=== PATIENT | female | born 1965 | race Caucasian/White ===

== ENCOUNTER 2017-04-28 17:22 | Emergency (ER) | payer BC, OTHER ==
[~2017-04-28] VITALS: Ht 157.5 cm; Wt 108.0 kg
--- OUTSIDE RECORDS SUMMARY | ~2017-04-28 | XMS | Clinical Summary ---
Demographics + + + | Address | [address] | | | [place] [address] | + + + | Home Phone | | + + + | Preferred Language | Unknown | + + + | Marital Status | Single | + + + | Uatsdin Affiliation | Unknown | + + + | Race | or | + + + | Ethnic Group | Not or | + + + Author + + + | Author | [facility] | + + + | Organization | [facility] | + + + | Address | Unknown | + + + | Phone | Unavailable | + + + Support + + +---------+ + | Name | Relationship | Address | Phone | + + +---------+ + | HARVEY DODSON | SHE | Unknown | | + + +---------+ + Care Team Providers + +------+ + | Care Shipping And Receiving Clerk Name | Role | Phone | + +------+ + | Carolina LeyvaP | PP | Unavailable | + +------+ + Source Comments MANISHA is fully live on both EpicCare Ambulatory and EpicCare InPatient.[facility] Allergies + + + + + + | Active Allergy | Reactions | Severity | Noted | Comments | | | | | Date | | + + + + + + | Penicillins | | | 10/31/19 | Can't remember | | | | | 10 | reaction | + + + + + + Current Medications + + +-------+---------+------+------+-------+ | Prescription | Sig. | Disp. | Refills | Star | End | Statu | | | | | | t | Date | s | | | | | | Date | | | + + +-------+---------+------+------+-------+ | ibuprofen (MOTRIN) | Take 800 mg by mouth | | | 09/0 | | Activ | | 800 mg Oral Tablet | as needed. | | | 2/20 | | e | | | | | | 10 | | | + + +-------+---------+------+------+-------+ Active Problems + + + | Problem | Noted Date | + + + | Hepatitis C | 10/30/2009 | + + + | Diabetes mellitus (HCC) | 10/30/2009 | + + + Family History + + +------+ + | Medical History | Relation | Name | Comments | + + +------+ + | Additional Family | Father | | Parkinsons | | History | | | | + + +------+ + | Diabetes | Mother | | | + + +------+ + | Hypertension | Mother | | | + + +------+ + + +------+--------+ + | Relation | Name | Status | Comments | + +------+--------+ + | Father | | | | + +------+--------+ + | Mother | | | | + +------+--------+ + Social History + +-------+ +--------+ + [...] Pressure | 132/84 | 10/30/2009 8:40 AM PDT | + + + + | Pulse | 76 | 10/30/2009 8:40 AM PDT | + + + + | Temperature | 36.8 C (98.3 F) | 10/30/2009 8:40 AM PDT | + + + + | Respiratory Rate | 16 | 10/30/2009 8:40 AM PDT | + + + + | Oxygen Saturation | - | - | + + + + | Inhaled Oxygen | - | - | | Concentration | | | + + + + | Weight | 102.9 kg (226 lb | 10/30/2009 8:40 AM PDT | | | 12.8 oz) | | + + + + | Height | 157.5 cm (5' 2") | 10/30/2009 8:40 AM PDT | + + + + | Body Mass Index | 41.48 | 10/30/2009 8:40 AM PDT | + + + + Plan of Treatment + + + + + | Health Maintenance | Due Date | Last Done | Comments | + + + + + | INFLUENZA VACCINE | | | | | (FLU SHOT) | 7 | | | + + + + + Results Not on filefrom Last 3 Months
--- OUTSIDE RECORDS SUMMARY | ~2017-04-28 | XMS | Clinical Summary ---
Demographics + + + | Address | [address] | | | [place] [address] | + + + | Home Phone | | + + + | Preferred Language | Unknown | + + + | Marital Status | Single | + + + | Lutheran Affiliation | Unknown | + + + | Race | or | + + + | Ethnic Group | Not or | + + + Author + + + | Author | [facility] | + + + | Organization | [facility] | + + + | Address | Unknown | + + + | Phone | Unavailable | + + + Support + + +---------+ + | Name | Relationship | Address | Phone | + + +---------+ + | HARVEY DODSON | SHE | Unknown | | + + +---------+ + Care Team Providers + +------+ + | Care Product Manager Name | Role | Phone | + +------+ + | Carolina LeyvaP | PP | Unavailable | + +------+ + Source Comments MANISHA is fully live on both EpicCare Ambulatory and EpicCare InPatient.[facility] Allergies + + + + + + [...]
[~2017-04-28 17:22] MED LIST: BACTRIM DS TAB1 EACH PO; CLINDAMYCIN HC150 MG PO; FERROUS SULFAT325 MG PO; LASIX40 MG PO; NORCO 5-325 TA1 EACH PO; OMEPRAZOLE20 MG PO; POTASSIUM CHLO20 ME1 PO; SPIRONOLACTONE50 MG PO; VITAMIN C500 M1 PO
[2017-04-28] MEDS ORDERED: LASIX40 MG PO (17:52)
[2017-04-28] MEDS ORDERED: K-TAB ER20 MEQ PO (17:52)
== END 2017-04-28 18:02 | disposition home or self-care (01) ==
LOC: ED 17:22
DX: D64.9 Anemia, unspecified (principal); R60.0 Localized edema; E11.9 Type 2 diabetes mellitus without complications; F17.200 Nicotine dependence, unspecified, uncomplicated; Z88.0 Allergy status to penicillin
CPT/HCPCS: 99283

== ENCOUNTER 2019-03-04 22:28 | Emergency (ER) | payer BC, OTHER ==
[~2019-03-04] VITALS: Ht 157.5 cm; Wt 108.0 kg
--- OUTSIDE RECORDS SUMMARY | ~2019-03-04 | XMS | Encounter Summary ---
Demographics + + + | Address | [address] | | | [place] [address] | + + + | Home Phone | | + + + | Preferred Language | Unknown | + + + | Marital Status | Single | + + + | Baptism Affiliation | Unknown | + + + | Race | or | + + + | Ethnic Group | Not or | + + + Author + + + | Author | [facility] | + + + | Organization | [facility] | + + + | Address | Unknown | + + + | Phone | Unavailable | + + + Support + + +---------+ + | Name | Relationship | Address | Phone | + + +---------+ + | Berny Breaux | ECON | Unknown | | + + +---------+ + Care Team Providers + +------+ + | Care Business Reporter Name | Role | Phone | + +------+ + | Carolina Leyva | PCP | | + +------+ + Reason for Visit +--------+ + | Reason | Comments | +--------+ + | Anemia | | +--------+ + Encounter Details +--------+ + + + + | Date | Type | Department | Care Team | Description | +--------+ + + + + | 04/04/ | Emergency | [facility] | | | | 2013 | | Department [address] | | | [address] | | | | | | [facility] | | | | | | [place], [place] | | | | | | [address] | | | | | | [phone] | | | +--------+ + + + + Social History + +-------+ +--------+ + | Tobacco Use | Types | Packs/Day | Years | Date | | | | | Used | | + +-------+ +--------+ + | Former Smoker | | | 5 | Quit: 07/30/1999 | + +-------+ +--------+ + + + | Comments: only socially | + + + + +---------+ + | Alcohol Use | Drinks/Week | oz/Week | Comments | + + +---------+ + | No | | | | + + +---------+ + + + + | Sex Assigned at | Date Recorded | | | | + + + | Not on file | | + + + + + + + | Job Start Date | Occupation | Industry | + + + + | Not on file | Not on file | Not on file | + + + + + + + + | Travel History | Travel Start | Travel End | + + + + + + | No recent travel history available. | + + documented as of this encounter Medications at Time of Discharge + + + +---------+ + + | Medication | Sig | Dispensed | Refills | Start | End Date | | | | | | Date | | + + + +---------+ + + | ibuprofen (MOTRIN) | Take 800 mg by mouth | | 0 | 10/31/19 | | | 800 mg Oral Tablet | as needed. | | | 10 | | + + + +---------+ + + documented as of this encounter Plan of Treatment Not on filedocumented as of this encounter Visit Diagnoses Not on filedocumented in this encounter"
--- OUTSIDE RECORDS SUMMARY | ~2019-03-04 | XMS | Encounter Summary ---
Demographics + + + | Address | [address] | | | [place] [address] | + + + | Home Phone | | + + + | Preferred Language | Unknown | + + + | Marital Status | Single | + + + | Roman Catholic Affiliation | Unknown | + + + | Race | or | + + + | Ethnic Group | Not or | + + + Author + + + | Author | [facility] | + + + | Organization | [facility] | + + + | Address | Unknown | + + + | Phone | Unavailable | + + + Support + + +---------+ + | Name | Relationship | Address | Phone | + + +---------+ + | Berny Breaux | ECON | Unknown | | + + +---------+ + Care Team Providers + +------+ + | Care Outreach Counselor Name | Role | Phone | + +------+ + | Carolina Leyva | PCP | | + +------+ + Reason for Visit + + + | Reason | Comments | + + + | Appointment | | + + + Encounter Details +--------+ + + + + | Date | Type | Department | Care Team | Description | +--------+ + + + + | 03/08/ | Telephone | Digestive Health | Geovani Kapoor | Appointment | | 2014 | | Center at [facility] [address] | | | | | [address] | [place], [place] | | | | | Mailcode: OC8D | [address] | | | | | [facility] | [phone] | | | | | and Healing, | | | | | | [address] | | | | | | [place], [place] | | | | | | [address] | | | | | | [phone] | | | +--------+ + + + [...]
--- OUTSIDE RECORDS SUMMARY | ~2019-03-04 | XMS | Clinical Summary ---
Demographics + + + | Address | [address] | | | [place] [address] | + + + | Home Phone | | + + + | Preferred Language | Unknown | + + + | Marital Status | Single | + + + | Congregation Affiliation | Unknown | + + + | Race | Unknown | + + + | Ethnic Group | Unknown | + + + Author + + + | Author | [facility] (Historical as of | | | 10-14-18) | + + + | Organization | [facility] (Historical as of | | | 10-14-18) | + + + | Address | Unknown | + + + | Phone | Unavailable | + + + Support + + +---------+ + | Name | Relationship | Address | Phone | + + +---------+ + | Sadaf Arnold | SHE | Unknown | | + + +---------+ + Care Team Providers + +------+ + | Care Cabinet And Trim Installer Name | Role | Phone | + +------+ + | Sahil Luis Angel Griggs | PP | | + +------+ + Allergies + + + + + + | Active Allergy | Reactions | Severity | Noted | Comments | | | | | Date | | + + + + + + | Penicillins | Rash | Medium | 01/25/20 | | | | | | 14 | | + + + + + + Current Medications No known medications Active Problems No known active problems Social History + +-------+ +--------+------+ | Tobacco Use | Types | Packs/Day | Years | Date | | | | | Used | | + +-------+ +--------+------+ | Never Smoker | | | | | + +-------+ +--------+------+ + + +---------+ + | Alcohol Use | Drinks/We | oz/Week | Comments | | | ek | | | + + +---------+ + | No | | | | + + +---------+ + + + + | Sex Assigned at | Date Recorded | | | | + + + | Not on file | | + + + Last Filed Vital Signs + + + + | Vital Sign | Reading | Time Taken | + + + + | Blood Pressure | 135/67 | 01/24/2014 10:33 PM PST | + + + + | Pulse | 82 | 01/24/2014 10:33 PM PST | + + + + | Temperature | 37.2 C (99 F) | 01/24/2014 9:48 PM PST | + + + + | Respiratory Rate | 16 | 01/24/2014 10:33 PM PST | + + + + | Oxygen Saturation | 99% | 01/24/2014 10:33 PM PST | + + + + | Inhaled Oxygen | - | - | | Concentration | | | + + + + | Weight | 102 kg (224 lb 13.9 | 01/24/2014 9:48 PM PST | | | oz) | | + + + + | Height | - | - | + + + + | Body Mass Index | - | - | + + + + Plan of Treatment + + + + + | Health Maintenance | Due Date | Last Done | Comments | + + + + + | Vaccine: | 10/02/198 | | | | Dtap/Tdap/Td (1 - | 7 | | | | Tdap) | | | | + + + + + | Cervical Cancer | | | | | Screening (Pap) | 8 | | | + + + + + | Vaccine: Zoster (1 | | | | | of 2) | 8 | | | + + + + + | Vaccine: Influenza | | | | | (#1) | 9 | | | + + + + + Results Not on filefrom Last 3 Months Insurance + +--------+ +------+-------+ + | Payer | Benefi | Subscriber | Type | Phone | Address | | | t Plan | ID | | | | | | / | | | | | | | Group | | | | | + +--------+ +------+-------+ + | PREMERA | PREMER | [id number] | | | [address] [address] | | | A BLUE | | | | [place], [place] | | | CROSS | | | | [address] | | | FED | | | | | | | PPO | | | | | + +--------+ +------+-------+ + | [employer] | YELLOW | [id number] | | | | | PLANS | [place] | | | | | + +--------+ +------+-------+ + + +--------+ +--------+ + + | Guarantor Name | Accoun | Relation to | Date | Phone | Billing Address | | | t Type | Patient | of | | | | | | | | | | + +--------+ +--------+ + + | KAREN PATEL | Person | Self [birth year] | Work: | [address] | | | [place] | | 1966 | [phone] | [place] [address] | | | [address] | | | [phone]: | | | | | | | | | | | | | | [phone] | | | | | | | [phone] | | + +--------+ +--------+ + +"
--- OUTSIDE RECORDS SUMMARY | ~2019-03-04 | XMS | Encounter Summary ---
Demographics + + + | Address | [address] | | | [place] [address] | + + + | Home Phone | | + + + | Preferred Language | Unknown | + + + | Marital Status | Single | + + + | Druze Affiliation | Unknown | + + + | Race | or | + + + | Ethnic Group | Not or | + + + Author + + + | Author | [facility] | + + + | Organization | [facility] | + + + | Address | Unknown | + + + | Phone | Unavailable | + + + Support + + +---------+ + | Name | Relationship | Address | Phone | + + +---------+ + | Berny Breaux | ECON | Unknown | | + + +---------+ + Care Team Providers + +------+ + | Care Plant Quality Manager Name | Role | Phone | + [...] | | 2014 | | Center at [facility] [address] | | | | | [address] | [place], [place] | | | | | Mailcode: OC8D | [address] | | | | | [facility] | [phone] | | | | | and Healing, | | | | | | [address] | | | | | | [place], [place] | | | | | | [address] | | | | | | [phone] | | | +--------+ + + + [...]
--- OUTSIDE RECORDS SUMMARY | ~2019-03-04 | XMS | Clinical Summary ---
Demographics + + + | Address | [address] | | | [place] [address] | + + + | Home Phone | | + + + | Preferred Language | Unknown | + + + | Marital Status | | + + + | Mandaeism Affiliation | Unknown | + + + | Race | Unknown | + + + | Ethnic Group | Unknown | + + + Author + + + | Author | [facility] | | | and [place] | + + + | Organization | [facility] | | | and [place] | + + + | Address | Unknown | + + + | Phone | Unavailable | + + + Support + + +---------+ + | Name | Relationship | Address | Phone | + + +---------+ + | Sadaf Arnold | SHE | Unknown | | + + +---------+ + Care Team Providers + +------+ + | Care Separations Scientist Name | Role | Phone | + +------+ + | Amy Vizcarra PA-C | PCP | | + +------+ + Allergies + + + +--------+ + | Active Allergy | Reactions | Severity | Noted | Comments | | | | | Date | | + + + +--------+ + | Penicillins | | | | | + + + +--------+ + Medications + + + +---------+------+------+-------+ | Medication | Sig | Dispensed | Refills | Star | End | Statu | | | | | | t | Date | s | | | | | | Date | | | + + + +---------+------+------+-------+ | albuterol (PROAIR | Inhale 1 or 2 puffs | | 0 | 10/29 | | Activ | | HFA) 90 mcg/puff | 4 times a day as | | | 06/17 | | e | | inhaler | needed for shortness | | | 12 | | | | | of breath | | | | | | + + + +---------+------+------+-------+ | aspirin 81 mg EC | Take 81 mg by mouth | | 0 | 10/29 | | Activ | | tablet | Daily. | | | 06/17 | | e | | | | | | 12 | | | + + + +---------+------+------+-------+ | ferrous sulfate | Take 1 tablet by | | 0 | 10/29 | | Activ | | 325 mg tablet | mouth twice daily | | | 06/17 | | e | | | with meals for iron | | | 12 | | | + + + +---------+------+------+-------+ | TechLite Lancets | Use as directed for | | 0 | 09/1 | | Activ | | MISC | blood testing | | | 4/20 | | e | | | | | | 12 | | | + + + +---------+------+------+-------+ | lisinopril | Take 2.5 mg by mouth | | 0 | 09/1 | | Activ | | (PRINIVIL,ZESTRIL) | Daily. | | | 4/20 | | e | | 2.5 MG tablet | | | | 12 | | | + + + +---------+------+------+-------+ | Blood Glucose | Use as directed | | 0 | 09/1 | | Activ | | Monitoring Suppl | | | | 4/20 | | e | | (KEENA CONTOUR | | | | 12 | | | | MONITOR) W/DEVICE | | | | | | | | KIT | | | | | | | + + + +---------+------+------+-------+ | glucose blood | Use as directed | | 0 | 09/1 | | Activ | | test strips (KEENA | | | | 06/17 | | e | | CONTOUR TEST) strip | | | | 12 | | | + + + +---------+------+------+-------+ | | to be used as needed | | 0 | 07/ | | Activ | | tobramycin-dexametha | | | | 11/17 | | e | | sone (TOBRADEX) | | | | 11 | | | | ophthalmic solution | | | | | | | + + + +---------+------+------+-------+ Active Problems + + + | Problem | Noted Date | + + + | THROMBOCYTOPENIA | 09/15/2010 | + + + | ABN LIVER FUNCTION | 09/15/2010 | + + + | DEFICIENCY OF OTHER VITAMINS | | + + + | DIABETES MELLITUS, TYPE II | | + + + | UNSPECIFIED VIRAL HEPATITIS C W/O HEPATIC COMA | | + + + + + | Overview: ICD-10 Record update | + + + +---+ | CONJUNCTIVITIS | | + +---+ | ANEMIA | | + +---+ Social History + +-------+ +--------+------+ | Tobacco Use | Types | Packs/Day | Years | Date | | | | | Used | | + +-------+ +--------+------+ | Never Smoker | | | | | + +-------+ +--------+------+ + + + | Sex Assigned at [...] recent travel history available. | + + Last Filed Vital Signs + + + + + | Vital Sign | Reading | Time Taken | Comments | + + + + + | Blood Pressure | 136/90 | 09/15/2010 12:00 AM | | | | | PDT | | + + + + + | Pulse | - | - | | + + + + + | Temperature | - | - | | + + + + + | Respiratory Rate | - | - | | + + + + + | Oxygen Saturation | - | - | | + + + + + | Inhaled Oxygen | - | - | | | Concentration | | | | + + + + + | Weight | 103.9 kg (229 lb) | 09/15/2010 12:00 AM | | | | | PDT | | + + + + + | Height | 160 cm (5' 3") | 08/03/2010 12:00 AM | | | | | PDT | | + + + + + | Body Mass Index | 40.57 | 08/03/2010 12:00 AM | | | | | PDT | | + + + + + Plan of Treatment + + + + + | Health Maintenance | Due Date | Last Done | Comments | + + + + + | Vaccine: | | | | | Dtap/Tdap/Td (1 - | 9 | | | | Tdap) | | | | + + + + + | Cervical Cancer | | | | | Screening (Pap) | 8 | | | + + + + + | Breast Cancer | | | | | Screening | 3 | | | + + + + + | Vaccine: Zoster (1 | | | | | of 2) | 8 | | | + + + + + | Vaccine: Influenza | | | | | (#1) | 9 | | | + + + + + Results Not on filefrom Last 3 Months Insurance +-------+--------+ +--------+ + +------+ | Payer | Benefi | Subscriber | Effect | Phone | Address | Type | | | t Plan | ID | tyrese | | | | | | / | | Dates | | | | | | Group | | | | | | +-------+--------+ +--------+ + +------+ | BCBS | BCBS | [id number] | 02/28/19 | | | PPO | | | FEDERA | | 16-Pre | | | | | | L FEP | | sent | | | | +-------+--------+ +--------+ + +------+ | MODA | MODA | [id number] | | [phone] | [address] | PPO | | | OE[employer] | | [phone]-[id number] | [phone] | | | | [place] | | esent | | [place], | | | | [place] | | | | [place] [address] | | +-------+--------+ +--------+ + +------+ + +--------+ +--------+ + + | Guarantor Name | Accoun | Relation to | Date | Phone | Billing Address | | | t Type | Patient | of | | | | | | | | | | + +--------+ +--------+ + + | Karen Whitmore | Person | Self | [birth year] | | [address] | | | [place] | | 1966 | [phone] | [place] [address] | | | [place] | | | 4 (Home) | | | | | | | [phone] | | | | | | | 2 (Work) | | + +--------+ +--------+ + +
--- OUTSIDE RECORDS SUMMARY | ~2019-03-04 | XMS | Encounter Summary ---
Demographics + + + | Address | [address] | | | [place] [address] | + + + | Home Phone | | + + + | Preferred Language | Unknown | + + + | Marital Status | Single | + + + | Judaism Affiliation | Unknown | + + + | Race | or | + + + | Ethnic Group | Not or | + + + Author + + + | Author | [facility] | + + + | Organization | [facility] | + + + | Address | Unknown | + + + | Phone | Unavailable | + + + Support + + +---------+ + | Name | Relationship | Address | Phone | + + +---------+ + | Berny Breaux | ECON | Unknown | | + + +---------+ + Care Team Providers + +------+ + | Care Gis Scientist Name | Role | Phone | + +------+ + | Carolina Leyva | PCP | | + +------+ + Encounter Details +--------+ + + + + | Date | Type | Department | Care Team | Description | +--------+ + + + + | 05/10/ | Document-Sc | UNKNOWN DEPARTMENT | Unknown . | | | 2013 | anned | [address] | | | | | [address] | | | | | | [place], [place] | | | | | | [address] | | | +--------+ + + + [...]
--- OUTSIDE RECORDS SUMMARY | ~2019-03-04 | XMS | Encounter Summary ---
Demographics + + + | Address | [address] | | | [place] [address] | + + + | Home Phone | | + + + | Preferred Language | Unknown | + + + | Marital Status | | + + + | Hoahaoism Affiliation | Unknown | + + + | Race | Unknown | + + + | Ethnic Group | Unknown | + + + Author + + + | Author | [facility] | | | and [place] | + + + | Organization | [facility] | | | and [...] Team Providers + +------+ + | Care Loom Cleaner Name | Role | Phone | + +------+ + | Juanita Elias MD | PCP | | + +------+ + Encounter Details +--------+ + + + + | Date | Type | Department | Care Team | Description | +--------+ + + + + | 05/04/ | Documentati | [facility] | [facility], | | | 2013 | on | GASTROENTEROLOGY | DIONE Castillo [address] | | | | | [address] [place] | [place] [address] | | | | | [address] | [place] | | | | | [address] | [id number] | | | | | [phone] | | | +--------+ + + + + Social History + +-------+ +--------+------+ | Tobacco Use | Types | Packs/Day | Years | Date | | | | | Used | | + +-------+ +--------+------+ | Never Assessed | | | | | + +-------+ [...]
--- OUTSIDE RECORDS SUMMARY | ~2019-03-04 | XMS | Encounter Summary ---
Demographics + + + | Address | [address] | | | [place] [address] | + + + | Home Phone | | + + + | Preferred Language | Unknown | + + + | Marital Status | Single | + + + | Confucianist Affiliation | Unknown | + + + | Race | or | + + + | Ethnic Group | Not or | + + + Author + + + | Author | [facility] | + + + | Organization | [facility] | + + + | Address | Unknown | + + + | Phone | Unavailable | + + + Support + + +---------+ + | Name | Relationship | Address | Phone | + + +---------+ + | Berny Breaux | ECON | Unknown | | + + +---------+ + Care Team Providers + +------+ + | Care Chemical Equipment Controller Name | Role | Phone | + +------+ + | Carolina Leyva | PCP | | + +------+ + Encounter Details +--------+ + + + + | Date | Type | Department | Care Team | Description | +--------+ + + + + | 04/28/ | Telephone | Digestive Health | Geovani Kapoor | | | 2010 | | [place] [address] | MD Clemencia [address] | | | | | [address] | [place], [place] | | | | | Mailcode: OC8D | [address] | | | | | [facility] | [phone] | | | | | and Healing, | | | | | | [address] | | | | | | [place], [place] | | | | | | [address] | | | | | | [phone] | | | +--------+ + + + [...]
--- OUTSIDE RECORDS SUMMARY | ~2019-03-04 | XMS | Encounter Summary ---
Demographics + + + | Address | [address] | | | [place] [address] | + + + | Home Phone | | + + + | Preferred Language | Unknown | + + + | Marital Status | Single | + + + | Buddhism Affiliation | Unknown | + + + [...] Team Providers + +------+ + | Care Vulcanizer Rubber Plate Name | Role | Phone | + +------+ + | Carolina Leyva | PCP | | + +------+ + Reason for Visit + + + | Reason | Comments | + + + | New patient | Hepatitis C | | consultation | | + + + Consultation (Routine) +--------+ + + + + + | Status | Reason | Specialty | Diagnoses / | Referred By | Referred To | | | | | Procedures | Contact | Contact | +--------+ + + + + + | Closed | Specialty | Hepatology | Diagnoses | [facility]ine[facility], | Gas | | | Services | | Hepatitis C | NEETA Peters | Hepatology | | | Required | | Procedures | [address] | [address] | | | | | CONSULT TO | MANUELITO KILLIAN | Sujit Gabriel | | | | | HEPATOLOGY | [place], [place] | Mailcode: | | | | | | [address] | [facility] | | | | | | Phone: | [employer] | | | | | | [phone] | and [facility], | | | | | | Fax: | [facility] [address] | | | | | | [phone] | [place], [place] | | | | | | | [address] | | | | | | | Phone: | | | | | | | [phone] | | | | | | | Fax: | | | | | | | [phone] | +--------+ + + + + + Encounter Details +--------+---------+ + + + | Date | Type | Department | Care Team | Description | +--------+---------+ + + + | 10/30/ | Office | Digestive Health | Geovani Kapoor | Hepatitis C; | | 2009 | Visit | Center at [facility] [address] | MD Clemencia [address] | Diabetes mellitus | | | | [address] | Ave [place], [place] | ([facility]) | | | | Mailcode: [facility] | [address] | | | | | [facility] | [phone] | | | | | and Healing, | | | | | | Building [address] | | | | | | [place], [place] | | | | | | [address] | | | | | | [phone] | | | +--------+---------+ + + + Social History + +-------+ [...] + + documented as of this encounter Last Filed Vital Signs + + + + + | Vital Sign | Reading | Time Taken | Comments | + + + + + | Blood Pressure | 132/84 | 10/30/2009 8:40 AM | | | | | PDT | | + + + + + | Pulse | 76 | 10/30/2009 8:40 AM | | | | | PDT | | + + + + + | Temperature | 36.8 C (98.3 F) | 10/30/2009 8:40 AM | | | | | PDT | | + + + + + | Respiratory Rate | 16 | 10/30/2009 8:40 AM | | | | | PDT | | + + + + + | Oxygen Saturation | - | - | | + + + + + | Inhaled Oxygen | - | - | | | Concentration | | | | + + + + + | Weight | 102.9 kg (226 lb | 10/30/2009 8:40 AM | | | | 12.8 oz) | PDT | | + + + + + | Height | 157.5 cm (5' 2") | 10/30/2009 8:40 AM | | | | | PDT | | + + + + + | Body Mass Index | 41.48 | 10/30/2009 8:40 AM | | | | | PDT | | + + + + + documented in this encounter Progress Notes Geovani Kapoor MD - 10/30/2009 9:12 AM PDTFormatting of this note might be differen t from the original. Reason for referral: Evaluation and management of Hepatitis C (HCV) infection Referring provider: Carolina Leyva Ms. Karen Whitmore, a 43 y.o. female first learned she had HCV in June of 2009. She has nev er had confusion suggestive of hepatic encephalopathy, abdominal swelling suggestive of asci deloris, yellowness of the eyes suggestive of jaundice, or vomiting of blood. 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; has daughter, 14 (healthy) and boyfrien d [place] Gen: Mild fatigue, malaise Eyes: No yellowness, no visual abnormalities Mouth: No dysphagia or odynophagia Resp: No shortness of breath, no cough CV: No palpitations, no chest pain Abd: No abdominal pain, no recent change in bowel habits, no black tarry stools, no BRBPR Skin: No rash Neuro: No tremor Psych: No depression, no anxiety All other systems otherwise negative PE Filed Vitals: 10/30/2009 8:40 AM Height: 1.575 m (5' 2") Weight: 102.876 kg (226 lb 12.8 oz) BP: 132/84 Pulse: 76 Temp: 36.8 C (98.3 F) TempSrc: Oral Resp: 16 PainSc: 0 - Zero BMI: 41.48 kg/(m^2) Gen: Well developed female in no acute distress HEENT: NC/AT, no scleral icterus, no lesions OP/OC Neck: Supple, no JULIAN CV: Reg S1S2, no m/r/g Pulm: Clear B Abd: Soft, NT, obese, +BS all quads, no masses Ext: No edema Neuro: No asterixis Skin: No spider angiomata Lab Date: 06/05/09 HAV IgM Neg HBsAg Neg HBV sAb Neg HCV Ab Pos Date: 06/04/09 Creat 0.57 Ast 125 Alt 113 ALP 117 Tbili 0.8 Summary Diagnoses 1. HCV infection, GT unknown 1.1 No evidence of cirrhosis 1.2 HCV Treatment Hx: None 2. Diabetes mellitus 3. Overweight Impression Ms. Karen Whitmore is a 43 y.o. female who presents for evaluation and management of HCV in [facility]. She has no clinical or laboratory evidence that suggest cirrhosis. I discussed at length the natural history of HCV infection, specifically that it is thought to cause cirrh osis in approximately 20% of people infected, and that it takes 2 to 5 decades of infection for cirrhosis to appear. The risk of developing cirrhosis can be increased by drinking alco hol heavily. We talked about the standard of care treatment of HCV infection, which includes treatment w ith interferon and ribavirin. The main side effects of treatment, including abnormalities i n blood counts, onset or worsening of psychiatric problems like depression and anxiety, flu- like symptoms, thyroid abnormalities, and treatment failure were discussed. I think that the first thing we need to do is get the genotype of her HCV and confirm that she actually has HCV (with a viral load). She likely has HCV given the positive antibody te st and elevated liver enzymes, but given that she is overweight and has DM, she is also at [facility] for fatty liver (NAFLD). A liver biopsy will help us sort out if she needs to be treate d for HCV (it will tell us if she has significant fibrosis, in which case I would recommend HCV treatment; if little or no fibrosis, would not treat). Recommendations 1. Blood work to confirm HCV (RNA viral load) and get genotype today 2. Get liver biopsy locally, have results sent to me 3. I will call the patient ([phone]) when I get the results, we will make a plan from there documented in th is encounter Plan of Treatment Not on filedocumented as of this encounter Results HEPATITIS C QUANTITATIVE, SERUM (10/30/2009 9:23 AM PDT) + + + + + + | Component | Value | Ref Range | Performed | Pathologist | | | | | At | Signature | + + + + + + | HEP C PCR, | [id number] | IU/mL | [facility] | | | QUANT | | | [facility] | | | | | | LABS | | + + + + + + | SPECIMEN | Serum | | [facility] | | | TYPE | | | [facility] | | | | | | LABS | | + + + + + + | INTERPRETAT | Reportable Range: | | [facility] | | | ION | 43-69,000,000 IU/mL HCV | | [facility] | | | | viral loads above | | LABS | | | | approximately 800,000 | | | | | | HCV IU/mL predict a | | | | | | poorerresponse to | | | | | | antiviral therapy and | | | | | | may indicate the need | | | | | | for a longercourse of | | | | | | antiviral therapy. HCV | | | | | | viral loads below | | | | | | approximately 800,000HCV | | | | | | IU/mL are a good | | | | | | prognostic indicator for | | | | | | antiviral therapy | | | | | | efficacy. Serial | | | | | | declines in the HCV | | | | | | viral load may indicate | | | | | | the relative efficacyof | | | | | | anti-viral therapy. | | | | | | Viral load changes of | | | | | | less than 3 fold may not | | | | | | bebiologically | | | | | | significant and should | | | | | | be interpreted | | | | | | cautiously. Undetected | | | | | | results are suggestive | | | | | | of either the absence of | | | | | | HCV viremia orthe | | | | | | presence of low-level | | | | | | HCV viremia below the | | | | | | assay's detection limit. | | | | | | | | | | + + + + + + + + | Specimen | + + | Blood - Blood | + + + + + + + | Performing | Address | City/State/Zipcode | Phone Number | | Organization | | | | + + + + + | [facility] | [facility] | [place] [address] | | | GENETICS LABS | [address] | | | | | [address]VE. | | | + + + + + HEPATITIS C GENOTYPING, SERUM (10/30/2009 9:23 AM PDT) + + + + + + | Component | Value | Ref Range | Performed | Pathologist | | | | | At | Signature | + + + + + + | HEP C | TYPE 1A | | [facility] | | | GENOTYPE | | | [facility] | | | | | | LABS | | + + + + + + | SPECIMEN | Serum | | [facility] | | | TYPE | | | [facility] | | | | | | LABS | | + + + + + + | INTERPRETAT | As per your request, we | | [facility] | | | ION | have completed a | | [facility] | | | | polymerase chain | | LABS | | | | reaction (PCR)based | | | | | | assay to determine the | | | | | | genotype of the | | | | | | hepatitis C virus | | | | | | speciespresent in the | | | | | | patient. For this assay, | | | | | | serum derived RNA is | | | | | | reversetranscribed with | | | | | | an HCV specific primer | | | | | | followed by multiplex | | | | | | PCRamplification (3 | | | | | | different reactions) | | | | | | with genotype-specific | | | | | | probes andfluorescent | | | | | | detection on an MICHELLE | | | | | | [id number] instrument. The | | | | | | real time | | | | | | PCRamplification plots | | | | | | of the patient sample | | | | | | and controls has been | | | | | | examinedand the clinical | | | | | | interpretation is | | | | | | detailed below. | | | | | | Infection with HCV | | | | | | genotype 1,4,5, or 6 | | | | | | isolates has been shown | | | | | | to be oneof several | | | | | | factors associated with | | | | | | a poorer virological | | | | | | response topharmacologic | | | | | | antiviral therapy. | | | | | | Patients with HCV | | | | | | genotype 1,4,5,or | | | | | | 6isolates may require | | | | | | lengthier durations of | | | | | | antiviral therapy to | | | | | | achievea sustained | | | | | | virological response. | | | | | | In addition to the | | | | | | presence of HCVgenotype | | | | | | 1,4,5,or 6 isolates, | | | | | | other poor prognostic | | | | | | indicators for | | | | | | asustained response to | | | | | | antiviral therapy | | | | | | include a high baseline | | | | | | viralload, the presence | | | | | | of hepatic fibrosis, and | | | | | | older age. A | | | | | | quantitativeHCV RNA-PCR | | | | | | viral load assay | | | | | | (test#8804) may | | | | | | therefore be | | | | | | clinicallyindicated. | | | | | | References: 1.) | | | | | | Rajni Mccann, | | | | | | Best Natarajan, | | | | | | Lauren David, Jasmin, | | | | | | Lay Dong J. | | | | | | (1999): Is am "A la | | | | | | Carte" combination of | | | | | | interferon edilberto-2b | | | | | | plusribavirin regimen | | | | | | possible for the first | | | | | | line treatment of | | | | | | patients withhepatitis | | | | | | C? Hepatology 31, | | | | | | 211-218. This test was | | | | | | developed and its | | | | | | performance | | | | | | characteristics | | | | | | determined bythe [facility] | | | | | | [facility] | | | | | | Laboratory. It has not | | | | | | been cleared or | | | | | | approvedby the Food and | | | | | | Drug Administration. FDA | | | | | | approval is not | | | | | | required forclinical use | | | | | | of the test, and | | | | | | therefore validation was | | | | | | done as requiredunder | | | | | | the requirements of the | | | | | | Clinical Laboratory | | | | | | Improvement Act . | | | | | | The [facility] | | | | | | Laboratory is a fully | | | | | | licensed and/ | | | | | | oraccredited clinical | | | | | | laboratory under CLIA, | | | | | | [place], and the State of | | | | | | [place]. | | | | + + + + + + + + | Specimen | + + | Blood - Blood | + + + + + + + | Performing | Address | City/State/Zipcode | Phone Number | | Organization | | | | + + + + + | [facility] | [facility] | [place] [address] | | | GENETICS LABS | [address] | | | | | [address]VE[address] | | | + + + + + BILE ACIDS, TOTAL (10/30/2009 9:23 AM PDT) + + + + + + | Component | Value | Ref Range | Performed | Pathologist | | | | | At | Signature | + + + + + + | BILE ACIDS, | 35.0 (H)Comment: TEST | <10.1 umol/L | | | | TOTAL | INFORMATION: Bile Acids, | | | | | | TotalReference Interval | | | | | | applies to fasting | | | | | | specimens.Performed by | | | | | | [facility], | | | | | | | | | | | | [address] [facility] | | | | | | [place] [facility] [place] [address] | | | | | | [phone] | | | | | | | | | | | | www.[employer], | | | | | | Muna Nichols MD - | | | | | | Lab. Director | | | | + + + + + + + + | Specimen | + + | Blood - Blood | + + + + + + + | Performing | Address | City/State/Zipcode | Phone Number | | Organization | | | | + + + + + | [facility] | [address] | [place], [place] | | | [facility] | | [address] | | + + + + + CBC ONLY (10/30/2009 9:23 AM PDT) + + + + + + | Component | Value | Ref Range | Performed | Pathologist | | | | | At | Signature | + + + + + + | WHITE CELL | 4.8 | 4.4 - 11.0 K/cu | [facility] | | | COUNT | | mm | DEPARTMENT | | | | | | OF | | | | | | PATHOLOGY | | + + + + + + | RED CELL | 3.86 (L) | 4.00 - 5.20 | [facility] | | | COUNT | | M/cu mm | DEPARTMENT | | | | | | OF | | | | | | PATHOLOGY | | + + + + + + | HEMOGLOBIN | 10.3 (L) | 12.0 - 16.0 | [facility] | | | | | g/dL | DEPARTMENT | | | | | | OF | | | | | | PATHOLOGY | | + + + + + + | HEMATOCRIT | 31.7 (L) | 36.0 - 46.0 % | [facility] | | | | | | DEPARTMENT | | | | | | OF | | | | | | PATHOLOGY | | + + + + + + | MCV | 82.0 | 80.0 - 96.0 fL | [facility] | | | | | | DEPARTMENT | | | | | | OF | | | | | | PATHOLOGY | | + + + + + + | MCHC | 32.6 (L) | 33.4 - 35.5 | [facility] | | | | | g/dL | DEPARTMENT | | | | | | OF | | | | | | PATHOLOGY | | + + + + + + | RDW | 16.8 (H) | 11.5 - 15.0 % | [facility] | | | | | | DEPARTMENT | | | | | | OF | | | | | | PATHOLOGY | | + + + + + + | PLATELET | 114 (L) | 150 - 400 K/cu | [facility] | | | COUNT | | mm | DEPARTMENT | | | | | | OF | | | | | | PATHOLOGY | | + + + + + + + + | Specimen | + + | Blood - Blood | + + + + + + + | Performing | Address | City/State/Zipcode | Phone Number | | Organization | | | | + + + + + | [facility] | [address] | [place] [address] | | | PATHOLOGY | [address] | | | + + + + + INR (10/30/2009 9:23 AM PDT) + + + + + + | Component | Value | Ref Range | Performed | Pathologist | | | | | At | Signature | + + + + + + | INR | 1.13Comment: | 0.90 - 1.20 INR | [facility] | | | | INR Therapeutic ranges | | DEPARTMENT | | | | for full | | OF | | | | anticoagulation: | | PATHOLOGY | | | | INR for Venous | | | | | | Thromboembolism | | | | | | (2.0-3.0) | | | | | | INR INR for most | | | | | | patients with mech. | | | | | | valves (2.5-3.5) | | | | | | INR | | | | + + + + + + + + | Specimen | + + | Blood - Blood | + + + + + + + | Performing | Address | City/State/Zipcode | Phone Number | | Organization | | | | + + + + + | [facility] | [address] | [place] [address] | | | PATHOLOGY | [address] | | | + + + + + COMPLETE METABOLIC SET (NA,K,CL,CO2,BUN,CREAT,GLUC,CA,AST,ALT,BILI TOTAL,ALK PHOS,ALB,PROT TOTAL) (10/30/2009 9:23 AM PDT) + + + + + + | Component | Value | Ref Range | Performed | Pathologist | | | | | At | Signature | + + + + + + | GLUCOSE, | 137 (H) | 60 - 99 mg/dL | [facility] | | | PLASMA | | | DEPARTMENT | | | (LAB) | | | OF | | | | | | PATHOLOGY | | + + + + + + | BUN, PLASMA | 12 | 6 - 20 mg/dL | [facility] | | | (LAB) | | | DEPARTMENT | | | | | | OF | | | | | | PATHOLOGY | | + + + + + + | CREATININE | 0.56 (L) | 0.60 - 1.10 | [facility] | | | PLASMA | | mg/dL | DEPARTMENT | | | (LAB) | | | OF | | | | | | PATHOLOGY | | + + + + + + | TOTAL | 7.6 | 6.1 - 7.9 g/dL | [facility] | | | PROTEIN, | | | DEPARTMENT | | | PLASMA | | | OF | | | (LAB) | | | PATHOLOGY | | + + + + + + | ALBUMIN, | 3.1 (L) | 3.5 - 4.7 g/dL | [facility] | | | PLASMA | | | DEPARTMENT | | | (LAB) | | | OF | | | | | | PATHOLOGY | | + + + + + + | CALCIUM, | 9.0 | 8.6 - 10.2 | [facility] | | | PLASMA | | mg/dL | DEPARTMENT | | | (LAB) | | | OF | | | | | | PATHOLOGY | | + + + + + + | BILIRUBIN | 0.5 | 0.3 - 1.2 mg/dL | [facility] | | | TOTAL | | | DEPARTMENT | | | | | | OF | | | | | | PATHOLOGY | | + + + + + + | ALK PHOS | 123 (H) | 42 - 98 U/L | [facility] | | | | | | DEPARTMENT | | | | | | OF | | | | | | PATHOLOGY | | + + + + + + | AST(SGOT) | 118 (H) | 15 - 41 U/L | [facility] | | | | | | DEPARTMENT | | | | | | OF | | | | | | PATHOLOGY | | + + + + + + | SODIUM, | 136 | 134 - 143 | [facility] | | | PLASMA | | mmol/L | DEPARTMENT | | | (LAB) | | | OF | | | | | | PATHOLOGY | | + + + + + + | POTASSIUM, | 4.2 | 3.4 - 5.0 | [facility] | | | PLASMA | | mmol/L | DEPARTMENT | | | (LAB) | | | OF | | | | | | PATHOLOGY | | + + + + + + | CHLORIDE, | 107 | 97 - 108 mmol/L | [facility] | | | PLASMA | | | DEPARTMENT | | | (LAB) | | | OF | | | | | | PATHOLOGY | | + + + + + + | TOTAL CO2, | 25 | 23 - 31 mmol/L | [facility] | | | PLASMA | | | DEPARTMENT | | | (LAB) | | | OF | | | | | | PATHOLOGY | | + + + + + + | ALT (SGPT) | 91 (H) | 13 - 48 U/L | [facility] | | | | | | DEPARTMENT | | | | | | OF | | | | | | PATHOLOGY | | + + + + + + | EGFR | > 60 | >60 mL/min | [facility] | | | - | | | DEPARTMENT | | | [place] | | | OF | | | | | | PATHOLOGY | | + + + + + + | EGFR NON | > 60Comment: GFR is | >60 mL/min | [facility] | | | -ABENA | estimated using the MDRD | | DEPARTMENT | | | RICAN | equation recommended by | | OF | | | | theNational Kidney | | PATHOLOGY | | | | Disease Education | | | | | | Program. Estimated GFR | | | | | | Interpretive | | | | | | Information: <60 | | | | | | mL/min/1.73 sq m | | | | | | Chronic Kidney Disease | | | | | | <15 mL/min/1.73 sq m | | | | | | Kidney Failure | | | | | | Estimated GFR greater | | | | | | than 60mL/min/1.73 is of | | | | | | limited clinical Value. | | | | | | The MDRD equation is | | | | | | not valid in the | | | | | | following situations: - | | | | | | Patients under 18 years | | | | | | of age - Severe | | | | | | malnutrition or obesity | | | | | | - Vegetarian diet - | | | | | | Rapidly changing kidney | | | | | | function | | | | + + + + + + | ANION GAP | 4 | 4 - 11 mmol/L | [facility] | | | | | | DEPARTMENT | | | | | | OF | | | | | | PATHOLOGY | | + + + + + + | ANION | 6 | 4 - 11 mmol/L | [facility] | | | GAP(ALB | | | DEPARTMENT | | | CORRECTED) | | | OF | | | | | | PATHOLOGY | | + + + + + + + + | Specimen | + + | Blood - Blood | + + + + + + + | Performing | Address | City/State/Zipcode | Phone Number | | Organization | | | | + + + + + | [facility] | [address] | [place] [address] | | | PATHOLOGY | [address] | | | + + + + + documented in this encounter Visit Diagnoses + + | Diagnosis | + + | Hepatitis C Unspecified viral hepatitis C without hepatic coma | + + | Diabetes mellitus (HCC) Type II or unspecified type diabetes mellitus without mention | | of complication, not stated as uncontrolled | + + documented in this encounter
--- OUTSIDE RECORDS SUMMARY | ~2019-03-04 | XMS | Encounter Summary ---
Demographics + + + | Address | [address] | | | [place] [address] | + + + | Home Phone | | + + + | Preferred Language | Unknown | + + + | Marital Status | | + + + | Latter-Day Affiliation | Unknown | + + + [...] Team Providers + +------+ + | Care Efficiency Miner Blasting Name | Role | Phone | + +------+ + PCP | Unavailable | + +------+ + Encounter Details +--------+ + + + + | Date | Type | Department | Care Team | Description | +--------+ + + + + | 11/10/ | Abstract | [facility] | [facility] | | | 2011 | | Conversion Location | [facility] | | | | | [phone] | | | +--------+ + + + [...] + + + documented in this encounter Plan of Treatment Not on filedocumented as of this encounter Visit Diagnoses Not on filedocumented in this encounter
--- OUTSIDE RECORDS SUMMARY | ~2019-03-04 | XMS | Encounter Summary ---
Demographics + + + | Address | [address] | | | [place] [address] | + + + | Home Phone | | + + + | Preferred Language | Unknown | + + + | Marital Status | Single | + + + | Protestant Affiliation | Unknown | + + + [...] Team Providers + +------+ + | Care Bank Accountant Name | Role | Phone | + [...] [address] | | | | | | [facility] | | | | | | [place], [place] | | | | | | [address] | | | | | | [phone] | | | +--------+ + + + [...]
--- OUTSIDE RECORDS SUMMARY | ~2019-03-04 | XMS | Encounter Summary ---
Demographics + + + | Address | [address] | | | [place] [address] | + + + | Home Phone | | + + + | Preferred Language | Unknown | + + + | Marital Status | Single | + + + | Adventism Affiliation | Unknown | + + + | Race | or | + + + | Ethnic Group | Not or | + + + Author + + + | Author | [facility] | + + + | Organization | [facility] | + + + | Address | Unknown | + + + | Phone | Unavailable | + + + Support + + +---------+ + | Name | Relationship | Address | Phone | + + +---------+ + | Berny Breaux | ECON | Unknown | | + + +---------+ + Care Team Providers + +------+ + | Care Bale Sewer Name | Role | Phone | + +------+ + | Carolina Leyva | PCP | | + +------+ + Encounter Details +--------+------+ + + + | Date | Type | Department | Care Team | Description | +--------+------+ + + + | 10/30/ | Lab | Laboratory at [facility] | | Hepatitis C | | 2009 | | [address] | | | | | | [place], [place] | | | | | | [address] | | | | | | [phone] | | | +--------+------+ + + + Social History + +-------+ [...] Not on filedocumented as of this encounter Procedures + +--------+ + + + | Procedure Name | Priori | Date/Time | Associated Diagnosis | Comments | | | ty | | | | + +--------+ + + + | HEPATITIS C | Routin | 10/30/2009 | Hepatitis C | Results for this | | GENOTYPING, PLASMA | e | 9:23 AM | | procedure are in the | | | | PDT | | results section. | + +--------+ + + + | HEPATITIS C | Routin | 10/30/2009 | Hepatitis C | Results for this | | QUANTITATIVE, PLASMA | e | 9:23 AM | | procedure are in the | | | | PDT | | results section. | + +--------+ + + + | INR | Routin | 10/30/2009 | Hepatitis C | Results for this | | | e | 9:23 AM | | procedure are in the | | | | PDT | | results section. | + +--------+ + + + | COMPLETE METABOLIC | Routin | 10/30/2009 | Hepatitis C | Results for this | | SET | e | 9:23 AM | | procedure are in the | | (NA,K,CL,CO2,BUN,CRE | | PDT | | results section. | | AT,GLUC,CA,AST,ALT,B | | | | | | HEATHER TOTAL,ALK | | | | | | PHOS,ALB,PROT TOTAL) | | | | | + +--------+ + + + | CBC ONLY | Routin | 10/30/2009 | Hepatitis C | Results for this | | | e | 9:23 AM | | procedure are in the | | | | PDT | | results section. | + +--------+ + + + | BILE ACIDS, TOTAL | Routin | 10/30/2009 | Hepatitis C | Results for this | | | e | 9:23 AM | | procedure are in the | | | | PDT | | results section. | + +--------+ + + + documented in this encounter Results HEPATITIS C QUANTITATIVE, SERUM (10/30/2009 9:23 AM PDT) + + + + + + | Component | Value | Ref Range | Performed | Pathologist | | | | | At | Signature | + + + + + + | HEP C PCR, | [id number] | IU/mL | [facility] | | | QUANT | | | [facility] | | | | | | LABS | | + + + + + + | SPECIMEN | Serum | | [facility] | | | TYPE | | | [facility] | | | | | | LABS | | + + + + + + | INTERPRETAT | Reportable Range: | | [facility] | | | ION | 43-69,000,000 IU/mL [...] + + + + | [facility] | [facility] | [place] [address] | | | GENETICS LABS | [address] | | | | | AVE. | | | + + + + + HEPATITIS C GENOTYPING, SERUM (10/30/2009 9:23 AM PDT) + + + + + + | Component | Value | Ref Range | Performed | Pathologist | | | | | At | Signature | + + + + + + | HEP C | TYPE 1A | | [facility] | | | GENOTYPE | | | AL [facility]ETICS | | | | | | LABS | | + + + + + + | SPECIMEN | Serum | | [facility] | | | TYPE | | | AL GENETICS | | | | | | LABS | | + + + + + + | INTERPRETAT | As per your request, we | | [facility] | | | ION | have completed [...] | | | | | determined bythe [facility] | | | | | | DNA [...] | | | | | Improvement Act [id number]. | | | | | | The [facility] | | | | | | Laboratory is a fully | | | | | | licensed and/ | | | | | | oraccredited clinical | | | | | | laboratory under CLIA, | | | | | | [place], and the State of | | | | | | [place]. | | | | + + + + + + + + | Specimen | + + | Blood - Blood | + + + + + + + | Performing | Address | City/State/[facility] | Phone Number | | Organization | | | | + + + + + | [facility] | [facility] | [place] [address] | | | GENETICS LABS | [address] | | | | | AVE. [...] by | | | | | | [employer], | | | | | | | | | | | | [address] [facility] | | | | | | Reinier [facility] [address] | | | | | | [phone] | | | | | | | | | | | | www.[employer], | | | | | | Muna [...] [facility] | [address] | [place], [place] | | | UNIV PTH - INTFC | | [address] | | + + + + + [...] (L) | 150 - 400 K/cu | [facility] | | | COUNT | | mm [...] | + + + + + | [facility] DEPARTMENT OF | [address] | [place] [address] | | | PATHOLOGY | [address] [...] [facility] | [address] | [place] [address] | | | PATHOLOGY | [address] [...] | | | DEPARTMENT | | | MALDIVIAN | | | OF | | | [...] | + + + + + | [facility] DEPART[facility] | [address] | [place] [address] | | | PATHOLOGY | [address] | | | + + + + + documented in this encounter Visit Diagnoses + + | Diagnosis | + + | Hepatitis C Unspecified viral hepatitis C without hepatic coma | + + documented in this encounter
--- OUTSIDE RECORDS SUMMARY | ~2019-03-04 | XMS | Encounter Summary ---
Demographics + + + | Address | [address] | | | [place] [address] | + + + | Home Phone | | + + + | Preferred Language | Unknown | + + + | Marital Status | Single | + + + | Hindu Affiliation | Unknown | + + + | Race | or | + + + | Ethnic Group | Not or | + + + Author + + + | Author | [facility] | + + + | Organization | [facility] | + + + | Address | Unknown | + + + | Phone | Unavailable | + + + Support + + +---------+ + | Name | Relationship | Address | Phone | + + +---------+ + | Berny Breaux | ECON | Unknown | | + + +---------+ + Care Team Providers + +------+ + | Care Human Resource Advisor Name | Role | Phone | + +------+ + | Carolina Leyva | PCP | | + +------+ + Encounter Details +--------+ + + + + | Date | Type | Department | Care Team | Description | +--------+ + + + + | 12/07/ | Abstract | Digestive Health | Clinic, | | | 2013 | | Center at [facility] [address] | Gastroenterology | | | | | [address] | | | | | | Mailcode: OC8D | | | | | | [facility] | | | | | | and Healing, | | | | | | [address] | | | | | | [place], [place] | | | | | | [address] | | | | | | [phone] | | | +--------+ + + + [...]
--- OUTSIDE RECORDS SUMMARY | ~2019-03-04 | XMS | Clinical Summary ---
Demographics + + + | Address | [address] | | | [place] [address] | + + + | Home Phone | | + + + | Preferred Language | Unknown | + + + | Marital Status | Single | + + + | Synagogue Affiliation | Unknown | + + + | Race | or | + + + | Ethnic Group | Not or | + + + Author + + + | Author | [facility] | + + + | Organization | [facility] | + + + | Address | Unknown | + + + | Phone | Unavailable | + + + Support + + +---------+ + | Name | Relationship | Address | Phone | + + +---------+ + | Berny Breaux | ECON | Unknown | | + + +---------+ + Care Team Providers + +------+ + | Care Wind Farm Electrical Systems Designer Name | Role | Phone | + +------+ + | Carolina LeyvaP | PCP | | + +------+ + Source Comments MANISHA is fully live on both EpicCare Ambulatory and EpicCare InPatient.[facility] Allergies + + + + + + | Active Allergy | Reactions | Severity | Noted | Comments | | | | | Date | | + + + + + + | Penicillins | | | 10/31/19 | Can't remember | | | | | 10 | reaction | + + + + + + Medications + + + +---------+------+------+-------+ | Medication | Sig | Dispensed | Refills | Star | End | Statu | | | | | | t | Date | s | | | | | | Date | | | + + + +---------+------+------+-------+ | ibuprofen (MOTRIN) | Take 800 mg by mouth | | 0 | 090 | | Activ | | 800 mg Oral Tablet | as needed. | | | 2/20 | | e | | | | | | 10 | | | + + + +---------+------+------+-------+ Active Problems + + + | Problem | Noted Date | + + + | Hepatitis C | 10/30/2009 | + + + | Diabetes mellitus | 10/30/2009 | + + + Family [...] | + + + + + | Pneumococcal | | | | | vaccination (1 of 1 | 4 | | | | - PPSV23) | | | | + + + + + | Influenza (Flu) | | | | | vaccination (#1) | 9 | | | + + + + + Results Not on filefrom Last 3 Months Insurance + +--------+ +--------+-------+---------+--------+ | Payer | Benefi | Subscriber | Effect | Phone | Address | Type | | | t Plan | ID | tyrese | | | | | | / | | Dates | | | | | | Group | | | | | | + +--------+ +--------+-------+---------+--------+ | [employer] [facility] | FIRST | xxxxxxxxx | Effect | | | PPO | | | CHOICE | | tyrese | | | | | | | | for | | | | | | HEALTH | | all | | | | | | | | dates | | | | + +--------+ +--------+-------+---------+--------+ | [facility] | FINNISH | xxxxxxxxx | Effect | | | Agency | | SERVICE | | | tyrese | | | | | | HEALTH | | for | | | | | | | | all | | | | | | SERVIC | | dates | | | | | | E | | | | | | + +--------+ +--------+-------+---------+--------+ + +--------+ +--------+ + + | Guarantor Name | Accoun | Relation to | Date | Phone | Billing Address | | | t Type | Patient | of | | | | | | | | | | + +--------+ +--------+ + + | Karen Whitmore | Person | Self | [birth year] | [address] | | | al/Fam | | 1966 | [phone] | [place] [address] | | | virgen | | | 4 (Home) | | | | | | | [phone] | | | | | | | 2 (Work) | | + +--------+ +--------+ + + | Karen Whitmore | Agency | Self | [birth year] | [address] | | | | | 1966 | [phone] | [place] [address] | | | | | | 4 (Home) | | | | | | | [phone] | | | | | | | 2 (Work) | | + +--------+ +--------+ + +
--- OUTSIDE RECORDS SUMMARY | ~2019-03-04 | XMS | Encounter Summary ---
Demographics + + + | Address | [address] | | | [place] [address] | + + + | Home Phone | | + + + | Preferred Language | Unknown | + + + | Marital Status | | + + + | Sabianism Affiliation | Unknown | + + + | Race | Unknown | + + + | Ethnic Group | Unknown | + + + Author + + + | Author | [facility] | | | and [place] | + + + | Organization | [facility] | | | [...] Team Providers + +------+ + | Care Rail Transportation Tabeler Name | Role | Phone | + +------+ + | Juanita Elias MD | PCP | | + +------+ + Encounter Details +--------+ + + + + | Date | Type | Department | Care Team | Description | +--------+ + + + + | 01/24/ | Emergency | [facility] | Bay De La Torre DO | Epistaxis | | 2013 | | MEDICAL CENTER | [address] | | | | | EMERGENCY CENTER | [place], [place] | | | | | [address] | [address] | | | | | [place] | [phone] | | | | | [address] | | | | | | [phone] | | | +--------+ + + + [...] + + + +---------+ + + | albuterol (PROAIR | Inhale 1 or 2 puffs | | 0 | 11/12/19 | | | HFA) 90 mcg/puff | 4 times a day as | | | 12 | | | inhaler | needed for shortness | | | | | | | of breath | | | | | + + + +---------+ + + | aspirin 81 mg EC | Take 81 mg by mouth | | 0 | 11/12/19 | | | tablet | Daily. | | | 12 | | + + + +---------+ + + | Blood Glucose | Use as directed | | 0 | 11/12/19 | | | Monitoring Suppl | | | | 12 | | | ([employer] CONTOUR | | | | | | | MONITOR) W/DEVICE | | | | | | | KIT | | | | | | + + + +---------+ + + | ferrous sulfate | Take 1 tablet by | | 0 | 11/12/19 | | | 325 mg tablet | mouth twice daily | | | 12 | | | | with meals for iron | | | | | + + + +---------+ + + | glucose blood | Use as directed | | 0 | 11/12/19 | | | test strips (KEENA | | | | 12 | | | CONTOUR TEST) strip | | | | | | + + + +---------+ + + | lisinopril | Take 2.5 mg by mouth | | 0 | 11/12/19 | | | (PRINIVIL,ZESTRIL) | Daily. | | | 12 | | | 2.5 MG tablet | | | | | | + + + +---------+ + + | TechLite Lancets | Use as directed for | | 0 | 11/12/19 | | | MISC | blood testing | | | 12 | | + + + +---------+ + + | | to be used as needed | | 0 | 09/16/19 | | | tobramycin-dexametha | | | | 11 | | | sone (TOBRADEX) | | | | | | | ophthalmic solution | | | | | | + + + +---------+ + + documented as of this encounter Plan of Treatment Not on filedocumented as of this encounter Visit Diagnoses + + | Diagnosis | + + | Epistaxis | + + documented in this encounter"
--- OUTSIDE RECORDS SUMMARY | ~2019-03-04 | XMS | Encounter Summary ---
Demographics + + + | Address | [address] | | | [place] [address] | + + + | Home Phone | | + + + | Preferred Language | Unknown | + + + | Marital Status | Single | + + + | Evangelical Affiliation | Unknown | + + + | Race | or | + + + | Ethnic Group | Not or | + + + Author + + + | Author | [facility] | + + + | Organization | [facility] | + + + | Address | Unknown | + + + | Phone | Unavailable | + + + Support + + +---------+ + | Name | Relationship | Address | Phone | + + +---------+ + | Berny Breaux | ECON | Unknown | | + + +---------+ + Care Team Providers + +------+ + | Care Furrier Designer Name | Role | Phone | + +------+ + | Carolina Leyva | PCP | | + +------+ + Reason for Visit + + + | Reason | Comments | + + + | Blood Test Results | [facility] RESULTS 12/04/2013 | + + + | Medical Records | [facility]: Referral Order & Progress Note 12/04/2013 | | Review | | + + + Encounter Details +--------+ + + + + | Date | Type | Department | Care Team | Description | +--------+ + + + + | 02/26/ | Abstract | Digestive Health | Geovani Kapoor | Blood Test Results | | 2013 | | [place] [address] | MD Clemencia [address] | ([facility] | | | | [address] | [place], [place] | RESULTS 12/04/2013); | | | | Mailcode: OC8D | [id number] | Medical Records | | | | [facility] | [phone] | Review ([facility] - | | | | and Healing, | | OUTSIDE RECORDS: | | | | [address] | | Referral Order & | | | | [place], [place] | | Progress Note | | | | [address] | | 12/04/2013) | | | | [phone] | | | +--------+ + + + [...]
--- OUTSIDE RECORDS SUMMARY | ~2019-03-04 | XMS | Encounter Summary ---
Demographics + + + | Address | [address] | | | [place] [address] | + + + | Home Phone | | + + + | Preferred Language | Unknown | + + + | Marital Status | Single | + + + | Latter Day Affiliation | Unknown | + + + | Race | or | + + + | Ethnic Group | Not or | + + + Author + + + | Author | [facility] | + + + | Organization | [facility] | + + + | Address | Unknown | + + + | Phone | Unavailable | + + + Support + + +---------+ + | Name | Relationship | Address | Phone | + + +---------+ + | Berny Breaux | ECON | Unknown | | + + +---------+ + Care Team Providers + +------+ + | Care Addiction Counselor Name | Role | Phone | [...] | | | | | HEPATOLOGY | [place], [place] | Mailcode: | | | | | | [address] | [facility] Center | | | | | | Phone: | [facility] | | | | | | [phone] | and [facility], | | | | | | Fax: | [facility] [address] | | | | | | [phone] | [place], [place] | | | | | | | [address] | | | | | | | Phone: | | | | | | | [phone] | | | | | | | Fax: | | | | | | | [phone] | +--------+ + + + + + Encounter Details +--------+---------+ + + + | Date | Type | Department | Care Team | Description | +--------+---------+ + + + | 10/30/ | Office | Digestive Health | Geovani Kapoor | Hepatitis C; | | 2009 | Visit | Center at [facility] [address] | MD Clemencia [address] | Diabetes mellitus | | | | [address] | [place], [place] | ([facility]) | | | | Mailcode: OC8D | [address] | | | | | [facility] | [phone] | | | | | and Healing, | | | | | | [address] | | | | | | [place], [place] | | | | | | [address] | | | | | | [phone] | | | +--------+---------+ + + + [...] Shx: In clinic alone; 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 Diabetes mellitus 3. Overweight Impression Ms. Karne Whitmore is a 43 y.o. female who presents for evaluation and management of HCV in [facility]. She has no clinical or laboratory evidence [...] and has DM, she is also [facility] for fatty liver (NAFLD). A liver biopsy [...] me 3. I will call the patient ([phone]) when I get the results, we will [...] + + | HEP C PCR, | [id number] | IU/mL | [facility] | | | QUANT | | | [facility] GENETICS | | | | | | LABS | | + + + + + + | SPECIMEN | Serum | | [facility] | | | TYPE | | | AL GENETICS | | | | | | LABS | | + + + + + + | INTERPRETAT | Reportable Range: | | [facility] | | | ION | 43-69,000,000 IU/mL [...] + + + + | [facility] | [facility] | [place] [address] | | | GENETICS LABS | [address] | | | | | AVE. [...] | | | | | determined bythe [facility] | | | | | | [...] of | | | | | | [place]. | | | | + + + + + + + + | Specimen | + + | Blood - Blood | + + + + + + + | Performing | Address | City/State/Zipcode | Phone Number | | Organization | | | | + + + + + | [facility] | [place] [employer] | [place] [address] | | | GENETICS LABS | [address] | | | | | AVE. [...] by | | | | | | [employer], | | | | | | | | | | | | [address] [facility] | | | | | | Reinier [facility] [address] | | | | | | [phone] | | | | | | | | | | | | www.[employer], | | | | | | Muna [...] [facility] | [address] | [place], [place] | | | UNIV PTH - INTFC | | [address] | | + + + + + [...] [facility] DEPARTMENT | [address] | [place] [address] | | | PATHOLOGY | [address] [...] | + + + + + | [facility] | [address] | [place] [address] | | | PATHOLOGY | [address] [...] | | | DEPARTMENT | | | [place] | | | OF | | | [...] | + + + + + | [facility] | [address] | [place] [address] | | | PATHOLOGY | [address] [...]
--- OUTSIDE RECORDS SUMMARY | ~2019-03-04 | XMS | Encounter Summary ---
Demographics + + + | Address | [address] | | | [place] [address] | + + + | Home Phone | | + + + | Preferred Language | Unknown | + + + | Marital Status | | + + + | Congregational Affiliation | Unknown | + + + | Race | Unknown | + + + | Ethnic Group | Unknown | + + + Author + + + | Author | [facility] | | | and [place] | + + + | Organization | [facility] | | | and [...] Team Providers + +------+ + | Care Delivery Clerk Name | Role | Phone | + +------+ + | Juanita Elias MD | PCP | | + +------+ + Encounter Details +--------+ + + + + | Date | Type | Department | Care Team | Description | +--------+ + + + + | 01/24/ | Emergency | [facility] | Bay De La Torre DO | Epistaxis | | 2013 | | MEDICAL CENTER | [address] | | | | | EMERGENCY CENTER | [place], [place] | | | | | [address] | [address] | | | | | [place] | [phone] | | | | | [address] | | | | | | [phone] | | | +--------+ + + + [...] | | | 12 | | | ([employer] CONTOUR | | | | | | [...] | 11/12/19 | | | test strips (EKENA | | | | 12 | | [...]
--- OUTSIDE RECORDS SUMMARY | ~2019-03-04 | XMS | Encounter Summary ---
Demographics + + + | Address | [address] | | | [place] [address] | + + + | Home Phone | | + + + | Preferred Language | Unknown | + + + | Marital Status | | + + + | Christian Affiliation | Unknown | + + + | Race | Unknown | + + + | Ethnic Group | Unknown | + + + Author + + + | Author | [facility] | | | and [place] | + + + | Organization | [facility] | | | and [...] Team Providers + +------+ + | Care Well Flow Operator Name | Role | Phone | + +------+ + | Juanita Elias MD | PCP | | + +------+ + Encounter Details +--------+ + + + + | Date | Type | Department | Care Team | Description | +--------+ + + + + | 05/14/ | Documentati | [facility] [place] | [facility], | | | 2013 | on | GASTROENTEROLOGY | [address] | | | | | [address] [place] | [place], [place] [address] | | | | | [address] | [place] | | | | | [address] | [id number] | | | | | [phone] | | | +--------+ + + + [...]
--- OUTSIDE RECORDS SUMMARY | ~2019-03-04 | XMS | Encounter Summary ---
Demographics + + + | Address | [address] | | | [place] [address] | + + + | Home Phone | | + + + | Preferred Language | Unknown | + + + | Marital Status | Single | + + + | Adventist Affiliation | Unknown | + + + | Race | or | + + + | Ethnic Group | Not or | + + + Author + + + | Author | [facility] | + + + | Organization | [facility] | + + + | Address | Unknown | + + + | Phone | Unavailable | + + + Support + + +---------+ + | Name | Relationship | Address | Phone | + + +---------+ + | Berny Breaux | ECON | Unknown | | + + +---------+ + Care Team Providers + +------+ + | Care Filling Mixer Name | Role | Phone | + [...] [address] | | | | | | [place], [place] | | | | | | [address] | | | +--------+ + + + [...]
--- OUTSIDE RECORDS SUMMARY | ~2019-03-04 | XMS | Encounter Summary ---
Demographics + + + | Address | [address] | | | [place] [address] | + + + | Home Phone | | + + + | Preferred Language | Unknown | + + + | Marital Status | Single | + + + | Taoism Affiliation | Unknown | + + + | Race | or | + + + | Ethnic Group | Not or | + + + Author + + + | Author | [facility] | + + + | Organization | [facility] | + + + | Address | Unknown | + + + | Phone | Unavailable | + + + Support + + +---------+ + | Name | Relationship | Address | Phone | + + +---------+ + | Berny Breaux | ECON | Unknown | | + + +---------+ + Care Team Providers + +------+ + | Care Umbrella Cutter Name | Role | Phone | + +------+ + | Carolina Leyva | PCP | | + +------+ + Encounter Details +--------+ + + + + | Date | Type | Department | Care Team | Description | +--------+ + + + + | 04/28/ | Telephone | Digestive Health | Geovani Kapoor | | | 2010 | | [place] [address] | MD Clemencia [address] | | | | [address] | [place], [place] | | | | | Mailcode: OC8D | [address] | | | | | [facility] | [phone] | | | | | and Healing, | | | | | | [address] | | | | | | [place], [place] | | | | | | [address] | | | | | | [phone] | | | +--------+ + + + [...]
--- OUTSIDE RECORDS SUMMARY | ~2019-03-04 | XMS | Encounter Summary ---
Demographics + + + | Address | [address] | | | [place] [address] | + + + | Home Phone | | + + + | Preferred Language | Unknown | + + + | Marital Status | | + + + | Yazidi Affiliation | Unknown | + + + | Race | Unknown | + + + | Ethnic Group | Unknown | + + + Author + + + | Author | [facility] | | | and [place] | + + + | Organization | [facility] | | | and [...] Team Providers + +------+ + | Care Engineering Secretary Name | Role | Phone | + +------+ + | Juanita Elias MD | PCP | | + +------+ + Encounter Details +--------+ + + + + | Date | Type | Department | Care Team | Description | +--------+ + + + + | 05/04/ | Documentati | [facility] [place] | [facility], | | | 2013 | on | GASTROENTEROLOGY | [address] | | | | | [address] | [place], [place] [address] | | | | | [address] | [place] | | | | | [address] | [id number] | | | | | [phone] | | | +--------+ + + + [...]
--- OUTSIDE RECORDS SUMMARY | ~2019-03-04 | XMS | Encounter Summary ---
Demographics + + + | Address | [address] | | | [place] [address] | + + + | Home Phone | | + + + | Preferred Language | Unknown | + + + | Marital Status | Single | + + + | Jew Affiliation | Unknown | + + + | Race | or | + + + | Ethnic Group | Not or | + + + Author + + + | Author | [facility] | + + + | Organization | [facility] | + + + | Address | Unknown | + + + | Phone | Unavailable | + + + Support + + +---------+ + | Name | Relationship | Address | Phone | + + +---------+ + | Berny Breaux | ECON | Unknown | | + + +---------+ + Care Team Providers + +------+ + | Care Back Up Machine Operator Name | Role | Phone | [...] Gabriel | | | | | | [place], [place] | | | | | | [address] | | | | | | [phone] | | | +--------+------+ + + + [...] + + | HEP C PCR, | [id number] | IU/mL | [facility] | | | [...] | INTERPRETAT | Reportable Range: | | [facility] | | | ION | 43-69,000,000 IU/mL [...] + + + | [facility] | [address] [facility] | [place] [address] | | | GENETICS LABS | [address] | | | | | [address]VE. | | | + + + + + HEPATITIS C GENOTYPING, SERUM (10/30/2009 9:23 AM PDT) + + + + + + | Component | Value | Ref Range | Performed | Pathologist | | | | | At | Signature | + + + + + + | HEP C | TYPE 1A | | [facility] | | | GENOTYPE | | | AL GENETICS | | | | | | LABS | | + + + + + + | SPECIMEN | Serum | | [facility] | | | TYPE | | | AL GENETICS | | | | | | LABS | | + + + + + + | INTERPRETAT | As per your request, we | | [facility] | | | ION | have [...] | | | | | determined bythe [facility] | | | | | | DNA [...] | | | | | Improvement Act [id number]. | | | | | | The [...] + + | Performing | Address | City/State[facility] | Phone Number | | Organization | | | | + + + + + | [facility] | [facility] | [place] [address] | | | GENETICS LABS | [address] | | | | | [address]VE. [...] by | | | | | | [employer], | | | | | | | | | | | | [address] [facility] | | | | | | Reinier [facility] [place] [address] | | | | | | [phone] | | | | | | | | | | | | [email or web address], | | | | | | Muna [...] [facility] | [address] | [place], [place] | | | UNIV PTH - INTFC | | [address] | | + + + + + [...] (L) | 150 - 400 K/cu | [facility] | | | COUNT | | mm [...] | + + + + + | [facility] DEPARTMENT OF | [address] | [place] [address] | | | PATHOLOGY | [address] [...] | + + + + + | [facility] | [address] | [place] [address] | | | PATHOLOGY | [address] [...] | | | DEPARTMENT | | | LITHUANIAN | | | OF | | | [...] | + + + + + | [facility] DEPARTMENT | [address] | [place] [address] | | | PATHOLOGY | [address] | | | + + + + + documented in this encounter Visit Diagnoses + + | Diagnosis | + + | Hepatitis C Unspecified viral hepatitis C without hepatic coma | + + documented in this encounter
--- OUTSIDE RECORDS SUMMARY | ~2019-03-04 | XMS | Encounter Summary ---
Demographics + + + | Address | [address] | | | [place] [address] | + + + | Home Phone | | + + + | Preferred Language | Unknown | + + + | Marital Status | | + + + | Jehovah'S Witness Affiliation | Unknown | + + + | Race | Unknown | + + + | Ethnic Group | Unknown | + + + Author + + + | Author | [facility] | | | and [place] | + + + | Organization | [facility] | | | [...] Team Providers + +------+ + | Care Broadcasting Equipment Mechanic Name | Role | Phone | + [...] | SR | | | | | [phone] | | | +--------+ + + + [...]
--- OUTSIDE RECORDS SUMMARY | ~2019-03-04 | XMS | Clinical Summary ---
Demographics + + + | Address | [address] | | | [place] [address] | + + + | Home Phone | | + + + | Preferred Language | Unknown | + + + | Marital Status | Single | + + + | Anglican Affiliation | Unknown | + + + | Race | Unknown | + + + | Ethnic Group | Unknown | + + + Author + + + | Author | [facility] [employer] (Historical as of | | | 10-14-18) | + + + | Organization | [facility] [employer] (Historical as of | | | 10-14-18) [...] Team Providers + +------+ + | Care Foxing Cutting Machine Operator Name | Role | Phone [...] +------+-------+ + | PREMERA | PREMER | [id number] | | | [address] [address] | | | A BLUE | | | | [place], [place] | | | CROSS | | | | [address] | | | FED | | | | | | | PPO | | | | | + +--------+ +------+-------+ + | [facility] | YELLOW | [id number] | | | | | PLANS | [...] | Self | [birth year] | Work: | [address] | | | fox/Cesar | | 1966 | [phone] | [place] [address] | | | virgen | | | [phone] Home: | | | | | | | | | | | | | | [phone] | | | | | | [phone] | | + +--------+ +--------+ + +"
--- OUTSIDE RECORDS SUMMARY | ~2019-03-04 | XMS | Encounter Summary ---
Demographics + + + | Address | [address] | | | [place] [address] | + + + | Home Phone | | + + + | Preferred Language | Unknown | + + + | Marital Status | | + + + | Buddhist Affiliation | Unknown | + + + | Race | Unknown | + + + | Ethnic Group | Unknown | + + + Author + + + | Author | [facility] | | | and [place] | + + + | Organization | [facility] | | | [...] Team Providers + +------+ + | Care Treatment Plant Mechanic Name | Role | Phone | + +------+ + | Juanita Elias MD | PCP | | + +------+ + Encounter Details +--------+ + + + + | Date | Type | Department | Care Team | Description | +--------+ + + + + | 05/14/ | Documentati | [facility] [place] | [facility], | | | 2013 | on | GASTROENTEROLOGY | DIONE Castillo [address] | | | | | [address] [place] | [place], [place] [address] | | | | | [address] | [place] | | | | | [address] | [id number] | | | | | [phone] | | | +--------+ + + + [...]
--- OUTSIDE RECORDS SUMMARY | ~2019-03-04 | XMS | Clinical Summary ---
Demographics + + + | Address | [address] | | | [place] [address] | + + + | Home Phone | | + + + | Preferred Language | Unknown | + + + | Marital Status | | + + + | Sikhism Affiliation | Unknown | + + + | Race | Unknown | + + + | Ethnic Group | Unknown | + + + Author + + + | Author | [facility] | | | and [place] | + + + | Organization | [facility] | | | and [...] Team Providers + +------+ + | Care Trust Advisor Name | Role | Phone | [...] + +------+ | BCBS | BCBS | [id number] | 02/28/19 | | | PPO | | | FEDERA | | 16-Pre | | | | | | L FEP | | sent | | | | +-------+--------+ +--------+ + +------+ | MODA | MODA | [id number] | | [id number] | [address] | PPO | | | [employer] | | [address] | [phone] [phone] | | | | [place] | | esent | | [place], | | | | [place] | | | | [place] [address] | | +-------+--------+ +--------+ + +------+ + +--------+ +--------+ + + | Guarantor Name | Accoun | Relation to | Date | Phone | Billing Address | | | t Type | Patient | of | | | | | | | | | | + +--------+ +--------+ + + | Karen Whitmore | Person | Self | [birth year] | [address] | | | al/Cesar | | 1966 | [phone] | [place] [address] | | | virgen | | | 4 (Home) | | | | | | | [phone] | | | | | | | 2 (Work) | | + +--------+ +--------+ + +
--- OUTSIDE RECORDS SUMMARY | ~2019-03-04 | XMS | Encounter Summary ---
Demographics + + + | Address | [address] | | | [place] [address] | + + + | Home Phone | | + + + | Preferred Language | Unknown | + + + | Marital Status | Single | + + + | Buddhist Affiliation | Unknown | + + + | Race | or | + + + | Ethnic Group | Not or | + + + Author + + + | Author | [facility] | + + + | Organization | [facility] | + + + | Address | Unknown | + + + | Phone | Unavailable | + + + Support + + +---------+ + | Name | Relationship | Address | Phone | + + +---------+ + | Berny Breaux | ECON | Unknown | | + + +---------+ + Care Team Providers + +------+ + | Care Mining Analyst Name | Role | Phone | + +------+ + | Carolina Leyva | PCP | | + +------+ + Encounter Details +--------+ + + + + | Date | Type | Department | Care Team | Description | +--------+ + + + + | 12/07/ | Abstract | [facility] | Clinic, | | | 2013 | | Center at [facility] [address] | Gastroenterology | | | | | [address] | | | | | | Mailcode: OC8D | | | | | | [facility] | | | | | | and Healing, | | | | | | Building [address] | | | | | | [place], [place] | | | | | | [address] | | | | | | [phone] | | | +--------+ + + + [...]
--- OUTSIDE RECORDS SUMMARY | ~2019-03-04 | XMS | Encounter Summary ---
Demographics + + + | Address | [address] | | | [place] [address] | + + + | Home Phone [...] Author | [facility] | + + + | Organization | [facility] | + + + | Address | Unknown | + + + | Phone | Unavailable | + + + Support + + +---------+ + | Name | Relationship | Address | Phone | + + +---------+ + | Berny Breaux | ECON | Unknown | | + + +---------+ + Care Team Providers + +------+ + | Care Traveling Inventory Associate Name | Role | Phone | + +------+ + | Carolina Leyva | PCP | | + +------+ + Reason for Visit + + + | Reason | Comments | + + + | Blood Test Results | [facility] RESULTS 12/04/2013 | + + + | Medical Records | [facility]: Referral Order & Progress Note 12/04/2013 | | Review | | + + + Encounter Details +--------+ + + + + | Date | Type | Department | Care Team | Description | +--------+ + + + + | 02/26/ | Abstract | Digestive Health | Geovani Kapoor | Blood Test Results | | 2013 | | [place] [address] [address] | MD Clemencia [address] | ([facility] | | | | [address] | [place], [place] | RESULTS 12/04/2013); | | | | Mailcode: OC8D | [id number] | Medical Records | | | | [facility] | [phone] | Review ([facility] | | | | and Healing, | | OUTSIDE RECORDS: | | | | [address] | | Referral Order & | | | | [place], [place] | | Progress Note | | | | [phone] | | 12/04/2013) | | | | [phone] | | | +--------+ + + + [...]
--- OUTSIDE RECORDS SUMMARY | ~2019-03-04 | XMS | Clinical Summary ---
Demographics + + + | Address | [address] | | | [place] [address] | + + + | Home Phone | | + + + | Preferred Language | Unknown | + + + | Marital Status | Single | + + + | Yazdanism Affiliation | Unknown | + + + | Race | or | + + + | Ethnic Group | Not or | + + + Author + + + | Author | [facility] | + + + | Organization | [facility] | + + + | Address | Unknown | + + + | Phone | Unavailable | + + + Support + + +---------+ + | Name | Relationship | Address | Phone | + + +---------+ + | Berny Breaux | ECON | Unknown | | + + +---------+ + Care Team Providers + +------+ + | Care Lan Engineer Name | Role | Phone | + +------+ + | Carolina LeyvaP | PCP | | + +------+ + Source Comments MANISHA is fully live on both EpicCare Ambulatory and EpicCare InPatient.[facility] Allergies + + + + [...] | | | + +--------+ +--------+-------+---------+--------+ | [facility] | [facility] | [phone] | Effect | | | [...] Person | Self | [birth year] | | [address] | | | al/Fam | | 1966 | [phone] | [place] [address] | | | virgen | | | 4 (Home) | | | | | | | [phone] | | | | | | | 2 (Work) | | + +--------+ +--------+ + + | Karen Whitmore | Agency | Self | [birth year] | | [address] | | | | | 1966 | [phone] | [place] [address] | | | | | | 4 (Home) | | | | | | | [phone] | | | | | | | 2 (Work) | | + +--------+ +--------+ + +
[~2019-03-04 22:28] MED LIST changes: +K-TAB ER20 MEQ PO
[2019-03-04] MEDS ORDERED: MUPIROCIN22 GM TOP (22:43)
[2019-03-04] MEDS ORDERED: HYDROCHLOROTHIA25 MG PO (22:43)
[2019-03-04] MEDS ORDERED: KEFLEX500 MG PO (22:44)
[2019-03-04] MEDS ORDERED: IBUPROFEN400 MG PO (22:44)
== END 2019-03-05 01:08 | disposition home or self-care (01) ==
LOC: ED 22:28
DX: L03.116 Cellulitis of left lower limb (principal); D61.818 Other pancytopenia; E11.9 Type 2 diabetes mellitus without complications; D64.9 Anemia, unspecified; E66.9 Obesity, unspecified; Z88.0 Allergy status to penicillin; Z79.899 Other long term (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 therapy
CPT/HCPCS: 80053; 85025; 93971; 99284-25

== ENCOUNTER 2021-07-30 11:58 | Emergency (ER) | payer BC, OTHER ==
[~2021-07-30] VITALS: Ht 157.5 cm; Wt 108.7 kg
--- NOTE | ~2021-07-30 | EKG ---
[facility] [address] [facility] [place], [place] [address] Draft EK completed, results pending confirmation PATIENT NAME: BENTLEY PATEL YOVANY Electrocardiogram DATE OF : 69 PHYSICIAN: PRELIMINARY REPORT #: [id number] REPORT IS CONFIDENTIAL AND NOT TO BE RELEASED WITHOUT AUTHORIZATION
[~2021-07-30 11:58] MED LIST changes: +HYDROCHLOROTHIA25 MG PO; +IBUPROFEN400 MG PO; +KEFLEX500 MG PO; +MUPIROCIN22 GM TOP
[2021-07-30] MEDS ORDERED: POTASSIUM CHLO10 ME1 PO (12:30)
[2021-07-30] MEDS ORDERED: FUROSEMIDE40 MG PO (12:30)
[2021-07-30] MEDS ORDERED: METFORMIN HCL500 M1 PO (12:31)
[2021-07-30] MEDS ORDERED: CARVEDILOL3.125 MG PO (12:31)
[2021-07-30] MEDS ORDERED: SPIRONOLACTONE25 MG PO (12:32)
== END 2021-07-30 15:46 | disposition home or self-care (01) ==
LOC: ED 11:58
DX: R06.00 Dyspnea, unspecified (principal); R60.1 Generalized edema; K76.9 Liver disease, unspecified; E11.9 Type 2 diabetes mellitus without complications; D64.9 Anemia, unspecified; E66.9 Obesity, unspecified; Z88.0 Allergy status to penicillin; Z79.899 Other long term (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 therapy; Z79.84 Long term (current) use of 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; Z20.822 Contact with and (suspected) exposure to COVID-19
CPT/HCPCS: 36415; 71045; 71260; 80053; 83880; 85025; 85060; 85379; 87502; 93005; 93010; 96374; 99285-25; C9803; J1940; J7040; Q9967; U0003

== ENCOUNTER 2021-10-09 22:34 | Emergency (ER) | payer BC, OTHER ==
[~2021-10-09] VITALS: Ht 157.5 cm; Wt 108.7 kg
[~2021-10-09 22:34] MED LIST changes: +CARVEDILOL3.125 MG PO; +FUROSEMIDE40 MG PO; +METFORMIN HCL500 M1 PO; +POTASSIUM CHLO10 ME1 PO; +SPIRONOLACTONE25 MG PO
--- NOTE | 2021-10-11 07:12 | EKG ---
[facility] [address] [facility] [place], [place] [address] Signed Sinus tachycardia Otherwise normal ECG When compared with ECG of 30-JUL-2021 12:19, No significant change was found Confirmed by REEMA POWELL MD ([id number]) on 10/11/2021 7:11:46 AM Electronically Signed By: REEMA POWELL MD 10/11/21711 PATIENT NAME: BENTLEY PATELCE Electrocardiogram DATE OF : 69 PHYSICIAN: REEMA POWELL MD REPORT #: [id number] REPORT IS CONFIDENTIAL AND NOT TO BE RELEASED WITHOUT AUTHORIZATION
== END 2021-10-10 00:08 | disposition home or self-care (01) ==
LOC: ED 22:34
DX: R06.02 Shortness of breath (principal); R60.1 Generalized edema; K76.9 Liver disease, unspecified; E11.9 Type 2 diabetes mellitus without complications; D64.9 Anemia, unspecified; E55.9 Vitamin D deficiency, unspecified; Z88.0 Allergy status to penicillin; Z79.899 Other long term (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 therapy; Z79.84 Long term (current) use of 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
CPT/HCPCS: 36415; 71045; 80053; 83880; 84484; 85025; 85060; 93005; 93010; 99285-25

== ENCOUNTER 2022-01-04 16:51 | Emergency (ER) | payer BC, OTHER ==
[~2022-01-04] VITALS: Ht 157.5 cm; Wt 108.7 kg
[2022-01-04] MEDS ORDERED: TORSEMIDE20 MG PO (18:12)
[2022-01-04] MEDS ORDERED: PANTOPRAZOLE SO40 MG PO (18:13)
[2022-01-04] MEDS ORDERED: LACTULOSE10 GM/151 PO (18:14)
[2022-01-04] MEDS ORDERED: VENTOLIN HFA18 GM INH (18:14)
[2022-01-04] MEDS ORDERED: DOXYCYCLINE HY100 MG PO (19:11)
== END 2022-01-04 19:39 | disposition home or self-care (01) ==
LOC: ED 16:51
DX: L97.929 Non-pressure chronic ulcer of unspecified part of left lower leg with unspecified severity (principal); E11.9 Type 2 diabetes mellitus without complications; D64.9 Anemia, unspecified; E66.9 Obesity, unspecified; I50.9 Heart failure, unspecified; Z88.0 Allergy status to penicillin; Z79.899 Other long term (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 therapy
CPT/HCPCS: 99283; A9270

== ENCOUNTER 2022-05-14 07:33 | Observation (INO) | payer OTHER ==
[~2022-05-14] VITALS: Ht 157.5 cm; Wt 70.0 kg
[~2022-05-14 07:33] MED LIST changes: +DOXYCYCLINE HY100 MG PO; +LACTULOSE10 GM/151 PO; +TORSEMIDE20 MG PO; +VENTOLIN HFA18 GM INH
--- OUTSIDE RECORDS SUMMARY | 2022-05-14 07:41 | XMS ---
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 Mile VISIT COUNT (12 MO.) Baldo Winston TOTAL 9 NOTE: Visits indicate total known visits. ED/UCC VISIT TRACKING (12 MO.) 05/14/2022 07[facility]: Emergency COMPLAINT: - AMS [facility]22 [facility] DIAGNOSES: - Heart failure, unspecified - Encephalopathy, unspecified - Chronic viral hepatitis C - Altered Mental Status - Metabolic encephalopathy 03/23/2022 13:51 [facility] Danna RACHEL TYPE: Emergency DIAGNOSES: - Hypokalemia - Adverse effect of unspecified drugs, medicaments and biological substances, initial encounter - Acute on chronic right heart failure - Altered Mental Status 02/11/2022 13:40 [facility] Baldwin [place] TYPE: Emergency DIAGNOSES: - Essential (primary) hypertension - Other specified health status - Fever, unspecified - Non-pressure chronic ulcer of skin of other sites limited to breakdown of skin - Panniculitis, unspecified - Lymphedema, not elsewhere classified - Leg Swelling - edema - Cellulitis of left lower limb - Other sites of candidiasis 01/10/2022 13:30 [facility] Baldwin [place] TYPE: Emergency DIAGNOSES: - Left leg having issues - Wound - Venous insufficiency (chronic) (peripheral) - Other skin changes 01/04/2022 16:53 [facility] Randall TYPE: Emergency COMPLAINT: - L LEG WOUND DIAGNOSES: - Obesity, unspecified - Allergy status to penicillin - Heart failure, unspecified - Anemia, unspecified - Non-pressure chronic ulcer of unspecified part of left lower leg with unspecified severity - 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 - Type 2 diabetes mellitus without complications 10/25/2021 12[facility]13 [facility] [place] [facility] DIAGNOSES: - sob, back pain - Acute respiratory failure with hypoxia - Other pancytopenia - Generalized edema - Acute kidney failure, unspecified - Edema, unspecified - Acute respiratory failure with hypercapnia - Hyperkalemia - Shortness of Breath - Fluid overload, unspecified 10/09/2021 22:34 [facility] Randall TYPE: Emergency COMPLAINT: - SHORTNESS OF BREATH DIAGNOSES: - Shortness of breath - Type 2 diabetes mellitus without complications - Liver disease, unspecified - Generalized edema - Allergy status to penicillin - Vitamin D deficiency, unspecified - jail (current) use of 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 - [facility] [place] [facility] 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 therapy - Anemia, unspecified - Dyspnea, unspecified 07/30/2021 12:00 [facility] [place]mod[place] TYPE: Emergency COMPLAINT: - LOW O2 SATS, SOB, BLOATING, COUGH DIAGNOSES: - Obesity, unspecified - Type 2 diabetes mellitus without complications - Liver disease, unspecified - Dyspnea, unspecified - Anemia, unspecified - jail (current) use of 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 - Generalized edema - Shortness of breath - Contact with and (suspected) exposure to COVID-19 - Allergy status to penicillin - Other [place] [facility] (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 therapy INPATIENT VISIT TRACKING (12 MO.) 04/02/2022 12:21 [facility] TYPE: Inpatient COMPLAINT: - SWING:HEART FAILURE; HEPC W LIVER CIRRHOSIS +DECON DIAGNOSES: 0. Weakness 1. Hepatic encephalopathy 1. Hepatic encephalopathy 2. Acute and subacute hepatic failure without coma 2. Acute and subacute hepatic failure without coma 3. Other pancytopenia 3. Other pancytopenia 4. Hypertensive heart and chronic kidney disease with heart failure and stage 1 through stage 4 chronic kidney disease, or unspecified chronic kidney disease 4. Hypertensive heart and chronic kidney disease with heart failure and stage 1 through stage 4 chronic kidney disease, or unspecified chronic kidney disease 5. Unspecified diastolic (congestive) heart failure 5. Unspecified diastolic (congestive) heart failure 6. Body mass index [BMI] 50.0-59.9, adult 6. Body mass index [BMI] 50.0-59.9, adult 7. Unspecified cirrhosis of liver 7. Unspecified cirrhosis of liver 8. Unspecified viral hepatitis C without hepatic coma 8. Unspecified viral hepatitis C without hepatic coma 9. Venous insufficiency (chronic) (peripheral) 9. Venous insufficiency (chronic) (peripheral) 10. Varicose veins of unspecified lower extremity with ulcer of unspecified site 10. Varicose veins of unspecified lower extremity with ulcer of unspecified site 11. Chronic kidney disease, stage 3 unspecified 11. Chronic kidney disease, stage 3 unspecified - Hypothyroidism, unspecified - jail (current) use of 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 - 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 school teacher (current) use of insulin - Type 2 diabetes mellitus with diabetic chronic kidney disease - Other [place] [facility] 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 therapy - Obesity, unspecified - Hypothyroidism, unspecified - Obstructive sleep apnea (adult) (pediatric) - Allergy status to penicillin - Obesity, unspecified - Type 2 diabetes mellitus with diabetic chronic kidney disease - jail (current) use of insulin - Personal history of nicotine dependence - Allergy status to penicillin - Obstructive sleep apnea (adult) (pediatric) - Personal history of nicotine dependence - jail (current) use of 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 - 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 03/27/2022 15:47 [facility] Danna RACHEL TYPE: Medical Surgical DIAGNOSES: - Cellulitis of left lower limb - Pulmonary hypertension, unspecified - Hepatic encephalopathy - Essential (primary) hypertension - Encephalopathy, unspecified - Metabolic encephalopathy - Type 2 diabetes mellitus without complications - Unspecified cirrhosis of liver - Heart failure, unspecified - Chronic viral hepatitis C 02/11/2022 13:40 [facility] Danna RACHEL TYPE: Medical Surgical DIAGNOSES: - Pulmonary hypertension, unspecified - Panniculitis, unspecified - Acute on chronic right heart failure - Disorder of urea cycle metabolism, unspecified - Metabolic encephalopathy - Hypercalcemia - Unspecified cirrhosis of liver - Other specified health status - Cellulitis of left lower limb - Anemia in chronic kidney disease - Lymphedema, not elsewhere classified - Acute kidney failure, unspecified - Chronic kidney disease, stage 4 (severe) - Fever, unspecified - Generalized edema - Hyperosmolality and hypernatremia - Acute on chronic diastolic (congestive) heart failure - Cellulitis of unspecified part of limb - Essential (primary) hypertension - Type 2 diabetes mellitus without complications - Anemia, unspecified 11/17/2021 09:05 [facility] TYPE: Inpatient COMPLAINT: - SWING:ACUTE RESPIRATORY FAILURE + DEBILITY DIAGNOSES: 0. Shortness of breath 1. Acute and chronic respiratory failure with hypercapnia 1. Acute and chronic respiratory failure with hypercapnia 2. Acute and chronic respiratory failure with hypoxia 2. Acute and chronic respiratory failure with hypoxia 3. Morbid (severe) obesity with alveolar hypoventilation 3. Morbid (severe) obesity with alveolar hypoventilation 4. Chronic obstructive pulmonary disease, unspecified 4. Chronic obstructive pulmonary disease, unspecified 5. Acute on chronic diastolic (congestive) heart failure 5. Unspecified diastolic (congestive) heart failure 6. Type 2 diabetes mellitus without complications 6. Type 2 diabetes mellitus without complications 7. Personal history of other infectious and parasitic diseases 7. Personal history of other infectious and parasitic diseases 8. Acquired absence of other specified parts of digestive tract 8. Acquired absence of other specified parts of digestive tract 9. Presence of other vascular implants and grafts 9. Presence of other vascular implants and grafts 10. Allergy status to penicillin 10. Allergy status to penicillin 11. Nonrheumatic tricuspid (valve) insufficiency 11. Generalized enlarged lymph nodes 11. 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 - Diarrhea, unspecified - Generalized enlarged lymph nodes - Adverse effect of loop [high-ceiling] diuretics, initial encounter - 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 school teacher (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) 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 of 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 - Other specified disorders of veins - Weakness - Bacteremia - Unspecified severe protein-calorie malnutrition - Personal history of nicotine dependence - Hepatic failure, unspecified without coma - Venous insufficiency (chronic) (peripheral) - Candidiasis of skin and nail - Other pancytopenia - Personal history of nicotine dependence - Other specified bacterial agents as the cause of diseases classified elsewhere - Acute kidney failure, unspecified - Cellulitis of abdominal wall - Patient room in hospital as the place of occurrence of the external cause - Acute kidney failure, unspecified - Tubulo-interstitial nephritis, not specified as acute or chronic - Methicillin susceptible Staphylococcus aureus infection as the cause of diseases classified elsewhere - Unspecified kidney failure - Diarrhea, unspecified - Weakness - Venous insufficiency (chronic) (peripheral) - Obstructive sleep apnea (adult) (pediatric) - Other cirrhosis of liver - Patient room in hospital as the place of occurrence of the external cause - Hepatic failure, unspecified without coma - Cellulitis of abdominal wall - Adverse effect of loop [high-ceiling] diuretics, initial encounter - Bacteremia - Dehydration 10/25/2021 12:13 [facility] Danna RACHEL TYPE: Medical Surgical DIAGNOSES: - Edema, unspecified - Taeniasis, unspecified - Hyperkalemia - Chronic kidney disease, stage 3b - Fluid overload, unspecified - Acute respiratory failure with hypercapnia - Acute right heart failure - jail (current) use of insulin - Tinea corporis - Other pancytopenia - Type 2 diabetes mellitus with diabetic chronic kidney disease - Unspecified cirrhosis of liver - Acute respiratory failure with hypoxia - Acute kidney failure, unspecified - Acidosis - Generalized edema - Morbid (severe) obesity with alveolar hypoventilation - Anemia, unspecified - Pulmonary hypertension, unspecified [email or web address]
[2022-05-14] MEDS ORDERED: MEDIHONEY15 ML TOP (12:12)
[2022-05-14] MEDS ORDERED: ALDACTONE25 MG PO (12:13)
[2022-05-14] MEDS ORDERED: XIFAXAN550 MG PO (13:18)
[2022-05-14] MEDS ORDERED: RENVELA800 MG PO (13:18)
[2022-05-14] MEDS ORDERED: SEMGLEE (Y100 UNIT/2 SUB-Q (13:20)
[2022-05-14] MEDS ORDERED: BUMETANIDE2 MG PO (13:21)
[2022-05-14] MEDS ORDERED: METFORMIN HCL500 MG PO (13:26)
[2022-05-14] MEDS ORDERED: MAGOX 400400 MG PO (13:27)
[2022-05-14] MEDS ORDERED: FEOSOL325 MG PO (13:27)
[2022-05-14] MEDS ORDERED: VITAMIN D3125 MC1 PO (15:27)
[2022-05-14] MEDS ORDERED: VITAMIN C500 M1 PO (15:29)
--- NOTE | 2022-05-14 16:17 | EKG ---
[facility] [address] [facility] [place] [address] Signed Sinus tachycardia Otherwise normal ECG When compared with ECG of 09-OCT-2021 22:40, T wave amplitude has increased in Anterior leads Confirmed by ALEN REED MD ([id number]) on 05/14/2022 4:16:47 PM Electronically Signed By: ALEN REED MD 05/14/22 1617 PATIENT NAME: BENTLEY PATEL Electrocardiogram DATE OF : 69 PHYSICIAN: ALEN REED MD REPORT #: [id number] REPORT IS CONFIDENTIAL AND NOT TO BE RELEASED WITHOUT AUTHORIZATION
== END 2022-05-15 12:00 | disposition home or self-care (01) ==
LOC: ED 07:33 → CCU 07:35
PROVIDERS: ADMIT Internal Medicine; ATTEND Internal Medicine
DX: E86.0 Dehydration (principal); G93.41 Metabolic encephalopathy; E72.20 Disorder of urea cycle metabolism, unspecified; K76.82 Hepatic encephalopathy; E83.52 Hypercalcemia; E11.9 Type 2 diabetes mellitus without complications; B37.2 Candidiasis of skin and nail; K70.30 Alcoholic cirrhosis of liver without ascites; Z20.822 Contact with and (suspected) exposure to COVID-19
CPT/HCPCS: 36415; 51701; 71045; 80048; 80053; 81001; 82140; 82306; 83036; 83970; 84484; 85025; 85060; 93005; 93010; 94760; 96360; 96361; 99285-25; C9803; G0378; G0480; J1450; J1815; J7121; U0003

== ENCOUNTER 2022-07-04 22:49 | Observation (INO) | payer OTHER ==
[~2022-07-04] VITALS: Ht 157.5 cm; Wt 60.4 kg
[~2022-07-04 22:49] MED LIST changes: +ALDACTONE25 MG PO; +BUMETANIDE2 MG PO; +FEOSOL325 MG PO; +JANUVIA25 MG PO; +MAGOX 400400 MG PO; +MEDIHONEY15 ML TOP; +METFORMIN HCL500 MG PO; +NYSTOP60 GM TOP; +RENVELA800 MG PO; +SEMGLEE (Y100 UNIT/2 SUB-Q; +VITAMIN D3125 MC1 PO; +XIFAXAN550 MG PO
--- OUTSIDE RECORDS SUMMARY | 2022-07-04 22:56 | XMS ---
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 EOliver VISIT COUNT (12 MO.) 1 [facility] (ID) 5 [facility] 6 [facility] TOTAL 12 NOTE: Visits indicate total known visits. ED/UCC VISIT TRACKING (12 MO.) 07/04/2022 22:[address] [facility] [place] TYPE: Emergency COMPLAINT: - ALOC 06/20/2022 19:[address] [facility] [place] TYPE: Emergency COMPLAINT: - ALTERED STATUS 06/05/2022 19:48 [facility] Nicole Almonte [place] (ID) TYPE: Emergency COMPLAINT: - HEPATIC ENCEPHALOPATHY 05/14/2022 07:34 DEIDRE Randall TYPE: Emergency COMPLAINT: - AMS [facility] DIAGNOSES: - Chronic viral hepatitis C - Encephalopathy, unspecified - Heart failure, unspecified - Metabolic encephalopathy - Altered Mental Status 03/23/2022 13:[facility] DIAGNOSES: - Acute on chronic right heart failure - Adverse effect of unspecified drugs, medicaments and biological substances, initial encounter - Hypokalemia - Altered Mental Status 02/11/2022 13:40 [facility] [place] TYPE: Emergency DIAGNOSES: - Cellulitis of left lower limb - Essential (primary) hypertension - Fever, unspecified - Lymphedema, not elsewhere classified - Non-pressure chronic ulcer of skin of other sites limited to breakdown of skin - Other sites of candidiasis - Other specified health status - Panniculitis, unspecified - edema - Leg Swelling 01/10/2022 13:30 [facility] [place] TYPE: Emergency DIAGNOSES: - Other skin changes - Venous insufficiency (chronic) (peripheral) - Left leg having issues - Wound 01/04/2022 16:53 [facility] [place] TYPE: Emergency COMPLAINT: - L LEG WOUND DIAGNOSES: - Allergy status to penicillin - Anemia, unspecified - Heart failure, unspecified - Non-pressure chronic ulcer of unspecified part of left lower leg with unspecified severity - Obesity, unspecified - Other jail (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 therapy - Type 2 diabetes mellitus without complications 10/25/2021 12:13 [facility] [place] TYPE: Emergency DIAGNOSES: - Acute kidney failure, unspecified - Acute respiratory failure with hypercapnia - Acute respiratory failure with hypoxia - Edema, unspecified - Fluid overload, unspecified - Generalized edema - Hyperkalemia - Other pancytopenia - Shortness of Breath - sob, back pain 10/09/2021 22:34 DEID[facility] Randall TYPE: Emergency COMPLAINT: - SHORTNESS OF BREATH DIAGNOSES: - Allergy status to penicillin - Anemia, unspecified - Dyspnea, unspecified - Generalized edema - Liver disease, unspecified - terminal carman (current) use of 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 - Other continuous churn buttermaker (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 therapy - Shortness of breath - Type 2 diabetes mellitus without complications - Vitamin D deficiency, unspecified 07/30/2021 12:00 DEIDRE Randall TYPE: Emergency COMPLAINT: - LOW O2 SATS, SOB, BLOATING, COUGH DIAGNOSES: - Allergy status to penicillin - Anemia, unspecified - Contact with and (suspected) exposure to COVID-19 - Dyspnea, unspecified - Generalized edema - Liver disease, unspecified - snf (current) use of 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 - Obesity, unspecified - Other continuous churn buttermaker (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 therapy - Shortness of breath - Type 2 diabetes mellitus without complications INPATIENT VISIT TRACKING (12 MO.) 06/20/2022 19:35 [facility] [place] TYPE: Observation COMPLAINT: - HEPATIC ENCEPHALOPATHY DIAGNOSES: - Allergy status to penicillin - Chronic diastolic (congestive) heart failure - Contact with and (suspected) exposure to COVID-19 - Hepatic encephalopathy - Metabolic encephalopathy - Other pancytopenia - Type 2 diabetes mellitus without complications - Unspecified cirrhosis of liver [facility] COMPLAINT: - HEPATIC ENCEPHALOPATHY DIAGNOSES: 1. Hepatic encephalopathy 2. Acute kidney failure, unspecified 2. Acute kidney failure, unspecified 3. Type 2 diabetes mellitus with hyperglycemia 3. Type 2 diabetes mellitus with hyperglycemia 4. Unvaccinated for COVID-19 4. Unvaccinated for COVID-19 5. Personal history of other infectious and parasitic diseases 5. Personal history of other infectious and parasitic diseases 6. Personal history of nicotine dependence 6. Personal history of nicotine dependence 7. Acquired absence of other specified parts of digestive tract 7. Acquired absence of other specified parts of digestive tract 8. Family history of epilepsy and other diseases of the nervous system 8. Family history of epilepsy and other diseases of the nervous system 9. Family history of ischemic heart disease and other diseases of the circulatory system 9. Family history of ischemic heart disease and other diseases of the circulatory system 10. Candidiasis of skin and nail 10. Candidiasis of skin and nail 11. Alcoholic cirrhosis of liver without ascites 11. Alcoholic cirrhosis of liver without ascites 12. snf (current) use of 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 12. snf (current) use of 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 13. Underdosing of saline and osmotic laxatives, initial encounter 13. Underdosing of saline and osmotic laxatives, initial encounter 14. Patient's unintentional underdosing of medication regimen for other reason 14. Patient's unintentional underdosing of medication regimen for other reason 05/14/2022 07:35 DEIDRE Randall TYPE: Observation COMPLAINT: - HEPATIC ENCEPHALOPATHY DIAGNOSES: - Alcoholic cirrhosis of liver without ascites - Candidiasis of skin and nail - Contact with and (suspected) exposure to COVID-19 - Dehydration - Disorder of urea cycle metabolism, unspecified - Hepatic encephalopathy - Hypercalcemia - Metabolic encephalopathy - Type 2 diabetes mellitus without complications 04/02/2022 12:21 [facility] TYPE: Inpatient COMPLAINT: - SWING:HEART FAILURE; HEPC [...] Chronic kidney disease, stage 3 unspecified - Allergy status to penicillin - Allergy status to penicillin - Hypothyroidism, unspecified - Hypothyroidism, unspecified - snf (current) use of insulin - snf (current) use of insulin - terminal carman (current) use of 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 - terminal carman (current) use of 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 - Obesity, unspecified - Obesity, unspecified - Obstructive sleep apnea (adult) (pediatric) - Obstructive sleep apnea (adult) (pediatric) - Other continuous churn buttermaker (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 therapy - Other continuous churn buttermaker (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 therapy - Personal history of nicotine dependence - Personal history of nicotine dependence - Type 2 diabetes mellitus with diabetic chronic kidney disease - Type 2 diabetes mellitus with diabetic chronic kidney disease 03/27/2022 15:47 [facility] Danna RACHEL TYPE: Medical Surgical DIAGNOSES: - Cellulitis of left lower limb - Chronic viral hepatitis C - Encephalopathy, unspecified - Essential (primary) hypertension - Heart failure, unspecified - Hepatic encephalopathy - Hepatic encephalopathy - Metabolic encephalopathy - Pulmonary hypertension, unspecified - Type 2 diabetes mellitus without complications - Unspecified cirrhosis of liver 02[facility]11[facility]2022 [facility] DIAGNOSES: - Acute kidney failure, unspecified - Acute on chronic diastolic (congestive) heart failure - Acute on chronic right heart failure - Anemia in chronic kidney disease - Anemia, unspecified - Cellulitis of left lower limb - Cellulitis of unspecified part of limb - Chronic kidney disease, stage 4 (severe) - Disorder of urea cycle metabolism, unspecified - Essential (primary) hypertension - Fever, unspecified - Generalized edema - Hypercalcemia - Hyperosmolality and hypernatremia - Lymphedema, not elsewhere classified - Metabolic encephalopathy - Other specified health status - Panniculitis, unspecified - Pulmonary hypertension, unspecified - Type 2 diabetes mellitus without complications - Unspecified cirrhosis of liver 11/17/2021 09:05 [facility] [place] TYPE: Inpatient COMPLAINT: - SWING:ACUTE RESPIRATORY FAILURE [...] penicillin 10. Allergy status to penicillin 11. Generalized enlarged lymph nodes 11. Nonrheumatic tricuspid (valve) insufficiency 11. Nonrheumatic tricuspid (valve) insufficiency - Acute kidney failure, unspecified - Acute kidney failure, unspecified - Adverse effect of loop [high-ceiling] diuretics, initial encounter - Adverse effect of loop [high-ceiling] diuretics, initial encounter - Bacteremia - Bacteremia - Candidiasis of skin and nail - Candidiasis of skin and nail - Cellulitis of abdominal wall - Cellulitis of abdominal wall - Dehydration - Dehydration - Diarrhea, unspecified - Diarrhea, unspecified - Fever, unspecified - Fever, unspecified - Generalized enlarged lymph nodes - Generalized enlarged lymph nodes - Hepatic failure, unspecified without coma - Hepatic failure, unspecified without coma - terminal carman (current) use of 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 - snf (current) use of 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 - Methicillin susceptible Staphylococcus aureus infection as the cause of diseases classified elsewhere - Methicillin susceptible Staphylococcus aureus infection as the cause of diseases classified elsewhere - Obstructive sleep apnea (adult) (pediatric) - Obstructive sleep apnea (adult) (pediatric) - Other cirrhosis of liver - Other cirrhosis of liver - Other pancytopenia - Other pancytopenia - Other specified bacterial agents as the cause of diseases classified elsewhere - Other specified disorders of veins - Other specified disorders of veins - Patient room in hospital as the place of occurrence of the external cause - Patient room in hospital as the place of occurrence of the external cause - Personal history of nicotine dependence - Personal history of nicotine dependence - Tubulo-interstitial nephritis, not specified as acute or chronic - Unspecified kidney failure - Unspecified kidney failure - Unspecified severe protein-calorie malnutrition - Unspecified severe protein-calorie malnutrition - Venous insufficiency (chronic) (peripheral) - Venous insufficiency (chronic) (peripheral) - Weakness - Weakness 10/25/2021 12:13 [facility] DIAGNOSES: - Acidosis - Acute kidney failure, unspecified - Acute respiratory failure with hypercapnia - Acute respiratory failure with hypoxia - Acute right heart failure - Anemia, unspecified - Chronic kidney disease, stage 3b - Edema, unspecified - Fluid overload, unspecified - Generalized edema - Hyperkalemia - terminal carman (current) use of insulin - Morbid (severe) obesity with alveolar hypoventilation - Other pancytopenia - Pulmonary hypertension, unspecified - Taeniasis, unspecified - Tinea corporis - Type 2 diabetes mellitus with diabetic chronic kidney disease - Unspecified cirrhosis of liver [email or web address]
[2022-07-05 01:15] VITALS: BP 99/40
[2022-07-05 05:34] VITALS: BP 154/53
[2022-07-05 10:11] VITALS: BP 114/61
[2022-07-05 13:18] VITALS: BP 96/40
[2022-07-05 20:46] VITALS: BP 100/47
[2022-07-06 05:17] VITALS: BP 98/53
[2022-07-06 09:14] VITALS: BP 90/46
[2022-07-06 13:09] VITALS: BP 103/58
[2022-07-06 16:19] VITALS: BP 104/50
[2022-07-06 21:58] VITALS: BP 94/49
[2022-07-07 03:00] VITALS: BP 110/52
[2022-07-07 08:14] VITALS: BP 128/60
[2022-07-07 08:17] VITALS: BP 128/60
[2022-07-07] MEDS ORDERED: LACTULOSE20 GM/30 M PO (10:16)
== END 2022-07-07 10:50 | disposition home or self-care (01) ==
LOC: ED 22:49 → MS 22:51
PROVIDERS: ADMIT Family Medicine; ATTEND Family Medicine
DX: K76.82 Hepatic encephalopathy (principal); E72.20 Disorder of urea cycle metabolism, unspecified; D75.839 Thrombocytosis, unspecified; D61.818 Other pancytopenia; N17.9 Acute kidney failure, unspecified; R74.8 Abnormal levels of other serum enzymes; E11.9 Type 2 diabetes mellitus without complications; K76.9 Liver disease, unspecified; E66.9 Obesity, unspecified; I50.9 Heart failure, unspecified
CPT/HCPCS: 36415; 80053; 81001; 82140; 82803; 85025; 85060; 85610; 86850; 86900; 86901; 86922; 96360; 96361; 96374; 99285-25; A9270; G0378; G0480; J1815; J1940; J7030; J7121; P9035; U0003

== ENCOUNTER 2022-08-13 08:40 | Inpatient (IN) | payer OTHER ==
[2022-08-13] VITALS (9 sets, daily range): BP systolic 89–136; BP diastolic 47–101
[~2022-08-13] VITALS: Ht 157.5 cm; Wt 61.8 kg
[~2022-08-13 08:40] MED LIST changes: +LACTULOSE20 GM/30 M PO
--- OUTSIDE RECORDS SUMMARY | 2022-08-13 08:48 | XMS ---
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 [place] VISIT COUNT (12 MO.) 1 [facility] (ID) [address] TOTAL 13 NOTE: Visits indicate total known visits. ED/UCC VISIT TRACKING (12 MO.) 08/13/2022 08:[address] [facility] [place] TYPE: Emergency COMPLAINT: - ALTERED MENTAL STATUS 07/18/2022 13:33 [facility]RE [facility]Amodov[facility] [place] TYPE: Emergency COMPLAINT: - ALTERED LOC 07/04/2022 22:[address] [facility] [place] TYPE: Emergency COMPLAINT: - ALOC 06/20/2022 19:34 [facility] [place] TYPE: Emergency COMPLAINT: - ALTERED STATUS 06/05/2022 19:48 [facility] Nicole GARCIA ([place]) TYPE: Emergency COMPLAINT: - HEPATIC ENCEPHALOPATHY 05/14/2022 07:34 [facility] [place] TYPE: Emergency COMPLAINT: - AMS 03/27[facility]22 [facility] DIAGNOSES: - Chronic viral hepatitis C - Encephalopathy, unspecified - Heart failure, unspecified - Metabolic encephalopathy - Altered Mental Status 03/23/2022 13:51 [facility] DIAGNOSES: - Acute on chronic right heart failure - Adverse effect of unspecified drugs, medicaments and biological substances, initial encounter - Hypokalemia - Altered Mental Status 02/11/2022 13[facility] DIAGNOSES: - Cellulitis of left lower limb - Essential (primary) hypertension - Fever, unspecified - Lymphedema, not elsewhere classified - Non-pressure chronic ulcer of skin of other sites limited to breakdown of skin - Other sites of candidiasis - Other specified health status - Panniculitis, unspecified - edema - Leg Swelling 01/10/2022 13:30 [facility] DIAGNOSES: - Other skin changes - Venous insufficiency (chronic) (peripheral) - Left leg having issues - Wound 01/04/2022 16:53 [facility] [place] TYPE: Emergency COMPLAINT: - L LEG WOUND DIAGNOSES: - Allergy status to penicillin - Anemia, unspecified - Heart failure, unspecified - Non-pressure chronic ulcer of unspecified part of left lower leg with unspecified severity - Obesity, unspecified - Other chcf (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 therapy - Type 2 diabetes mellitus without complications 10/25/2021 [facility] DIAGNOSES: - Acute kidney failure, [...] Generalized edema - Liver disease, unspecified - 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 school teacher (current) use of 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 - Other chcf (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 therapy - Shortness of breath - Type 2 diabetes mellitus without complications - Vitamin D deficiency, unspecified INPATIENT VISIT TRACKING (12 MO.) 07/18/2022 13:34 [facility] [place] TYPE: Observation COMPLAINT: - HEPATIC ENCEPHALOPATHY DIAGNOSES: - Acute kidney failure, unspecified - Allergy status to penicillin - Hepatic encephalopathy - Hypokalemia - Thrombocytopenia, unspecified - Type 2 diabetes mellitus without complications 07/04/2022 22:51 [facility] [place] TYPE: Observation COMPLAINT: - HEPATIC ENECEPHALOPATHY,ACUTE RENAL FAILURE,LIVER DIAGNOSES: - Abnormal levels of other serum enzymes - Acute kidney failure, unspecified - Contact with and (suspected) exposure to COVID-19 - Disorder of urea cycle metabolism, unspecified - Heart failure, unspecified - Hepatic encephalopathy - Liver disease, unspecified - Obesity, unspecified - Other pancytopenia - Thrombocytosis, unspecified - Type 2 diabetes mellitus without complications 06/20/2022 19:[address] [facility] [place] TYPE: Observation COMPLAINT: - HEPATIC ENCEPHALOPATHY DIAGNOSES: - Allergy status to penicillin - Chronic diastolic (congestive) heart failure - Contact with and (suspected) exposure to COVID-19 - Hepatic encephalopathy - Metabolic encephalopathy - Other pancytopenia - Type 2 diabetes mellitus without complications - Unspecified cirrhosis of liver 06/05/2022 19:48 [facility] Nicole Alamoton ID (ID) TYPE: Inpatient COMPLAINT: - HEPATIC [...] Alcoholic cirrhosis of liver without ascites 12. residential (current) use of 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 12. residential (current) use of 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 13. 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 of insulin - 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 school teacher (current) use of insulin - residential (current) use of 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 - residential (current) use of 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 - Obesity, unspecified - Obesity, unspecified - Obstructive sleep apnea (adult) (pediatric) - Obstructive sleep apnea (adult) (pediatric) - Other chcf (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 therapy - Other chcf (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 therapy - Personal history of nicotine dependence - Personal history of nicotine dependence - Type 2 diabetes mellitus with diabetic chronic kidney disease - Type 2 diabetes mellitus with diabetic chronic kidney disease 03/27/2022 15:47 [facility] [place] TYPE: Medical Surgical DIAGNOSES: - Cellulitis of left lower limb - Chronic viral hepatitis C - Encephalopathy, unspecified - Essential (primary) hypertension - Heart failure, unspecified - Hepatic encephalopathy - Hepatic encephalopathy - Metabolic encephalopathy - Pulmonary hypertension, unspecified - Type 2 diabetes mellitus without complications - Unspecified cirrhosis of liver 02/11/2022 13:40 [facility] [place] TYPE: Medical Surgical DIAGNOSES: - Acute kidney [...] cirrhosis of liver 11/17/2021 09:05 [facility] TYPE: Inpatient COMPLAINT: - SWING:ACUTE RESPIRATORY FAILURE [...] - Hepatic failure, unspecified without coma - 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 school teacher (current) use of 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 - residential (current) use of 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 - [...] (peripheral) - Weakness - Weakness 10/25/2021 12:13 [facility] Danna RACHEL TYPE: Medical Surgical DIAGNOSES: - Acidosis - Acute kidney failure, unspecified - Acute respiratory failure with hypercapnia - Acute respiratory failure with hypoxia - Acute right heart failure - Anemia, unspecified - Chronic kidney disease, stage 3b - Edema, unspecified - Fluid overload, unspecified - Generalized edema - Hyperkalemia - residential (current) use of insulin - Morbid (severe) obesity with alveolar hypoventilation - Other pancytopenia - Pulmonary hypertension, unspecified - Taeniasis, unspecified - Tinea corporis - Type 2 diabetes mellitus with diabetic chronic kidney disease - Unspecified cirrhosis of liver [email or web address]
--- NOTE | 2022-08-13 12:00 | NUR ---
PT ADMITTED TO CCU ROOM 128 FOR HEPATIC ENCHEPHALOPATHY, WAS FOUND THIS MORNING BY SISTER AND BROTHER OBTUNDED. ARRIVES TO CCU SLEEPING, RESPONSIVE TO PAIN, DOES MAKE PURPOSEFUL MOVEMENTS. VSS, PT ON ROOM AIR, HR 90'S. PLAN TO GIVE LACTULOSE ENEMAS AND START IVF AND IV ABX.
[2022-08-13] MEDS ORDERED: JARDIANCE10 MG PO (12:27)
[2022-08-13] MEDS ORDERED: ALOGLIPTIN12.5 MG PO (12:32)
--- NOTE | 2022-08-13 12:40 | NUR ---
MED REC COMPLETE
--- NOTE | 2022-08-13 16:59 | NUR ---
PT INC STOOL, ALICIA CARE DONE WITH DESITIN APPLIED, LINEN CHANGE DONE. PT TEARFUL WHEN AWAKE, SOBBING AT TIMES, "I'M SORRY", PT REASSURED AND COMFORTED AND THEN BACK TO SLEEP.
--- NOTE | 2022-08-13 19:00 | NUR ---
ON THE UNIT; PROVIDES VERBAL ORDERS TO TRANSITION PATIENT TO PO LACTULOSE AND CLEAR LIQUIDS.
--- NOTE | 2022-08-13 19:17 | NUR ---
PT WAS INC STOOL AND LARGE AMOUNT OF URINE. PT MORE AWAKE, TEARFUL BUT CALMS. PERICARE DONE, LINEN CHANGE DONE. PT GIVEN SIPS OF WATER, NO TROUBLES WITH SWALLOWING, NO COUGHING NOTED. MD AWARE, STATES OKAY TO GIVE PT CLEAR LIQUIDS TONIGHT.
--- NOTE | 2022-08-13 20:00 | NUR ---
PATIENT UP TO THE BSC TO VOID; 800 MLS URINE MIXED WITH A SMALL AMOUNT OF BM. PATIENT PROVIDED WITH WATER AND A CLEAR LIQUID SNACK. PATIENT IS AAOX4. FORGETFUL OF EVENTS FROM TODAY BUT REMEMBERS HER ACTIONS YESTERDAY AND DENIES MISSING ANY MEDICATION DOSES. PATIENT VS STABLE. IV FLUIDS PER ORDER, SITE WNL.
--- NOTE | 2022-08-13 21:45 | NUR ---
PATIENT UP TO THE BSC. TOLERATED WELL. VOIDED WITH SMALL AMOUNT OF LIQUID BM. PATIENT RETURNED TO BED AND WARM BLANKETS PROVIDED.
[2022-08-14] VITALS (10 sets, daily range): BP systolic 90–115; BP diastolic 50–60
--- NOTE | 2022-08-14 00:35 | NUR ---
PATIENT CONTINUES TO CALL APPROPRIATELY. SHE IS AAOX4. VS STABLE. GOOD URINE OUTPUT AND SMALL BM WITH EACH VOID. TOLERATING CLEAR LIQUIDS.
--- NOTE | 2022-08-14 02:00 | NUR ---
PATIENT UP TO THE BATHROOM WITH ASSIST FROM MARIXA WEBER
--- NOTE | 2022-08-14 03:30 | NUR ---
PATIENT UP TO THE BATHROOM TO VOID. PATIENT TOLERATED WELL. PATIENT IS HUNGRY AND EATING JELLO AND HAVING BROTH. VS STABLE.
--- NOTE | 2022-08-14 06:18 | NUR ---
REPORTED PATIENT'S LAB RESULTS TO MD. RECOMMENDED REPEAT LABS. WILL REVIEW.
--- NOTE | 2022-08-14 06:47 | EKG ---
[facility] [address] [facility] [place], [place] [address] Signed Normal sinus rhythm normal ekg similar to previous jul 18 2022 Confirmed by ZIA HUGHES MD ([id number]) on 08/14/2022 6:46:54 AM Electronically Signed By: ZIA HUGHES 08/14/22 0646 PATIENT NAME: BENTLEY PATEL Electrocardiogram DATE OF : 69 PHYSICIAN: ZIA HUGHES REPORT #: [id number] REPORT IS CONFIDENTIAL AND NOT TO BE RELEASED WITHOUT AUTHORIZATION
--- NOTE | 2022-08-14 10:20 | NUR ---
PHYSICAL THERAPY IN TO WORK WITH PT, PT WENT OUT OF UNIT WITH PT, WAS ABLE TO WALK TO THE END OF THE HOSPITAL AND BACK WITHOUT DIFFICULTY.
--- NOTE | 2022-08-14 11:15 | NUR ---
PT BACK FROM WORKING WITH PT, DENIES NEEDS, WILL GIVE AM MEDS.
--- NOTE | 2022-08-14 15:31 | NUR ---
PT UP TO BATHROOM THEN BACK TO BED, NO C/O AT THIS TIME, STEADY ON FEET, ASSESSMENT UNCHANGED FROM PREVIOUS.
--- NOTE | 2022-08-14 19:45 | NUR ---
SHIFT REPORT RECEIVED. PATIENT RESTING IN BED. WARM BLANKET PROVIDED. PATIENT'S DAUGHTER AT BEDSIDE. NO OTHER NEEDS AT THIS TIME.
--- NOTE | 2022-08-14 19:50 | NUR ---
SHIFT REPORT RECEIVED. PATIENT RESTING IN BED. WARM BLANKET PROVIDED. PATIENT'S DAUGHTER AT BEDSIDE. NO OTHER NEEDS AT THIS TIME.
--- NOTE | 2022-08-14 20:19 | NUR ---
clarified with patient does not need to be on caridac monitoring.
--- NOTE | 2022-08-14 20:45 | NUR ---
PATIENT PROVIDED WITH EVENING MEDS. PATIENT HAS FAMILY VISITING AND IS EATING FOOD WITH THEM; WILL WAIT ON HS ACCU CHECK. PATIENT IS AAOX4. NO OTHER NEEDS. VS STABLE.
[2022-08-15] VITALS (7 sets, daily range): BP systolic 98–110; BP diastolic 48–70
--- NOTE | 2022-08-15 00:38 | NUR ---
PATIENT UP TO THE [facility]. PROVIDED WITH NEW SET OF BREIFS. PATIENT IS STEADY ON HER FEET. AAOX4. DENIES ANY NEEDS.
--- NOTE | 2022-08-15 04:00 | NUR ---
PATIENT REQUESTED WARM BLANKET WHICH WAS PROVIDED. NO OTHER NEEDS.
--- NOTE | 2022-08-15 05:00 | NUR ---
PATIENT PROVIDED WITH FRESH ICE WATER. VS STABLE. PATIENT IS AAOX4.
--- NOTE | 2022-08-15 11:06 | NUR ---
DR. HAMILTON IN TO SEE PATIENT AND PLAN OF CARE BEING DISCUSSED. PT EAGER TO D/C HOME, HOWEVER HER PLATELETS ARE CRITICALLY LOW AT 12. PLATELETS TRANSFUSION TO BE DONE. PT WILL BE TRANSFERRED OVER TO MED/SURG SINCE SHE IS ALREADY A MED/SURG STATUS PATIENT. PT AGREEABLE TO PLAN. POTENTIAL OF D/C HOME STILL LATER TODAY IF PLATELETS ARE TRANFUSED AND REPEAT LEVEL IS ACCEPTABLE TO D/C HOME.
--- NOTE | 2022-08-15 11:27 | NUR ---
LAB IN ROOM TO DRAW TYPE AND SCREEN. PT ABLE TO SIGN CONSENT FORM FOR BLOOD PRODUCTS.
--- NOTE | 2022-08-15 11:48 | NUR ---
REPORT GIVEN TO TIA PACHECO WHO WILL BE TAKING OVER CARE FOR PATIENT. ALL PERSONAL BELONGINGS TO BE TAKEN WITH PATIENT TO HER NEW ROOM.
--- NOTE | 2022-08-15 12:02 | NUR ---
Patient to the medical floor from CCU. Patient is alert and oriented x4, no distress. Vital signs are stable at this time. Patient oriented to room and call light. No current needs, personal supplies and call light within reach of pt.
--- NOTE | 2022-08-15 13:15 | NUR ---
REPORT RECEIVED FROM TARA WEBER, ALL QUESTIONS ANSWERED. ASSUMED CARE OF PT AT THIS TIME.
--- NOTE | 2022-08-15 14:15 | NUR ---
PT SITTING ON IN CHAIR, DENIES NEEDS AT THIS TIME. CALL LIGHT IN REACH.
--- NOTE | 2022-08-15 17:42 | NUR ---
SECOND UNIT OF PLATLETS ARE INFUSING. NO REACTION NOTED. INFUSING RATE INCREASED.
[2022-08-15] MEDS ORDERED: CEFPODOXIME PR200 MG PO (19:32)
--- NOTE | 2022-08-15 19:56 | NUR ---
Dr. Caputo in room. Assnaseemd, vitals done. Critical lab recieved elliot Steven MD aware. Will be discharing today.
--- NOTE | 2022-08-15 20:10 | NUR ---
Pt was offered to get night meds in the hospital, pt wants to go home and take her meds. Pt calling her sister to pick her up.
--- NOTE | 2022-08-15 20:33 | NUR ---
Pt IV removed. Belonings given back. Discharge paper work completed and education done.
== END 2022-08-15 20:18 | disposition home or self-care (01) | DRG 442 ==
LOC: ED 08:40 → CCU 11:12 → MS 08-15 11:50
PROVIDERS: ADMIT Family Medicine; ATTEND Family Medicine
PROC: 30233R1 Transfusion of Nonautologous Platelets into Peripheral Vein, Percutaneous Approach (ICD-10-PCS; principal; 2022-08-15)
DX: K76.82 Hepatic encephalopathy (principal); N17.9 Acute kidney failure, unspecified; N39.0 Urinary tract infection, site not specified; N18.9 Chronic kidney disease, unspecified; K74.60 Unspecified cirrhosis of liver; D63.1 Anemia in chronic kidney disease; D69.59 Other secondary thrombocytopenia; E11.22 Type 2 diabetes mellitus with diabetic chronic kidney disease; I50.9 Heart failure, unspecified; E87.6 Hypokalemia; E55.9 Vitamin D deficiency, unspecified; F41.9 Anxiety disorder, unspecified; B95.1 Streptococcus, group B, as the cause of diseases classified elsewhere; E66.9 Obesity, unspecified; Z68.24 Body mass index [BMI] 24.0-24.9, adult; Z90.49 Acquired absence of other specified parts of digestive tract; Z98.890 Other specified postprocedural states; Z98.891 History of uterine scar from previous surgery; Z88.0 Allergy status to penicillin; Z79.4 Long term (current) use of insulin; Z79.899 Other long term (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 therapy
CPT/HCPCS: 36415; 71045; 80053; 81001; 82140; 85025; 85060; 85610; 86850; 86900; 86901; 87088; 93005; 93010; A9270; J0696; J1815; J7030; P9035

== ENCOUNTER 2023-02-14 15:44 | Emergency (ER) | payer OTHER ==
[~2023-02-14] VITALS: Ht 157.5 cm; Wt 73.2 kg
[~2023-02-14 15:44] MED LIST changes: +ALOGLIPTIN12.5 MG PO; +CEFPODOXIME PR200 MG PO; +JARDIANCE10 MG PO
[2023-02-14 16:32] LABS: NEUTROPHILS 54.1 % (39-80); RBC 3.93 M/ul (4.3-5.7)
[2023-02-14 16:34] LABS: BASOPHILS 0.7 % (0-2); EOSINOPHILS 3.8 % (0-6); HEMATOCRIT 35.7 % (35.0-50.0); HEMOGLOBIN 12.1 g/dL (12.0-18.0); LYMPHOCYTES 33.2 % (24-44); MCH 30.7 (27-36); MCHC 33.8 g/dl (30-36); MCV 90.8 fl (81-99); MONOCYTES 8.2 % (0-12); RDW 15.3 (10.5-15.0)
[2023-02-14 16:41] LABS: BILIRUBIN, URINE NEGATIVE (negative); BLOOD/HGB, URINE NEGATIVE (Negative); KETONE, URINE NEGATIVE (Negative); LEUK ESTERASE, URINE NEGATIVE (negative); NITRITE, URINE NEGATIVE (negative)
[2023-02-14 16:57] LABS: ALBUMIN 3.6 g/dL (3.4-5.0); ALCOHOL, MEDICAL <3 ng/dL (<3); ALKALINE PHOSPHATASE 202 U/L (46-116); ALT (SGPT) 28 U/L (14-59); AMPHETAMINES, URINE NEGATIVE (NEGATIVE); ANION GAP 11.7 (7-21); AST (SGOT) 35 U/L (15-37); BARBITURATES, URINE NEGATIVE (NEGATIVE); BENZODIAZEPINE, URINE NEGATIVE (NEGATIVE); BILIRUBIN, TOTAL 3.2 ng/dL (0.2-1.0); BUN/CREATININE RATIO 31.73 (6.0-28.6); BUPRENORPHINE, URINE NEGATIVE (NEGATIVE); CALCIUM 10.6 mg/dL (8.5-10.1); CANNABINOID, URINE NEGATIVE (NEGATIVE); CARBON DIOXIDE 30 mmol/L (21-32); CHLORIDE 108 mmol/L (98-107); COCAINE, URINE NEGATIVE (NEGATIVE); CREATININE, SERUM 2.08 mg/dL (0.55-1.02); ECSTASY, URINE NEGATIVE (NEGATIVE); FENTANYL, URINE NEGATIVE (NEGATIVE); GLOMERULAR FILTRATION RATE,EST 28 mL/min (>60); METHADONE, URINE NEGATIVE (NEGATIVE); OPIATES, URINE NEGATIVE (NEGATIVE); OXYCODONE, URINE NEGATIVE (NEGATIVE); PHENCYCLIDINE, URINE NEGATIVE (NEGATIVE); POTASSIUM 3.7 mmol/L (3.5-5.1); PROTEIN, TOTAL 8.1 g/dL (6.4-8.2); UREA NITROGEN 66 mg/dL (7-18)
[2023-02-14 19:20] VITALS: BP 117/58
--- NOTE | 2023-02-14 22:12 | EKG ---
[facility] [address] [place] [address] Signed Normal sinus rhythm Normal ECG When compared with ECG of 13-AUG-2022 08:46, No significant change was found Confirmed by Wolf Hamilton MD () on 02/14/2023 10:12:01 PM Electronically Signed By: WOLF HAMILTON MD 02/14/232211 PATIENT NAME: BENTLEY PATEL Electrocardiogram DATE OF : 69 PHYSICIAN: WOLF HAMILTON MD REPORT #: [id number] REPORT IS CONFIDENTIAL AND NOT TO BE RELEASED WITHOUT AUTHORIZATION
== END 2023-02-14 19:20 | disposition home or self-care (01) ==
LOC: ED 15:44
PROVIDERS: Emergency Medicine
DX: K76.82 Hepatic encephalopathy (principal); E11.9 Type 2 diabetes mellitus without complications; E66.9 Obesity, unspecified; I50.9 Heart failure, unspecified; Z88.0 Allergy status to penicillin; Z79.899 Other long term (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 therapy; Z79.4 Long term (current) use of insulin
CPT/HCPCS: 36415; 71045; 80053; 80307; 81003; 82140; 84484; 85025; 85060; 93005; 93010; 99285-25; G0480; J7121

== ENCOUNTER 2023-07-23 14:32 | Emergency (ER) | payer OTHER ==
[~2023-07-23] VITALS: Ht 157.5 cm; Wt 79.0 kg
[2023-07-23] MEDS ORDERED: SODIUM CHLORIDE 0.9% 1,000 ML IV ONE (14:45)
[2023-07-23 14:51] LABS: BASOPHILS 0.9 % (0-2); EOSINOPHILS 2.4 % (0-6); HEMATOCRIT 38.9 % (35.0-50.0); HEMOGLOBIN 13.3 g/dL (12.0-18.0); LYMPHOCYTES 33.7 % (24-44); MCH 30.8 (27-36); MCHC 34.3 g/dl (30-36); MONOCYTES 7.2 % (0-12); NEUTROPHILS 55.8 % (39-80); PLATELET COUNT 58 K/uL (140-440); RBC 4.32 M/ul (4.3-5.7); RDW 15.2 (10.5-15.0)
[2023-07-23] MEDS ORDERED: LACTULOSE 20 GM/30 ML CUP PO ONE ×3 (15:00→17:00)
[2023-07-23] MEDS ORDERED: Rifaximin 200 MG TAB PO ONE ×2 (15:00)
[2023-07-23 15:41] LABS: ALBUMIN 2.9 g/dL (3.4-5.0); ALBUMIN/GLOBULIN RATIO 0.76 (1.1-2.4); ALCOHOL, MEDICAL <3 ng/dL (<3); ALKALINE PHOSPHATASE 214 U/L (46-116); ALT (SGPT) 17 U/L (14-59); ANION GAP 14.4 (7-21); AST (SGOT) 20 U/L (15-37); BILIRUBIN, TOTAL 2.7 ng/dL (0.2-1.0); BUN/CREATININE RATIO 25.35 (6.0-28.6); CALCIUM 10.1 mg/dL (8.5-10.1); CARBON DIOXIDE 24 mmol/L (21-32); CHLORIDE 107 mmol/L (98-107); CREATININE, SERUM 2.13 mg/dL (0.55-1.02); GLOMERULAR FILTRATION RATE,EST 27 mL/min (>60); POTASSIUM 3.4 mmol/L (3.5-5.1); PROTEIN, TOTAL 6.7 g/dL (6.4-8.2); UREA NITROGEN 54 mg/dL (7-18)
[2023-07-23 18:30] VITALS: BP 130/62
[2023-07-23 18:37] LABS: BILIRUBIN, URINE NEGATIVE (negative); BLOOD/HGB, URINE NEGATIVE (Negative); KETONE, URINE NEGATIVE (Negative); LEUK ESTERASE, URINE NEGATIVE (negative); NITRITE, URINE NEGATIVE (negative)
[2023-07-23 18:52] LABS: AMPHETAMINES, URINE NEGATIVE (NEGATIVE); BARBITURATES, URINE NEGATIVE (NEGATIVE); BENZODIAZEPINE, URINE NEGATIVE (NEGATIVE); BUPRENORPHINE, URINE NEGATIVE (NEGATIVE); CANNABINOID, URINE NEGATIVE (NEGATIVE); COCAINE, URINE NEGATIVE (NEGATIVE); ECSTASY, URINE NEGATIVE (NEGATIVE); FENTANYL, URINE NEGATIVE (NEGATIVE); METHADONE, URINE NEGATIVE (NEGATIVE); OPIATES, URINE NEGATIVE (NEGATIVE); OXYCODONE, URINE NEGATIVE (NEGATIVE); PHENCYCLIDINE, URINE NEGATIVE (NEGATIVE)
== END 2023-07-23 18:30 | disposition home or self-care (01) ==
LOC: ED 14:32
PROVIDERS: Emergency Medicine
DX: K76.82 Hepatic encephalopathy (principal); E11.9 Type 2 diabetes mellitus without complications; I50.9 Heart failure, unspecified; E66.9 Obesity, unspecified; Z88.0 Allergy status to penicillin; Z79.4 Long term (current) use of insulin; Z79.899 Other long term (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 therapy
CPT/HCPCS: 36415; 80053; 80307; 81003; 82140; 85025; 96360; 96361; 99285-25; G0480; J7030

== ENCOUNTER 2023-08-09 20:57 | Inpatient (IN) | payer OTHER ==
[~2023-08-09] VITALS: Ht 157.5 cm; Wt 73.9 kg
[~2023-08-09 20:57] MED LIST changes: -VITAMIN D3125 MC1 PO; +VITAMIN D325 MCG PO
--- OUTSIDE RECORDS SUMMARY | 2023-08-09 21:04 | XMS ---
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 - 2 Visits in 30 Days CARE PROVIDERS YULIA PITTMAN Emergency Medicine Current PHONE: [phone] JOSE ONTIVEROS Nurse Practitioner: Family Current PHONE: Unknown Miguel has no Care Guidelines for this patient. Mile VISIT COUNT (12 MO.) [address] [place] [address] TOTAL 6 NOTE: Visits indicate total known visits. 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 - Obesity, unspecified - Other director radio news (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 therapy - Transient alteration of awareness - Type 2 diabetes mellitus without complications 06/18/2023 20:22 [facility] OR TYPE: Emergency COMPLAINT: - DIFFICULT BREATHING/COUGH DIAGNOSES: - Acute bronchitis due to other specified organisms - Allergy status to penicillin - Anxiety disorder, unspecified - Body mass index [BMI] 30.0-30.9, adult - Cough, unspecified - Heart failure, unspecified - long-term (current) use of insulin - long-term (current) use of 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 - Obesity, unspecified - Other director radio news (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 therapy - Type 2 diabetes mellitus without complications 02/14/2023 15:46 [facility] OR TYPE: Emergency COMPLAINT: - DON'T FEEL GOOD, CONFUSED DIAGNOSES: - Allergy status to penicillin - Altered mental status, unspecified - Heart failure, unspecified - Hepatic encephalopathy - long-term (current) use of insulin - Obesity, unspecified - Other director radio news (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 therapy - Type 2 diabetes mellitus without complications 09/18/2022 19:32 [facility] OR TYPE: Emergency COMPLAINT: - ALTERED LOC DIAGNOSES: - Allergy status to penicillin - Altered mental status, unspecified - Body mass index [BMI] 25.0-25.9, adult - Chronic hepatic failure without coma - Heart failure, unspecified - 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 - Obesity, unspecified - Other senior living (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 therapy - Type 2 diabetes mellitus without complications 08/13/2022 08:41 [facility] OR TYPE: Emergency COMPLAINT: - ALTERED MENTAL STATUS INPATIENT VISIT TRACKING (12 MO.) 08/13/2022 11:12 [facility] OR TYPE: Medical Surgical COMPLAINT: - HEPATIC ENCEPHALOPATHY DIAGNOSES: - Acquired absence of other specified parts of digestive tract - Acquired absence of other specified parts of digestive tract - Acute kidney failure, unspecified - Acute kidney failure, unspecified - Allergy status to penicillin - Allergy status to penicillin - Anemia in chronic kidney disease - Anemia in chronic kidney disease - Anxiety disorder, unspecified - Anxiety disorder, unspecified - Body mass index [BMI] 24.0-24.9, adult - Chronic kidney disease, unspecified - Chronic kidney disease, unspecified - Heart failure, unspecified - Heart failure, unspecified - Hepatic encephalopathy - History of uterine scar from previous surgery - History of uterine scar from previous surgery - Hypokalemia - Hypokalemia - 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 - long-term (current) use of insulin - Obesity, unspecified - Obesity, unspecified - Other senior living (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 therapy - Other director radio news (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 therapy - Other secondary thrombocytopenia - Other specified postprocedural states - Other specified postprocedural states - Streptococcus, group B, as the cause of diseases classified elsewhere - Thrombocytopenia, unspecified - Type 2 diabetes mellitus with diabetic chronic kidney disease - Type 2 diabetes mellitus with diabetic chronic kidney disease - Unspecified cirrhosis of liver - Unspecified cirrhosis of liver - Urinary tract infection, site not specified - Urinary tract infection, site not specified - Vitamin D deficiency, unspecified - Vitamin D deficiency, unspecified [email or web address]
[2023-08-09 21:35] LABS: BASOPHILS 0.5 % (0-2); EOSINOPHILS 2.1 % (0-6); HEMATOCRIT 41.8 % (35.0-50.0); HEMOGLOBIN 14.5 g/dL (12.0-18.0); LYMPHOCYTES 24.1 % (24-44); MCH 31.3 (27-36); MCHC 34.6 g/dl (30-36); MCV 90.6 fl (81-99); MONOCYTES 9.8 % (0-12); NEUTROPHILS 63.5 % (39-80); RBC 4.62 M/ul (4.3-5.7); RDW 15.3 (10.5-15.0)
[2023-08-09 21:50] LABS: ALBUMIN 3.5 g/dL (3.4-5.0); ALBUMIN/GLOBULIN RATIO 0.76 (1.1-2.4); ANION GAP 18.7 (7-21); BILIRUBIN, TOTAL 4.6 ng/dL (0.2-1.0); BUN/CREATININE RATIO 28.86 (6.0-28.6); CALCIUM 11.3 mg/dL (8.5-10.1); CREATININE, SERUM 2.91 mg/dL (0.55-1.02); POTASSIUM 4.7 mmol/L (3.5-5.1); PROTEIN, TOTAL 8.1 g/dL (6.4-8.2)
[2023-08-09] MEDS ORDERED: LACTATED RINGER'S 1,000 ML IV ONE (22:15)
[2023-08-09] MEDS ORDERED: Rifaximin 200 MG TAB PO SCH (22:40)
[2023-08-09] MEDS ORDERED: LACTULOSE 20 GM/30 ML CUP PO ONE (22:45)
[2023-08-09] MEDS ORDERED: ondansetron HCL 4 MG/2 ML VIAL IV PRN (22:45)
[2023-08-09] MEDS ORDERED: LACTATED RINGER'S 1,000 ML IV SCH (22:45)
[2023-08-09 23:16] VITALS: BP 150/66
[2023-08-09] MEDS ORDERED: MICONAZOLE NITRATE 1 EA BTL TOP SCH (23:21)
--- NOTE | 2023-08-09 23:34 | NUR ---
PATIENT TO THE FLOOR VIA STRETCHER BY THIS RN. PATIENT TRANSFERRED FROM STRETCHER TO BED USING SLIDE SHEET. VS OBTAINED AND RECORDED. IV FLUSHES WNL. CPOX IN PLACE. PATIENT ABLE TO SWALLOW SCHEDULED MEDICATION. PATIENT ORIENTED TO NAME, BUT NOT , YEAR, OR LOCATION. ASSESSMENT COMPLETE. REDNESS NOTED UNDER BILAT BREAST AND PANNUS. LLE RHONDA. CALL LIGHT IN REACH.
[2023-08-09 23:40] LABS: INR 1.21 (0.80-1.30); PROTIME 14.9 Sec (11.2-14.2)
--- NOTE | 2023-08-09 23:51 | NUR ---
DESENEX POWDER PLACED UNDER BILAT BREASTS AND PANNUS.
[2023-08-10] VITALS (8 sets, daily range): BP systolic 113–135; BP diastolic 50–70
--- NOTE | 2023-08-10 01:43 | NUR ---
PATIENT RESTING IN BED ON BACK WITH EYES CLOSED. RESPIRATIONS EVEN AND UNLABORED. O2 SAT 96%. CALL LIGHT IN REACH.
--- NOTE | 2023-08-10 02:26 | NUR ---
BED ALARM ALERTED STAFF. PATIENT ASSISTED TO THE BSC A 2PA. PATIENT NOT ABLE TO FOLLOW DIRECTIONS. PATIENT ABLE TO VOID. PATIENT IS BACK IN BED RESTING. PATIENT PROVIDED SIPS OF WATER. PATIENTS IV INFUSING PER ORDER. NO FURTHER NEEDS NOTED. CALL LIGHT IN REACH. BED ALARM ON FOR SAFETY.
[2023-08-10 02:31] LABS: BILIRUBIN, URINE NEGATIVE (negative); BLOOD/HGB, URINE NEGATIVE (Negative); KETONE, URINE NEGATIVE (Negative); LEUK ESTERASE, URINE NEGATIVE (negative); NITRITE, URINE NEGATIVE (negative); PH, URINE 5.5 (5-7)
[2023-08-10 02:45] LABS: AMPHETAMINES, URINE NEGATIVE (NEGATIVE); BARBITURATES, URINE NEGATIVE (NEGATIVE); BENZODIAZEPINE, URINE NEGATIVE (NEGATIVE); BUPRENORPHINE, URINE NEGATIVE (NEGATIVE); CANNABINOID, URINE NEGATIVE (NEGATIVE); COCAINE, URINE NEGATIVE (NEGATIVE); ECSTASY, URINE NEGATIVE (NEGATIVE); FENTANYL, URINE NEGATIVE (NEGATIVE); METHADONE, URINE NEGATIVE (NEGATIVE); OPIATES, URINE NEGATIVE (NEGATIVE); OXYCODONE, URINE NEGATIVE (NEGATIVE); PHENCYCLIDINE, URINE NEGATIVE (NEGATIVE)
[2023-08-10] MEDS ORDERED: LACTULOSE 20 GM/30 ML CUP PO SCH (03:00)
--- NOTE | 2023-08-10 03:03 | NUR ---
PATIENT RESTING IN BED ON CAR WITH EYES CLOSED. SCHEDULED MEDICATION ADMINSITERED VIA ORAL SYRINGE. NO FURTHER NEEDS. CALL LIGHT IN REACH. O2 SAT 96% ON RA.
--- NOTE | 2023-08-10 04:59 | NUR ---
PATIENT RESTING IN BED ON BACK WITH EYES CLOSED. O2 SAT 94%. RESPIRATIONS EVEN AND UNLABORED. CALL LIGHT IN REACH.
--- NOTE | 2023-08-10 05:25 | NUR ---
PATIENT RESTING IN BED WITH EYES CLOSED. RESPIRATIONS EVEN AND UNLABORED. VS AND I&Os OBTAINED AND RECORDED. PATIENT RESPONDS TO VERBAL STIMULI, BUT DOES NOT RESPOND OR ANSWER QUESTIONS. LAB REMAINS IN ROOM. CALL LIGHT IN REACH.
[2023-08-10 05:37] LABS: BASOPHILS 0.6 % (0-2); EOSINOPHILS 1.8 % (0-6); HEMATOCRIT 36.8 % (35.0-50.0); HEMOGLOBIN 12.8 g/dL (12.0-18.0); LYMPHOCYTES 25.6 % (24-44); MCH 31.3 (27-36); MCHC 34.9 g/dl (30-36); MCV 89.7 fl (81-99); MONOCYTES 8.6 % (0-12); NEUTROPHILS 63.4 % (39-80); RDW 15.6 (10.5-15.0)
[2023-08-10 05:53] LABS: ALBUMIN 2.9 g/dL (3.4-5.0); ALBUMIN/GLOBULIN RATIO 0.73 (1.1-2.4); ANION GAP 21.4 (7-21); BILIRUBIN, TOTAL 4.5 ng/dL (0.2-1.0); BUN/CREATININE RATIO 30.68 (6.0-28.6); CALCIUM 10.5 mg/dL (8.5-10.1); CREATININE, SERUM 2.64 mg/dL (0.55-1.02); MAGNESIUM 2.2 mg/dL (1.8-2.4); POTASSIUM 4.4 mmol/L (3.5-5.1); PROTEIN, TOTAL 6.9 g/dL (6.4-8.2)
[2023-08-10 06:23] LABS: PLATELET COUNT 100 K/uL (140-440)
--- NOTE | 2023-08-10 06:30 | NUR ---
PATIENT APPEARS RESTLESS IN BED. PATIENT UP WITH 2PA TO BSC. NEW GOWN AND LINENS PROVIDED. PATIENT UNABLE TO VOID. PATIENT BACK TO BED WITH NEW BREIF IN PLACE AFTER ALICIA CARE PROVIDED. NO FURTHER NEEDS. CALL LIGHT IN REACH. BED ALARM ON FOR SAFETY.
--- NOTE | 2023-08-10 06:35 | NUR ---
PATIENT HEARD RETCHING FROM NURSES STATION. PRN NAUSEA MEDICATION ADMINISTERED. HOB ELEVATED AND EMESIS BAG ON CHEST. NO FURTHER NEEDS. CALL LIGHT IN REACH.
--- NOTE | 2023-08-10 07:25 | NUR ---
REPORT RECEIVED FROM ASSEMBLY LINE MACHINE OPERATOR RN AUGUSTO. PATIENT IS LYING ON THEIR LEFT SIDE AND RESPIRATIONS ARE EVEN AND UNLABORED. CALL LIGHT AND PERSONAL BELONGINGS ARE WITHIN REACH.
[2023-08-10] MEDS ORDERED: LACTULOSE 20 GM/30 ML CUP PO PRN ×2 (07:45→13:00)
[2023-08-10] MEDS ORDERED: DEXTROSE 50% 50 ML SYR IV PRN ×2 (07:45)
[2023-08-10] MEDS ORDERED: LACTATED RINGER'S 1,000 ML IV SCH (07:45)
[2023-08-10] MEDS ORDERED: IBLOOD GLUCOSE TEST STRIP 1 EA TEST XX PRN (07:45)
[2023-08-10] MEDS ORDERED: ondansetron HCL 4 MG/2 ML VIAL IV PRN (07:45)
[2023-08-10] MEDS ORDERED: DEXTROSE 5% 1,000 ML IV PRN (07:45)
[2023-08-10] MEDS ORDERED: GLUCAGON,HUMAN RECOMBINANT 1 MG/ML VIAL SUB-Q PRN (07:45)
[2023-08-10] MEDS ORDERED: IBLOOD GLUCOSE TEST STRIP 1 EA TEST VI SCH (08:00)
[2023-08-10] MEDS ORDERED: INSULIN LISPRO 100 UNIT/ML ML SUB-Q SCH (08:00)
--- NOTE | 2023-08-10 08:05 | NUR ---
AMBULANCE OFFICER CHECKED PT BLOOD SUGAR LEVEL. PT WAS LAYING DOWN IN BED WITH OTHER AMBULANCE OFFICER ACTING A 1:1. BG WAS [phone] RN NOTIFIED
[2023-08-10] MEDS ORDERED: INSULIN GLARGINE-YFGN 100 UNIT/ML ML SUB-Q SCH (09:00)
[2023-08-10] MEDS ORDERED: ENOXAPARIN SODIUM 40 MG/0.4 ML SYR SUB-Q SCH (09:00)
[2023-08-10] MEDS ORDERED: JARDIANCE10 MG PO (09:18)
[2023-08-10] MEDS ORDERED: ZYRTEC10 MG PO (09:20)
--- NOTE | 2023-08-10 09:45 | NUR ---
PATIENT REFUSING ALL MEDICATIONS AT THIS TIME. PATIENT EDUCATED ON THE MEDICATIONS SCHEDULED AND THE IMPORTANCE OF TAKING THEM. PATIENT UNABLE TO EXPLAIN WHY THEY DO NOT WANT TO TAKE THE MEDICATIONS. MD NOTIFIED AT THIS TIME. MD SAID TO WAIT AND TRY AGAIN IN AN HOUR. FULL ASSESSMENT COMPLETE AND DOCUMENTED IN THE CHART. PATIENT ORIENTED TO SELF AT THIS TIME. IV SITE FLUSHED WITH 10 ML NORMAL SALINE. IV DRESSING IS CLEAN, DRY, AND INTACT. LR IS INFUSING AT 100 ML/HR. LUNG SOUNDS ARE CLEAR IN ALL LUNG BENITES BILATERALLY. PATIENT IS ON ROOM AIR WITH A CPOX AT THE BEDSIDE. PATIENT WITH GENERALIZED WEAKNESS. CARDIAC WITH NORMAL S1 AND S2 ON AUSCULTATION. PATIENT IS NOT ON TELEMETRY. BOWEL TONES ARE ACTIVE IN ALL FOUR QUADRANTS. PATIENT WITH REDNESS NOTED UNDER THE BREASTS AND PANNUS. PURPLE/REDNESS NOTED ON THE LOWER LEFT LEG. PATIENT IS SITTING ON THE COMMODE AT THIS TIME WITH TWO ALCOHOL RUBBER AT THE BEDSIDE. PATIENT STATED NO NEEDS AT THIS TIME. CALL LIGHT AND PERSONAL BELONGINGS ARE WITHIN REACH.
--- NOTE | 2023-08-10 09:58 | NUR ---
CALL PLACED TO MELISSA AT [facility], PATIENT DOES NOT HAVE A STATE PAID CAREGIVER AT THIS TIME. CALL PLACED TO [facility]. SPOKE WITH CRISS, PATIENT IS ACTIVELY BEING SEEN AT [facility], BUT DOES NOT RECV CAREGIVING SERVICES OF HOME VISITS.
--- NOTE | 2023-08-10 10:00 | NUR ---
Attempted to speak with pt. She opens her eyes and states, "HI". She does not answer any questions and has a sitter in the room. Her brother is listed as her emergency contact and I will call him for info.
--- NOTE | 2023-08-10 10:02 | NUR ---
VISITED DURING SPIRITUAL CARE ROUNDS. PT EATING BREAKFAST. DID NOT INTERRUPT. PROVIDED PRAYER.
--- NOTE | 2023-08-10 10:18 | NUR ---
RALEIGH AND I GOT PATIENT OUT OF BED TO SIT ON THE BEDSIDE COMMODE. THAN WE TRANSFERED PATIENT TO HER CHAIR. PATIENT DIDN'T WANT TO EAT ANY OF HER BREAKFAST.
[2023-08-10] MEDS ORDERED: LACTULOSE 20 GM/30 ML CUP ONE (10:27)
--- NOTE | 2023-08-10 10:43 | NUR ---
PT REQUESTING NOW HER LACTULOSE, SITTING UP IN CHAIR AT THIS TIME WITH CAREGIVER 1:1 FOR SAFETY. UPON ENTERING THE ROOM, ATTEMPTING TO GIVE PT LACTULOSE BUT THEN REFUSING AGAIN, SHE DID EVENTUALLY TAKE 30ML OF THE 45ML DOSE, WHICH WAS DOCUMENTED IN APR. PT SITTING IN CHAIR WITH IV FLUIDS INFUSING, CAREGIVER WITHIN REACH FOR PT SAFETY.
--- NOTE | 2023-08-10 11:18 | NUR ---
[place] CLINICAL [place] [facility] [place] BASIC DMAP INPT 08/10/23 @ 0743 REG UPDATED WILL SEND CLINICALS FOR REVIEW DISCHARGE PENDING FURTHER CASE MANAGEMENT EVALUATION 08/13/23
[2023-08-10] MEDS ORDERED: bisacodyL 10 MG SUPP PR PRN (11:45)
--- NOTE | 2023-08-10 11:58 | NUR ---
Called and spoke with pts brother Joe. He states pt stops taking her lactulose about every 2 months as its hard to functions. Per brother pt's daughter is currently living with her. This is causing the pt stress and she is not eating or sleeping. When pts amonia is not elevated, she drives and functions without problem. Pt was planning on returning to work. Per brother,in the past when pt would not take her meds, they placed in it a syringe and gave it to her. I let him know we are not allowed to do this. He suggested placing it in a fruity drink as pt takes it this way at home. I discussed process for a cg in the home and brother states pt will never agree to this. He states pt does not like them checking up on her. He states he will attempt to visit tonight and to call him for any needs.
[2023-08-10] MEDS ORDERED: PHARMACY RENAL DOSE ADJUSTMENT 1 DOSE MISC PO SCH (12:00)
--- NOTE | 2023-08-10 12:04 | NUR ---
PATIENT IS LYING IN THE CHAIR WITH EYES CLOSED AND RESPIRATIONS ARE EVEN AND UNLABORED. BILATERAL LOWER EXTREMITIES ARE ELEVATED AND THE CPOX IS AT THE BEDSIDE. CALL LIGHT AND PERSONAL BELONGINGS ARE WITHIN REACH.
--- NOTE | 2023-08-10 12:13 | NUR ---
PATIENT IS SLEEPING IN HER CHAIR.
--- NOTE | 2023-08-10 12:57 | NUR ---
CALL TO PHARMACY, UNABLE TO PULL LACTULOSE DOSE FROM PYXUS, REQUIRES YOU TO OVERRIDE IT DOES NOT SHOW IN MEDICATIONS/ALL ORDERS. PHARMACY NOTIFIED, LOOKS LIKE IT IS A 0/1 DOSE ORDER, WHICH MAY BE CAUSING THIS ISSUE. ORDER WAS DC'D AND NEW ORDER INPUT WITH INSTRUCTIONS QID PRN TO TITRATE TO 2 BOWEL MOVEMENTS DAILY. PRIMARY RN NOTIFIED AND WILL SEE IF THIS CORRECTS THE ISSUE WITH IT NOT SHOWING UP IN PYXUS.
--- NOTE | 2023-08-10 13:18 | NUR ---
PT NEEDED TO USE THE RESTROOM. TWO CNAS WERE IN THE ROOM TO HELP. SHE WAS A STAND BY SHE WASNT STRUGGLING TO GET TO THE COMODE. PT HAD A LIQUID BM. ELECTRONICS WORKER HELPED PT WIPE. PT WANTED TO GO BACK TO BED TO REST. SHE ASKED FOR A WARM BLANKET. PT DIDNT NEED ANYTHING ELSE AND CALL LIGHT IS WITHIN REACH.
--- NOTE | 2023-08-10 14:06 | NUR ---
PT HAD A BM WHILE SHE WAS RESTING. ASKED ANOTHER LADIES' LOCKER ROOM ATTENDANT FOR HELP. WE CHNAGED HER GOWNED. PT ASKED IF I CAN HELP HER COMB HER HAIR. I OFFERED A SHOWER CAP AND SHE WANTED IT. TOOK PT VITALS WHILE THE SHOWER CAP WAS ON. AND THEN HELPED HER COMB HER HAIR. WHEN COMPLETED PT ASKED IF SHE CAN CALL HER BROTHER AND I CALLED HER BROTHER FOR HER. PT DIDNT NEED ANYTHING ELSE.
--- NOTE | 2023-08-10 15:10 | NUR ---
PT NEEDED TO USE THE RESTROOM TWICE AND ASKED IF SHE CAN WALK TO THE BATHROOM. PT WANTED TO GRAB MY HAND FOR SUPPORT. PT ASKED IF I CAN HELP HER WIPE.
--- NOTE | 2023-08-10 15:44 | NUR ---
PATIENT IS STANDING IN THE BATHROOM WITH RADIO DIVISION LIEUTENANT TO TRY TO GET CONTACTS OUT. SKIN ASSESSMENT COMPLETE WITH TIA PENG. REDNESS NOTED UNDERNEATH THE BREASTS BILATERALLY AND THE PANNUS. RHONDA COLORATION NOTED ON THE BILATERAL LOWER EXTREMITIES. PATIENT IS ALERT AND ORIENTED TIMES FOUR. PATIENT ABLE TO AMBULATE WITH SBA AT THIS TIME. PATIENT STATED NO FURTHER NEEDS AT THIS TIME. CALL LIGHT AND PERSONAL BELONGINGS ARE WITHIN REACH.
--- NOTE | 2023-08-10 16:47 | NUR ---
PT ASKED TO USE THE RESTROOM. SHE ONLY VOIDED.
--- NOTE | 2023-08-10 17:29 | NUR ---
PT ATE HALF A SANDWICH AND TOOK SOME BITS OF DINNER AND STARTED TO FALL ASLEEP. I ASKED PT IF SHE WANTED TO GET BACK TO BED TO REST AND SHE DENIED AND WANTED TO REST ON HER CHAIR. SHE DIDNT WANT ME TO TAKE HER DINNER AWAY SO I SET IT TO THE SIDE. PT PERFERS TO USE PLASTIC SPOON BECAUSE THE METAL ONE IS TO HEAVY FOR HER.
--- NOTE | 2023-08-10 18:21 | NUR ---
PATIENT IS LYING IN THE CHAIR WITH EYES CLOSED AND RESPIRATIONS ARE EVEN AND UNLABORED. PATIENT WITH CALL LIGHT AND PERSONAL BELONGINGS WITHIN REACH.
--- NOTE | 2023-08-10 19:43 | NUR ---
REPORT RECEIVED FROM DAY RN. PATIENT RESTING IN RECLINER WITH EYES CLOSED. IVF INFUSING, IV SITE WITH NO ISSUES OR CONCERNS. PATIENT REQUESTED ICE CHIPS, ICE CHIPS GIVEN. PATIENT REQUEST WARM BLANKET, WARM BLANKET GIVEN. PATIENT APPEARS TO BE SLEEPING AT THIS TIME WITH EYES CLOSED AND RESPITATIONS EVEN AND UNLABORED. CALL LIGHT WITHIN REACH, RN AT BEDSIDE FOR 1:1.
--- NOTE | 2023-08-10 19:59 | NUR ---
PATIENT REQUESTING DINNER BE REHEATED. RN REHEATED DINNER, PATIENT EATTING AT THIS TIME.
[2023-08-10] MEDS ORDERED: MELATONIN 3 MG TAB PO PRN (21:00)
--- NOTE | 2023-08-10 21:30 | NUR ---
BS OBTAINED AND RECORDED. SS INSULIN ADMINISTERED. NEW BAG IV FLUID INFUSING PER ORDER. NO FURTHER NEEDS. CALL LIGHT IN REACH.
--- NOTE | 2023-08-10 22:02 | NUR ---
DRYWALL SPRAYER AND RN ENTERED ROOM. VITALS AND I&O OBTAINED. DRYWALL SPRAYER SBA FROM CHAIR TO BED. PT NEEDED HELP TAKING OUT CONTACT. PT UNABLE TO REMOVE CONTACT IN LEFT EYE. SAFETY ASSISTANT NOTIFIED. ICE WATER REFILLED. PT WANTED TO GIVE HER EYE A BREAK BEFORE TRYING TO REMOVE CONTACT AGAIN. PT STATES NO FURHTER NEEDS AT THIS TIME. CALL LIGHT WITHIN REACH.
--- NOTE | 2023-08-10 22:49 | NUR ---
CALL LIGHT ANSWERED. PT STATES THAT SHE FEELS THAT HER CONTACT FELL OUT OF HER EYE. INTERNET MARKETING ANALYST FOUND CONTACT IN PT BED. CONTACTS PLACED IN EYE CONTACT CONTAINER WITH WATER. PT STATES NO FURTHER NEEDS AT THIS TIME. CALL LIGHT PLACED WITHIN REACH.
--- NOTE | 2023-08-10 23:59 | NUR ---
PATIENT RESTING IN BED ON LEFT SIDE WITH EYES CLOSED. RESPIRATIONS EVEN AND UNLABORED. CALL LIGHT IN REACH.
--- NOTE | 2023-08-11 02:12 | NUR ---
PATIENT RESTING IN BED ON BACK WITH EYES CLOSED. RESPIRATIONS EVEN AND UNLABORED. CALL LIGHT IN REACH.
--- NOTE | 2023-08-11 04:27 | NUR ---
PATIENT RESTING IN BED IN BACK WITH EYES CLOSED. RESPIRATIONS EVEN AND UNLABORED. CALL LIGHT IN REACH.
[2023-08-11 05:32] VITALS: BP 95/83
--- NOTE | 2023-08-11 05:34 | NUR ---
COIL WINDER ENTERED ROOM AND OBTAINED VITALS. PT STATES THAT SHE WANTED TO USE BATHROOM. COIL WINDER 1PA TO BATHROOM. PT AMBULATES WELL BUT SLOW MOVING. PT ASSISTED BACK TO BED. OUT PUT DOCUMENTED. CPOX RECONNECTED. PT STATES NO FURTHER NEEDS AT THIS TIME. CALL LIGHT PLACED WITHIN REACH.
[2023-08-11 05:46] LABS: BASOPHILS 0.6 % (0-2); EOSINOPHILS 3.3 % (0-6); HEMATOCRIT 35.1 % (35.0-50.0); HEMOGLOBIN 12.2 g/dL (12.0-18.0); LYMPHOCYTES 30.3 % (24-44); MCH 31.4 (27-36); MCHC 34.6 g/dl (30-36); MCV 90.5 fl (81-99); NEUTROPHILS 56.8 % (39-80); RBC 3.88 M/ul (4.3-5.7); RDW 15.5 (10.5-15.0)
[2023-08-11 05:53] LABS: PLATELET COUNT 94 K/uL (140-440)
[2023-08-11 06:10] LABS: ALBUMIN 2.7 g/dL (3.4-5.0); ALBUMIN/GLOBULIN RATIO 0.73 (1.1-2.4); ANION GAP 12.9 (7-21); BILIRUBIN, DIRECT 0.7 mg/dL (0.0-0.2); BILIRUBIN, TOTAL 4.8 ng/dL (0.2-1.0); BUN/CREATININE RATIO 33.18 (6.0-28.6); CALCIUM 10.6 mg/dL (8.5-10.1); CREATININE, SERUM 2.2 mg/dL (0.55-1.02); POTASSIUM 3.9 mmol/L (3.5-5.1); PROTEIN, TOTAL 6.4 g/dL (6.4-8.2)
--- NOTE | 2023-08-11 06:26 | NUR ---
PATIENT RESTING IN BED WITH EYES CLOSED. AWAKENS EASILY. PATIENT A&O X4. NO FURTHER NEEDS. CALL LIGHT IN REACH.
[2023-08-11 06:28] VITALS: BP 95/83
--- NOTE | 2023-08-11 07:07 | NUR ---
REPORT RECEIVED FROM AUGUSTO WEBER. PT ASLEEP IN BED WITH CALL LIGHT WITHIN REACH. RESPIRATIONS EVEN AND UNLABORED.
--- NOTE | 2023-08-11 08:16 | NUR ---
PATIENT IN BED AT THIS TIME. FRESH WATER GIVEN WITH ICE. CALL LIGHT WITHIN REACH, NO FURTHER NEEDS AT THIS TIME.
--- NOTE | 2023-08-11 08:32 | NUR ---
PT SITTING UP IN BED EATING BREAKFAST AND VISITING WITH PHARMACIST. CALL LIGHT WITHIN REACH.
[2023-08-11] MEDS ORDERED: ENOXAPARIN SODIUM 30 MG/0.3 ML SYR SUB-Q SCH (09:00)
--- NOTE | 2023-08-11 09:02 | NUR ---
COORDINATING PRODUCER ASKED PT IF SHE NEEDED HER CONTACTS THAT ARE IN THE BATHROOM OR IF SHE CAN REPLACE THEM WHEN SHES HOME. PT STATED THAT SHE DID NEED THE CONTACTS AND THAT THEY SHOULD NOT BE THROWN AWAY
--- NOTE | 2023-08-11 09:11 | NUR ---
MED REC COMPLETE
--- NOTE | 2023-08-11 10:00 | NUR ---
Spoke with Karen. She denies needs. Talks about her daughter in penitentiary and this causes her alot of stress. Pt has been attempting to call her sister, but is unable to follow the directions to reach her sister at the [facility]. Pt attempted x 2 and I offered to dial, pt gave me the phone number and it is not correct. Asked if I could call from my office. Pt states she needs her sister as she has the barry to her home. Pt states she has lost her purse, phone, and keys. She thinks it coud be at her home. I will contact her sister and check if if she has a barry and stop at pts home and get her purse. I was able to reach sister, Bernabe. She has a barry and will go to pts home. She also visit pt and take her home if needed around 4-5 pm today.
[2023-08-11 10:18] VITALS: BP 111/57
--- NOTE | 2023-08-11 10:25 | NUR ---
DR HAMILTON IN TO SEE PT AND DISCUSS PLAN OF CARE.
--- NOTE | 2023-08-11 10:32 | NUR ---
VISITED DURING SPIRITUAL CARE ROUNDS. PT EXPRESSED IMPROVED HEALTH, STATING SHE FELT BETTER THAN WHEN THIS "ALL STARTED;" DENIED IMMEDIATE NEEDS. PROVIDED SUPPORTIVE PRESENCE, HOSPITALITY, PRAYER.
[2023-08-11 10:54] VITALS: BP 111/57
--- NOTE | 2023-08-11 11:42 | NUR ---
pt asleep with call light within reach. respirations even and unlabored.
--- NOTE | 2023-08-11 12:05 | NUR ---
pt ambulated to restroom with minimal assist to have bm.
[2023-08-11] MEDS ORDERED: LACTULOSE20 GM/30 M PO (12:45)
--- NOTE | 2023-08-11 13:00 | NUR ---
Updated pt her sister will visit. She is upset with her sister as she felt she was avoiding her calls. Reminded her we were unable to get through the phone process. She then decides she will let her sister drive her home. Pt again stating her purse is lost. I checked her closet and pts belongings, including her purse, phone, and keys. I attempted to call her sister to let her know, I was unable to reach.
[2023-08-11 13:17] VITALS: BP 103/46
--- NOTE | 2023-08-11 13:40 | NUR ---
pt sitting up in chair, has had several (greater than 3) bm today. alert and oriented x4, call light within reach.
[2023-08-11 15:19] VITALS: BP 129/56
== END 2023-08-11 16:03 | disposition home or self-care (01) | DRG 442 ==
LOC: ED 20:57 → MS 20:58
PROVIDERS: Family Medicine; ADMIT Family Medicine; ATTEND Family Medicine
DX: K76.82 Hepatic encephalopathy (principal); N17.9 Acute kidney failure, unspecified; E11.65 Type 2 diabetes mellitus with hyperglycemia; E80.6 Other disorders of bilirubin metabolism; E11.22 Type 2 diabetes mellitus with diabetic chronic kidney disease; N18.9 Chronic kidney disease, unspecified; D69.6 Thrombocytopenia, unspecified; K76.9 Liver disease, unspecified; Z88.0 Allergy status to penicillin; Z79.899 Other long term (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 therapy; Z79.4 Long term (current) use of insulin; D63.1 Anemia in chronic kidney disease; E55.9 Vitamin D deficiency, unspecified; E66.9 Obesity, unspecified; F41.9 Anxiety disorder, unspecified; I50.9 Heart failure, unspecified; K74.60 Unspecified cirrhosis of liver; Z90.49 Acquired absence of other specified parts of digestive tract; Z98.890 Other specified postprocedural states; Z68.29 Body mass index [BMI] 29.0-29.9, adult
CPT/HCPCS: 36415; 80053; 80307; 81003; 82140; 82248; 83735; 84100; 85025; 85610; A9270; J1650; J1815; J2405; J7121

== ENCOUNTER 2023-08-26 09:04 | Emergency (ER) | payer OTHER ==
[~2023-08-26] VITALS: Ht 157.5 cm; Wt 76.7 kg
[~2023-08-26 09:04] MED LIST changes: +ZYRTEC10 MG PO
--- OUTSIDE RECORDS SUMMARY | 2023-08-26 09:10 | XMS ---
PreManage Notification: BENTLEY PATEL Security Commercial Designer Events No recent Security Events currently on file CRITERIA MET - [facility] - 2 Visits in 30 Days CARE PROVIDERS YULIA PITTMAN Emergency Medicine Current PHONE: [phone] JOSE ONTIVEROS Nurse Practitioner: Family Current PHONE: Unknown Miguel has no Care Guidelines for this patient. Mile VISIT COUNT (12 MO.) [address] [place] [address] TOTAL 6 NOTE: Visits indicate total known visits. 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 - Obesity, unspecified - Other detention (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 therapy - Transient alteration of awareness - Type 2 diabetes mellitus without complications 06/18/2023 20:22 [facility] OR TYPE: Emergency COMPLAINT: - DIFFICULT BREATHING/COUGH DIAGNOSES: - Acute bronchitis due to other specified organisms - Allergy status to penicillin - Anxiety disorder, unspecified - Body mass index [BMI] 30.0-30.9, adult - Cough, unspecified - Heart failure, unspecified - 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 drier operator (current) 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 of insulin - buttermilk drier operator (current) use of 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 - Obesity, unspecified - Other bed bug exterminator (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 therapy - Type 2 diabetes mellitus without complications 02/14/2023 15:46 [facility] OR TYPE: Emergency COMPLAINT: - DON'T FEEL GOOD, CONFUSED DIAGNOSES: - Allergy status to penicillin - Altered mental status, unspecified - Heart failure, unspecified - Hepatic encephalopathy - snf (current) use of insulin - Obesity, unspecified - Other detention (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 therapy - Type 2 diabetes mellitus without complications 09/18/2022 19:32 [facility] OR TYPE: Emergency COMPLAINT: - ALTERED LOC DIAGNOSES: - Allergy status to penicillin - Altered mental status, unspecified - Body mass index [BMI] 25.0-25.9, adult - Chronic hepatic failure without coma - Heart failure, unspecified - snf (current) use of insulin - Obesity, unspecified - Other bed bug exterminator (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 therapy - Type 2 diabetes mellitus without complications INPATIENT VISIT TRACKING (12 MO.) 08/10/2023 07:43 [facility]mod[facility] OR TYPE: Medical Surgical COMPLAINT: - HEPATIC ENCEPHALOPATHY DIAGNOSES: - Acquired absence of other specified parts of digestive tract - Acute kidney failure, unspecified - Allergy status to penicillin - Anemia in chronic kidney disease - Anxiety disorder, unspecified - Body mass index [BMI] 29.0-29.9, adult - Chronic kidney disease, unspecified - Heart failure, unspecified - Hepatic encephalopathy - Liver disease, unspecified - buttermilk drier operator (current) use of insulin - Obesity, unspecified - Other disorders of bilirubin metabolism - Other detention (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 therapy - Other specified postprocedural states - Thrombocytopenia, unspecified - Type 2 diabetes mellitus with diabetic chronic kidney disease - Type 2 diabetes mellitus with hyperglycemia - Unspecified cirrhosis of liver - Vitamin D deficiency, unspecified [email or web address]
[2023-08-26] MEDS ORDERED: SODIUM CHLORIDE 0.9% 500 ML IV PRN (09:15)
[2023-08-26] MEDS ORDERED: LACTULOSE 20 GM/30 ML CUP PO ONE ×2 (09:15→13:15)
[2023-08-26] MEDS ORDERED: Rifaximin 200 MG TAB PO ONE ×2 (09:15→09:30)
[2023-08-26 09:16] LABS: BASOPHILS 0.4 % (0-2); EOSINOPHILS 2.3 % (0-6); HEMATOCRIT 37.5 % (35.0-50.0); HEMOGLOBIN 13.1 g/dL (12.0-18.0); MCH 31.4 (27-36); MCHC 34.9 g/dl (30-36); MONOCYTES 9.3 % (0-12); RBC 4.16 M/ul (4.3-5.7); RDW 15.4 (10.5-15.0)
[2023-08-26 09:37] LABS: ALBUMIN 3.1 g/dL (3.4-5.0); ALBUMIN/GLOBULIN RATIO 0.78 (1.1-2.4); ALCOHOL, MEDICAL <3 ng/dL (<3); ALKALINE PHOSPHATASE 199 U/L (46-116); ALT (SGPT) 41 U/L (14-59); ANION GAP 18.3 (7-21); AST (SGOT) 47 U/L (15-37); BUN/CREATININE RATIO 21.33 (6.0-28.6); CALCIUM 10.1 mg/dL (8.5-10.1); CARBON DIOXIDE 19 mmol/L (21-32); CHLORIDE 105 mmol/L (98-107); CREATININE, SERUM 2.25 mg/dL (0.55-1.02); GLOMERULAR FILTRATION RATE,EST 25 mL/min (>60); POTASSIUM 3.3 mmol/L (3.5-5.1); PROTEIN, TOTAL 7.1 g/dL (6.4-8.2); UREA NITROGEN 48 mg/dL (7-18)
[2023-08-26 09:44] LABS: PLATELET COUNT 79 K/uL (140-440)
[2023-08-26] MEDS ORDERED: SODIUM CHLORIDE 0.9% 1,000 ML IV ONE (10:45)
[2023-08-26 12:10] LABS: BILIRUBIN, URINE NEGATIVE (negative); BLOOD/HGB, URINE NEGATIVE (Negative); KETONE, URINE NEGATIVE (Negative); LEUK ESTERASE, URINE NEGATIVE (negative); NITRITE, URINE NEGATIVE (negative)
[2023-08-26 12:17] LABS: AMPHETAMINES, UR NEGATIVE (NEGATIVE); BARBITURATES, UR NEGATIVE (NEGATIVE); BENZODIAZEPINES, UR NEGATIVE (NEGATIVE); COCAINE, UR NEGATIVE (NEGATIVE); MARIJUANA (THC), UR NEGATIVE (NEGATIVE); METHADONE, UR NEGATIVE (NEGATIVE); METHAMPHETAMINE, UR NEGATIVE (NEGATIVE); OPIATES, UR NEGATIVE (NEGATIVE); PHENCYCLIDINE, UR NEGATIVE (NEGATIVE); TRICYCLIC ANTIDEPRESSANT, UR NEGATIVE (NEGATIVE)
[2023-08-26 12:18] LABS: BUPRENORPHINE,UR NEGATIVE (NEGATIVE); MDMA, UR NEGATIVE (NEGATIVE); OXYCODONE, UR NEGATIVE (NEGATIVE)
[2023-08-26 14:14] VITALS: BP 119/55
== END 2023-08-26 15:20 | disposition home or self-care (01) ==
LOC: ED 09:04
PROVIDERS: Emergency Medicine
DX: K76.82 Hepatic encephalopathy (principal); I50.9 Heart failure, unspecified; E11.22 Type 2 diabetes mellitus with diabetic chronic kidney disease; N18.9 Chronic kidney disease, unspecified; E66.9 Obesity, unspecified; Z68.30 Body mass index [BMI] 30.0-30.9, adult; Z88.0 Allergy status to penicillin; Z79.4 Long term (current) use of insulin; Z79.899 Other long term (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 therapy
CPT/HCPCS: 36415; 80053; 80307; 81003; 82140; 85025; 99285; G0480; J7030; J7040

== ENCOUNTER 2023-09-11 18:23 | Inpatient (IN) | payer OTHER ==
[~2023-09-11] VITALS: Ht 157.5 cm; Wt 75.0 kg
--- OUTSIDE RECORDS SUMMARY | 2023-09-11 18:29 | XMS ---
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 Mile VISIT COUNT (12 MO.) [address] [place] [address] TOTAL 7 NOTE: Visits indicate total known visits. ED/UCC VISIT TRACKING (12 MO.) 09/11/2023 18:23 [facility] [place] TYPE: Emergency COMPLAINT: - FALL 08/26/2023 09:04 [facility] [place] TYPE: Emergency COMPLAINT: - WEAKNESS DIAGNOSES: - Allergy status to penicillin - Body mass index [BMI] 30.0-30.9, adult - Chronic kidney disease, unspecified - Heart failure, unspecified - Hepatic encephalopathy - intermodal truck driver (current) use of insulin - Obesity, unspecified - Other intermodal truck driver (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 therapy - Type 2 diabetes mellitus with diabetic chronic kidney disease 08/09/2023 20:57 [facility] [place] TYPE: Emergency COMPLAINT: - AMS 07/23/2023 14:33 [facility] [place] TYPE: Emergency COMPLAINT: - AMS DIAGNOSES: - Allergy status to penicillin - Heart failure, unspecified - Hepatic encephalopathy - intermodal truck driver (current) use of insulin - Obesity, unspecified - Other intermodal truck driver (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 therapy - Transient alteration of awareness - Type 2 diabetes mellitus without complications 06/18/2023 20:22 [facility] [place] TYPE: Emergency COMPLAINT: - DIFFICULT BREATHING/COUGH DIAGNOSES: - Acute bronchitis due to other specified organisms - Allergy status to penicillin - Anxiety disorder, unspecified - Body mass index [BMI] 30.0-30.9, adult - Cough, unspecified - Heart failure, unspecified - residential (current) use of insulin - residential (current) use of 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 - Obesity, unspecified - Other penitentiary (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 therapy - Type 2 diabetes mellitus without complications 02/14/2023 15:46 [facility] [place] TYPE: Emergency COMPLAINT: - DON'T FEEL GOOD, CONFUSED DIAGNOSES: - Allergy status to penicillin - Altered mental status, unspecified - Heart failure, unspecified - Hepatic encephalopathy - intermodal truck driver (current) use of insulin - Obesity, unspecified - Other penitentiary (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 therapy - Type 2 diabetes mellitus without complications 09/18/2022 19:32 [facility] [place] TYPE: Emergency COMPLAINT: - ALTERED LOC DIAGNOSES: - Allergy status to penicillin - Altered mental status, unspecified - Body mass index [BMI] 25.0-25.9, adult - Chronic hepatic failure without coma - Heart failure, unspecified - intermodal truck driver (current) use of insulin - Obesity, unspecified - Other intermodal truck driver (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 therapy - Type 2 diabetes [...] Hepatic encephalopathy - Liver disease, unspecified - intermodal truck driver (current) use of insulin - Obesity, unspecified - Other disorders of bilirubin metabolism - Other penitentiary (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 therapy - Other specified postprocedural states - Thrombocytopenia, unspecified - Type 2 diabetes mellitus with diabetic chronic kidney disease - Type 2 diabetes mellitus with hyperglycemia - Unspecified cirrhosis of liver - Vitamin D deficiency, unspecified [email or web address]
[2023-09-11 18:53] LABS: BASOPHILS 0.6 % (0-2); EOSINOPHILS 2.9 % (0-6); HEMATOCRIT 34.9 % (35.0-50.0); HEMOGLOBIN 12.4 g/dL (12.0-18.0); INR 1.14 (0.80-1.30); LYMPHOCYTES 30.9 % (24-44); MCHC 35.4 g/dl (30-36); MCV 90.4 fl (81-99); MONOCYTES 10.7 % (0-12); NEUTROPHILS 54.9 % (39-80); PROTIME 14.2 Sec (11.2-14.2); RBC 3.86 M/ul (4.3-5.7); RDW 15.3 (10.5-15.0)
[2023-09-11 19:06] LABS: ALBUMIN/GLOBULIN RATIO 0.79 (1.1-2.4); ALCOHOL, MEDICAL <3 ng/dL (<3); ALKALINE PHOSPHATASE 263 U/L (46-116); ALT (SGPT) 39 U/L (14-59); ANION GAP 13.6 (7-21); AST (SGOT) 35 U/L (15-37); BILIRUBIN, TOTAL 2.8 ng/dL (0.2-1.0); BUN/CREATININE RATIO 20.93 (6.0-28.6); CALCIUM 9.7 mg/dL (8.5-10.1); CARBON DIOXIDE 27 mmol/L (21-32); CHLORIDE 103 mmol/L (98-107); CREATININE, SERUM 2.15 mg/dL (0.55-1.02); GLOMERULAR FILTRATION RATE,EST 27 mL/min (>60); POTASSIUM 3.6 mmol/L (3.5-5.1); PROTEIN, TOTAL 6.8 g/dL (6.4-8.2); TSH, 3RD GENERATION 2.232 uIU/mL (0.358-3.740); UREA NITROGEN 45 mg/dL (7-18)
[2023-09-11 19:12] LABS: PLATELET COUNT 78.1 K/uL (140-440)
[2023-09-11 19:50] LABS: BILIRUBIN, URINE NEGATIVE (negative); BLOOD/HGB, URINE NEGATIVE (Negative); KETONE, URINE NEGATIVE (Negative); LEUK ESTERASE, URINE NEGATIVE (negative); NITRITE, URINE NEGATIVE (negative)
[2023-09-11 20:04] LABS: AMPHETAMINES, URINE NEGATIVE (NEGATIVE); BARBITURATES, URINE NEGATIVE (NEGATIVE); BENZODIAZEPINE, URINE NEGATIVE (NEGATIVE); BUPRENORPHINE, URINE NEGATIVE (NEGATIVE); CANNABINOID, URINE NEGATIVE (NEGATIVE); COCAINE, URINE NEGATIVE (NEGATIVE); ECSTASY, URINE NEGATIVE (NEGATIVE); FENTANYL, URINE NEGATIVE (NEGATIVE); METHADONE, URINE NEGATIVE (NEGATIVE); OPIATES, URINE NEGATIVE (NEGATIVE); OXYCODONE, URINE NEGATIVE (NEGATIVE); PHENCYCLIDINE, URINE NEGATIVE (NEGATIVE)
[2023-09-11] MEDS ORDERED: DEXTROSE 50% 50 ML SYR IV PRN ×2 (20:45)
[2023-09-11] MEDS ORDERED: SODIUM CHLORIDE 0.9% 1,000 ML IV SCH (20:45)
[2023-09-11] MEDS ORDERED: DEXTROSE 5% 1,000 ML IV PRN (20:45)
[2023-09-11] MEDS ORDERED: ondansetron HCL 4 MG/2 ML VIAL IV PRN (20:45)
[2023-09-11] MEDS ORDERED: GLUCAGON,HUMAN RECOMBINANT 1 MG/ML VIAL SUB-Q PRN (20:45)
[2023-09-11] MEDS ORDERED: IBLOOD GLUCOSE TEST STRIP 1 EA TEST XX PRN (20:45)
[2023-09-11] MEDS ORDERED: INSULIN GLARGINE-YFGN 100 UNIT/ML ML SUB-Q SCH (21:00)
[2023-09-11] MEDS ORDERED: LACTULOSE 10 GM/15 ML ML PR SCH (21:00)
--- NOTE | 2023-09-11 21:15 | NUR ---
PT ARRIVED TO CCU VIA STRETCHER
[2023-09-11 21:29] VITALS: BP 139/70
[2023-09-11 21:30] VITALS: BP 130/62
--- NOTE | 2023-09-11 21:30 | NUR ---
PT ASSESSMENT COMPLETE. PT IS OBTUNDED, DOES NOT RESPOND TO VERBAL STIMULI, DOES NOT FOLLOW COMMANDS. PT DOES RESPOND TO PAINFUL STIMULI. PT IS ON RA, WITH O2 SATURATIONS IN THE HIGH 90'S. VSS. PT PANUS/ALICIA AREA IS NOTED TO HAVE SOME REDNESS. PT ALSO HAS REDNESS AREAS UNDER BOTH BREAST. PT LEFT LOWER LEG HAS DISCOLORATION. PT LUNG SOUNDS ARE CLEAR. ACTIVE BT ARE PRESENT. PT HAS ONE IV SITE IN THE RIGHT HAND THAT IS WNL. CALL LIGHT WITHIN REACH. BED IN LOW, LOCKED POSTION WITH BED ALARM ON.
[2023-09-11 22:00] VITALS: BP 95/51
--- NOTE | 2023-09-11 22:06 | EKG ---
[facility] [address] [place] [address] Signed Normal sinus rhythm Normal ECG When compared with ECG of 14-FEB-2023 16:28, No significant change was found Confirmed by Wolf Hamilton MD () on 09/11/2023 10:06:27 PM Electronically Signed By: WOLF HAMILTON MD 09/11/23 2206 PATIENT NAME: BENTLEY PATEL Electrocardiogram DATE OF : 69 PHYSICIAN: WOLF HAMILTON MD REPORT #: [id number] REPORT IS CONFIDENTIAL AND NOT TO BE RELEASED WITHOUT AUTHORIZATION
[2023-09-11 22:30] VITALS: BP 118/92
[2023-09-11] MEDS ORDERED: MICONAZOLE NITRATE 1 EA BTL TOP SCH (22:32)
[2023-09-11 23:00] VITALS: BP 114/61
--- NOTE | 2023-09-11 23:30 | NUR ---
LACTULOSE GIVEN PER EMAR. PT TOLERATED WELL. CALL LIGHT WITHIN REACH. PT BED IN LOW AND LOCKED POSITON. PT BED ALARM SET.
[2023-09-12] VITALS (14 sets, daily range): BP systolic 89–131; BP diastolic 54–78
[2023-09-12] MEDS ORDERED: IBLOOD GLUCOSE TEST STRIP 1 EA TEST VI SCH ×2 (02:00→08:00)
[2023-09-12] MEDS ORDERED: Insulin Regular, Human 100 UNIT/ML ML SUB-Q SCH (02:00)
--- NOTE | 2023-09-12 02:19 | NUR ---
DESENEX POWDER APPLIED TO REDDENED AREAS PER EMAR. CALL LIGHT WITHIN REACH, BED IN LOW AND LOCKED POSITION AND BED ALARM SET.
--- NOTE | 2023-09-12 02:30 | NUR ---
DESENEX POWDER APPLIED TO REDDNED AREAS- SEE EMAR. PT REPOSTIONED IN BED. CALL LIGHT WITHIN REACH. BED IN LOW AND LOCKED POSITION, AND BED ALARM IS SET.
--- NOTE | 2023-09-12 02:30 | NUR ---
PT AWAKENS AND OPENS EYES. PT ASKS RN WHAT DAY IT WAS. PT REORIENTED. PT UNABLE TO RECALL EVENTS THAT LED UP TO HOSPITAL STAY. PT BECOMES TEARFUL AND BEGINS TO CRY, AND STATES "WHEN CAN I GO HOME. I DONT WANT TO BE HERE". PT REOIRENTED TO SITUATION AND PLAN OF CARE. PT IS ENCOURAGED TO TRY TO GET SOME REST. PT HAS NO FURTHER NEEDS. CALL LIGHT IN REACH. BED IN LOW AND LOCKED POSTION WITH BED ALARM SET.
--- NOTE | 2023-09-12 02:39 | NUR ---
PATIENT PROVIDED SCHEDULED INSULIN PER ORDER. PATIENT IS ALERT AND TEARFUL. PATIENT VERBALIZED DESIRE TO GO HOME. ORIENTED PATIENT TO THE TIME OF DAY AND ENCOURAGED PATIENT TO REST. WARM BLANKETS PROVIDED. PATIENT ASSISTED TO REPOSITION IN BED. BED ALARM ACTIVE. CALL LIGHT IN REACH.
--- NOTE | 2023-09-12 04:36 | NUR ---
PT UP TO BEDSIDE COMMODE WITH STAND BY ASSIST. PT NEEDED VERBAL QUES, BUT TOLERTED WELL. DISCUSSED WITH PT WHAT CARES HAVE BEEN PROVIDED AND ANSWERED ALL QUESTIONS PT HAD. PT BACK TO BED. NEW BEDDING PROVIDED. CALL LIGHT WITHIN REACH, BED IN LOW AND LOCKED POSTION WITH BED ALARM ON.
[2023-09-12 05:33] LABS: BASOPHILS 0.3 % (0-2); EOSINOPHILS 2.8 % (0-6); HEMATOCRIT 35.8 % (35.0-50.0); HEMOGLOBIN 12.3 g/dL (12.0-18.0); LYMPHOCYTES 32.3 % (24-44); MCH 31.6 (27-36); MCHC 34.4 g/dl (30-36); MCV 91.8 fl (81-99); MONOCYTES 10.7 % (0-12); NEUTROPHILS 53.9 % (39-80); RBC 3.89 M/ul (4.3-5.7); RDW 15.6 (10.5-15.0)
--- NOTE | 2023-09-12 05:34 | NUR ---
PATIENT UP TO THE BSC TO VOID AND HAVE BM. PATIENT CALLS APPROPRIATLY AND FOLLOWING INSTRUCTIONS. PATIENT RETURNED TO BED. SITTING UP AT THE EDGE OF THE BED. ICE WATER PROVIDED PER REQUEST. CALL LIGHT IN REACH.
[2023-09-12 05:50] LABS: ALBUMIN 2.8 g/dL (3.4-5.0); ALBUMIN/GLOBULIN RATIO 0.76 (1.1-2.4); ANION GAP 15.2 (7-21); CALCIUM 10.3 mg/dL (8.5-10.1); MAGNESIUM 2.2 mg/dL (1.8-2.4); PHOSPHORUS, INORGANIC 2.9 mg/dL (2.5-4.9); POTASSIUM 3.2 mmol/L (3.5-5.1); PROTEIN, TOTAL 6.5 g/dL (6.4-8.2)
[2023-09-12 06:12] LABS: PLATELET COUNT 94.6 K/uL (140-440)
--- NOTE | 2023-09-12 07:30 | NUR ---
REPORT RECEIVED. PATIENT SLEEPING. IVF INFUSING.
[2023-09-12] MEDS ORDERED: INSULIN LISPRO 100 UNIT/ML ML SUB-Q SCH (08:00)
[2023-09-12] MEDS ORDERED: POTASSIUM CHLORIDE 40 MEQ,LIDOCAINE HCL 1% 40 MG in DEXTROSE 5% 250 ML IV ONE (08:00)
--- NOTE | 2023-09-12 08:00 | NUR ---
ASSESSMENT DONE. AMBULATED TO BR WITH ASSIST TO VOID AND HAVE MED SIZED SEMIFORMED GREEN BM. DENIES DIZZINESS. ACCUCHECK 155. INSULINN 1 UNIT SQ GIVEN. C/O OF HEADACHE. TALKED WITH PATIENT ABOUT POC FOR THE DAY. INDICATES UNDERSTANDING. IS AWARE OF PLACE, UNSURE OF EVENT. IV KCL TO BE HUNG.
--- NOTE | 2023-09-12 08:15 | NUR ---
IN TO DO BLOOD SUGAR AND GIVE PT BREAKFAST. PT IS AWAKE IN BED AND PLEASANT AND STATES SHE IS HUNGRY AND READY TO EAT. 1 UNIT INSULIN GIVEN PER SS.
--- NOTE | 2023-09-12 08:30 | NUR ---
SITTING UP IN BED FOR BREAKFAST. DENIES NAUSEA. TALKATIVE.
--- NOTE | 2023-09-12 08:45 | NUR ---
VISITED TO INQUIRE IF CORRECTIONAL COUNSELOR VISIT IS DESIRED. PT DECLINED PREST VISIT. PT EATING BREAKFAST SO SHORT VISIT. WILL FOLLOW CIRCUMSTANCES ALLOW.
[2023-09-12] MEDS ORDERED: LACTULOSE 20 GM/30 ML CUP PO SCH (09:00)
--- NOTE | 2023-09-12 09:16 | NUR ---
MED REC COMPLETE
[2023-09-12] MEDS ORDERED: CERAVE SA CREA340 GM TOP (09:17)
--- NOTE | 2023-09-12 09:17 | NUR ---
DR. HAMILTON HERE TO SEE PATIENT. ROUTINE MEDICATIONS GIVEN. KCL IV INFUSING.
[2023-09-12] MEDS ORDERED: SPIRONOLACTONE 25 MG TAB PO SCH (10:17)
[2023-09-12] MEDS ORDERED: PANTOPRAZOLE SODIUM 40 MG TABEC PO SCH (10:17)
[2023-09-12] MEDS ORDERED: Rifaximin 200 MG TAB PO SCH (10:17)
[2023-09-12] MEDS ORDERED: BUMETANIDE 1 MG TAB PO SCH (10:18)
--- NOTE | 2023-09-12 10:30 | NUR ---
IN TO GIVE MEDS. PT AWAKE AND INTERACTIVE AND IS ABLE TO DISCUSS HER MEDICATIONS. NO COMPLAINTS AT THIS TIME.
--- NOTE | 2023-09-12 11:33 | NUR ---
STOCK PREPARATION SUPERVISOR IN ROOM TO TALK WTIH PATIENT. PATIENT TRANSFERRED TO MED-SURG STATUS.
[2023-09-12] MEDS ORDERED: PHARMACY RENAL DOSE ADJUSTMENT 1 DOSE MISC PO SCH (12:00)
--- NOTE | 2023-09-12 12:16 | NUR ---
SPOKE TO THE PATIENT ABOUT THE DISCHARGE PLAN. PATIENT LIVES WITH HER DAUGHTER. PATIENT DOES NOT GET ALONG WITH HER DAUGHTER. STATES THAT THE PATIENT'S DAUGHTER STAYS OUT ALL NIGHT AND IS NOT AVAILABLE. THE PATIENT LIVES AN A RENTAL APT. PATIENT CAN AFFORD FOOD AND HOUSING.PATIENT DOES NOT USE DME. PATIENT STATES SHE IS UNSTEADY ON HER FEET AND SHOULD USE A WALKER. PATIENT HAS FAMILY AND FRIENDS AND NEEDS TO REACH OUT FOR SUPPORT IN TAKING HER LACTULOSE. PATIENT STATES SHE IS SOBER. THE CASE MANGER WILL CALL JULIETTE TO SEE IF THERE IS ANY HELP,SUCH CHECKING ON THE PATIENT A COUPLE TIMES ADAY.
--- NOTE | 2023-09-12 12:30 | NUR ---
UP TO BR, IS FAIRLY STEADY ON FEET. DENIES PAIN. K RIDER CONTINUES TO INFUSE, NOW SITTING UP IN CHAIR FOR LUNCH.
--- NOTE | 2023-09-12 13:00 | NUR ---
TOOK APPROX 30% OF LUNCH. DENIES NAUSEA. WISHES TO REMAIN IN CHAIR. LEGS ELEVATED.
--- NOTE | 2023-09-12 13:55 | NUR ---
REPORT TO ALEX-SURG.
--- NOTE | 2023-09-12 14:10 | NUR ---
TO MED-SURG VIA CHAIR.
--- NOTE | 2023-09-12 14:12 | NUR ---
REPORT RECEIVED FROM CCU RN, PT MOVED TO [facility] VIA CHAIR. PT IS ALERT AND COOPERATIVE ORIENTED TO ROOM. FRESH H20 AND NEEDED ITEMS AT CHAIR SIDE CALL LIGHT IN LAP. PT DENIES DISCOMFORTS OR NEEDS OF
--- NOTE | 2023-09-12 14:37 | NUR ---
VISITED DURING SPIRITUAL CARE ROUNDS. PT ON PHONE. DID NOT INTERRUPT. PROVIDED PRAYER.
--- NOTE | 2023-09-12 15:14 | NUR ---
PT USES CALL LIGHT APPROPRIATELY UP TO THE TOILET SBA. RETURNS TO CHAIR DENIES FURTHER NEEDS OF
--- NOTE | 2023-09-12 15:35 | NUR ---
SPOKE TO BONY AT [facility].BONY STATES THAT MED BOXES AND HOME VISITS CAN BE SET- UP WHEN PATIENT IS DISCHARGED. BONY NEEDS TO BE CALLED TO LET BONY KNOW WHEN THE PATIENT IS DISCHARGED. ALSO BONY SUGGESTED HOME HEALTH ON DC. PATIENT IS AGGREABLE. ALSO PATIENT REQUESTED HER BROTHER BE TOLD THE PATIENT IS IN THE HOSPITAL AND PATIENT WOULD LIKE HIM TO VISIT. THE CAMP COORDINATOR CALLED THE BROTHER AND HE'S GOING IN TO VISIT.
--- NOTE | 2023-09-12 17:50 | NUR ---
PT SITTING UP IN THE BED EATING EVENING MEAL. VISITOR IS PRESENT. PT DENIES NEEDS OF ANYTHING
--- NOTE | 2023-09-12 19:05 | NUR ---
REPORT RECEIVED FROM LIZA WEBER. pt RESTING IN THE BED. BOARD UPDATED. pt DENIES ANY NEEDS AT THIS TIME. CALL LIGHT WITHIN REACH.
--- NOTE | 2023-09-12 20:03 | NUR ---
charge nurse note. Pt in bed HOB elevated, alert, oriented, no c/o pain or requests. fluids at bedside
--- NOTE | 2023-09-12 20:15 | NUR ---
CALL LIGHT ANSWERED. SBA TO BATHROOM. PATIENT DENIES NEED OF WALKER. PATIENT HAD LOOSE BM AND URINE MIXED. PATIENT IS SLOW TO WALK BUT STABLE GAIT. PATIENT IS BACK IN BED. SCD BACK ON. NO OTHER NEEDS AT THIS TIME.
--- NOTE | 2023-09-12 21:35 | NUR ---
ASSESSMENT AND VITAL SIGNS DONE. SCHEDULED MEDICATION ADMINISTERED. pt REFUSED NIGHTLY DOSE OF LACTULOSE. IV ASSESSED, WNL. BG CHECKED WITH A RESULTS OF 337, SS INSULIN AND LONG LASTING INSULIN ADMINISTERED. NO OTHER NEEDS AT THIS TIME. CALL LIGHT WITHIN REACH.
[2023-09-12] MEDS ORDERED: ACETAMINOPHEN 325 MG TAB PO PRN (23:00)
--- NOTE | 2023-09-12 23:00 | NUR ---
pt C/O 06/07 PAIN. MD HAMILTON CALLED AND NEW ORDER PLACED AND VERIFIED WITH REPEAT BACK METHOD.
--- NOTE | 2023-09-13 00:18 | NUR ---
pt RESTING IN THE BED WITH EYES CLOSED. RR EVEN AND UNLABORED. CALL LIGHT WITHIN REACH.
--- NOTE | 2023-09-13 02:00 | NUR ---
pt CALLED AND STATED SHE WANTED TO TAKE A SHOWER. pt SET UP TO SHOWER. IV COVERED. PALOMA CHANGED. NO OTHER NEEDS AT THIS TIME. CALL LIGHT WITHIN REACH.
--- NOTE | 2023-09-13 04:10 | NUR ---
pt RESTING IN THE BED WITH EYES CLOSED. RR EVEN AND UNLABORED. CALL LIGHT WITHIN REACH.
[2023-09-13 04:53] VITALS: BP 114/62
[2023-09-13 05:10] VITALS: BP 114/62
--- NOTE | 2023-09-13 05:13 | NUR ---
pt RESTED FOR MOST OF THE NIGHT. pt A&O X4. SBA TO BR. SCHEDULED MEDICATION ADMINISTERED. pt REFUSED LATULOSE DUE TO HAVING 3 BM'S IN THE DAY. pt REQUESTED TO SHOWER IN THE IN THE NIGHT. pt SHOWERED AND RESTED FOR THE REST OF THE NIGHT.
[2023-09-13 05:24] LABS: BASOPHILS 0.9 % (0-2); EOSINOPHILS 3.4 % (0-6); HEMATOCRIT 35.4 % (35.0-50.0); HEMOGLOBIN 12.2 g/dL (12.0-18.0); LYMPHOCYTES 35.1 % (24-44); MCH 31.5 (27-36); MCHC 34.3 g/dl (30-36); MCV 91.7 fl (81-99); MONOCYTES 10.3 % (0-12); NEUTROPHILS 50.3 % (39-80); RBC 3.87 M/ul (4.3-5.7); RDW 15.6 (10.5-15.0)
[2023-09-13 05:35] LABS: ALBUMIN 2.9 g/dL (3.4-5.0); ALBUMIN/GLOBULIN RATIO 0.78 (1.1-2.4); ANION GAP 13.8 (7-21); BILIRUBIN, TOTAL 3.8 ng/dL (0.2-1.0); BUN/CREATININE RATIO 18.6 (6.0-28.6); CALCIUM 10.2 mg/dL (8.5-10.1); CREATININE, SERUM 2.15 mg/dL (0.55-1.02); POTASSIUM 3.8 mmol/L (3.5-5.1); PROTEIN, TOTAL 6.6 g/dL (6.4-8.2)
[2023-09-13 05:38] LABS: PLATELET COUNT 77 K/uL (140-440)
--- NOTE | 2023-09-13 07:27 | NUR ---
pt resting eyes closed at time of shift report, left undisturbed. fresh water and call light in reach.
--- NOTE | 2023-09-13 07:54 | NUR ---
WENT IN TO DO MY HRLY ROUNDINGS AND TO TAKE PT BLOOD SUGAR. I REFILLED HER WATER AND UPDATED BOARD. CHARTED PT BLOOD SUGAR AND NURSE WAS NOTIFIED. PT IS SLEEPING SITTING UP AND CALL LIGHT IS WITHIN REACH.
--- NOTE | 2023-09-13 09:29 | NUR ---
ATE BREAKFAST, WELL TOLERATED. CONTINUING TO REST IN BED. DENIES PAIN/ DISCOMFORT. CALL LIGHT WITHIN REACH.
[2023-09-13 09:57] VITALS: BP 108/51
--- NOTE | 2023-09-13 11:02 | NUR ---
PT REPORTS DR HAMILTON IN EARLIER. SHE IS UP TO THE CHAIR AT THIS TIME SBA ONLY. CALL LIGHT AND NEEDED ITEMS IN REACH. PT DENIES NEEDS OR DISCOMFORTS
--- NOTE | 2023-09-13 11:48 | NUR ---
SPOKE WITH JASON SANCHEZ AT [facility]. PATIENT DOES NOT HAVE ANY APPROVED CARE GIVING HOURS. PATIENT HAS NONE. JASON STATES PATIENT SHOULD CALL HER TO APPLY FOR CAREGIVER HOURS. MARY JO SPOKE WITH BONY SEGOVIA, REGARDING PATIENT AND GETTING MEDICATIONS SET UP AND ASSIST WITH THOSE.
--- NOTE | 2023-09-13 12:22 | NUR ---
DR. HAMILTON AND THIS NURSE IN TO SPEAK WITH PATIENT. PATIENT INSTRUCTED TO CALL JASON SANCHEZ USING NUMBER PROVIDED TO ASK FOR CAREGIVER HOURS. PATIENT AGREES. DISCUSSED DC TO HOME TODAY. CALLED BONY AT [facility], NO ANSWER. MESSAGE LEFT.
--- NOTE | 2023-09-13 12:32 | NUR ---
PT. UP TO RESTROOM WITH SBA. PT BACK TO CHAIR WITH SBA AND SITTING UP EATING NOON MEAL. CALL LIGHT WITHIN REACH. PT. DENIES ANY NEEDS AT THIS TIME.
--- NOTE | 2023-09-13 13:13 | NUR ---
PT AGREES SHE IS READY TO GO HOME. DENIES QUESTIONS OR CONCERNS VERBALIZES UNDERSTANDING OF NEED TO CONTINUE TO PROMOTE BM'S TO KEEP AMMONIA LEVELS DOWN. ASSISTED PT TO DRESS SHE IS CONTACTING FAMILY R/T DC
--- NOTE | 2023-09-13 14:01 | NUR ---
PT DRESSED AND READY FOR DC. CONTINUES TO TRY TO CONTACT FAMILY R/T KEYS TO HER HOME
--- NOTE | 2023-09-13 14:07 | NUR ---
SPOKE WITH DR. LEA'S NURSE AT [facility]. STATES SHE WILL SET PATIENT UP WITH SERVICES ON TUESDAY AT HER FOLLOW-UP APPOINTMENT. INFORMED HER PATIENT IS DISCHARGING TODAY.
[2023-09-13 14:11] VITALS: BP 112/63
== END 2023-09-13 14:56 | disposition home or self-care (01) | DRG 442 ==
LOC: ED 18:23 → CCU 20:39 → MS 09-12 14:09
PROVIDERS: Emergency Medicine; ADMIT Family Medicine; ATTEND Family Medicine
DX: K76.82 Hepatic encephalopathy (principal); E72.20 Disorder of urea cycle metabolism, unspecified; N17.9 Acute kidney failure, unspecified; E11.65 Type 2 diabetes mellitus with hyperglycemia; E80.6 Other disorders of bilirubin metabolism; N18.9 Chronic kidney disease, unspecified; D69.6 Thrombocytopenia, unspecified; K74.60 Unspecified cirrhosis of liver; E55.9 Vitamin D deficiency, unspecified; D63.1 Anemia in chronic kidney disease; E66.9 Obesity, unspecified; F41.9 Anxiety disorder, unspecified; I50.9 Heart failure, unspecified; E11.22 Type 2 diabetes mellitus with diabetic chronic kidney disease; Z98.890 Other specified postprocedural states; Z91.148 Patient's other noncompliance with medication regimen for other reason; Z90.49 Acquired absence of other specified parts of digestive tract; Z88.0 Allergy status to penicillin; Z79.899 Other long term (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 therapy; Z79.4 Long term (current) use of insulin; Z68.30 Body mass index [BMI] 30.0-30.9, adult; W18.30XA Fall on same level, unspecified, initial encounter
CPT/HCPCS: 36415; 70450; 72170; 80053; 80307; 81003; 82140; 83036; 83735; 84100; 84443; 85025; 85610; 93005; 93010; A9270; G0480; J1815; J3480; J3490; J7030; J7060

== ENCOUNTER 2023-12-08 21:20 | Emergency (ER) | payer OTHER ==
[~2023-12-08] VITALS: Ht 157.5 cm; Wt 78.8 kg
[~2023-12-08 21:20] MED LIST changes: +CERAVE SA CREA340 GM TOP
--- OUTSIDE RECORDS SUMMARY | 2023-12-08 21:26 | XMS ---
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 Mile VISIT COUNT (12 MO.) [facility] TOTAL 7 NOTE: Visits indicate total known visits. ED/UCC VISIT TRACKING (12 MO.) 12/08/2023 21:20 [facility] [place] TYPE: Emergency COMPLAINT: - ABDOMINAL PAIN 09/11/2023 18:23 [facility] [place] [place] TYPE: Emergency COMPLAINT: - FALL 08/26/2023 09:04 [facility] [place] TYPE: Emergency COMPLAINT: - WEAKNESS DIAGNOSES: - Allergy status to penicillin - Body mass index [BMI] 30.0-30.9, adult - Chronic kidney disease, unspecified - Heart failure, unspecified - Hepatic encephalopathy - exterminator helper termite (current) use of insulin - Obesity, unspecified - Other terminal gauger supervisor (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 therapy - Type 2 diabetes mellitus with diabetic chronic kidney disease 08/09/2023 20:57 [facility] [place] TYPE: Emergency COMPLAINT: - AMS 07/23/2023 14:33 [facility] [place] TYPE: Emergency COMPLAINT: - AMS DIAGNOSES: - Allergy status to penicillin - Heart failure, unspecified - Hepatic encephalopathy - exterminator helper termite (current) use of insulin - Obesity, unspecified - Other terminal gauger supervisor (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 therapy - Transient alteration of awareness - Type 2 diabetes mellitus without complications 06/18/2023 20:22 [facility] [place] TYPE: Emergency COMPLAINT: - DIFFICULT BREATHING/COUGH DIAGNOSES: - Acute bronchitis due to other specified organisms - Allergy status to penicillin - Anxiety disorder, unspecified - Body mass index [BMI] 30.0-30.9, adult - Cough, unspecified - Heart failure, unspecified - exterminator helper termite (current) use of insulin - shelter (current) use of 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 - Obesity, unspecified - Other [facility] (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 therapy - Type 2 diabetes mellitus without complications 02/14/2023 15:46 [facility] [place] TYPE: Emergency COMPLAINT: - DON'T FEEL GOOD, CONFUSED DIAGNOSES: - Allergy status to penicillin - Altered mental status, unspecified - Heart failure, unspecified - Hepatic encephalopathy - exterminator helper termite (current) use of insulin - Obesity, unspecified - Other terminal gauger supervisor (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 therapy - Type 2 diabetes mellitus without complications INPATIENT VISIT TRACKING (12 MO.) 10/07/2023 10:11 [facility] [place] TYPE: Medical Surgical COMPLAINT: [...] unspecified - Chronic kidney disease, unspecified - COVID-19 - COVID-19 - Disorder of urea cycle metabolism, unspecified - Disorder of urea cycle metabolism, unspecified - Heart failure, unspecified - Hepatic encephalopathy - Hypokalemia - Hypokalemia - exterminator helper termite (current) use of insulin - Obesity, unspecified - Other disorders of bilirubin metabolism - Other disorders of bilirubin metabolism - Other [facility] (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 therapy - Other specified postprocedural states - Patient's other noncompliance with medication regimen for other reason - Thrombocytopenia, unspecified - Thrombocytopenia, unspecified - Type 2 diabetes mellitus with diabetic chronic kidney disease - Type 2 diabetes mellitus with diabetic chronic kidney disease - Type 2 diabetes mellitus with hyperglycemia - Type 2 diabetes mellitus with hyperglycemia - Unspecified cirrhosis of liver 09/11/2023 20:[address] [facility] [place] TYPE: Medical Surgical COMPLAINT: - HEPATIC [...] Body mass index [BMI] 30.0-30.9, adult - Body mass index [BMI] 30.0-30.9, adult - Chronic kidney disease, unspecified - Chronic kidney disease, unspecified - Disorder of urea cycle metabolism, unspecified - Disorder of urea cycle metabolism, unspecified - Fall on same level, unspecified, initial encounter - Fall on same level, unspecified, initial encounter - Heart failure, unspecified - Heart failure, unspecified - Hepatic encephalopathy - shelter (current) use of insulin - shelter (current) use of insulin - Obesity, unspecified - Obesity, unspecified - Other disorders of bilirubin metabolism - Other disorders of bilirubin metabolism - Other terminal gauger supervisor (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 therapy - Other terminal gauger supervisor (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 therapy - Other specified postprocedural states - Other specified postprocedural states - Patient's other noncompliance with medication regimen for other reason - Patient's other noncompliance with medication regimen for other reason - Thrombocytopenia, unspecified - Thrombocytopenia, unspecified - Type 2 diabetes mellitus with diabetic chronic kidney disease - Type 2 diabetes mellitus with diabetic chronic kidney disease - Type 2 diabetes mellitus with hyperglycemia - Type 2 diabetes mellitus with hyperglycemia - Unspecified cirrhosis of liver - Unspecified cirrhosis of liver - Vitamin D deficiency, unspecified - Vitamin D deficiency, unspecified 08/10/2023 07:[address] [facility] [place] TYPE: Medical Surgical COMPLAINT: - HEPATIC ENCEPHALOPATHY DIAGNOSES: - Acquired absence of other specified parts of digestive tract - Acute kidney failure, unspecified - Allergy status to penicillin - Anemia in chronic kidney disease - Anxiety disorder, unspecified - Body mass index [BMI] 29.0-29.9, adult - Chronic kidney disease, unspecified - Heart failure, unspecified - Hepatic encephalopathy - Liver disease, unspecified - exterminator helper termite (current) use of insulin - Obesity, unspecified - Other disorders of bilirubin metabolism - Other terminal gauger supervisor (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 therapy - Other specified postprocedural states - Thrombocytopenia, unspecified - Type 2 diabetes mellitus with diabetic chronic kidney disease - Type 2 diabetes mellitus with hyperglycemia - Unspecified cirrhosis of liver - Vitamin D deficiency, unspecified [email or web address]
[2023-12-08] MEDS ORDERED: LIDOCAINE & ANTACID 35 ML BTL PO ONE (21:45)
[2023-12-08] MEDS ORDERED: PANTOPRAZOLE SODIUM 40 MG/10 ML VIAL IV ONE (21:45)
[2023-12-08 22:17] LABS: ALBUMIN 3.1 g/dL (3.4-5.0); ALBUMIN/GLOBULIN RATIO 0.79 (1.1-2.4); ANION GAP 13.8 (7-21); BILIRUBIN, TOTAL 1.4 ng/dL (0.2-1.0); BUN/CREATININE RATIO 35.31 (6.0-28.6); CALCIUM 9.8 mg/dL (8.5-10.1); CREATININE, SERUM 2.35 mg/dL (0.55-1.02); POTASSIUM 4.8 mmol/L (3.5-5.1)
[2023-12-08 22:31] LABS: HEMATOCRIT 33.9 % (35.0-50.0); HEMOGLOBIN 11.6 g/dL (12.0-18.0); LYMPHOCYTES 19.9 % (24-44); MCHC 34.2 g/dl (30-36); MCV 93.4 fl (81-99); MONOCYTES 8.3 % (0-12); NEUTROPHILS 64.8 % (39-80); RBC 3.63 M/ul (4.3-5.7); RDW 15.3 (10.5-15.0)
[2023-12-08 22:39] LABS: PLATELET COUNT 89 K/uL (140-440)
[2023-12-08] MEDS ORDERED: SODIUM CHLORIDE 0.9% 1,000 ML IV ONE (23:00)
[2023-12-08] MEDS ORDERED: MORPHINE SULFATE 4 MG/ML VIAL IV PRN (23:15)
[2023-12-09] MEDS ORDERED: PROMETHAZINE HC25 M1 PO (00:41)
[2023-12-09] MEDS ORDERED: TRAMADOL HCL50 MG PO (00:41)
[2023-12-09] MEDS ORDERED: COLACE100 MG PO (00:42)
[2023-12-09] MEDS ORDERED: PROMETHAZINE HCL 25 MG HOME.PACK PO ONE (00:45)
[2023-12-09] MEDS ORDERED: TRAMADOL HCL 50 MG HOME.PACK PO ONE (00:45)
[2023-12-09 00:50] VITALS: BP 101/52
== END 2023-12-09 00:50 | disposition home or self-care (01) ==
LOC: ED 21:20
PROVIDERS: Family Medicine
DX: K85.90 Acute pancreatitis without necrosis or infection, unspecified (principal); K59.00 Constipation, unspecified; I72.8 Aneurysm of other specified arteries; E11.9 Type 2 diabetes mellitus without complications; I50.9 Heart failure, unspecified; K74.60 Unspecified cirrhosis of liver; N83.202 Unspecified ovarian cyst, left side; N83.201 Unspecified ovarian cyst, right side; E66.9 Obesity, unspecified; Z68.31 Body mass index [BMI] 31.0-31.9, adult; Z88.0 Allergy status to penicillin; Z79.4 Long term (current) use of insulin; Z79.899 Other long term (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 therapy
CPT/HCPCS: 74022; 74174; 80053; 83690; 85025; 99284-25; A9270; J2470; J7030; Q9967

== ENCOUNTER 2024-01-27 10:51 | Inpatient (IN) | payer OTHER ==
[~2024-01-27] VITALS: Ht 157.5 cm; Wt 77.0 kg
[~2024-01-27 10:51] MED LIST changes: +COLACE100 MG PO; +IBU600 MG PO; +LANTUS SOL100 UNIT/1 SUB-Q; +PROMETHAZINE HC25 M1 PO; +TRAMADOL HCL50 MG PO
--- OUTSIDE RECORDS SUMMARY | 2024-01-27 10:57 | XMS ---
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 Mile VISIT COUNT (12 MO.) [address] [place] [address] TOTAL 9 NOTE: Visits indicate total known visits. ED/UCC VISIT TRACKING (12 MO.) 01/27/2024 10:51 [facility] TYPE: Emergency COMPLAINT: - ALT LOC 01/18/2024 13:02 [facility] TYPE: Emergency COMPLAINT: - ALTERED LOC 12/08/2023 21:20 [facility] TYPE: Emergency COMPLAINT: - ABDOMINAL PAIN DIAGNOSES: - Acute pancreatitis without necrosis or infection, unspecified - Allergy status to penicillin - Aneurysm of other specified arteries - Body mass index [BMI] 31.0-31.9, adult - Constipation, unspecified - Heart failure, unspecified - assisted (current) use of insulin - Obesity, unspecified - Other terminal operations supervisor (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 therapy - Type 2 diabetes mellitus without complications - Unspecified cirrhosis of liver - Unspecified ovarian cyst, left side - Unspecified ovarian cyst, right side - Upper abdominal pain, unspecified 09/11/2023 18:23 [facility] TYPE: Emergency COMPLAINT: - FALL 08/26/2023 09:04 [facility] TYPE: Emergency COMPLAINT: - WEAKNESS DIAGNOSES: - Allergy status to penicillin - Body mass index [BMI] 30.0-30.9, adult - Chronic kidney disease, unspecified - Heart failure, unspecified - Hepatic encephalopathy - assisted (current) use of insulin - Obesity, unspecified - Other 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 (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 therapy - Type 2 diabetes mellitus with diabetic chronic kidney disease 08/09/2023 20:57 [facility] TYPE: Emergency COMPLAINT: - AMS 07/23/2023 14:33 [facility] TYPE: Emergency COMPLAINT: - AMS DIAGNOSES: - Allergy status to penicillin - Heart failure, unspecified - Hepatic encephalopathy - 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 - Obesity, unspecified - Other 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 (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 therapy - Transient alteration of awareness - Type 2 diabetes mellitus without complications 06/18/2023 20:22 [facility] TYPE: Emergency COMPLAINT: - DIFFICULT BREATHING/COUGH DIAGNOSES: - Acute bronchitis due to other specified organisms - Allergy status to penicillin - Anxiety disorder, unspecified - Body mass index [BMI] 30.0-30.9, adult - Cough, unspecified - Heart failure, unspecified - assisted (current) use of insulin - assisted (current) use of 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 - Obesity, unspecified - Other 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 (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 therapy - Type 2 diabetes mellitus without complications 02/14/2023 15:46 [facility] TYPE: Emergency COMPLAINT: - DON'T FEEL GOOD, CONFUSED DIAGNOSES: - Allergy status to penicillin - Altered mental status, unspecified - Heart failure, unspecified - Hepatic encephalopathy - assisted (current) use of insulin - Obesity, unspecified - Other 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 (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 therapy - Type 2 diabetes mellitus without complications INPATIENT VISIT TRACKING (12 MO.) 01/18/2024 15:[address] [facility] [place] TYPE: Critical Care COMPLAINT: - HEPATIC ENCEPHALOPATHY DIAGNOSES: - Acquired absence of other specified parts of digestive tract - Acquired absence of other specified parts of digestive tract - Allergy status to penicillin - Allergy status to penicillin - Anemia in chronic kidney disease - Anemia in chronic kidney disease - Anxiety disorder, unspecified - Anxiety disorder, unspecified - Body mass index [BMI] 31.0-31.9, adult - Body mass index [BMI] 31.0-31.9, adult - Chronic kidney disease, unspecified - Chronic kidney disease, unspecified - Heart failure, unspecified - Heart failure, unspecified - Hepatic encephalopathy - Hepatic encephalopathy - Hypercalcemia - Hypercalcemia - 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 - assisted (current) use of insulin - Obesity, unspecified - Obesity, unspecified - Other disorders of bilirubin metabolism - Other disorders of bilirubin metabolism - Other terminal operations supervisor (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 therapy - Other terminal operations supervisor (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 therapy - Other specified [...] kidney disease - Unspecified cirrhosis of liver 10/07/2023 10:11 [facility] TYPE: Medical [...] Hepatic encephalopathy - Hypokalemia - Hypokalemia - 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 - Obesity, unspecified - Other disorders of bilirubin metabolism - Other disorders of bilirubin metabolism - Other 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 (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 therapy - Other specified postprocedural [...] - Unspecified cirrhosis of liver 09/11/2023 20:39 [facility] TYPE: Medical Surgical COMPLAINT: [...] Heart failure, unspecified - Hepatic encephalopathy - 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 - assisted (current) use of insulin - Obesity, unspecified - Obesity, unspecified - Other disorders of bilirubin metabolism - Other disorders of bilirubin metabolism - Other 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 (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 therapy - Other 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 (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 therapy - Other specified postprocedural [...] Hepatic encephalopathy - Liver disease, unspecified - assisted (current) use of insulin - Obesity, unspecified - Other disorders of bilirubin metabolism - Other 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 (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 therapy - Other specified postprocedural states - Thrombocytopenia, unspecified - Type 2 diabetes mellitus with diabetic chronic kidney disease - Type 2 diabetes mellitus with hyperglycemia - Unspecified cirrhosis of liver - Vitamin D deficiency, unspecified [email or web address]
[2024-01-27 11:23] LABS: BASOPHILS 0.8 % (0-2); HEMOGLOBIN 12.5 g/dL (12.0-18.0); LYMPHOCYTES 23.9 % (24-44); MCH 32.1 (27-36); MCHC 34.6 g/dl (30-36); MCV 92.8 fl (81-99); MONOCYTES 9.3 % (0-12); RBC 3.88 M/ul (4.3-5.7); RDW 15.8 (10.5-15.0)
[2024-01-27 11:39] LABS: PLATELET COUNT 79 K/uL (140-440)
[2024-01-27 11:40] LABS: ALBUMIN 3.3 g/dL (3.4-5.0); ALBUMIN/GLOBULIN RATIO 0.77 (1.1-2.4); ALCOHOL, MEDICAL <3 ng/dL (<3); ALKALINE PHOSPHATASE 275 U/L (46-116); ALT (SGPT) 37 U/L (14-59); ANION GAP 17.9 (7-21); AST (SGOT) 32 U/L (15-37); BILIRUBIN, TOTAL 2.2 ng/dL (0.2-1.0); CALCIUM 10.5 mg/dL (8.5-10.1); CARBON DIOXIDE 22 mmol/L (21-32); CHLORIDE 107 mmol/L (98-107); CREATININE, SERUM 2.17 mg/dL (0.55-1.02); GLOMERULAR FILTRATION RATE,EST 26 mL/min (>60); POTASSIUM 3.9 mmol/L (3.5-5.1); PROTEIN, TOTAL 7.6 g/dL (6.4-8.2); TSH, 3RD GENERATION 1.923 uIU/mL (0.358-3.740); UREA NITROGEN 56 mg/dL (7-18)
[2024-01-27 11:44] LABS: INR 1.16 (0.80-1.30); PROTIME 14.4 Sec (11.2-14.2)
[2024-01-27 11:46] LABS: PARTIAL THROMBOPLASTIN TIME 26.4 Sec (22.9-41.3)
[2024-01-27 11:53] LABS: ACETAMINOPHEN 0 ug/mL (10-30); SALICYLATE < 0.2 mg/dL (2.8-20.0)
[2024-01-27 12:15] LABS: BILIRUBIN, URINE NEGATIVE (negative); BLOOD/HGB, URINE TRACE-I (Negative); KETONE, URINE NEGATIVE (Negative); LEUK ESTERASE, URINE MODERATE (negative); NITRITE, URINE POSITIVE (negative)
[2024-01-27 12:24] LABS: CRYSTALS, URINE NONE SEEN (0-1+); WHITE BLOOD CELLS, URINE >50 /HPF (0-5)
[2024-01-27 12:25] LABS: BACTERIA, URINE 2+ /hpf (negative); CASTS, URINE NONE SEEN \\lpf; COLLECTION TYPE, URINE CLEAN CATCH; REFLEX CULTURE, URINE Yes (No)
[2024-01-27] MEDS ORDERED: LACTULOSE 20 GM/30 ML CUP PO ONE (12:30)
[2024-01-27] MEDS ORDERED: CEFTRIAXONE/SODIUM CHLORIDE 2 GM/100 ML PIGGYBACK IV ONE (12:30)
[2024-01-27 12:38] LABS: AMPHETAMINES, URINE NEGATIVE (NEGATIVE); BARBITURATES, URINE NEGATIVE (NEGATIVE); BENZODIAZEPINE, URINE NEGATIVE (NEGATIVE); BUPRENORPHINE, URINE NEGATIVE (NEGATIVE); CANNABINOID, URINE NEGATIVE (NEGATIVE); COCAINE, URINE NEGATIVE (NEGATIVE); ECSTASY, URINE NEGATIVE (NEGATIVE); FENTANYL, URINE NEGATIVE (NEGATIVE); METHADONE, URINE NEGATIVE (NEGATIVE); OPIATES, URINE NEGATIVE (NEGATIVE); OXYCODONE, URINE NEGATIVE (NEGATIVE); PHENCYCLIDINE, URINE NEGATIVE (NEGATIVE)
[2024-01-27] MEDS ORDERED: HEParin SOD (PORCINE) 5,000 UNIT/ML SDV SUB-Q SCH (14:08)
[2024-01-27] MEDS ORDERED: IBLOOD GLUCOSE TEST STRIP 1 EA TEST XX PRN (14:15)
[2024-01-27] MEDS ORDERED: GLUCAGON,HUMAN RECOMBINANT 1 MG/ML VIAL SUB-Q PRN (14:15)
[2024-01-27] MEDS ORDERED: ACETAMINOPHEN 325 MG TAB PO PRN (14:15)
[2024-01-27] MEDS ORDERED: DEXTROSE 5% 1,000 ML IV PRN (14:15)
[2024-01-27] MEDS ORDERED: DEXTROSE 50% 50 ML SYR IV PRN ×2 (14:15)
[2024-01-27] MEDS ORDERED: LACTULOSE 10 GM/15 ML ML PR ONE ×2 (15:00→23:15)
[2024-01-27] MEDS ORDERED: HYDROmorphone HCL 1 MG/ML SYR IV ONE (16:30)
[2024-01-27] MEDS ORDERED: ondansetron HCL 4 MG/2 ML VIAL IV ONE (16:30)
[2024-01-27] MEDS ORDERED: LORazepam 2 MG/ML VIAL IV ONE (16:30)
[2024-01-27] MEDS ORDERED: IBLOOD GLUCOSE TEST STRIP 1 EA TEST VI SCH (17:00)
[2024-01-27] MEDS ORDERED: FLUCONAZOLE/SOD CHLORIDE 100 ML IV ONE (18:00)
[2024-01-27 18:02] VITALS: BP 146/67
[2024-01-27] MEDS ORDERED: THIAMINE HCL 100 MG in SODIUM CHLORIDE 0.9% 100 ML IV SCH (18:24)
[2024-01-27] MEDS ORDERED: bisacodyL 10 MG SUPP PR ONE (18:30)
[2024-01-27] MEDS ORDERED: HYDROmorphone HCL 1 MG/ML SYR IV PRN (18:30)
[2024-01-27] MEDS ORDERED: LORazepam 2 MG/ML VIAL IV/IM PRN (18:30)
[2024-01-27 18:48] VITALS: BP 158/84
[2024-01-27] MEDS ORDERED: THIAMINE HCL 200 MG/2 ML VIAL ONE (19:38)
[2024-01-27 20:00] VITALS: BP 145/85
[2024-01-27 21:00] VITALS: BP 116/68
[2024-01-27] MEDS ORDERED: LACTULOSE 10 GM/15 ML ML PR SCH (21:00)
[2024-01-27] MEDS ORDERED: MICONAZOLE NITRATE 1 EA BTL TOP SCH (21:00)
[2024-01-27] MEDS ORDERED: INSULIN LISPRO 100 UNIT/ML ML SUB-Q SCH (21:00)
[2024-01-27] MEDS ORDERED: LACTULOSE 20 GM/30 ML CUP PO SCH (21:45)
[2024-01-27 22:00] VITALS: BP 136/88
[2024-01-27 23:00] VITALS: BP 143/67
[2024-01-27] MEDS ORDERED: ZINC OXIDE TOP SCH (23:04)
[2024-01-27] MEDS ORDERED: MICONAZOLE 2% 30 GM TUBE TOP SCH (23:18)
[2024-01-28] VITALS (9 sets, daily range): BP systolic 96–169; BP diastolic 55–94
[2024-01-28 05:40] LABS: BUN/CREATININE RATIO 25.29 (6.0-28.6); CALCIUM 10.4 mg/dL (8.5-10.1); CREATININE, SERUM 2.53 mg/dL (0.55-1.02)
[2024-01-28 05:52] LABS: BASOPHILS 0.4 % (0-2); EOSINOPHILS 0.6 % (0-6); HEMATOCRIT 32.4 % (35.0-50.0); HEMOGLOBIN 11.4 g/dL (12.0-18.0); LYMPHOCYTES 15.5 % (24-44); MCH 32.6 (27-36); MCHC 35.3 g/dl (30-36); MCV 92.4 fl (81-99); MONOCYTES 9.9 % (0-12); NEUTROPHILS 73.6 % (39-80); RDW 15.7 (10.5-15.0)
[2024-01-28 05:59] LABS: PLATELET COUNT 89.1 K/uL (140-440)
[2024-01-28] MEDS ORDERED: LACTATED RINGER'S 1,000 ML IV SCH (07:30)
[2024-01-28] MEDS ORDERED: DEXTROSE 5% 1,000 ML IV SCH (07:45)
[2024-01-28] MEDS ORDERED: THIAMINE HCL 100 MG TAB PO SCH (09:00)
[2024-01-28] MEDS ORDERED: CEFTRIAXONE/SODIUM CHLORIDE 2 GM/100 ML PIGGYBACK IV SCH (09:00)
[2024-01-28] MEDS ORDERED: PANTOPRAZOLE SODIUM 40 MG TABEC PO SCH (09:00)
[2024-01-28] MEDS ORDERED: PANTOPRAZOLE SODIUM 40 MG/10 ML VIAL IV SCH (09:00)
[2024-01-28] MEDS ORDERED: PHARMACY RENAL DOSE ADJUSTMENT 1 DOSE MISC PO SCH (12:00)
[2024-01-29 02:11] VITALS: BP 103/57
[2024-01-29 04:00] VITALS: BP 95/52
[2024-01-29 05:23] LABS: BASOPHILS 0.8 % (0-2); HEMATOCRIT 29.6 % (35.0-50.0); HEMOGLOBIN 10.3 g/dL (12.0-18.0); LYMPHOCYTES 26.6 % (24-44); MCH 32.5 (27-36); MCHC 34.8 g/dl (30-36); MCV 93.5 fl (81-99); MONOCYTES 8.2 % (0-12); NEUTROPHILS 59.4 % (39-80); RBC 3.17 M/ul (4.3-5.7); RDW 15.8 (10.5-15.0)
[2024-01-29 05:33] LABS: ANION GAP 13.8 (7-21); BUN/CREATININE RATIO 29.32 (6.0-28.6); CALCIUM 9.5 mg/dL (8.5-10.1); CREATININE, SERUM 2.08 mg/dL (0.55-1.02); POTASSIUM 3.8 mmol/L (3.5-5.1)
[2024-01-29 05:40] LABS: PLATELET COUNT 58.3 K/uL (140-440)
[2024-01-29 06:14] VITALS: BP 107/68
[2024-01-29 09:24] VITALS: BP 117/57
--- NOTE | 2024-01-29 12:15 | EKG ---
[facility] [address] [facility] [place], [place] [address] Signed Sinus tachycardia Otherwise normal ECG No previous ECGs available Confirmed by Juan Jose Arnett MD ([id number]) on 01/29/2024 12:15:32 PM Electronically Signed By: JUAN JOSE ARNETT DO 01/29/24 1215 PATIENT NAME: BENTLEY PATEL Electrocardiogram DATE OF : 69 PHYSICIAN: JUAN JOSE ARNETT DO REPORT #: [id number] REPORT IS CONFIDENTIAL AND NOT TO BE RELEASED WITHOUT AUTHORIZATION
[2024-01-29] MEDS ORDERED: CEFUROXIME500 MG PO (15:04)
== END 2024-01-29 17:55 | disposition home or self-care (01) | DRG 442 ==
LOC: ED 10:51 → CCU 14:16
PROVIDERS: Emergency Medicine; ADMIT Student in an Organized Health Care Education/Training Program; ATTEND Student in an Organized Health Care Education/Training Program
DX: K76.82 Hepatic encephalopathy (principal); E87.0 Hyperosmolality and hypernatremia; N17.9 Acute kidney failure, unspecified; N39.0 Urinary tract infection, site not specified; I13.0 Hypertensive heart and chronic kidney disease with heart failure and stage 1 through stage 4 chronic kidney disease, or unspecified chronic kidney disease; K72.10 Chronic hepatic failure without coma; K70.30 Alcoholic cirrhosis of liver without ascites; I50.9 Heart failure, unspecified; N18.9 Chronic kidney disease, unspecified; F10.20 Alcohol dependence, uncomplicated; E11.22 Type 2 diabetes mellitus with diabetic chronic kidney disease; K21.9 Gastro-esophageal reflux disease without esophagitis; B37.2 Candidiasis of skin and nail; Z88.0 Allergy status to penicillin; D63.1 Anemia in chronic kidney disease; E55.9 Vitamin D deficiency, unspecified; E66.9 Obesity, unspecified; F41.9 Anxiety disorder, unspecified; Z86.79 Personal history of other diseases of the circulatory system; Z90.49 Acquired absence of other specified parts of digestive tract; Z98.890 Other specified postprocedural states; Z79.4 Long term (current) use of insulin; Z79.899 Other long term (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 therapy
CPT/HCPCS: 36415; 51702; 70450; 71045; 80048; 80053; 80307; 81001; 82140; 83735; 84100; 84443; 84703; 85025; 85060; 85610; 85730; 87088; 93005; 93010; 99285-25; A9270; G0480; J0696; J1171; J1450; J1644; J1815; J2060; J2405; J3411; J7070

== ENCOUNTER 2024-05-11 09:03 | Inpatient (IN) | payer OTHER ==
[~2024-05-11] VITALS: Ht 157.5 cm; Wt 79.5 kg
[~2024-05-11 09:03] MED LIST changes: +CEFUROXIME500 MG PO
[2024-05-11 09:23] LABS: PH, VENOUS 7.485 (7.31-7.41)
[2024-05-11 09:26] LABS: BASOPHILS 0.8 % (0-2); EOSINOPHILS 4.3 % (0-6); HEMATOCRIT 30.3 % (35.0-50.0); HEMOGLOBIN 10.4 g/dL (12.0-18.0); MCHC 34.3 g/dl (30-36); MCV 90.6 fl (81-99); MONOCYTES 9.2 % (0-12); NEUTROPHILS 52.7 % (39-80); RBC 3.35 M/ul (4.3-5.7); RDW 16.3 (10.5-15.0)
[2024-05-11 09:39] LABS: ALBUMIN 2.5 g/dL (3.4-5.0); ALBUMIN/GLOBULIN RATIO 0.42 (1.1-2.4); ANION GAP 12.2 (7-21); BUN/CREATININE RATIO 29.81 (6.0-28.6); CALCIUM 10.1 mg/dL (8.5-10.1); CREATININE, SERUM 1.61 mg/dL (0.55-1.02); POTASSIUM 4.2 mmol/L (3.5-5.1); PROTEIN, TOTAL 8.4 g/dL (6.4-8.2)
[2024-05-11 09:52] LABS: INR 1.16 (0.80-1.30); PROTIME 14.7 Sec (11.2-14.2)
[2024-05-11 10:00] LABS: PLATELET COUNT 114 K/uL (140-440)
[2024-05-11] MEDS ORDERED: DEXTROSE 50% 50 ML SYR IV PRN ×2 (12:45)
[2024-05-11] MEDS ORDERED: IBLOOD GLUCOSE TEST STRIP 1 EA TEST XX PRN (12:45)
[2024-05-11] MEDS ORDERED: ondansetron HCL 4 MG/2 ML VIAL IV PRN (12:45)
[2024-05-11] MEDS ORDERED: bisacodyL 10 MG SUPP PR PRN (12:45)
[2024-05-11] MEDS ORDERED: ACETAMINOPHEN 325 MG TAB PO PRN (12:45)
[2024-05-11] MEDS ORDERED: LACTATED RINGER'S 1,000 ML IV SCH (12:45)
[2024-05-11] MEDS ORDERED: GLUCAGON,HUMAN RECOMBINANT 1 MG/ML VIAL SUB-Q PRN (12:45)
[2024-05-11] MEDS ORDERED: DEXTROSE 5% 1,000 ML IV PRN (12:45)
[2024-05-11] MEDS ORDERED: LACTULOSE 10 GM/15 ML ML PR ONE (12:45)
--- NOTE | 2024-05-11 13:45 | NUR ---
REPORT RECEIVED FROM TIA MITTAL IN EMERGENCY ROOM 7. TIA MITTAL PLACES NEW IV INTO PTs R FOREARM AT THIS TIME AND WRAPS SITE IN COBAN TO PREVENT PT PULLING IT OUT. PT ESCORTED IN STRETCHER TO MED/SURG FLOOR ROOM 110. WEIGHT AND VS OBTAINED AND RECORDED. AMANDA CORTES IS 1:1 SITTER AND REMAINS IN ROOM AT THIS TIME.
[2024-05-11 13:58] VITALS: BP 154/84
--- NOTE | 2024-05-11 14:05 | NUR ---
PT UNABLE TO FOLLOW COMMANDS/DIRECTIONS TO TRANSFER TO HOSPITAL BED. ASSISTANCE PROVIDED BY TIA TUBBS. PT BEGINS TO LOOSELY FOLLOW COMMANDS BUT WITH MODERATE ASSISTANCE. PT SETTLED INTO HOSPITAL BED, GOWN PROVIDED AND ASSISTED TO PUT ON. GEOMETRY TUTORJl CORTES REMAINS IN ROOM 1:1.
[2024-05-11] MEDS ORDERED: LACTULOSE 20 GM/30 ML CUP PO SCH (15:00)
--- NOTE | 2024-05-11 15:33 | NUR ---
ADMISSION COMPLETE. PTs MENTATION IS WAXING AND WANING. PT ABLE TO TELL ME HER FULL NAME AND DATE OF , UNABLE TO TELL ME WHERE SHE IS. PT RE-ORIENTED TO PLACE. WHEN ASKED WHAT BROUGHT HER TO THE HOSPITAL PT RESPONDS "I WAS FEELING REALLY BAD". PT IS OCCASIONALLY TEARFUL DURING CONVERSATION. FREQUENTLY STATES "THAT'S ALL I WANT TO SAY ABOUT THAT, DON'T MAKE ME SAY ANYTHING MORE." PT LUNG SOUNDS ARE CLEAR THROUGHOUT, HEART SOUNDS REGULAR BUT TACHY. HR 112. PT HAS 2+ PULSES IN ALL EXTREMETIES, REPORTS NO NUMBNESS OR TINGLING. PT HAS MULTIPLE SKIN ISSUES. ABD PADS REMOVED FROM PTs L GAXIOLA, SCANT AMOUNT OF SEROSANGUINOUS DRAINAGE NOTED TO PADS. MULTIPLE WOUNDS NOTED WITH DRY DRAINAGE TO OPEN AREAS. WHEN ASKED HOW SHE INJURED HER LEG PT RESPONDS "I DON'T WANT TO TALK ABOUT IT." PATCHY REDNESS WITH THICK DISCHARGE NOTED BENEATH PTs PANNUS AND BILAT BREASTS. AREAS ARE CLEANSED WITH BED BATH WIPES AND DRIED AT THIS TIME. PT HAS BLANCHABLE REDNESS TO GLUTEAL CLEFT WITH SMALL OPEN AREA AT THE COCCYX. THE AREA IS CLEANSED AND AN ALLEVYN IS PLACED FOR PROTECTION. PT REPORTS THAT SHE IS CONTINENT. WHEN HER PANTS AND UNDERWEAR ARE REMOVED THEY ARE NOTED TO BE WET. PT BEGINS TO BECOME MORE RESPONSIVE WITH SOME TIME. PT REPORTS THAT SHE HAS RECENTLY LOST A FRIEND WELL HER JOB AND FEELS THOUGH SHE IS LOSING HER COMMUNITY. PT BECOMES TEARFUL AGAIN. PT HAS IV TO HER R FOREARM INFUSING IVF AT 100ML/HR ORDERED. PT REMINDED SEVERAL TIMES THROUGHOUT DISCUSSION BY THIS RN AND BY AMANDA CORTES TO LEAVE HER IV ALONE AND NOT REMOVE IT. SITE REMAINS WRAPPED IN COBAN AT THIS TIME. PT HAS NO OTHER REQUESTS AT THIS TIME, CALL LIGHT IN REACH. SOPHIA PATEL REMAINS IN ROOM 1:1.
--- NOTE | 2024-05-11 15:37 | NUR ---
INTO SEE PATIENT. PERSONAL INFORMATION REVIEWED. PATIENT LAYING IN BED. PATIENT LIVES IN AN APARTMENT 4 STEPS TO GET INTO. PATIENT STATES SHE IS ABLE TO DO THEM. NO DME AT HOME. PATIENT DAUGHTER CLAUDIO LIVES ON AND OFF WITH HER. PATIENT STATES [facility] WILL PICK HER UP AT TIME OF DISCHARGE. DENIES ANY DIFFCULTY PAYING UTILITIES OR OBTAINING FOOD. PATIENT DRIVES AT BASELINE. NO OTHER CM NEEDS AT THIS TIME.
[2024-05-11 16:17] LABS: BILIRUBIN, URINE NEGATIVE (negative); BLOOD/HGB, URINE SMALL (Negative); KETONE, URINE NEGATIVE (Negative); LEUK ESTERASE, URINE NEGATIVE (negative); NITRITE, URINE NEGATIVE (negative); PH, URINE 7.5 (5-7)
--- NOTE | 2024-05-11 16:21 | NUR ---
URINE SAMPLE OBTAINED AND SENT TO LAB. PT VOIDS 350ML DARK YELLOW URINE IN BSC. PICTURES TAKEN OF WOUNDS TO PTs Abrahan GAXIOLA AND PLACED IN CHART. AMANDA CORTES REMAINS IN ROOM WITH PT.
[2024-05-11 16:22] LABS: EPITHELIAL CELLS, URINE SQUAMOUS 2+ /lpf (0-1+)
[2024-05-11 16:23] LABS: BACTERIA, URINE RARE /hpf (negative); CASTS, URINE NONE SEEN \\lpf; COLLECTION TYPE, URINE CLEAN CATCH; CRYSTALS, URINE NONE SEEN (0-1+); REFLEX CULTURE, URINE No (No)
[2024-05-11 16:32] LABS: AMPHETAMINES, URINE NEGATIVE (NEGATIVE); BARBITURATES, URINE NEGATIVE (NEGATIVE); BENZODIAZEPINE, URINE NEGATIVE (NEGATIVE); BUPRENORPHINE, URINE NEGATIVE (NEGATIVE); CANNABINOID, URINE NEGATIVE (NEGATIVE); COCAINE, URINE NEGATIVE (NEGATIVE); ECSTASY, URINE NEGATIVE (NEGATIVE); FENTANYL, URINE NEGATIVE (NEGATIVE); METHADONE, URINE NEGATIVE (NEGATIVE); OPIATES, URINE NEGATIVE (NEGATIVE); OXYCODONE, URINE NEGATIVE (NEGATIVE); PHENCYCLIDINE, URINE NEGATIVE (NEGATIVE)
[2024-05-11] MEDS ORDERED: INSULIN LISPRO 100 UNIT/ML ML SUB-Q SCH (17:00)
[2024-05-11] MEDS ORDERED: IBLOOD GLUCOSE TEST STRIP 1 EA TEST VI SCH (17:00)
--- NOTE | 2024-05-11 17:16 | NUR ---
MEDICATION ADMINISTERED, SEE MAR. PTs DAUGHTER ANGIE' IS PRESENT VISITING WITH PT. PT HAS SUPPER TRAY IN FRONT OF HER AND IS SITTING UP IN BED CONVERSING WITH DAUGHTER AND EATING SUPPER. NO REQUESTS. CALL LIGHT IN REACH.
[2024-05-11 18:00] VITALS: BP 164/68
[2024-05-11 18:06] VITALS: BP 164/68
--- NOTE | 2024-05-11 18:06 | NUR ---
PT SITTING UP IN HER BED EATING HER SUPPER. THIS RN IN TO VISIT AND RE-ASSESS PTs NEURO STATUS SHE APPEARS MUCH CLEARER. PT IS ABLE TO ACCUATELY ANSWER TO DATE, PLACE, AND EVENT. SHE IS ASKING WHAT HAPPENED EARLIER TODAY. THIS RN EXPLAINS AND PROVIDES THERAPEUTIC COMMUNICATION. PT STILL MILDLY CONFUSED WITH SOME CHANGES IN EXPLANATION REGARDING LACTULOSE USE. PT INITIALLY STATES SHE IS UNSURE WHY SHE DIDN'T TAKE HER LACTULOSE THEN REPORTS THAT SHE DOES NOT HAVE LACTULOSE A MEDICATION ANYMORE, SHE IS ON SOMETHING DIFFERENT. PT ALSO REPORTING USE OF TORSEMIDE AND RIFAXIMIN FROM HER PCP. PT REPORTS THAT SHE LIVES WITH HER DAUGHTER. PT ASKS IF SHE PULLED HER IVs OUT IN THE EMERGENCY DEPARTMENT. PT BECOMES TEARFUL TO LEARN OF THIS. THERAPEUTIC COMMUNICATION PROVIDED. PT ENCOURAGED TO FINISH HER DINNER AND CALL IF SHE NEEDS ANYTHING. PT VERBALIZES UNDERSTANDING AND IS CALLING APPROPRIATELY. CALL LIGHT IN REACH.
--- NOTE | 2024-05-11 18:54 | NUR ---
PT SITTING ON EDGE OF BED. SCDs REMOVED PER PT REQUEST. AMANDA ATKINSON ALERTS THIS RN THAT PTs Abrahan GAXIOLA IS ACTIVELY WEEPING UNDER SCD. AMANDA ATKINSON STILL IN ROOM.
--- NOTE | 2024-05-11 18:58 | NUR ---
ABD APPLIED TO PTs L GAXIOLA, FOAM TAPE TO HOLD IN PLACE. PT REPORTS NO PAIN AT THIS SITE. PT IS REQUESTING THE COBAN TO HER IV IN R FOREARM BE REMOVED. UNSURE OF PTs MENTATION AT THIS TIME, IT CONTINUES TO WAX AND WANE, EDUCATED PT THAT COBAN WILL STAY AT THIS TIME TO PREVENT DISRUPTING THE IV. PT VERBALIZES UNDERSTANDING, AGREEABLE. CALL LIGHT IN REACH. PT REMAINS SITTING ON EDGE OF BED, BED ALARM ON, BED IN LOWEST POSITION.
--- NOTE | 2024-05-11 19:56 | NUR ---
Pt alarms going off, trying to get out of bed. Up to BRP w 1PA, slightly unsteady, follows instructions. voided and had loose bm. Back to bed. tolerated well. On room air, lungs clear bilat, no sob noted with exertion. In bed repositions self. IVf infusing w/o problems. RA. no c/o pain at this time. abd distended HEA, no c/o n/v. dressing to L front calf. edema bilat 1+ elevated, SCDS off L leg, will place tedhose sometime during this shift. will notify MD about L leg due to weeping areas. Pleasant and cooperative, alert to self, place, general date and situaion at this time. tolerating liquids well.
[2024-05-11 20:48] VITALS: BP 147/69
[2024-05-11 20:49] VITALS: BP 147/69
[2024-05-11] MEDS ORDERED: MICONAZOLE NITRATE 1 EA BTL TOP SCH (21:00)
--- NOTE | 2024-05-11 22:52 | NUR ---
CALL LIGHT ANSWERED. PT NEEDED TO USE BATHROOM. PHYSICIAN CODING SPECIALIST 1PA WITH FWW TO BATHROOM. PT VOIDED AND HAD BM. PT ASSISTED BACK TO BED. PT STATES NO FURTHER NEEDS AT THIS TIME. CALL LIGHT WITHIN REACH AND BED ALARM ON.
--- NOTE | 2024-05-11 23:41 | NUR ---
RESTING, NO FURTHER C/O DISTRESS, ON ROOM AIR, BED ALRMS ON PER SAFEETY, FAMILY ROOMING IN
--- NOTE | 2024-05-11 23:50 | NUR ---
CALL LIGHT ANSWERED. PT NEEDED TO USE BATHROOM. FIRE TOWER KEEPER 1PA WITH FWW TO BATHROOM. PT VOIDED AND ASSISTED BACK TO BED. PT STATES NO FURTHER NEEDS AT THIS TIME. SCD BACK ON RIGHT LEG. CALL LIGHT WITHIN REACH AND BED ALARM ON.
--- NOTE | 2024-05-12 00:17 | NUR ---
CALL LIGHT ANSWERED. PT NEEDED TO USE BATHROOM. SHREDDED FILLER CIGAR MAKER MACHINE 1PA WITH FWW TO BATHROOM. PT VOIDED AND ASSISTED BACK TO BED. PT REPORTS STOMACH PAIN. DANAY WEBER NOTIFED. PT STATES NO FURTHER NEEDS AT THIS TIME. CALL LIGHT WITHIN REACH AND BED ALARM ON.
--- NOTE | 2024-05-12 00:37 | NUR ---
C/O 08/07 ABD PAIN, MEDICATED WITH TYLENOL, UP TO BRP, 1PA/FWW
[2024-05-12 01:38] VITALS: BP 150/67
--- NOTE | 2024-05-12 01:41 | NUR ---
OUTPATIENT INTERVIEWING CLERK OBTAINED VITALS AND I&O. PT STAES NO FURTHER NEEDS AT THIS TIME. CALL LIGHT WITHIN REACH AND BED ALARM ON.
--- NOTE | 2024-05-12 02:42 | NUR ---
CALL LIGHT ANSWERED. PT NEEDED TO USE BATHROOM. SERVICE NOW DEVELOPER SBA WITH FWW TO BATHROOM. PT VOIDED AND ASSISTED BACK TO BED. PT STATES NO FURTHER NEEDS AT THIS TIME. CALL LIGHT WITHIN REACH AND BED ALARM ON.
--- NOTE | 2024-05-12 03:15 | NUR ---
Resting, eyes closed, no s/sx ditress. IVF infusing w/o problems, Bed alrm on for safety
[2024-05-12 05:25] VITALS: BP 151/66
[2024-05-12 05:27] VITALS: BP 151/66
[2024-05-12 05:38] LABS: BASOPHILS 0.7 % (0-2); EOSINOPHILS 6.5 % (0-6); HEMATOCRIT 27.5 % (35.0-50.0); HEMOGLOBIN 9.2 g/dL (12.0-18.0); LYMPHOCYTES 25.6 % (24-44); MCH 30.8 (27-36); MCHC 33.7 g/dl (30-36); MCV 91.4 fl (81-99); MONOCYTES 10.7 % (0-12); NEUTROPHILS 56.5 % (39-80); RDW 16.6 (10.5-15.0)
[2024-05-12 05:49] LABS: INR 1.24 (0.80-1.30); PROTIME 15.6 Sec (11.2-14.2)
[2024-05-12 05:52] LABS: PLATELET COUNT 86 K/uL (140-440)
[2024-05-12 05:57] LABS: ALBUMIN 2.1 g/dL (3.4-5.0); ALBUMIN/GLOBULIN RATIO 0.42 (1.1-2.4); BILIRUBIN, TOTAL 2.3 mg/dL (0.2-1.0); BUN/CREATININE RATIO 35.34 (6.0-28.6); CALCIUM 9.9 mg/dL (8.5-10.1); CREATININE, SERUM 1.16 mg/dL (0.55-1.02); MAGNESIUM 1.5 mg/dL (1.8-2.4); PHOSPHORUS, INORGANIC 2.9 mg/dL (2.5-4.9); PROTEIN, TOTAL 7.1 g/dL (6.4-8.2)
--- NOTE | 2024-05-12 06:32 | NUR ---
Awakens easily, no c/o pain, on room air, IVF infusing w/o problems. has had several liquid bm's on Lactulose, tolerating small amounts of liquids, no c/o n/v. Up to BRo several times with 1PA. Bed alarms on. Impulsive, remembers to use call light twice, otherwise alarms go off when she tries to get out of bed. Redirectable, clear speeach, aware of name, place, town, hospital and situation
--- NOTE | 2024-05-12 07:35 | NUR ---
PT CURRENTLY SITTING UP IN CHAIR, STATES SHE IS FEELING MORE ALERT TODAY, FEELING WEAK THOUGHT. CALL [facility] WITHIN REACH, PT GIVEN THE TV REMOTE SO SHE CAN WATCH TV. CHAIR ALARM IN PLACE. IV FLUIDS INFUSING. PT DENIES FURTHER NEEDS AT THIS TIME.
[2024-05-12] MEDS ORDERED: MAGNESIUM OXIDE 400 MG TABLET PO ONE (08:00)
--- NOTE | 2024-05-12 08:23 | NUR ---
PT SITTING UP IN CHAIR, TRAY SETUP AWAITING BREAKFAST THIS MORNING. IV FLUIDS INFUSING. PT INSULIN GIVEN - SEE APR. PT WANTED TO HOLD OFF ON THE MORNING LACTULOSE, PENDING HER LABS, SHE STATES SHE HAD ALOT OF BM THROUGHOUT THE NIGHT. WILL AWAIT LABS AND DISCUSS WITH MD AT THIS TIME. CHAIR ALARM IN PLACE. TOLERATED ORAL MEDS WITHOUT ANY ISSUES. LS CLEAR, HRR, BT+. DRESSING TO LLE REMOVED, WOUND CONSULT IN PLACE, WILL SEE IF CHARGE/WOUND RN WILL BE ABLE TO SEE HER TODAY. ALL PT CARE NEEDS MET AT THIS TIME.
[2024-05-12] MEDS ORDERED: XIFAXAN550 MG PO (08:57)
[2024-05-12] MEDS ORDERED: POTASSIUM CHLO10 ME1 PO (08:58)
[2024-05-12 09:28] VITALS: BP 149/64
--- NOTE | 2024-05-12 09:35 | NUR ---
PATIENT WAS IN BED AT THIS, COCKTAIL LOUNGE MANAGER CHARTED VITALS AND I&O'S, ASSISTED PATIENT TO THE CHAIR. GOT FRESH WATER AND A WARM BLANKET, CALL LIGHT WITH IN REACH AND NOTHING ELSE NEEDED AT THIS TIME.
[2024-05-12] MEDS ORDERED: LACTULOSE10 GM/15 M PO (10:25)
[2024-05-12] MEDS ORDERED: TORSEMIDE20 MG PO (10:26)
--- NOTE | 2024-05-12 10:26 | NUR ---
MED REC COMPLETE
--- NOTE | 2024-05-12 11:30 | NUR ---
PT DISCHARGE PAPERWORK PROVIDED, DAUGHTER IS EN-ROUTE TO PICKUP PATIENT. IV REMOVED-INTACT. PT DENIES NEEDS, RN/CHARGE NOTIFIED TO SEE PATIENT FOR WOUND CARE PRIOR TO DISCHARGE. AFTER THAT PATIENT IS AWARE SHE IS ABLE TO LEAVE. AWAITING RIDE AT THIS TIME.
[2024-05-12] MEDS ORDERED: PHARMACY RENAL DOSE ADJUSTMENT 1 DOSE MISC PO SCH (12:00)
[2024-05-12 12:52] VITALS: BP 170/69
--- NOTE | 2024-05-12 15:49 | EKG ---
[facility] [address] [facility] [place] [address] Signed Sinus tachycardia Otherwise normal ECG When compared with ECG of 27-JAN-2024 11:35, No significant change was found Confirmed by Juan Jose Arnett DO ([id number]) on 05/12/2024 3:48:55 PM Electronically Signed By: JUAN JOSE ARNETT DO 05/12/24 1549 PATIENT NAME: BENTLEY PATEL Electrocardiogram DATE OF : 69 PHYSICIAN: JUAN JOSE ARNETT DO REPORT #: [id number] REPORT IS CONFIDENTIAL AND NOT TO BE RELEASED WITHOUT AUTHORIZATION
[2024-05-12 21:12] LABS: THYROXINE FREE 1.5 ng/dL (0.9-1.7)
== END 2024-05-12 13:00 | disposition home or self-care (01) | DRG 442 ==
LOC: ED 09:03 → MS 12:43
PROVIDERS: Emergency Medicine; ADMIT Student in an Organized Health Care Education/Training Program; ATTEND Student in an Organized Health Care Education/Training Program
DX: K76.82 Hepatic encephalopathy (principal); N17.9 Acute kidney failure, unspecified; K74.60 Unspecified cirrhosis of liver; E11.9 Type 2 diabetes mellitus without complications; D50.9 Iron deficiency anemia, unspecified; D69.59 Other secondary thrombocytopenia; R82.81 Pyuria; Z88.0 Allergy status to penicillin; S81.802D Unspecified open wound, left lower leg, subsequent encounter; Z79.899 Other long term (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 therapy; Z79.85 Long-term (current) use of injectable non-insulin antidiabetic drugs; X58.XXXD Exposure to other specified factors, subsequent encounter
CPT/HCPCS: 36415; 70450; 71045; 80053; 80307; 81001; 82140; 82803; 83735; 84100; 84439; 84443; 85025; 85060; 85610; 93005; 93010; A9270; J1815; J7121

== ENCOUNTER 2024-06-15 12:11 | Emergency (ER) | payer BC, OTHER ==
[~2024-06-15] VITALS: Ht 157.5 cm; Wt 88.0 kg
[~2024-06-15 12:11] MED LIST changes: +LACTULOSE10 GM/15 M PO
[2024-06-15] MEDS ORDERED: ZOLPIDEM TARTRAT5 MG PO (14:34)
[2024-06-15 14:49] LABS: BASOPHILS 0.4 % (0-2); EOSINOPHILS 5.3 % (0-6); HEMATOCRIT 29.8 % (35.0-50.0); HEMOGLOBIN 10.2 g/dL (12.0-18.0); LYMPHOCYTES 27.9 % (24-44); MCH 30.6 (27-36); MCHC 34.4 g/dl (30-36); MCV 88.7 fl (81-99); MONOCYTES 8.5 % (0-12); NEUTROPHILS 57.9 % (39-80); RBC 3.35 M/ul (4.3-5.7); RDW 16.2 (10.5-15.0)
[2024-06-15 15:00] LABS: PLATELET COUNT 99 K/uL (140-440)
[2024-06-15 15:05] LABS: ALBUMIN 2.6 g/dL (3.4-5.0); ALBUMIN/GLOBULIN RATIO 0.49 (1.1-2.4); ANION GAP 7.6 (7-21); BILIRUBIN, TOTAL 2.7 mg/dL (0.2-1.0); BUN/CREATININE RATIO 24.02 (6.0-28.6); CALCIUM 9.8 mg/dL (8.5-10.1); CREATININE, SERUM 1.54 mg/dL (0.55-1.02); POTASSIUM 3.6 mmol/L (3.5-5.1); PROTEIN, TOTAL 7.9 g/dL (6.4-8.2)
[2024-06-15 15:20] VITALS: BP 147/66
== END 2024-06-15 15:20 | disposition home or self-care (01) ==
LOC: ED 12:11
PROVIDERS: Emergency Medicine
DX: D64.9 Anemia, unspecified (principal); E11.9 Type 2 diabetes mellitus without complications; I50.9 Heart failure, unspecified; Z88.0 Allergy status to penicillin; Z79.899 Other long term (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 therapy; Z79.2 Long term (current) use of antibiotics; Z79.4 Long term (current) use of insulin; Z79.1 Long term (current) use of non-steroidal anti-inflammatories (NSAID)
CPT/HCPCS: 36415; 80053; 85025; 99284

== ENCOUNTER 2024-08-11 12:13 | Inpatient (IN) | payer OTHER ==
[~2024-08-11] VITALS: Ht 157.5 cm; Wt 77.0 kg
[~2024-08-11 12:13] MED LIST changes: +ZOLPIDEM TARTRAT5 MG PO
[2024-08-11] MEDS ORDERED: IBLOOD GLUCOSE TEST STRIP 1 EA TEST VI ONE (12:30)
[2024-08-11 12:31] LABS: BASOPHILS 0.6 % (0.1-1.2); EOSINOPHILS 3.1 % (0.7-5.8); HEMATOCRIT 37.1 % (34.1-44.9); HEMOGLOBIN 12.5 g/dL (11.2-15.7); LYMPHOCYTES 40.4 % (19.3-51.7); MCH 30.3 PG (25.6-32.2); MCHC 33.7 g/dL (32.2-35.5); MONOCYTES 9.3 % (4.7-12.5); NEUTROPHILS 46.6 % (34.0-71.1); PLATELET COUNT 108 K/uL (182-369); RBC 4.12 M/uL (3.93-5.22)
[2024-08-11 12:46] LABS: ALBUMIN 3.2 g/dL (3.4-5.0); ALBUMIN/GLOBULIN RATIO 0.64 (1.1-2.4); ALCOHOL, MEDICAL <3 ng/dL (<3); ALKALINE PHOSPHATASE 279 U/L (46-116); ALT (SGPT) 31 U/L (14-59); ANION GAP 14.4 (7-21); AST (SGOT) 38 U/L (15-37); BILIRUBIN, TOTAL 3.1 mg/dL (0.2-1.0); BUN/CREATININE RATIO 28.57 (6.0-28.6); CALCIUM 10.4 mg/dL (8.5-10.1); CARBON DIOXIDE 24 mmol/L (21-32); CHLORIDE 107 mmol/L (98-107); CREATININE, SERUM 2.17 mg/dL (0.55-1.02); GLOMERULAR FILTRATION RATE,EST 26 mL/min (>60); POTASSIUM 4.4 mmol/L (3.5-5.1); PROTEIN, TOTAL 8.2 g/dL (6.4-8.2); UREA NITROGEN 62 mg/dL (7-18)
[2024-08-11] MEDS ORDERED: CLOTRIMAZOLE 1% 30 GM TUBE TOP SCH (13:17)
[2024-08-11] MEDS ORDERED: GLUCAGON,HUMAN RECOMBINANT 1 MG/ML VIAL SUB-Q PRN (15:15)
[2024-08-11] MEDS ORDERED: ondansetron HCL 4 MG/2 ML VIAL IV PRN (15:15)
[2024-08-11] MEDS ORDERED: IBLOOD GLUCOSE TEST STRIP 1 EA TEST XX PRN (15:15)
[2024-08-11] MEDS ORDERED: bisacodyL 10 MG SUPP PR PRN (15:15)
[2024-08-11] MEDS ORDERED: DEXTROSE 50% 50 ML SYR IV PRN ×2 (15:15)
[2024-08-11] MEDS ORDERED: LACTATED RINGER'S 1,000 ML IV SCH (15:15)
[2024-08-11] MEDS ORDERED: ACETAMINOPHEN 325 MG TAB PO PRN (15:15)
[2024-08-11] MEDS ORDERED: DEXTROSE 5% 1,000 ML IV PRN (15:15)
[2024-08-11 15:31] LABS: TSH, 3RD GENERATION 2.48 uIU/mL (0.358-3.740)
--- NOTE | 2024-08-11 15:38 | EKG ---
[facility] [address] [facility] [place], [place] [address] Signed Normal sinus rhythm Nonspecific ST and T wave abnormality Abnormal ECG No previous ECGs available Confirmed by Juan Jose Arnett DO ([id number]) on 08/11/2024 3:38:26 PM Electronically Signed By: JUAN JOSE ARNETT DO 08/11/24 1538 PATIENT NAME: BENTLEY PATEL Electrocardiogram DATE OF : 69 PHYSICIAN: JUAN JOSE ARNETT DO REPORT #: [id number] REPORT IS CONFIDENTIAL AND NOT TO BE RELEASED WITHOUT AUTHORIZATION
--- NOTE | 2024-08-11 15:50 | NUR ---
PATIENT ARRIVES TO FLOOR VIA STRETCHER. REPORT RECEIVED FROM TIA ROSALES. PATIENT MAX ASSIST X3 TRANSFERRED FROM STRETCHER TO HOSPITAL BED. VS AND WT OBTAINED. SKIN CHECK PERFORMED WITH TIA ROSALES. IV TO RIGHT AC FLUSHES WNL, IV FLUID STARTED. PATIENT IS UNRESPONSIVE TO ALL EXCEPT PAINFUL STIMULI - PARTICULARLY WHEN PERFORMING CARE TO UNDER BILAT BREASTS, PANNUS, AND GROIN. PATIENT PUSHES HANDS AWAY AND STATES "DON'T DO THAT" WHEN CLEANSING AREAS. ATTEMPT TO REORIENT PATIENT TO PERSON AND PLACE UNSUCCESSFUL AT THIS TIME. PATIENT RESTING IN BED WITH EYES CLOSED, RR EVEN AND UNLABORED. BED IN LOWEST POSITION WITH BED ALARM ON.
[2024-08-11 16:04] VITALS: BP 155/70
--- NOTE | 2024-08-11 16:11 | NUR ---
NEW MADDIE AND YASHIRA PLACED AT 1600. RN MONA IN ROOM TO TAKE REPORT AND NEW PATIENT ADMIT.
--- NOTE | 2024-08-11 16:11 | NUR ---
UNDER BILAT BREASTS, PANNUS, AND GROIN CLEANSED AND PATTED DRY. PILLOW CASES PLACED BENEATH BILAT BREASTS. PATIENT PUSHING HANDS AWAY BUT OTHERWISE NOT RESPONSIVE TO CARES. PUREWICK PLACED. PATIENT CONTINUES RESTING WITH EYES CLOSED, RR EVEN AND UNLABORED BUT WITH CONSTANT FROWN AND OCCASIONAL GROANING NOISE. PATIENT IS UNABLE TO ASSIST IN ADMISSION QUESTIONS AT THIS TIME. BED IN LOWEST POSITION WITH BED ALARM ON.
[2024-08-11] MEDS ORDERED: INSULIN LISPRO 100 UNIT/ML ML SUB-Q SCH (17:00)
[2024-08-11] MEDS ORDERED: IBLOOD GLUCOSE TEST STRIP 1 EA TEST VI SCH (17:00)
--- NOTE | 2024-08-11 17:36 | NUR ---
PATIENT IS AWAKE AND ALERT SITTING UP IN BED. PATIENT IS UNSURE OF DATE AND TIME BUT RECOGNIZES THE HOSPITAL AND ASKS IF SHE IS "IN THE REGULAR HOSPITAL OR THE ICU?" PATIENT REORIENTED TO PLACE AND EVENT. PATIENT BECOMES BRIEFLY TEARFUL AND ALSO REPORTS SHE FEELS COLD. WARM BLANKETS PROVIDED. PATIENT REPORTS SHE NEEDS TO VOID AND ASKS IF SHE CAN USE THE RESTROOM. THIS RN ASKS IF PATIENT FEELS STRONG ENOUGH TO GET UP. PATIENT STATES "I SHOULD BE HONEST. NO, I DON'T." PATIENT EDUCATED ON [employer]. PATIENT REPORTS SHE WILL WAIT UNTIL SHE IS FEELING STRONGER. PATIENT AGREEABLE TO EATING AND DRINKING - DINNER TRAY IS PRESENT AND PATIENT BEGINS TO EAT AND DRINK. PATIENT IS REQUESTING HER DAUGHTER BE NOTIFIED OF WHERE SHE IS. PHONE NUMBER PROVIDED FOR DAUGHTER BUT THERE IS NO ANSWER AT THIS TIME. PATIENT REMAINS IN BED EATING DINNER AT THIS TIME, CALL LIGHT AND PERSONAL BELONGINGS IN REACH.
--- NOTE | 2024-08-11 17:48 | NUR ---
PATIENT'S DAUGHTER SUSY' REACHED AND NOTIFIED THAT PATIENT IS HERE. PATIENT IS CURRENTLY ON PHONE WITH DAUGHTER IN HER ROOM WHILE EATING SUPPER.
--- NOTE | 2024-08-11 17:56 | NUR ---
NOTIFIED THAT PATIENT IS AWAKE AND EATING SUPPER AT THIS TIME. MD ARNETT GIVES VERBAL ORDER TO D/C CO EMULOSE AND PLACE ORDER FOR PO LACTULOSE TID. ORDER PLACED.
[2024-08-11] MEDS ORDERED: LACTULOSE 20 GM/30 ML CUP PO SCH (18:00)
[2024-08-11 18:33] VITALS: BP 117/55
--- NOTE | 2024-08-11 18:33 | NUR ---
MEDICATION ADMINISTERED, SEE MAR. PATIENT REQUESTING TO USE RESTROOM AND STATES SHE IS MORE AWAKE NOW. PATIENT AMBULATES WITH SBA FROM BED TO RESTROOM AND VOIDS. URINE SAMPLE COLLECTED AND SENT TO LAB. PATIENT HAS FINISHED HER SUPPER AND WATER, SHE IS REQUESTING MORE FOOD AND WATER. MICA [facility] PROVIDES SANDWICH BOX AND FRESH ICE WATER. MICA REMAINS IN ROOM TO TAKE VITALS AND I&Os.
[2024-08-11 18:38] VITALS: BP 117/55
[2024-08-11 18:38] LABS: BILIRUBIN, URINE NEGATIVE (negative); BLOOD/HGB, URINE NEGATIVE (Negative); KETONE, URINE NEGATIVE (Negative); LEUK ESTERASE, URINE NEGATIVE (negative); NITRITE, URINE NEGATIVE (negative)
[2024-08-11 18:53] LABS: AMPHETAMINES, URINE NEGATIVE (NEGATIVE); BARBITURATES, URINE NEGATIVE (NEGATIVE); BENZODIAZEPINE, URINE NEGATIVE (NEGATIVE); BUPRENORPHINE, URINE NEGATIVE (NEGATIVE); CANNABINOID, URINE NEGATIVE (NEGATIVE); COCAINE, URINE NEGATIVE (NEGATIVE); ECSTASY, URINE NEGATIVE (NEGATIVE); FENTANYL, URINE NEGATIVE (NEGATIVE); METHADONE, URINE NEGATIVE (NEGATIVE); OPIATES, URINE NEGATIVE (NEGATIVE); OXYCODONE, URINE NEGATIVE (NEGATIVE); PHENCYCLIDINE, URINE NEGATIVE (NEGATIVE)
--- NOTE | 2024-08-11 19:30 | NUR ---
IN TO ESCORT PATIENT BACK TO BED AFTER SHE USED THE BATHROOM WITH AMANDA NINO WHO LEFT THE FLOOR AT SHIFT CHANGE. I ASSISTED PATIENT INTO A BRIEF UPON HER REQUEST AND SHE BRUSHED HER HAIR, WASHED HER FACE, AND WASHED HER HANDS. PATIENT AMBULATED TO THE BED WITHOUT DIFFICULTY AND HAD NO OTHER NEEDS AT THIS TIME. CALL LIGHT AND PERSONAL BELONGINGS ARE WITHIN REACH. BED ALARM SET.
--- NOTE | 2024-08-11 19:36 | NUR ---
RECEIVED REPORT FROM DAY SHIFT RN. PATIENT IS RESTING IN BED WATCHING TV. PATIENT UPDATED TO PLAN OR CARE AND ALL QUESTIONS ANSWERED. BED ALARM ON FOR SAFETY.
[2024-08-11] MEDS ORDERED: TRAZODONE HCL 50 MG TAB PO PRN (19:45)
[2024-08-11 19:46] VITALS: BP 118/59
[2024-08-11 19:51] VITALS: BP 118/59
--- NOTE | 2024-08-11 20:28 | NUR ---
PATIENTS UP TO BR A 1PA WITH FLIGHT OPERATIONS SPECIALIST. PATIENT ABLE TO VOID AND HAVE BM. PATIENT IS IN BED RESTING AND WATCHING TV. PATIENTS VITALS TAKEN AND RECORDED. INTAKE AND OUTPUT RECORDED. PATIENT DENIES ANY PAIN OR NAUSEA. PATIENTS PM MEDS GIVEN PER ORDER. PATIENTS BS TAKEN AND RECORDED. SS GIVEN PER ORDER-SEE EMAR. PATIENT ASSESMENT COMPLETED. PATIENTS IV INFUSING PER ORDER. PATIENT UPDATED ON PLAN OF CARE AND ALL QUESTIONS ANSWERED. PATIENT PROVIDED DIAT APPROPRAITE SNACK AND DRINK. PATIENT ONLY ORIENTED TO SELF AND SURROUNDINGS. PATIENT CONFUSED ABOUT EVENTS LEADING UP TO ADMISSION. PATIENT ASSISTED TO FIND TV SHOW. PATIENT DENIES ANY FURTHER NEEDS. CALL LIGHT IN REACH. BED ALARM ON FOR SAFETY.
[2024-08-11] MEDS ORDERED: MICONAZOLE NITRATE 1 EA BTL TOP SCH (21:00)
[2024-08-11] MEDS ORDERED: MELATONIN 3 MG TAB PO PRN (21:00)
[2024-08-11] MEDS ORDERED: LACTULOSE 10 GM/15 ML ML PR SCH (21:00)
[2024-08-11] MEDS ORDERED: HEParin SOD (PORCINE) 5,000 UNIT/ML SDV SUB-Q SCH (21:00)
--- NOTE | 2024-08-11 22:28 | NUR ---
PATIENT UP TO BR A 1PA. PATIENT ABLE TO HAVE BM AND VOID. PATIENT IS BACK IN BED RESTING. PATIENT DENIES ANY PAIN OR NAUSEA. PATIENT DENIES ANY FURTHER NEEDS. CALL LIGHT IN REACH. BED ALARM ON FOR SAFETY. IV INFUSING PER ORDER.
[2024-08-12] VITALS (9 sets, daily range): BP systolic 120–152; BP diastolic 52–71
--- NOTE | 2024-08-12 00:22 | NUR ---
PATIENT IS RESTING IN BED WATCHING TV. PATIENT DENIES ANY NEEDS AT THIS TIME. CALL LIGHT IN REACH. IV INFUSING PER ORDER. BED ALARM ON FOR SAFETY.
--- NOTE | 2024-08-12 02:10 | NUR ---
PATIENTS VITALS TAKEN AND RECORDED. INTAKE AND OUTPUT RECORDED. PATIENT DENIES ANY PAIN OR NAUSEA. PATIENTS IV INFUSING PER ORDER. PATIENTS DAUGHTER AT BEDSIDE. PATIENT DENIES ANY NEEDS. CALL LIGHT IN REACH. BED ALARM ON FOR SAFETY/
--- NOTE | 2024-08-12 03:32 | NUR ---
PATIENT UP TO BRR A SBA. PATIENT ABLE TO VOID AND HAVE LIQUID BM. PATIENT IS BACK IN BED RESTING. PATIENT DENIES ANY PAIN OR NAUSEA. PATIENT DENIES ANY FURTHER NEEDS. CALL LIGHT IN REACH. IV INFUSING PER ORDER. BED ALARM ON FOR SAFETY.
--- NOTE | 2024-08-12 04:20 | NUR ---
PATIENT IS RESTING IN BED WITH EYES CLOSED, RR 16. NAD NOTED. CALL LIGHT IN REACH. IV INFUSING PER ORDER. BED ALARM ON FOR SAFETY.
--- NOTE | 2024-08-12 05:01 | NUR ---
LAB IN ROOM. PATIENTS VITALS TAKEN AND RECORDED. INTAKE AND OUTPUT RECORDED. PATIENT IS RESTING IN BED. PATIENT DENIES ANY PAIN OR NAUSEA. PATIENT DENIES ANY NEEDS. CALL LIGHT IN REACH. IV INFUSING PER ORDER. BED ALARM ON FOR SAFETY.
[2024-08-12 05:08] LABS: BASOPHILS 0.5 % (0.1-1.2); EOSINOPHILS 4.9 % (0.7-5.8); HEMOGLOBIN 10.6 g/dL (11.2-15.7); LYMPHOCYTES 23.8 % (19.3-51.7); MCH 29.8 PG (25.6-32.2); MCHC 33.1 g/dL (32.2-35.5); MCV 89.9 fL (79.4-94.8); MONOCYTES 10.5 % (4.7-12.5); NEUTROPHILS 60.1 % (34.0-71.1); PLATELET COUNT 88 K/uL (182-369); RBC 3.56 M/uL (3.93-5.22)
[2024-08-12 05:30] LABS: ALBUMIN 2.4 g/dL (3.4-5.0); ALBUMIN/GLOBULIN RATIO 0.55 (1.1-2.4); ANION GAP 13.2 (7-21); BILIRUBIN, TOTAL 2.9 mg/dL (0.2-1.0); BUN/CREATININE RATIO 30.05 (6.0-28.6); CALCIUM 9.5 mg/dL (8.5-10.1); CREATININE, SERUM 1.93 mg/dL (0.55-1.02); MAGNESIUM 1.6 mg/dL (1.8-2.4); POTASSIUM 4.2 mmol/L (3.5-5.1); PROTEIN, TOTAL 6.8 g/dL (6.4-8.2)
--- NOTE | 2024-08-12 06:13 | NUR ---
PATIENT IS RESTING IN BED WATCHING TV. PATIENT DENIES ANY NEEDS. PATIENT DENIES ANY PAIN OR NAUSEA. PATIENT DENIES ANY NEEDS. CALL LIGHT IN REACH. BED ALARM ON FOR SAFETY.
--- NOTE | 2024-08-12 07:21 | NUR ---
Pt report received from TIA Cardoso. Pt is A&O, resting supine in bed, awake. Side rails up x4, call light in reach. Pt requests a list of fruits that diabetics can eat without raising their BS a lot. This will be printed for her. White board updated.
--- NOTE | 2024-08-12 08:56 | NUR ---
Physical therapistDominic, in with pt at this time. Assessment complete.
[2024-08-12] MEDS ORDERED: MAGNESIUM SULFATE 2 GM/50 ML BAG IV ONE (09:00)
[2024-08-12] MEDS ORDERED: NYSTATIN OINTMENT 15GM TUBE TOP SCH (09:00)
--- NOTE | 2024-08-12 10:18 | NUR ---
PATIENT IS ASSISTED BACK TO BED FROM USING THE RESTROOM. PATIENT VOID 450 ML OF CONCENTRATED URINE. BLINDS OPENED PER PATIENT REQUEST. PATIENT IS LYING IN BED WITH HOB ELEVATED. PATIENT IS NOW ORDERING HER LUNCH. PATIENT STATED NO FURTHER NEEDS AT THIS TIME. CALL LIGHT AND PERSONAL BELONGINGS ARE WITHIN REAHCH.
--- NOTE | 2024-08-12 10:56 | NUR ---
HOURLY ROUNDING. PATIENT IS A ONE PERSON STAND BY ASSIST TO THE BATHROOM. SHE APPEARS TO BE DROWSY IN AND OUT OF SLEEP. SLURRED SPEECH. NO REQUEST AT THIS TIME FROM PATIENT. A NEW BREIF WITH AN INSTERTAED PAD HAS BEEN GIVEN TO PATIENT. PATIENT IS NOW BACK IN BED. BED LOWERED AND CALL LIGHT HAS BEEN PLACED WITHIN REACH
[2024-08-12] MEDS ORDERED: PHARMACY RENAL DOSE ADJUSTMENT 1 DOSE MISC PO SCH (12:00)
[2024-08-12] MEDS ORDERED: INSULIN GLARGINE-YFGN 100 UNIT/ML ML SUB-Q SCH (21:00)
== END 2024-08-12 14:53 | disposition home or self-care (01) | DRG 442 ==
LOC: ED 12:13 → MS 15:08
PROVIDERS: Emergency Medicine; ADMIT Student in an Organized Health Care Education/Training Program; ATTEND Student in an Organized Health Care Education/Training Program
DX: K76.82 Hepatic encephalopathy (principal); N17.9 Acute kidney failure, unspecified; K74.60 Unspecified cirrhosis of liver; D50.9 Iron deficiency anemia, unspecified; E11.9 Type 2 diabetes mellitus without complications; L30.4 Erythema intertrigo; B37.2 Candidiasis of skin and nail; G93.89 Other specified disorders of brain; D69.59 Other secondary thrombocytopenia; Z88.0 Allergy status to penicillin; Z79.899 Other long term (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 therapy
CPT/HCPCS: 36415; 70450; 71045; 80053; 80307; 81003; 82140; 83036; 83735; 84439; 84443; 84484; 85025; 93005; 93010; 97161; G0480; J1644; J1815; J3475; J7121

== ENCOUNTER 2024-08-27 18:08 | Emergency (ER) | payer OTHER ==
[~2024-08-27] VITALS: Ht 157.5 cm; Wt 77.0 kg
--- OUTSIDE RECORDS SUMMARY | 2024-08-27 18:15 | XMS ---
PreManage Notification: BENTLEY PATEL Security Conventions Reservationist Events No recent Security Events currently on file CRITERIA MET - [facility] - 2 Visits in 30 Days CARE PROVIDERS -, [facility] Dentist: Stone Rigger Current [place] PHONE: [phone] YULIA PITTMAN Emergency Medicine Current PHONE: [phone] JOSE ONTIVEROS Nurse Practitioner: Family Current PHONE: Unknown Miguel has no Care Guidelines for this patient. E.D. VISIT COUNT (12 MO.) 8 DEIDRE Winston TOTAL 8 NOTE: Visits indicate total known visits. ED/UCC VISIT TRACKING (12 MO.) 08/27/2024 18:09 [facility] TYPE: Emergency COMPLAINT: - SKIN PROBLEM 08/11/2024 12:14 [facility] TYPE: Emergency COMPLAINT: - ALTERED MENTAL STATUS 06/15/2024 12:11 [facility] TYPE: Emergency COMPLAINT: - LOW BLOOD LEVELS DIAGNOSES: - Allergy status to penicillin - Anemia, unspecified - Heart failure, unspecified - cell room operator (current) use of antibiotics - jail (current) use of insulin - jail (current) use of non-steroidal anti-inflammatories (NSAID) - Other global program director (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 therapy - Type 2 diabetes mellitus without complications 05/11/2024 09:04 [facility] TYPE: Emergency COMPLAINT: - ALTERED MENTAL STATUS 01/27/2024 10:51 [facility] TYPE: Emergency [...] Constipation, unspecified - Heart failure, unspecified - cell room operator (current) use of insulin - Obesity, unspecified - Other global program director (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 therapy - Type 2 diabetes mellitus without complications - Unspecified cirrhosis of liver - Unspecified ovarian cyst, left side - Unspecified ovarian cyst, right side - Upper abdominal pain, unspecified 09/11/2023 18:23 [facility] TYPE: Emergency COMPLAINT: - FALL INPATIENT VISIT TRACKING (12 MO.) 08/11/2024 15:08 [facility] TYPE: Medical Surgical COMPLAINT: - HEPATIC ENCEPHALOPATHY DIAGNOSES: - Acute kidney failure, unspecified - Acute kidney failure, unspecified - Allergy status to penicillin - Allergy status to penicillin - Altered mental status, unspecified - Candidiasis of skin and nail - Candidiasis of skin and nail - Erythema intertrigo - Erythema intertrigo - Hepatic encephalopathy - Hepatic encephalopathy - Iron deficiency anemia, unspecified - Iron deficiency anemia, unspecified - Other 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 (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 therapy - Other 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 (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 therapy - Other secondary thrombocytopenia - Other secondary thrombocytopenia - Other specified disorders of brain - Other specified disorders of brain - Type 2 diabetes mellitus without complications - Type 2 diabetes mellitus without complications - Unspecified abdominal pain - Unspecified cirrhosis of liver - Unspecified cirrhosis of liver 05/11/2024 12:43 [facility] OR TYPE: Medical Surgical COMPLAINT: - HEPATIC ENCEPHALOPATHY DIAGNOSES: - Acute kidney failure, unspecified - Allergy status to penicillin - Exposure to other specified factors, subsequent encounter - Hepatic encephalopathy - Iron deficiency anemia, unspecified - Long-term (current) use of injectable non-insulin antidiabetic drugs - Other global program director (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 therapy - Other secondary thrombocytopenia - Pyuria - Type 2 diabetes mellitus without complications - Unspecified cirrhosis of liver - Unspecified open wound, left lower leg, subsequent encounter 01/27/2024 14:16 [facility] OR TYPE: Critical Care COMPLAINT: - HEPATIC ENCEPHALOPATHY DIAGNOSES: - Acquired absence of other specified parts of digestive tract - Acquired absence of other specified parts of digestive tract - Acute kidney failure, unspecified - Acute kidney failure, unspecified - Alcohol dependence, uncomplicated - Alcohol dependence, uncomplicated - Alcoholic cirrhosis of liver without ascites - Alcoholic cirrhosis of liver without ascites - Allergy status to penicillin - Allergy status to penicillin - Anemia in chronic kidney disease - Anemia in chronic kidney disease - Anxiety disorder, unspecified - Anxiety disorder, unspecified - Candidiasis of skin and nail - Candidiasis of skin and nail - Chronic hepatic failure without coma - Chronic hepatic failure without coma - Chronic kidney disease, unspecified - Chronic kidney disease, unspecified - Gastro-esophageal reflux disease without esophagitis - Gastro-esophageal reflux disease without esophagitis - Heart failure, unspecified - Heart failure, unspecified - Hepatic encephalopathy - Hyperosmolality and hypernatremia - Hyperosmolality and hypernatremia - Hypertensive heart and chronic kidney disease with heart failure and stage 1 through stage 4 chronic kidney disease, or unspecified chronic kidney disease - Hypertensive heart and chronic kidney disease with heart failure and stage 1 through stage 4 chronic kidney disease, or unspecified chronic kidney disease - cell room operator (current) use of insulin - jail (current) use of insulin - Obesity, unspecified - Obesity, unspecified - Other 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 (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 therapy - Other 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 (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 therapy - Other specified postprocedural states - Other specified postprocedural states - Personal history of other diseases of the circulatory system - Personal history of other diseases of the circulatory system - Type 2 diabetes mellitus with diabetic chronic kidney disease - Type 2 diabetes mellitus with diabetic chronic kidney disease - Urinary tract infection, site not specified - Urinary tract infection, site not specified - Vitamin D deficiency, unspecified - Vitamin D deficiency, unspecified 01/18/2024 15:24 [facility] TYPE: Critical Care COMPLAINT: - HEPATIC [...] Hepatic encephalopathy - Hypercalcemia - Hypercalcemia - cell room operator (current) use of insulin - jail (current) use of insulin - Obesity, unspecified - Obesity, unspecified - Other disorders of bilirubin metabolism - Other disorders of bilirubin metabolism - Other global program director (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 therapy - Other 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 (current) [...] - Unspecified cirrhosis of liver 10/07/2023 10:[address] [facility] TYPE: Medical [...] Hepatic encephalopathy - Hypokalemia - Hypokalemia - jail (current) use of insulin - Obesity, unspecified [...] Heart failure, unspecified - Hepatic encephalopathy - jail (current) use of insulin - jail (current) use of insulin - Obesity, unspecified - Obesity, unspecified - Other disorders of bilirubin metabolism - Other disorders of bilirubin metabolism - Other 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 (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 therapy - Other global program director (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 therapy - Other specified postprocedural [...] deficiency, unspecified - Vitamin D deficiency, unspecified [email or web address]
[2024-08-27] MEDS ORDERED: BACTRIM DS TAB1 EACH PO (18:43)
[2024-08-27] MEDS ORDERED: TRIMETHOPRIM/SULFAMETHOXAZOLE 1 EA TAB PO ONE (18:45)
[2024-08-27] MEDS ORDERED: LACTULOSE 20 GM/30 ML CUP PO ONE (18:45)
[2024-08-27 19:06] VITALS: BP 110/58
== END 2024-08-27 19:07 | disposition home or self-care (01) ==
LOC: ED 18:08
DX: L02.211 Cutaneous abscess of abdominal wall (principal); K76.82 Hepatic encephalopathy; L30.4 Erythema intertrigo; E11.9 Type 2 diabetes mellitus without complications; I50.9 Heart failure, unspecified; Z79.899 Other long term (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 therapy; Z88.0 Allergy status to penicillin
CPT/HCPCS: 99283; A9270

== ENCOUNTER 2024-09-21 09:07 | Day surgery (SDC) | payer OTHER ==
[~2024-09-21] VITALS: Ht 157.5 cm; Wt 77.0 kg
[~2024-09-21 09:07] MED LIST changes: +IBLOOD GLUCOSE TEST STRIP 1 EA TEST VI PRN; +LACTATED RINGER'S 1,000 ML IV SCH; +LIDOCAINE HCL 1% 5 ML SDV INJ ONE; +POTASSIUM CHLO10 MEQ PO
[2024-09-21 09:20] VITALS: BP 128/58
[2024-09-21] MEDS ORDERED: LIDOCAINE HCL 2% 5 ML SDV ONE (09:51)
--- NOTE | 2024-09-21 11:32 | NUR ---
09/21/24 1132 Sheets,Kandace 1106 PT ARRIVED TO PACU ON RA, RESP EVEN AND UNLABORED. VSS. 1114 PT WAKE TO TACTILE STIMULI AND DENEIS CONCERNS. PT EASILY FALLS BACK TO SLEEP.
[2024-09-21 11:51] VITALS: BP 127/65
--- NOTE | 2024-09-25 13:11 | PATH ---
[facility] [address] [place], [place] [address] Signed SPECIMEN(S): A ANTRUM BIOPSY SPECIMEN(S): B STOMACH BIOPSY SPECIMEN(S): C CARDIA BIOPSY SPECIMEN SOURCE: A. ANTRUM BIOPSY B. STOMACH BIOPSY C. CARDIA BIOPSY CLINICAL HISTORY: EGD-diffuse gastritis, colon-mild diverticular sigmoid colon FINAL PATHOLOGIC DIAGNOSIS: A. Antrum, biopsy - Minimal chronic erosive gastritis with vascular congestion, negative for active inflammation or intestinal metaplasia. - No H. pylori bacteria are detected by HE stain. B. Stomach, biopsy - Minimal chronic gastritis with vascular congestion, negative for active inflammation or intestinal metaplasia. - No H. pylori bacteria are detected by HE stain. C. Gastric cardia, biopsy - Small fundic gland polyp, benign. AMB MICROSCOPIC EXAMINATION: Histologic sections of all submitted blocks are examined by light microscopy. These findings, together with the gross examination, support the pathologic diagnosis. GROSS DESCRIPTION: A. The specimen, labeled and designated "Patel, antrum biopsy," is received in formalin and consists of one forbes soft tissue fragment, 0.2 cm. Entirely submitted in (A1). B. The specimen, labeled and designated "Patel, stomach biopsy," is received in formalin and consists of one forbes soft tissue fragment, 0.6 cm. Entirely submitted in (B1). C. The specimen, labeled and designated "Patel, cardia biopsy," is received in formalin and consists of one forbes soft tissue fragment, 0.3 cm. Entirely submitted in (C1). VB (under the direct supervision of a pathologist) PATIENT NAME: BENTLEY PATEL PATHOLOGY DATE OF : 69 REPORT #: [id number] PHYSICIAN: CHERYL BUNCH PCP: ESTEFANÍA LEA MD REPORT IS CONFIDENTIAL AND NOT TO BE RELEASED WITHOUT AUTHORIZATION [facility] [address] [place], [place] [address] Signed The Gross Description was prepared using a voice recognition system. The report was reviewed for accuracy; however, sound-alike word errors, addition and/or deletions may occur. If there is any question about this report, please contact Client Services. ADDITIONAL NOTES: Immunohistochemical and/or in situ hybridization studies if performed in this case included appropriate positive controls that reacted as expected. This test was developed and its performance characteristics determined by [facility]. It has not been cleared or approved by the U.S. Food and Drug Administration. The FDA has determined that such clearance or approval is not necessary. This test is used for clinical purposes. It should not be regarded as investigational or for research. [facility] is certified under the Clinical Laboratory Improvement Amendments of 1988 (CLIA) as qualified to perform high complexity clinical laboratory testing. PERFORMING LABORATORY: Technical component was performed by [facility], [address] [place] [id number] (CLIA# [id number]). Professional interpretation was performed by [facility] - [facility] [address] [place] [id number] Diagnostician: Ivanna Rosa MD Pathologist Electronically Signed 09/25/2024 Copies: ~ PATIENT NAME: BENTLEY PATEL PATHOLOGY DATE OF : 69 REPORT #: [id number] PHYSICIAN: CHERYL PATHOLOGY PCP: ESTEFANÍA LEA MD REPORT IS CONFIDENTIAL AND NOT TO BE RELEASED WITHOUT AUTHORIZATION
== END 2024-09-21 12:00 | disposition home or self-care (01) ==
LOC: DS 09:07
PROVIDERS: ATTEND Surgery
PROC: 0DJD8ZZ Inspection of Lower Intestinal Tract, Via Natural or Artificial Opening Endoscopic (ICD-10-PCS; principal; 2024-09-21 10:35)
PROC: 0DB78ZX Excision of Stomach, Pylorus, Via Natural or Artificial Opening Endoscopic, Diagnostic (ICD-10-PCS; 2024-09-21 10:35)
DX: D50.9 Iron deficiency anemia, unspecified (principal); K72.10 Chronic hepatic failure without coma; K29.50 Unspecified chronic gastritis without bleeding; K57.30 Diverticulosis of large intestine without perforation or abscess without bleeding; I12.0 Hypertensive chronic kidney disease with stage 5 chronic kidney disease or end stage renal disease; E11.22 Type 2 diabetes mellitus with diabetic chronic kidney disease; N18.6 End stage renal disease; K64.9 Unspecified hemorrhoids; K31.7 Polyp of stomach and duodenum; K21.9 Gastro-esophageal reflux disease without esophagitis; Z88.0 Allergy status to penicillin; Z79.84 Long term (current) use of 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; Z79.4 Long term (current) use of insulin; Z79.899 Other long term (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 therapy
CPT/HCPCS: 00813; 36415; 87077; J2003; J2704; J7121

== ENCOUNTER 2024-10-30 18:07 | Inpatient (IN) | payer OTHER ==
[~2024-10-30] VITALS: Ht 157.5 cm; Wt 74.7 kg
[~2024-10-30 18:07] MED LIST changes: -IBLOOD GLUCOSE TEST STRIP 1 EA TEST VI PRN; -LACTATED RINGER'S 1,000 ML IV SCH; -LIDOCAINE HCL 1% 5 ML SDV INJ ONE
[2024-10-30 18:21] LABS: BASOPHILS 0.4 % (0.1-1.2); EOSINOPHILS 1.3 % (0.7-5.8); LYMPHOCYTES 28.0 % (19.3-51.7); MCH 30.9 PG (25.6-32.2); MCHC 34.2 g/dL (32.2-35.5); MCV 90.5 fL (79.4-94.8); MONOCYTES 8.4 % (4.7-12.5); NEUTROPHILS 61.9 % (34.0-71.1); RBC 4.01 M/uL (3.93-5.22)
[2024-10-30 18:40] LABS: ALCOHOL, MEDICAL <3 ng/dL (<3); ALT (SGPT) 35 U/L (14-59); AST (SGOT) 51 U/L (15-37); GLOMERULAR FILTRATION RATE,EST 23 mL/min (>60); PROTEIN, TOTAL 7.4 g/dL (6.4-8.2); UREA NITROGEN 83 mg/dL (7-18)
[2024-10-30 18:53] LABS: BLOOD/HGB, URINE NEGATIVE (Negative); KETONE, URINE NEGATIVE (Negative); LEUK ESTERASE, URINE NEGATIVE (negative); NITRITE, URINE NEGATIVE (negative)
[2024-10-30 19:12] LABS: AMPHETAMINES, URINE NEGATIVE (NEGATIVE); BARBITURATES, URINE NEGATIVE (NEGATIVE); BENZODIAZEPINE, URINE NEGATIVE (NEGATIVE); CANNABINOID, URINE NEGATIVE (NEGATIVE); COCAINE, URINE NEGATIVE (NEGATIVE); ECSTASY, URINE NEGATIVE (NEGATIVE); FENTANYL, URINE NEGATIVE (NEGATIVE); METHADONE, URINE NEGATIVE (NEGATIVE); OPIATES, URINE NEGATIVE (NEGATIVE); OXYCODONE, URINE NEGATIVE (NEGATIVE); PHENCYCLIDINE, URINE NEGATIVE (NEGATIVE)
[2024-10-30] MEDS ORDERED: SODIUM CHLORIDE 0.9% 1,000 ML IV PRN (20:30)
[2024-10-30] MEDS ORDERED: LACTULOSE 20 GM/30 ML CUP PO ONE (20:30)
[2024-10-30] MEDS ORDERED: Rifaximin 550 MG TAB PO ONE (20:30)
[2024-10-30 21:33] LABS: GLOMERULAR FILTRATION RATE,EST 24.0 mL/min (>60); UREA NITROGEN 88.0 mg/dL (7-18)
[2024-10-30 22:57] LABS: INR 1.2 (0.80-1.30); PROTIME 14.4 Sec (11.2-14.2)
[2024-10-30] MEDS ORDERED: LACTATED RINGER'S 1,000 ML IV SCH (23:30)
[2024-10-30 23:56] VITALS: BP 122/66
[2024-10-31] VITALS (13 sets, daily range): BP systolic 98–133; BP diastolic 58–67
--- NOTE | 2024-10-31 00:40 | NUR ---
Pt's daughter, Sadaf, came to visit pt after she was admitted to the CCU. This RN introduced herself to pt's daughter, discussed plan of care, and answered her questions. Afterwards, the pt's daughter, hyperfixated on the last time the pt used the bathroom, began disrupting the pt's rest, repeatedly asking if she had gone to the bathroom, if she needed to use the bathroom, etc. This RN reassured the daughter that the pt had only been in CCU for less than an hour, is trying to rest, has not expressed the need to urinate or have a bowel movement. This RN stepped out for a moment, daughter attempted to get pt out of bed on her own against nursing advice. Pt assisted OOB to BSC via 2 RN assist, pt did not have any output, assisted back to bed, now resting. Daughter has left and will be back in the AM. Bed alarm active at all times.
[2024-10-31 05:33] LABS: BASOPHILS 0.8 % (0.1-1.2); EOSINOPHILS 3.2 % (0.7-5.8); LYMPHOCYTES 37.6 % (19.3-51.7); MCH 31.1 PG (25.6-32.2); MCHC 34.0 g/dL (32.2-35.5); MCV 91.6 fL (79.4-94.8); MONOCYTES 10.8 % (4.7-12.5); NEUTROPHILS 47.3 % (34.0-71.1); RBC 3.47 M/uL (3.93-5.22)
[2024-10-31 05:41] LABS: GLOMERULAR FILTRATION RATE,EST 27.0 mL/min (>60); UREA NITROGEN 87.0 mg/dL (7-18)
--- NOTE | 2024-10-31 07:30 | NUR ---
RECEIVED REPORT FROM NIGHT RN. PATIENT RESTING IN BED WITH EYES CLOSED, RESP EVEN/UNLABORED. IV FLUIDS INFUSING ORDERED. BED ALARM IN PLACE FOR SAFETY, CALL LIGHT WITHIN REACH. PT ALLOWED TO SLEEP AT THIS TIME.
[2024-10-31] MEDS ORDERED: FOLIC ACID 1 MG TAB PO SCH (08:00)
[2024-10-31] MEDS ORDERED: THIAMINE HCL 100 MG TAB PO SCH (08:00)
[2024-10-31] MEDS ORDERED: IBLOOD GLUCOSE TEST STRIP 1 EA TEST VI SCH (08:30)
[2024-10-31] MEDS ORDERED: GLUCAGON,HUMAN RECOMBINANT 1 MG/ML VIAL SUB-Q PRN (08:30)
[2024-10-31] MEDS ORDERED: IBLOOD GLUCOSE TEST STRIP 1 EA TEST XX PRN (08:30)
[2024-10-31] MEDS ORDERED: DEXTROSE 50% 50 ML SYR IV PRN ×2 (08:30)
[2024-10-31] MEDS ORDERED: DEXTROSE 5% 1,000 ML IV PRN (08:30)
[2024-10-31] MEDS ORDERED: LACTULOSE 20 GM/30 ML CUP PO SCH (09:00)
[2024-10-31] MEDS ORDERED: PANTOPRAZOLE SODIUM 40 MG TABEC PO SCH (09:00)
[2024-10-31] MEDS ORDERED: SPIRONOLACTONE 25 MG TAB PO SCH (09:00)
[2024-10-31] MEDS ORDERED: TORSEMIDE 20 MG TAB PO SCH (09:00)
--- NOTE | 2024-10-31 11:20 | NUR ---
VISITED DURING SPIRITUAL CARE ROUNDS. PT APPEARED TO BE SLEEPING. DID NOT DISTURB. PROVIDED PRAYER.
--- NOTE | 2024-10-31 11:26 | NUR ---
THIS RN INTO ROOM, WAKES PATIENT, PT ASSISTED UP TO BSC, URINE OUTPUT 850ML. NO STOOL OUTPUT YET. IV FLUIDS INFUSING. WARM BLANKET PROVIDED TO PATIENT. PT GETTING OUT OF BED WAS SLOW TO MOVE BUT WAS ABLE TO FOLLOW COMMANDS. BED ALARM IN PLACE FOR SAFETY. TIA MORA GETTING REPORT NOW AND PATIENT TRANSFERRING TO ROOM 120 ON MED-SURG.
--- NOTE | 2024-10-31 11:40 | NUR ---
PT REQUESTING THIS RN CALL HER FRIEND HARVEY AND LET HIM KNOW SHE WAS IN THE HOSPITAL. INFORMED HARVEY PATIENT WAS NOW IN ROOM 120. HE REQUESTS SHE CALL HIM WHEN SHE IS FEELING BETTER AND CAN TALK. ABBY PRIMARY RN NOW INFORMED OF UPDATE.
--- NOTE | 2024-10-31 11:48 | NUR ---
PT REPORT RECIEVED FROM TIA JENSEN. PT TRANSFERED FROM CCU TO MEDICAL/SURGICAL FLOOR VIA STRETCHER, PT BELONGING TRANSFERED WELL. PT IS CURRENTLY LAYING IN BED WITH STABLE VS AND NO APPARENT DISTRESS. PT ORIENTED TO ROOM AND CALL LIGHT IN REACH AT THIS TIME.
[2024-10-31] MEDS ORDERED: INSULIN LISPRO 100 UNIT/ML ML SUB-Q SCH (12:00)
[2024-10-31] MEDS ORDERED: PHARMACY RENAL DOSE ADJUSTMENT 1 DOSE MISC PO SCH (12:00)
--- NOTE | 2024-10-31 12:18 | NUR ---
PATIENT BLOOD GLUCOSE IS 173 AND 1 UNIT OF SS INSULIN TO RIGHT ARM. PO TOROSEMIDE GIVEN WITH LUNCH. NO OTHER NEEDS AT THIS TIME.
--- NOTE | 2024-10-31 12:43 | NUR ---
PT SITTING UP IN BED AT THIS TIME WITH BED ALARM ON AND CURTAIN OPEN FOR PT SAFETY, PT HAS NO CURRENT NEEDS AND HAS CALL LIGHT IN REACH IF NEEDED.
--- NOTE | 2024-10-31 12:58 | NUR ---
HOURLY ROUNDING. PATIENT IS ON THE PHONE VISITING WITH HER SPOUSE, ASKED PATIENT IF SHE WANTED ENSURE, PATIENT DECLINED HAVING AN ENSURE. NO REQUEST FROM PATIENT AT THIS TIME, CALL LIGHT PLACED WITHIN REACH
--- NOTE | 2024-10-31 13:14 | NUR ---
PATIENT ORIENTED IN BED. STATES SHE LIVES WITH HER DAUGHTER IN A MOBILE HOME. 4 STEPS TO GET INSIDE, HAS BEEN STRUGGLING FOR 2 DAYS TO GET IN AND OUT OF HOME. PATIENT HAS NO DME. STATES HER DAUGHTER PROVIDES HER TRANSPORTATION. STATES SHE HAS NO FINANCIAL CONCERNS. SHE IS CURRENTLY PLANNING ON RETURNING HOME WITH HER DAUGHTER WHEN SHE IS MEDICALLY READY.
--- NOTE | 2024-10-31 13:30 | NUR ---
UR CLINICAL REVIEW: MCG- PER MCG REVIEW MEETS INPT CRITERIA FOR DELIRIUM DUE TO ALCOHOL WITHDRAWL WITH NEED FOR MONITORING AND MED MANAGEMENT ODS [facility]O INPT 10/30/24 @ 1888 ORDER MATCHES REG CLINICALS FAXED TO [facility] FOR AUTH REVIEW DISCHARGE TO HOME IN 24-48 HRS PER 11/01/24 DC REVIEW
--- NOTE | 2024-10-31 13:50 | NUR ---
PT SITTING UP IN BED, PT HAS BED ALARM ACTIVE AND CURTAIN OPEN FOR PT SAFETY, PT HAS NO HAD A BM YET, BUT HAS BEEN PASSING GAS. PT HAS CALL LIGHT IN REACH AT THIS TIME.
--- NOTE | 2024-10-31 14:59 | NUR ---
HOURLY ROUNDING. PATIENT CALLED NEEDING ASSISTANCE TO USE THE BATHROOM. DAUGHTER (JESSICA) IS AT PATIENT BEDSIDE. NO REQUEST FROM PATIENT CALL LIGHT HAS BEEN PLACED WITHIN REACH
--- NOTE | 2024-10-31 15:15 | NUR ---
PT SITTING UP IN BED, PT HAD A BM WHICH IS THE FIRST SINCE BEING ADMITTED, PT HAS NO CURRENT CONCERNS AND HAS CALL LIGHT IN REACH AT THIS TIME.
--- NOTE | 2024-10-31 16:03 | EKG ---
[facility] [address] [facility] [place], [place] [address] Signed Normal sinus rhythm Normal ECG When compared with ECG of 11-AUG-2024 12:26, No significant change was found Confirmed by JANELL VALLE MD ([id number]) on 10/31/2024 4:03:08 PM Electronically Signed By: JANELL VALLE 10/31/24 1603 PATIENT NAME: BENTLEY PATEL Electrocardiogram DATE OF : 69 PHYSICIAN: JANLEL VALLE REPORT #: [id number] REPORT IS CONFIDENTIAL AND NOT TO BE RELEASED WITHOUT AUTHORIZATION
--- NOTE | 2024-10-31 16:07 | NUR ---
PT HAD FIRST BM SINCE BEFORE ADMISSION, PT HAD LARGE FORMED BM, AND THEN ONE SMALL BM AFTER THAT. PT CONTINUES TO BECOME MORE ALERT THE DAY PROGRESSES.
--- NOTE | 2024-10-31 17:32 | NUR ---
PT SITTING UP IN BED, PT RECIEVED DINNER AND WAS HELPED ADJUST IN BED, PT HAS NO CURRENT CONCERNS AND IS EATING DINNER AND TOLERATING WELL. CALL LIGHT IN REACH AND BED ALARM ON FOR PT SAFETY.
--- NOTE | 2024-10-31 17:48 | NUR ---
medications reconciled using pharmacy records and patient interview
--- NOTE | 2024-10-31 18:00 | NUR ---
HOURLY ROUNDING. PATIENT IS SLEEPING AND APPEARS TO BE VERY DROWY SHE DIDNT EAT HER DINNER SHE SAYS SHES NOT HUNGRY, ENSURE WAS OFFERED PATIENT DECLINED. NO REQUEST FROM PATIENT AT THIS TIME. CALL LIGHT HAS BEEN PALCED WITHIN REACH
--- NOTE | 2024-10-31 19:15 | NUR ---
REPORT RECEIVED FROM ABBY WEBER. pt RESTING IN THE BED WITH EYES CLOSED. RR EVEN AND UNLABORED. CALL LIGHT WITHIN REACH.
--- NOTE | 2024-10-31 20:40 | NUR ---
THIS RN TO ROOM AFTER AMANDA FITZGERALD REPORTS pt BEING DROWSY. THIS RN TO ASSESS, pt RESTING QUIETLY IN BED WITH EYES CLOSED. ON RA, RR EVEN AND UNLABORED. pt AWAKES TO VOICE AND WILL OPEN EYES WHEN DIRECTED AFTER CUES, VSS WELL BLOOD SUGAR. pt REPORTS CORRECT NAME AND REPORTS HER BIRTHDAY IS IN "NOVEMBER". pt KNOWS SHE'S IN [place], OR-UNABLE TO REPORT NAME OF CURRENT PRESIDENT. PRIMARY RN JOY MADE AWARE AND TO ASSESS pt NEXT AND UPDATE MD.
--- NOTE | 2024-10-31 21:15 | NUR ---
ASSESSMENT AND VITAL SIGNS DONE. pt IS SLEEPY AND WILL NOT OPEN HER EYES FOR THAN ONE SECOND WHEN ASKED. pt KNOWS HER NAME AND WHERE SHE IS AND . pt IS UNABLE TO STAY AWAKE LONG ENOUGH TO TAKE ORAL MEDS. VSS. pt ONLY SAY YES, YEAH, AND OK WHEN ASKED QUESTIONS.
--- NOTE | 2024-10-31 21:35 | NUR ---
THIS RN CALLED MD ABOUT pt NOT WAKING UP TO TAKE ORAL MEDS. MD PLACED NEW ORDERS AND THIS RN VERIFIED ORDERS WITH REPEAT BACK METHOD.
[2024-10-31 22:05] LABS: ALT (SGPT) 32.0 U/L (14-59); AST (SGOT) 40.0 U/L (15-37); GLOMERULAR FILTRATION RATE,EST 29.0 mL/min (>60); PROTEIN, TOTAL 6.6 g/dL (6.4-8.2); UREA NITROGEN 74.0 mg/dL (7-18)
--- NOTE | 2024-10-31 22:15 | NUR ---
THIS RN CALL MD WITH pt LAB RESULT. NEW ORDERS RECIEVED AND VERIFIED WITH REPEAT BACK METHOD.
[2024-10-31] MEDS ORDERED: Rifaximin 550 MG TAB PO SCH (22:18)
[2024-10-31] MEDS ORDERED: LACTULOSE 10 GM/15 ML ML PR ONE (22:30)
--- NOTE | 2024-10-31 22:30 | NUR ---
IN ROOM WITH PRIMARY RN FILI. WHEN CUED FOR pt TO TRY AND TAKE EVENING PILL/ORAL LACTULOSE, pt STATES, "OKAY" BUT IS UNABLE TO SAFELY DRINK FROM STRAW. ADJUSTING LACTLOSE ORDERS, AWAITING VERIFICATION. ALEX FROM TELEPHARMACY TO VERIFY ORDERS.
--- NOTE | 2024-10-31 22:55 | NUR ---
THIS RN AND FLOAT RN WITH SEARCH ENGINE OPTIMIZATION SPECIALIST AND OBSERVER GRAVITY PROSPECTING GAVE pt ONE TIME LACTULOSE ENEMA PER ORDER. pt TOLERATED WELL. NO OTHER NEEDS AT THIS TIME. CALL LIGHT WITHIN REACH. NEGRO PADS CHANGED.
[2024-11-01] VITALS (8 sets, daily range): BP systolic 103–125; BP diastolic 46–63
--- NOTE | 2024-11-01 00:50 | NUR ---
IN RM TO HANG A NEW BAG OF IV FLUIDS. pt MORE ALERT AND AWAKE. THIS RN ABLE TO ADMINISTER PO MEDS. pt BRIEF CHANGED. pt DENIES ANY OTHER NEEDS AT THIS TIME. CALL LIGHT WITHIN REACH.
--- NOTE | 2024-11-01 02:52 | NUR ---
pt CALLED OUT FOR HELP THIS RN AND HOME HEALTH LPN. GOT pt UP TO BSC WITH FWW. pt BACK TO BED. BED ALARM ON. pt DENIES ANY OTHER NEEDS AT THIS TIME. pt ABLE TO PEE AND HAVE A BM. CALL LIGHT WITHIN REACH. VITAL SIGNS DONE.
--- NOTE | 2024-11-01 04:28 | NUR ---
pt RESTING IN THE BED WITH EYES CLOSED. RR EVEN AND UNLABORED. CALL LIGHT WITHIN REACH.
--- NOTE | 2024-11-01 04:59 | NUR ---
CALL LIGHT ANSWERED. PT NEEDED TO USE BATHROOM. ORDER MANAGER 1PA WITH FWW TO BSC. PT VOIDED AND HAD BM. ORDER MANAGER ASSISTED PT WITH CLEAN BREIF. PT ASSISTED BACK TO BED. VITALS AND I&O. PT STATES NO FURTHER NEEDS AT THIS TIME. CALL LIGHT WITHIN REACH AND BED ALARM ON.
--- NOTE | 2024-11-01 05:31 | NUR ---
PT NEEDED TO USE BATHROOM. DEVELOPER SUPPORT ENGINEER 1PA WITH FWW TO BSC. PT HAD BM. BRIEF, SLIDE SHEET, AND CHUCKS PAD CHANGED. PT ASSISTED BACK TO BED. PT STATES NO FURTHER NEEDS AT THIS TIME. CALL LIGHT WITHIN REACH AND BED ALARM ON.
[2024-11-01 05:42] LABS: BASOPHILS 0.8 % (0.1-1.2); EOSINOPHILS 3.4 % (0.7-5.8); LYMPHOCYTES 34.3 % (19.3-51.7); MCH 31.5 PG (25.6-32.2); MCHC 34.0 g/dL (32.2-35.5); MCV 92.6 fL (79.4-94.8); MONOCYTES 7.4 % (4.7-12.5); NEUTROPHILS 54.1 % (34.0-71.1); RBC 3.52 M/uL (3.93-5.22)
[2024-11-01 05:54] LABS: GLOMERULAR FILTRATION RATE,EST 32.0 mL/min (>60); UREA NITROGEN 73.0 mg/dL (7-18)
--- NOTE | 2024-11-01 07:25 | NUR ---
RECIEVED REPORT FROM TIA PENN. PT SITTING UP IN BED AWAKE, STATES NO CURRENT NEEDS. CALL LIGHT WITHIN REACH.
--- NOTE | 2024-11-01 07:51 | NUR ---
PATIENT WAS IN BED AT THIS TIME, DATA OPERATIONS LEADER ASSISTED PATIENT TO THE BEDSIDE COMMODE, GOT A NEW BREIF, ASSISTED PATIENT TO THE CHAIR, CHANGED HER GOWN AND LINENS, PLUGGED HER PHONE IN, GOT FRESH ICE WATER TWICE, AND SOME BEEF BROTH. AND A NEW PACKAGE OF NEGRO PADS. CALL LIGHT WITH IN REACH AND NOTHING ELSE NEEDED AT THIS TIME.
--- NOTE | 2024-11-01 08:30 | NUR ---
PATIENT IN CHAIR AT THIS TIME. GEROPSYCHOLOGIST CHARTED HOURLY ROUNDS. CALL LIGHT WITHIN REACH, NO FURTHER NEEDS AT THIS TIME.
[2024-11-01] MEDS ORDERED: LACTULOSE 20 GM/30 ML CUP PO SCH (09:00)
--- NOTE | 2024-11-01 09:09 | NUR ---
THIS RN UPDATES DR. VALLE ON PT BP THIS MORNING, MD STATES TO HOLD SPIRONOLACTONE AND TORSEMIDE AT THIS TIME. THIS RN ALSO TELLS MD THAT PT IS C/O HEADACHE AT THIS TIME AND IS REQUESTING MIESHA, STATES THAT HE WILL ORDER TYLENOL AT LOWER DOSE APPROPRIATE FOR PT CONDITION.
--- NOTE | 2024-11-01 11:43 | NUR ---
PATIENT IN CHAIR AT THIS TIME. ACTIVITY DIRECTOR CHARTED HOURLY ROUNDS AND BLOODSUGAR. CALL LIGHT WITHIN REACH, NO FURTHER NEEDS.
--- NOTE | 2024-11-01 11:58 | NUR ---
PT NOT AVAILABLE FOR VISIT. PROVIDED PRAYER.
--- NOTE | 2024-11-01 14:06 | NUR ---
PATIENT IN CHAIR AT THIS TIME. MUSICAL STRING MAKER CHARTED VITALS AND I&O'S. CALL LIGHT WITHIN REACH, NO FURTHER NEEDS.
--- NOTE | 2024-11-01 15:59 | NUR ---
PATIENT IN CHAIR AT THIS TIME. PATIENT IS GOOD FOR BEDBATH AT 1830. CALL LIGHT WITHIN REACH, NO FURTHER NEEDS.
--- NOTE | 2024-11-01 17:38 | NUR ---
Attempted to see pt 3 x today and she was sleeping or busy with someone. Will see pt tomorrow.
--- NOTE | 2024-11-01 19:15 | NUR ---
REPORT RECEIVED FROM DANIEL WEBER. pt RESTING IN THE BED. pt DENIES ANY OTHER NEEDS AT THIS TIME. CALL LIGHT WITHIN REACH. BOARD UPDATED.
--- NOTE | 2024-11-01 21:20 | NUR ---
ASSESSMENT AND VITAL SIGNS DONE. BG CHECKED WITH A RESULTS OF 200. SS INSULIN ADMINISTERED. SCHEDULED MEDS ADMINISTERED. IV ASSESSED, WNL. pt A&O X4. WATER REFRESHED. WARM BLANKET PROVIDED. pt DENIES ANY OTHER NEEDS AT THIS TIME. CALL LIGHT WITHIN REACH.
--- NOTE | 2024-11-01 23:25 | NUR ---
CALL LIGHT ANSWERED. PT NEEDED TO USE BATHROOM. LIBRARY HELPER 1PA WITH FWW TO BSC. PT VOIDED AND HAD BM. PT THEN ASSISTED BACK TO BED. PT STATES NO FURTHER NEEDS AT THIS TIME. CALL LIGHT WITHIN REACH AND BED ALARM ON.
--- NOTE | 2024-11-01 23:36 | NUR ---
pt DAUGHTER VISITING AT THIS TIME. pt DENIES ANY OTHER NEEDS AT THIS TIME. CALL LIGHT WITHIN REACH.
--- NOTE | 2024-11-02 01:35 | NUR ---
pt RESTING IN THE BED. pt DENIES ANY OTHER NEEDS AT THIS TIME. CALL LIGHT WITHIN REACH.
--- NOTE | 2024-11-02 02:34 | NUR ---
pt CALLED TO USE THE BSC. pt 1PA WITH FWW. pt BACK TO BED. WATER REFRESHED. pt DENIES ANY OTHER NEEDS AT THIS TIME. CALL LIGHT WITHIN REACH.
--- NOTE | 2024-11-02 04:17 | NUR ---
pt RESTING IN THE BED EATING A SNACK. pt DENIES ANY OTHER NEEDS AT THIS TIME. CALL LIGHT WITHIN REACH.
[2024-11-02 05:15] VITALS: BP 104/54
--- NOTE | 2024-11-02 05:17 | NUR ---
CALL LIGHT ANSWERED. PT NEEDED TO USE BATHROOM. HEAD CHARGER 1PA WITH FWW TO BS. PT VOIDED AND HAD SMALL SM. PT THEN ASSISTED BACK TO BED. VITALS AND I&O OBTAINED. PT STATES NO FURTHER NEEDS AT THIS TIME. CALL LIGHT WITHIN REACH AND BED ALARM ON.
[2024-11-02 05:33] LABS: BASOPHILS 0.4 % (0.1-1.2); EOSINOPHILS 4.1 % (0.7-5.8); LYMPHOCYTES 35.4 % (19.3-51.7); MCH 31.7 PG (25.6-32.2); MCHC 34.1 g/dL (32.2-35.5); MCV 92.8 fL (79.4-94.8); MONOCYTES 8.5 % (4.7-12.5); NEUTROPHILS 51.6 % (34.0-71.1); RBC 3.19 M/uL (3.93-5.22)
--- NOTE | 2024-11-02 05:45 | NUR ---
IN RM TO CHECK ON pt. pt STATES SHE JUST WANTS TO REST IN HER BED AND RELAX FOR THE MORNING. pt DENIES ANY OTHER NEEDS AT THIS TIME. CALL LIGHT WITHIN REACH.
[2024-11-02 05:50] LABS: ALT (SGPT) 31.0 U/L (14-59); AST (SGOT) 45.0 U/L (15-37); GLOMERULAR FILTRATION RATE,EST 33.0 mL/min (>60); PROTEIN, TOTAL 6.0 g/dL (6.4-8.2); UREA NITROGEN 56.0 mg/dL (7-18)
--- NOTE | 2024-11-02 07:25 | NUR ---
RECEIVED REPORT FROM TIA PENN. PATIENT RESTING IN BED ON PHONE. NO NEEDS AT THIS TIME, WAITING FOR BREAKFAST. CALL LIGHT IN REACH, BED LOWERED.
[2024-11-02] MEDS ORDERED: MAGNESIUM SULFATE 2 GM/50 ML BAG IV ONE (09:00)
--- NOTE | 2024-11-02 09:00 | NUR ---
INTO SEE PATIENT. PATIENT SITTING UP EATING BREAKFAST. PATIENT PLANS TO DISCHARGE HOME WITH DAUGHTER WHEN MEDICALLY CLEARED FOR DISCHARGE. NO FUTHER CM NEEDS AT THIS TIME.
--- NOTE | 2024-11-02 09:05 | NUR ---
PATIENT IS IN HER BED AT THIS TIME, REAL TIME ANALYST GOT FRESH ICE WATER, OFFERED TO HELP PATIENT UP INTO HER CHAIR, TO WHICH SHE REFUSED, GOT HER A WARM WASH CLOTH TO WASH FACE AND DID AM CARE. CALL LIGHT WITH IN REACH AND NOTHING ELSE NEEDED AT THIS TIME.
--- NOTE | 2024-11-02 09:20 | NUR ---
THIS RN UPDATES DR. HAMILTON ON PT BP, MD STATES TO HOLD SPIRONOLACTONE AND DEMADEX DOSES ORDERED FOR THIS MORNING. DOSES HELD.
[2024-11-02 09:23] VITALS: BP 97/48
[2024-11-02 09:54] VITALS: BP 97/48
--- NOTE | 2024-11-02 11:25 | NUR ---
IV SITE REMOVED WITH THE CATHETER TIP INTACT. PATIENT TOLERATED WELL. THIS RN RECEIVED VERBAL ORDER TO REMOVE IV PER PATIENT GETTING DISCHARGED.
--- NOTE | 2024-11-02 12:00 | NUR ---
VISITED DURING SPIRITUAL CARE ROUNDS. PT APPEARED TO BE SLEEPING. DID NOT DISTURB. PROVIDED PRAYER.
[2024-11-02 13:25] VITALS: BP 105/49
--- NOTE | 2024-11-02 13:25 | NUR ---
1300 DEMADEX HELD D/T BP PER DR. HAMILTON. INSULIN HELD D/T PT DISCHARGING AND NOT EATING LUNCH PRIOR TO DISCHARGE. PT VERBALIZES UNDERSTANDING OF MEDICATIONS TO TAKE AFTER DISCHARGE. PT UP TO RESTROOM WITH FWW AND SBA. PT INDEPENDENTLY CHANGES OWN BREIF AND COMPLETES ALICIA CARE INDEPENDENTLY. PT BACK TO BED AT THIS TIME.
[2024-11-02 14:07] VITALS: BP 124/70
--- NOTE | 2024-11-02 14:18 | NUR ---
PATIENT WAS IN BED AT THIS TIME, INSURANCE CLAIMS ANALYST CHARTED VITALS AND I&O'S, GAVE PATIENT A BED BATH, SHOWER CAP, BRAIDED HER HAIR AND GOT HER READY TO GO.
--- NOTE | 2024-11-02 14:20 | NUR ---
PTS DAUGHTER ARRIVED WITH PATIENTS CLOTHES, PT DRESSED. PT WHEELED TO FRONT OF BUILDING, PT LEFT WITH ALL OF HER BELONGINGS. VSS, DC PACKET AND EDUCATION GIVEN TO PATIENT. PATIENT VERBALIZES UNDERSTANDING STATES ALL QUESTIONS HAVE BEEN ANSWERED AT THIS TIME.
== END 2024-11-02 14:20 | disposition home or self-care (01) | DRG 442 ==
LOC: ED 18:07 → CCU 23:23 → MS 10-31 11:40
PROVIDERS: Emergency Medicine; Family Medicine; ADMIT Internal Medicine; ATTEND Internal Medicine
DX: K76.82 Hepatic encephalopathy (principal); E72.20 Disorder of urea cycle metabolism, unspecified; N17.9 Acute kidney failure, unspecified; Z91.148 Patient's other noncompliance with medication regimen for other reason; E11.9 Type 2 diabetes mellitus without complications; D64.9 Anemia, unspecified; F41.9 Anxiety disorder, unspecified; K76.89 Other specified diseases of liver; I50.9 Heart failure, unspecified; Z88.0 Allergy status to penicillin; Z79.4 Long term (current) use of insulin; Z79.899 Other long term (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 therapy; Z98.891 History of uterine scar from previous surgery; Z90.49 Acquired absence of other specified parts of digestive tract; Z98.890 Other specified postprocedural states
CPT/HCPCS: 36415; 71045; 80048; 80053; 80307; 81003; 82140; 83735; 84100; 84484; 85025; 85610; 93005; 93010; 94762; 96360; 99285-25; A9270; G0480; J1815; J3475; J7030; J7121

== ENCOUNTER 2024-12-12 10:35 | Inpatient (IN) | payer OTHER ==
[~2024-12-12] VITALS: Ht 157.5 cm; Wt 77.8 kg
--- OUTSIDE RECORDS SUMMARY | ~2024-12-12 | XMS | Continuity of Care Document ---
Demographics + + + | Address | [address] | | | [place] [address] | + + + | Preferred Language | Unknown | + + + | Marital Status | Domestic partner | + + + | Jehovah'S Witness Affiliation | Unknown | + + + | Race | White | + + + | Ethnic Group | Not or | + + + Author + + + | Author | [facility] | + + + | Organization | [facility] | + + + | Address | [address] | | | [place] [address] | + + + | Phone | | + + + Care Team Providers + + + + | Care Hydro Plant Technician Name | Role | Phone | + + + + Unavailable | Unavailable | + + + + Unavailable | Unavailable | + + + + Allergies No information. Encounters No information. Functional Status No information. Immunizations No information. Medications + + + + | date | description | facility | + + + + | (no date) | CETIRIZINE HCL | [facility] [place] | | | [facility] | + + + + | (no date) | MUPIROCIN | [facility] | | | | [facility] | + + + + | (no date) | POTASSIUM CHLORIDE | [facility] | | | | [facility] | + + + + | (no date) | OMEPRAZOLE | [facility] | | | | [facility] | + + + + | (no date) | TORSEMIDE | [facility] | | | | [facility] | + + + + | (no date) | FUROSEMIDE | [facility] | | | | [facility] | + + + + | (no date) | SPIRONOLACTONE | [facility] | | | | [facility] | + + + + | (no date) | CEPHALEXIN | [facility] | | | | [facility] | + + + + | (no date) | NYSTATIN | [facility] | | | | [facility] | + + + + | (no date) | ASCORBIC ACID | [facility] | | | | [facility] | + + + + | (no date) | FERROUS SULFATE | [facility] | | | | [facility] | + + + + | (no date) | HYDROCHLOROTHIAZIDE | [facility] | | | | [facility] | + + + + | (no date) | POTASSIUM CHLORIDE | [facility] | | | | [facility] | + + + + | (no date) | LACTULOSE | [facility] | | | | [facility] | + + + + | (no date) | POTASSIUM CHLORIDE | [facility] | | | | [facility] | + + + + | (no date) | FERROUS SULFATE | [facility] | | | | [facility] | + + + + | (no date) | SEVELAMER CARBONATE | [facility] | | | | [facility] | + + + + | (no date) | INSULIN | [facility] | | | EZ MACKENZIE | [facility] | + + + + | (no date) | ZOLPIDEM TARTRATE | [facility] | | | | [facility] | + + + + | (no date) | RIFAXIMIN | [facility] | | | | [facility] | + + + + | (no date) | METFORMIN HCL | [facility] | | | | [facility] | + + + + Problems No information. Procedures No information. Results/Labs +--------+--------+ +---------+--------+---------+ | test | date | facility | value | unit | notes | +--------+--------+ +---------+--------+---------+ + + | Result panel 1 | + + + + + +-------+ + + | Glucose | 2024-09-21 | | 150 | (missing) | (missing) | | [facility] | 10:23:07 | [facility] | | [facility] | | | | + + + +-------+ + + Social History +--------+ + + | date | description | facility | +--------+ + + Vital Signs + + +---------+---------+ | date | measurement | value | units | + + +---------+---------+ | 2024-09-21 00:00 | BP_diastolic | 65 | mmHg | + + +---------+---------+ | 2024-09-21 00:00 | BP_systolic | 127 | mmHg | + + +---------+---------+ | 2024-09-21 00:00 | heart_rate | 85 | /min | + + +---------+---------+ | 2024-09-21 00:00 | o2_saturation | 97 | % | + + +---------+---------+ | 2024-09-21 00:00 | respiration_rate | 17 | /min | + + +---------+---------+ | 2024-09-21 00:00 | temperature_metric | 36.56 | C | | | | | | + + +---------+---------+ | 2024-09-21 00:00 | | 97.8 | F | | | temperature_standar | | | | | d | | | + + +---------+---------+"
--- OUTSIDE RECORDS SUMMARY | ~2024-12-12 | XMS | Continuity of Care Document ---
Demographics + + + | Address | [address] | | | [place] [address] | + + + | Preferred Language | Unknown | + + + | Marital Status | Domestic partner | + + + | Sabianism Affiliation | Unknown | + + + | Race | White | + + + | Ethnic Group | Not or | + + + Author + + + | Author | [facility] | + + + | Organization | [facility] | + + + | Address | [address] | | | [place] [address] | + + + | Phone | | + + + Care Team Providers + + + + | Care Alliances Consultant Name | Role | Phone | + + + + Unavailable | Unavailable | + + + + Unavailable | Unavailable | + + + + Allergies No information. Encounters No information. Functional Status No information. Immunizations No information. Medications + + + + | date | description | facility | + + + + | (no date) | CETIRIZINE HCL | [facility] | | | | [facility] | + + + + | (no date) | MUPIROCIN | [facility] | | | | [facility] | + + + + | (no date) | POTASSIUM CHLORIDE | [facility] | | | | [facility] | + + + + | (no date) | OMEPRAZOLE | [facility] | | | | [facility] | + + + + | (no date) | TORSEMIDE | [facility] | | | | [facility] | + + + + | (no date) | FUROSEMIDE | [facility] | | | | [facility] | + + + + | (no date) | SPIRONOLACTONE | [facility] | | | | [facility] | + + + + | (no date) | CEPHALEXIN | [facility] | | | | [facility] | + + + + | (no date) | NYSTATIN | [facility] | | | | [facility] | + + + + | (no date) | ASCORBIC ACID | [facility] | | | [facility] | + + + + | (no date) | FERROUS SULFATE | [facility] | | | | [facility] | + + + + | (no date) | HYDROCHLOROTHIAZIDE | [facility] | | | | [facility] | + + + + | (no date) | POTASSIUM CHLORIDE | [facility] | | | | [facility] | + + + + | (no date) | LACTULOSE | [facility] | | | | [facility] | + + + + | (no date) | POTASSIUM CHLORIDE | [facility] | | | [facility] | + + + + | (no date) | FERROUS SULFATE | [facility] | | | [facility] | + + + + | (no date) | SEVELAMER CARBONATE | [facility] | | | | [facility] | + + + + | (no date) | INSULIN | [facility] | | | EZ MACKENZIE | [facility] | + + + + | (no date) | ZOLPIDEM TARTRATE | [facility] | | | | [facility] | + + + + | (no date) | RIFAXIMIN | [facility] | | | | [facility] | + + + + | (no date) | METFORMIN HCL | [facility] | | | | [facility] | + + + + Problems No [...]
[2024-12-12 10:51] LABS: BASOPHILS 0.5 % (0.1-1.2); EOSINOPHILS 2.7 % (0.7-5.8); LYMPHOCYTES 20.0 % (19.3-51.7); MCH 31.5 PG (25.6-32.2); MCHC 34.1 g/dL (32.2-35.5); MCV 92.4 fL (79.4-94.8); MONOCYTES 8.6 % (4.7-12.5); NEUTROPHILS 68.2 % (34.0-71.1); RBC 3.81 M/uL (3.93-5.22)
[2024-12-12 11:00] LABS: INR 1.2 (0.80-1.30); PROTIME 14.4 Sec (11.2-14.2)
[2024-12-12 11:13] LABS: ALT (SGPT) 43.0 U/L (14-59); AST (SGOT) 62.0 U/L (15-37); GLOMERULAR FILTRATION RATE,EST 26.0 mL/min (>60); PROTEIN, TOTAL 7.3 g/dL (6.4-8.2)
[2024-12-12 11:21] LABS: UREA NITROGEN 94.0 mg/dL (7-18)
[2024-12-12] MEDS ORDERED: LACTULOSE 20 GM/30 ML CUP PO ONE (11:30)
[2024-12-12] MEDS ORDERED: SODIUM CHLORIDE 0.9% 500 ML IV PRN (11:45)
[2024-12-12] MEDS ORDERED: SODIUM CHLORIDE 0.9% 1,000 ML IV SCH (13:00)
[2024-12-12] MEDS ORDERED: Rifaximin 550 MG TAB PO SCH (13:03)
[2024-12-12] MEDS ORDERED: SPIRONOLACTONE 25 MG TAB PO SCH (13:04)
[2024-12-12] MEDS ORDERED: LACTULOSE 10 GM/15 ML ML PR ONE (13:15)
--- NOTE | 2024-12-12 13:35 | NUR ---
REPORT RECIEVED FROM TIA GREEN IN THE ER. PATIENT TRANSFERED FROM STRETCHER TO BED WITH THE HOVER MAT AND 2RNS.
[2024-12-12 13:39] VITALS: BP 135/58
--- NOTE | 2024-12-12 14:00 | NUR ---
UR CLINICAL REVIEW: [facility] – [place], MEETS INPT FOR LIVER DISEASE HEPATIC ENCEPHALOPATHY, TACHYPNEIC, AMMONIA 252, IV FLUIDS [facility]O INPT 12/12/24 @ 1301 ORDER MATCHES REG AUTH PENDING, SENDING CLINICALS FOR REVIEW PLAN TO DC TO HOME WHEN MEDICALLY READY DC 12/14/24
[2024-12-12 14:07] LABS: BLOOD/HGB, URINE NEGATIVE (Negative); KETONE, URINE NEGATIVE (Negative); LEUK ESTERASE, URINE SMALL (negative); NITRITE, URINE NEGATIVE (negative)
[2024-12-12 14:24] LABS: BACTERIA, URINE RARE /hpf (negative); CASTS, URINE NONE SEEN \\lpf; CRYSTALS, URINE NONE SEEN (0-1+); EPITHELIAL CELLS, URINE SQUAMOUS 1+ /lpf (0-1+); REFLEX CULTURE, URINE No (No)
--- NOTE | 2024-12-12 14:40 | NUR ---
WATER PROVIDED TO PATIENT. PATIENT WITH NO SWALLOW ISSUES. PO MEDICATIONS ADMINISTERED PER EMAR. PATIENT TOLERATED WELL.
--- NOTE | 2024-12-12 14:50 | NUR ---
Spoke with Karen. She has difficulty answering questions. She does state she is at [place]. She states her daughter, Sadaf, lives with her. She denies needs. She plans to return to home when medically cleared. No financial or safety concern.
--- NOTE | 2024-12-12 14:54 | NUR ---
medications reconciled
--- NOTE | 2024-12-12 15:28 | NUR ---
ENEMA GIVEN TO PATIENT, BUT PATIENT WAS NOT ABLE TO HOLD THE ENEMA IN AT ALL. DR VALLE WAS NOTIFIED AND STATES "WELL YOU GOTTA GIVE HER ANOTHER ONE CAUSE SHE HAS TO HOLD IT IN". THIS RN EXPLAINED TO MD THAT THE ENEMA WAS STOPPED SEVERAL TIME WHEN IT WAS NOTED THAT THE FLUIDS WAS JUST EMPTYING OUT INSTEAD OF PATIENT RETAINING IT. PATIENT KEPT STATING THAT SHE WAS TRYING TO HOLD IT. MD STATES "WELL SHE'S GOTTA HOLD IT SO I'LL BE DOWN THERE IN A BIT AND TELL HER SHE'S GOTTA HOLD IT". WITH NO FURTHER ORDERS AT THIS TIME. CALL ENDED.
--- NOTE | 2024-12-12 15:50 | NUR ---
DR VALLE WITH VERBAL ORDER FOR LACTULOSE 30GM PO QID. WITH NO FURTHER ORDERS AT THIS TIME.
[2024-12-12] MEDS ORDERED: LACTULOSE 20 GM/30 ML CUP PO SCH (16:00)
--- NOTE | 2024-12-12 16:37 | NUR ---
PATIENT SET OFF BED ALARM ATTEMPTING TO GET OUT OF BED. AMANDA ATKINSON AND THIS RN IN ROOM ASSISTING PATIENT UP TO BEDSIDE COMMODE. PATIENT WITH MEDIUM, LOOSE AND SOME FORMED, BM. PATIENT CLEANED UP BY AMANDA ATKINSON AND BACK TO BED. PATIENT MEDICATED PER EMAR. IV FLUIDS INFUSING PER EMAR. PATIENT RESTING IN BED AND IS WITHOUT FURTHER NEEDS AT THIS TIME. CALL LIGHT AND PERSONAL BELONGINGS ARE WITHIN REACH. BED ALARM ACTIVATED.
[2024-12-12] MEDS ORDERED: INSULIN LISPRO 100 UNIT/ML ML SUB-Q SCH (17:00)
[2024-12-12] MEDS ORDERED: IBLOOD GLUCOSE TEST STRIP 1 EA TEST VI SCH (17:00)
--- NOTE | 2024-12-12 17:09 | NUR ---
PATIENT SITTING UP IN BED AND IS WITHOUT ANY NEEDS AT THIS TIME. CALL LIGHT AND PERSONAL BELONGINGS ARE WITHIN REACH.
[2024-12-12 18:02] VITALS: BP 146/56
--- NOTE | 2024-12-12 18:11 | NUR ---
PATIENT WAS IN BED AT THIS TIME, PROPELLER ENGINEER CHARTED VITALS AND I&O'S, PROPELLER ENGINEER OFFERED FOOD AND WATER, PATIENT REFUSED. I OFFERED WATER A FEW MORE TIMES AND SHE ONLY TOOK 2 SIPS. CALL LIGHT WITH IN REACH, AND NOTHING ELSE NEEDED AT THIS TIME.
--- NOTE | 2024-12-12 18:45 | NUR ---
PATIENT RESTING IN BED WITH HER EYES CLOSED. EVEN AND UNLABORED RESPIRATIONS NOTED. CALL LIGHT AND PERSONAL BELONGINGS ARE WITHIN REACH.
--- NOTE | 2024-12-12 19:05 | NUR ---
REPORT RECEIVED FROM CRISS WEBER. pt RESTING IN THE BED. BOARD UPDATED. NO OTHER NEEDS AT THIS TIME. CALL LIGHT WITHIN REACH.
[2024-12-12 20:25] VITALS: BP 139/58
--- NOTE | 2024-12-12 20:26 | NUR ---
FILL TECHNICIAN OBTAINED VITALS. NO NEW I&O AT THIS TIME. BLOOD SUGAR TAKEN AND RN NOTIFIED. PT STATES NO NEEDS AT THIS TIME. CALL LIGHT WITHIN REACH AND BED ALARM ON.
--- NOTE | 2024-12-12 20:50 | NUR ---
ASSESSMENT AND VITAL SIGNS DONE. SCHEDULED MEDS ADMINISTERED. BG CHECKED WITH A RESULTS OF 184. SS INSULIN. IV ASSESSED, WNL. pt DENIES ANY NEEDS AT THIS TIME. CALL LIGHT WITHIN REACH. pt A&O TO SELF AND PLACE AT THIS TIME.
[2024-12-12] MEDS ORDERED: INSULIN GLARGINE-YFGN 100 UNIT/ML ML SUB-Q SCH (21:00)
--- NOTE | 2024-12-12 21:30 | NUR ---
pt RESTING IN THE BED. pt BED LINENS CHANGED. BREIF CHANGED. GOWN CHANGED. NEW CHUCKS PLACED. BARRIER CREAM PLACED ON pt. pt DENIES ANY OTHER NEEDS AT THIS TIME. CALL LIGHT WITHIN REACH.
--- NOTE | 2024-12-12 23:29 | NUR ---
CALL LIGHT ANSWERED. PT NEEDED TO USE BATHROOM. TOBACCO GRADER 1PA WITH FWW TO BSC. PT VOIDED AND HAD LARGE LIQUID BM. PT ASSISTED WITH CHANGING BREIF AND ASSISTED BACK INTO BED. PT STATES NO FURTHER NEEDS AT THIS TIME. CALL LIGHT WITHIN REACH AND BED ALARM ON.
[2024-12-13] VITALS (10 sets, daily range): BP systolic 105–133; BP diastolic 54–66
--- NOTE | 2024-12-13 01:46 | NUR ---
ASBESTOS BRAKE LINING FINISHER OBTAINED VITALS AND I&O. PT STATES NO NEEDS AT THIS TIME. CALL LIGHT WITHIN REACH AND BED ALARM ON.
--- NOTE | 2024-12-13 02:07 | NUR ---
pt RESTING IN THE BED. ON THE PHONE WITH HER DAUGHTER. pt DENIES ANY NEEDS AT THIS TIME. CALL LIGHT WITHIN REACH.
--- NOTE | 2024-12-13 04:09 | NUR ---
pt RESTING IN THE BED WITH EYES CLOSED. RR EVEN AND UNLABORED. CALL LIGHT WITHIN REACH.
[2024-12-13 05:28] LABS: BASOPHILS 0.6 % (0.1-1.2); EOSINOPHILS 4.8 % (0.7-5.8); LYMPHOCYTES 32.0 % (19.3-51.7); MCH 30.9 PG (25.6-32.2); MCHC 33.1 g/dL (32.2-35.5); MCV 93.2 fL (79.4-94.8); MONOCYTES 8.7 % (4.7-12.5); NEUTROPHILS 53.6 % (34.0-71.1); RBC 3.37 M/uL (3.93-5.22)
[2024-12-13 05:42] LABS: ALT (SGPT) 62.0 U/L (14-59); AST (SGOT) 87.0 U/L (15-37); GLOMERULAR FILTRATION RATE,EST 33.0 mL/min (>60); PROTEIN, TOTAL 5.9 g/dL (6.4-8.2); UREA NITROGEN 79.0 mg/dL (7-18)
--- NOTE | 2024-12-13 07:00 | NUR ---
REPORT RECIEVED FROM TIA PENN. PATIENT RESTING IN BED ON HER BACK WITH HOB ELEVATED. PATIENT'S EYES ARE CLOSED. EVEN AND UNLABORED RESPIRATIONS ARE NOTED. CALL LIGHT AND PERSONAL BELONGINGS ARE WITHIN REACH.
--- NOTE | 2024-12-13 07:46 | NUR ---
NOTIFIED DR VALLE THAT PATIENT HAD SOME AREAS OF EXCORIATIONS. MD STATES HE WILL LOOK AT IT AND DETERMINE IF A WOUND CONSULT IS NEEDED.
--- NOTE | 2024-12-13 07:49 | NUR ---
PATIENT WAS IN BED AT THIS TIME, AMANDA ATKINSON AND I ASSISTED PATIENT TO THE COMMODE, BRUSHED HER TEETH AND WASHED HER FACE. SHE IS SITTING UP FOR BREAKFAST WITH A WARM BLANKET AND FRESH ICE WATER. CALL LIGHT WITH IN REACH ADN NOTHING ELSE NEEDED AT THIS TIME.
--- NOTE | 2024-12-13 08:14 | NUR ---
PATIENT SITTING UP AT EDGE OF BED EATING BREAKFAST, IV ALARMING DUE TO OCCLUSION. PATIENT EDUCATED TO KEEP ARM STRAIGHT, BUT HAS DIFFICULTY REMEMBERING TO DO SO. PATIENT STATES SHE IS OKAY TO GET A NEW IV PLACED TO PREVENT OCCLUSION. CALL LIGHT AND PERSONAL BELONGINGS ARE WITHIN REACH.
[2024-12-13] MEDS ORDERED: TORSEMIDE 20 MG TAB PO SCH (09:00)
--- NOTE | 2024-12-13 09:13 | NUR ---
PER MD, EVALUATED PANNUS/GROIN AREA, NO NEED FOR WOUND CONSULT. VERBAL TO START NYSTATIN TO GROIN/PANNUS BID. ORDERS INPUT PRIMARY RN NOTIFIED.
--- NOTE | 2024-12-13 09:25 | NUR ---
PATIENT MEDICATED PER EMAR. PATIENT SITTING UP IN BED. FINISHING HER FOOD. THIS RN AND SN DONALDO IN ROOM FOR MEDICATION ADMINISTRATION, SKIN CHECK, AND FULL ASSESSMENT.
--- NOTE | 2024-12-13 10:25 | NUR ---
PATIENT ASSESSMENT COMPLETED BY THIS RN AND SN DONALDO. PATIENT ALICIA AREA CLEANED, CREAM APPLIED PER EMAR. PATIENT REPOSITIONED IN BED. PATIENT IS WITHOUT FURTHER NEEDS AT THIS TIME. CALL LIGHT AND PERSONAL BELONGINGS ARE WITHIN REACH. FRESH ICE WATER PROVIDED.
--- NOTE | 2024-12-13 10:27 | NUR ---
INTO SEE PATIENT. PATIENT STATES SHE LIVES WITH DAUGHTER AND WILL RETURN HOME WHEN MEDICALLY CLEARED FOR D/C.
--- NOTE | 2024-12-13 11:06 | NUR ---
PATIENT SITTING UP IN BED AND IS WITHOUT ANY NEEDS AT THIS TIME. CALL LIGHT AND PERSONAL BELONGINGS ARE WITHIN REACH.
--- NOTE | 2024-12-13 11:28 | NUR ---
VISITED DURING SPIRITUAL CARE ROUNDS. PT APPEARED TO BE SLEEPING. DID NOT DISTURB. PROVIDED PRAYER.
[2024-12-13] MEDS ORDERED: PHARMACY RENAL DOSE ADJUSTMENT 1 DOSE MISC PO SCH (12:00)
--- NOTE | 2024-12-13 12:55 | NUR ---
PATIENT MEDICATED PER EMAR. PATIENT SITTING UP IN BED AND APPEARS TO BE MORE LETHARGIC. CBG WAS 263, 5 UNITS OF INSULIN ADMINSITERED PER EMAR. PATIENT STATES SHE FEELS COLD AND APPEARS TO HAVE SLIGHT SHAKING OF HER ARMS. PATIENT DENIES ALCOHOL USE. TEMPERATURE TAKEN AND WAS 98.4. PATIENT ALSO STATES SHE IS HUNGRY AND WILLING TO EAT LUNCH. LUNCH TRAY SET UP INFRONT OF PATIENT. BED ALARM ACTIVATED. CALL LIGHT AND PERSONAL BELONGINGS ARE WITHIN REACH. CURTAIN OPEN TO PATIENT'S ROOM FOR DIRECT VISUALIZATION DUE TO PATIENT BEING IMPULSIVE AT TIME AND GETTING OUT OF BED TO BATHROOM.
--- NOTE | 2024-12-13 13:24 | NUR ---
PATIENT SITTING UP IN BED WITH VISITOR AT BEDSIDE. PATIENT WITHOUT FURTHER NEEDS AT THIS TIME. CALL LIGHT AND PERSONAL BELONGINGS ARE WITHIN REACH. PATIENT STATES "NOW THAT I WOKE UP AND ATE, I'M FEELING BETTER".
--- NOTE | 2024-12-13 14:02 | NUR ---
PATIENT CALLED REQUESTING TO GET UP TO THE BATHROOM. PATIENT AMBULATED TO THE BATHROOM VIA 1PERSON ASSIST WITH THE FWW. PATIENT TOLERATED WELL. PATIENT WITH ONE LARGE, LOOSE WITH CHUNKS, YELLOW, BM. PATIENT CLEANED UP, NEW BRIEF PROVIDED. PATIENT AMBULATED BACK TO BED AND DECLINES TO SIT UP IN HER CHAIR. CREAM APPLIED TO HER BOTTOM. TIA JOHNSON IN ROOM FOR SKIN CHECK DUE TO RN TAKING OVER CARE. PATIENT WITHOUT FURTHER NEEDS AT THIS TIME. CALL LIGHT AND PERSONAL BELONGINGS ARE WITHIN REACH.
--- NOTE | 2024-12-13 14:18 | NUR ---
PATIENT IN BED AT THIS TIME. NEUROPHYSIOLOGICAL TECHNICIAN CHARTED VITALS AND I&O'S. CALL LIGHT WITHIN REACH, NO FURTHER NEEDS.
--- NOTE | 2024-12-13 15:00 | NUR ---
PATIENT RESTING IN BED WITH HER EYES CLOSED. EVEN AND UNLABORED RESPIRATIONS NOTED. CALL LIGHT AND PERSONAL BELONGINGS ARE WITHIN REACH.
--- NOTE | 2024-12-13 15:30 | NUR ---
REPORT RECEIVED FROM CRISS Tavares RN.
--- NOTE | 2024-12-13 15:59 | NUR ---
PT RESTING IN BED WITH EYES CLOSED AND RESPIRATIONS EVEN AND UNLABORED. CALL LIGHT WITHIN REACH.
--- NOTE | 2024-12-13 17:13 | NUR ---
PT SITTING UP IN BED EATING DINNER AND WATCHING TV. CALL LIGHT WITHIN REACH AND BED ALARM ON. PT HAS NO REQUESTS AT THIS TIME.
--- NOTE | 2024-12-13 18:17 | NUR ---
PATIENT IN BED AT THIS TIME. FINISHED YARN EXAMINER CHARTED VITALS AND I&O'S, FINISHED YARN EXAMINER ALSO ASSISTED PATIENT TO BATHROOM AND PROVIDED PATIENT WITH NEW BRIEF. CALL LIGHT WITHIN REACH, NO FURTHER NEEDS AT THIS TIME.
--- NOTE | 2024-12-13 18:34 | NUR ---
PT RESTING IN BED WITH EYES CLOSED AND RESPIRATIONS EVEN AND UNLABORED. BED ALARM ON, CALL LIGHT WITHIN REACH.
--- NOTE | 2024-12-13 19:10 | NUR ---
REPORT RECEIVED FROM ALEX WEBER. pt RESTING IN THE BED. BOARD UPDATED. pt DENIES ANY NEEDS AT THIS TIME. CALL LIGHT WITHIN REACH.
--- NOTE | 2024-12-13 20:35 | NUR ---
ASSESSMENT AND VITAL SIGNS DONE. BG CHECKED WITH A RESULTS OF 229. SS INSULIN ADMINISTERED. SNACK PROVIDED TO pt. WATER REFRESHED. pt A&O X4. pt UP TO THE BR WITH FWW. IV ASSESSED, WNL. IVF INFUSING PER ORDER. pt DENIES ANY OTHER NEEDS AT THIS TIME. CALL LIGHT WITHIN REACH.
--- NOTE | 2024-12-13 22:12 | NUR ---
CALL LIGHT ANSWERED. PT NEEDED TO USE BATHROOM. FREELANCE DATA ENTRY 1PA TO BSC. PT HAD LARGE BM AND ASSISTED INTO NEW BREIF AND SOCKS. PT ASSISTED BACK TO BED THEN STATED THAT SHE WAS GOING AGAIN. PT ASSISTED BACK TO BSC. PT HAD ANOTHER LARGE BM. FREELANCE DATA ENTRY ASSISTED PT INTO NEW BRIEF AND BACK TO BED. PT STATES NO FURTHER NEEDS AT THIS TIME. CALL LIGHT WITHIN REACH AND BED ALARM ON.
[2024-12-14] VITALS (10 sets, daily range): BP systolic 101–133; BP diastolic 47–59
--- NOTE | 2024-12-14 00:12 | NUR ---
CALL LIGHT ANSWERED. PT NEEDED TO USE BATHROOM. CHARGING MACHINE OPERATOR 1PA WITH FWW TO BSC. PT VOIDED AND HAD BM. PT ASSISTED BACK TO BED.. NO FURTHER NEEDS STATED AT THIS TIME. CALL LIGHT WITHIN REACH AND BED ALARM ON.
--- NOTE | 2024-12-14 00:33 | NUR ---
pt CALLED AND ASKED FOR CHICKEN BROTH. SNACK PROVIDED. NEW BAG OF IV FLUIDS HANGING. pt DENIES ANY OTHER NEEDS AT THIS TIME. CALL LIGHT WITHIN REACH.
--- NOTE | 2024-12-14 01:06 | NUR ---
DISTRICT OR DISTRICT OFFICE DIRECTOR OBTAINED VITALS AND I&O. PT STATES NO NEEDS AT THIS TIME. CALL LIGHT WITHIN REACH AND BED ALARM ON.
--- NOTE | 2024-12-14 01:35 | NUR ---
pt CALLED TO GO TO THE BR. pt 1PA WITH FWW TO BR. pt BACK TO BED. pt DENIES ANY OTHER NEEDS AT THIS TIME. CALL LIGHT WITHIN REACH.
--- NOTE | 2024-12-14 02:36 | NUR ---
pt RESTING IN THE BED WITH EYES CLOSED. RR EVEN AND UNLABORED. CALL LIGHT WITHIN REACH.
--- NOTE | 2024-12-14 03:25 | NUR ---
pt RESTING IN THE BED WITH EYES CLOSED. RR EVEN AND UNLABORED. CALL LIGHT WITHIN REACH.
--- NOTE | 2024-12-14 05:14 | NUR ---
DEALER COMPLIANCE REPRESENTATIVE OBTAINED VITALS AND I&O. ICEW WATER REFILLED. PT STATES NO NEEDS AT THIS TIME. CALL LIGHT WITHIN REACH AND BED ALARM ON.
[2024-12-14 05:37] LABS: BASOPHILS 0.6 % (0.1-1.2); EOSINOPHILS 4.1 % (0.7-5.8); LYMPHOCYTES 29.9 % (19.3-51.7); MCH 31.4 PG (25.6-32.2); MCHC 33.1 g/dL (32.2-35.5); MCV 94.7 fL (79.4-94.8); MONOCYTES 9.1 % (4.7-12.5); NEUTROPHILS 56.0 % (34.0-71.1); RBC 3.22 M/uL (3.93-5.22)
[2024-12-14 05:51] LABS: ALT (SGPT) 66.0 U/L (14-59); AST (SGOT) 70.0 U/L (15-37); GLOMERULAR FILTRATION RATE,EST 37.0 mL/min (>60); PROTEIN, TOTAL 5.6 g/dL (6.4-8.2); UREA NITROGEN 75.0 mg/dL (7-18)
--- NOTE | 2024-12-14 07:30 | NUR ---
RECEIVED REPORT FROM TIA PENN. PT LAYING IN BED REQUESTING TO HAVE STANDING WEIGHT. ASSURED PATIENT WE WOULD COME IN TO GET THIS BEFORE BREAKFAST. NO OTHER NEEDS AT THIS TIME. HOT WASH CLOTH RPOVIDED TO PT, WHITEBOARD UPDATED. CALL LIGHT IN REACH.
--- NOTE | 2024-12-14 10:13 | NUR ---
INTO SEE PATIENT. PATIENT TO GO HOME WITH DAUGHTER WHEN MEDICALLY CLEARED FOR D/C. NO CM NEEDS.
--- NOTE | 2024-12-14 10:30 | NUR ---
NEW BAG OF FLUID HUNG FOR PATIENT. PT ASKS FOR KLEENEX, PROVIDED. NO OTHER NEEDS AT THIS TIME, CALL LIGHT IN REACH.
--- NOTE | 2024-12-14 11:33 | NUR ---
DC REVIEW: CONTINUED NEED TO TREND AMMONIA, MANAGE MEDICATIONS, IV FLUIDS, MONITOR MENTATION. PLAN TO DC TO HOME WITH DAUGHTER TOMORROW. ADD: 12/15/2024
--- NOTE | 2024-12-14 14:22 | NUR ---
PATIENT IS IN BED AT THIS TIME, WASHING MACHINE MECHANIC CHARTED VITALS AND I&O'S, ASSISTED PATIENT TO THE RESTROOM AND BACK TO BED, SET EVERYTHING UP FOR A SHOWER. BUT DOSENT WANT TO SHOWER YET. WILL COME CHECK BACK IN A WHILE. CALL LIGHT WITH IN REACH AND NOTHING ELSE NEEDED AT THIS TIME.
--- NOTE | 2024-12-14 16:54 | NUR ---
PATIENT WAS IN BED AT THIS TIME, TUBE MACHINE OPERATOR HELPER HELPED PATIENT WITH A FULL SHOWER, BACK TO BED, HAIR BRUSHED AND BRAIDED, NEW GOWN AND LINENS, CALL LIGHT WITH IN REACH AND NOTHING ELSE NEEDED AT THIS TIME.
--- NOTE | 2024-12-14 18:11 | NUR ---
PATIENT IN BED AT THIS TIME. DOT ETCHER CHARTED VITALS AND I&O'S. CALL LIGHT WITHIN REACH, NO FURTHER NEEDS.
--- NOTE | 2024-12-14 19:10 | NUR ---
REPORT RECEIVED FROM DANIEL WEBER. pt RESTING IN THE BED. BOARD UPDATED. IV ASSESSED, WNL. pt DENIES ANY OTHER NEEDS AT THIS TIME. CALL LIGHT WITHIN REACH.
--- NOTE | 2024-12-14 20:10 | NUR ---
ORIENTOR OBTAINED VITALS AND I&O. PT STATES NO NEEDS AT THIS TIME. CALL LIGHT WITHIN REACH AND BED ALARM ON.
--- NOTE | 2024-12-14 21:25 | NUR ---
ASSESSMENT AND VITAL SIGNS DONE. BG CHECKED WITH A RESULTS OF 218. SS INSULIN. SCHEDULED MEDS ADMINISTERED. SNACK PROVIDED. WATER REFRESHED. IV ASSESSED, WNL. IVF INFUSING PER ORDER. pt DENIES ANY OTHER NEEDS AT THIS TIME. CALL LIGHT WITHIN REACH.
--- NOTE | 2024-12-14 22:41 | NUR ---
CALL LIGHT ANSWERED. PT NEEDED TO USE BATHROOM. STRANDING MACHINE OPERATOR 1PA TO BSC. PT VOIDED AND HAD BM. PT ASSISTED BACK TO BED. PT STATES NO FURTHER NEEDS AT THIS TIME. CALL LIGHT WITHIN REACH AND BED ALARM ON.
--- NOTE | 2024-12-14 23:15 | NUR ---
pt CALLED TO USE THE BR. pt SBA WITH FWW. pt BACK TO BED. pt DENIES ANY OTHER NEEDS AT THIS TIME. CALL LIGHT WITHIN REACH.
--- NOTE | 2024-12-15 00:58 | NUR ---
pt RESTING IN THE BED. pt DENIES ANY NEEDS AT THIS TIME. CALL LIGHT WITHIN REACH.
[2024-12-15 01:33] VITALS: BP 106/53
--- NOTE | 2024-12-15 01:33 | NUR ---
ALLOPATHIC DOCTOR OBTAINED VITALS AND I&O. PT STATES NO NEEDS AT THIS TIME. CALL LIGHT WITHIN REACH AND BED ALARM ON.
--- NOTE | 2024-12-15 03:25 | NUR ---
pt RESTING IN THE BED. pt DENIES ANY NEEDS AT THIS TIME. CALL LIGHT WITHIN REACH.
--- NOTE | 2024-12-15 03:40 | NUR ---
pt CALLED TO USE THE BR. SBA WITH FWW. pt BACK TO BED. BED ALARM ON. pt A&O X4. pt DENIES ANY OTHER NEEDS AT THIS TIME. CALL LIGHT WITHIN REACH.
[2024-12-15 05:13] VITALS: BP 110/58
--- NOTE | 2024-12-15 05:14 | NUR ---
VITALS AND I&O OBTAINED. PT STATES NO NEEDS AT THIS TIME. CALL LIGHT WITHIN REACH AND BED ALARM ON.
--- NOTE | 2024-12-15 05:15 | NUR ---
VITAL SIGNS DONE. ASSESSMENT DONE. pt RESTING IN THE BED. WATER REFRESHED. pt DENIES ANY OTHER NEEDS AT THIS TIME. CALL LIGHT WITHIN REACH.
[2024-12-15 05:21] LABS: BASOPHILS 0.6 % (0.1-1.2); EOSINOPHILS 4.0 % (0.7-5.8); LYMPHOCYTES 31.2 % (19.3-51.7); MCH 31.0 PG (25.6-32.2); MCHC 33.4 g/dL (32.2-35.5); MCV 92.7 fL (79.4-94.8); MONOCYTES 9.7 % (4.7-12.5); NEUTROPHILS 54.2 % (34.0-71.1); RBC 3.16 M/uL (3.93-5.22)
[2024-12-15 05:30] LABS: GLOMERULAR FILTRATION RATE,EST 40.0 mL/min (>60); UREA NITROGEN 62.0 mg/dL (7-18)
--- NOTE | 2024-12-15 07:20 | NUR ---
RECEIVED REPORT FROM TIA PENN. PT LAYING IN BED REPORTS NO NEED AT THIS TIME. NEW BAG OF FLUID HUNG, WHITEBOARD UPDATED AND CALL LIGHT WITHIN REACH.
--- NOTE | 2024-12-15 07:36 | NUR ---
PATIENT IN BED AT THIS TIME. THIS SMOKEHOUSE OPERATOR CAHRTED HOURLY ROUNDS AND BLOOD SUGAR. PATIENT DECLINED CHAIR AT THIS TIME. CALL LIGHT WITHIN REACH, NO FURTHER NEEDS.
[2024-12-15 09:10] VITALS: BP 115/56
[2024-12-15 09:51] VITALS: BP 115/56
--- NOTE | 2024-12-15 10:10 | NUR ---
SKIN CLEANSED AND NYSTATIN APPLIED TO PTS GROIN AND UNDER BREAST, NO OTHER NEEDS AT THIS TIME. CALL LIGHT IN REACH, BED LOWERED
--- NOTE | 2024-12-15 10:49 | NUR ---
PATIENT IN BED AT THIS TIME. PLUMBING DRAFTER ASSISTED PATIENT TO BATHROOM AND THEN BACK TO BED. CALL LIGHT WITHIN REACH, NO FURTHER NEEDS.
--- NOTE | 2024-12-15 11:27 | NUR ---
ASSISTED PT IN GETTING READJUSTED IN BED, PERSONAL BELONGINGS WITHIN REACH. FRESH WATER GIVEN TO PT, NO OTHER NEEDS AT THIS TIME. CALL LIGHT IN REACH.
[2024-12-15] MEDS ORDERED: LACTULOSE10 GM/151 PO (12:27)
[2024-12-15 13:25] VITALS: BP 138/65
--- NOTE | 2024-12-15 13:29 | NUR ---
PT VSS, IV REMOVED/CATH TIP INTACT, PT WHEELED TO FRONT OF BUILDING WITH DC PACKET AND ALL PERSONAL BELONGINGS, TAXI SLIP IN HAND.
[2024-12-15 14:16] VITALS: BP 138/65
== END 2024-12-15 13:29 | disposition home or self-care (01) | DRG 442 ==
LOC: ED 10:35 → MS 13:11
PROVIDERS: Emergency Medicine; ADMIT Internal Medicine; ATTEND Internal Medicine
DX: K76.82 Hepatic encephalopathy (principal); E72.20 Disorder of urea cycle metabolism, unspecified; N17.9 Acute kidney failure, unspecified; K74.60 Unspecified cirrhosis of liver; E11.9 Type 2 diabetes mellitus without complications; K70.9 Alcoholic liver disease, unspecified; D63.8 Anemia in other chronic diseases classified elsewhere; I50.9 Heart failure, unspecified; E66.9 Obesity, unspecified; K72.90 Hepatic failure, unspecified without coma; Z88.0 Allergy status to penicillin; Z91.81 History of falling; Z79.4 Long term (current) use of insulin; Z68.30 Body mass index [BMI] 30.0-30.9, adult
CPT/HCPCS: 36415; 70450; 76700; 80048; 80053; 81001; 82140; 83735; 85025; 85610; A9270; G0480; J1815; J7030; J7040

== ENCOUNTER 2025-01-04 02:47 | Inpatient (IN) | payer OTHER ==
[~2025-01-04] VITALS: Ht 157.5 cm; Wt 74.8 kg
[2025-01-04] VITALS (8 sets, daily range): BP systolic 109–142; BP diastolic 53–76
--- OUTSIDE RECORDS SUMMARY | 2025-01-04 02:49 | XMS ---
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 Mile VISIT COUNT (12 MO.) 9 DEIDRE Winston TOTAL 9 NOTE: Visits indicate total known visits. ED/UCC VISIT TRACKING (12 MO.) 01/04/2025 02:48 [facility] [place] TYPE: Emergency COMPLAINT: - ALTERED 12/12/2024 10:[address] [facility] [place] TYPE: Emergency COMPLAINT: - FALL 10/30/2024 18:[address] [facility] [place] TYPE: Emergency COMPLAINT: - WEAKNESS 08/27/2024 18:[address] [facility] [place] TYPE: Emergency COMPLAINT: - SKIN PROBLEM DIAGNOSES: - Allergy status to penicillin - Cutaneous abscess of abdominal wall - Erythema intertrigo - Heart failure, unspecified - Hepatic encephalopathy - Other terminal block assembler (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 therapy - Right lower quadrant pain - Type 2 diabetes mellitus without complications 08/11/2024 12:14 [facility] [place] TYPE: Emergency COMPLAINT: - ALTERED MENTAL STATUS 06/15/2024 12:11 [facility] [place] TYPE: Emergency COMPLAINT: - LOW BLOOD LEVELS DIAGNOSES: - Allergy status to penicillin - Anemia, unspecified - Heart failure, unspecified - custodial (current) use of antibiotics - vermin exterminator (current) use of insulin - vermin exterminator (current) use of non-steroidal anti-inflammatories (NSAID) - Other terminal block assembler (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 therapy - Type 2 diabetes mellitus without complications 05/11/2024 09:04 [facility] [place] TYPE: Emergency COMPLAINT: - ALTERED MENTAL STATUS 01/27/2024 10:51 [facility] [place] TYPE: Emergency COMPLAINT: - ALT LOC 01/18/2024 13:02 [facility] OR TYPE: Emergency COMPLAINT: - ALTERED LOC INPATIENT VISIT TRACKING (12 MO.) 12/12/2024 13:11 [facility] [place] TYPE: Medical Surgical COMPLAINT: - HEPATIC ENCEPHALOPATHY DIAGNOSES: - Acute kidney failure, unspecified - Acute kidney failure, unspecified - Alcoholic liver disease, unspecified - Alcoholic liver disease, unspecified - Allergy status to penicillin - Allergy status to penicillin - Anemia in other chronic diseases classified elsewhere - Anemia in other chronic diseases classified elsewhere - Body mass index [BMI] 30.0-30.9, adult - Disorder of urea cycle metabolism, unspecified - Disorder of urea cycle metabolism, unspecified - Heart failure, unspecified - Heart failure, unspecified - Hepatic encephalopathy - Hepatic failure, unspecified without coma - Hepatic failure, unspecified without coma - History of falling - History of falling - custodial (current) use of insulin - vermin exterminator (current) use of insulin - Obesity, unspecified - Obesity, unspecified - Type 2 diabetes mellitus without complications - Type 2 diabetes mellitus without complications - Unspecified cirrhosis of liver - Unspecified cirrhosis of liver 10/30/2024 23:23 [facility] [place] TYPE: Medical Surgical COMPLAINT: - HYPERAMMONIA DIAGNOSES: - Acquired absence of other specified parts of digestive tract - Acquired absence of other specified parts of digestive tract - Acute kidney failure, unspecified - Acute kidney failure, unspecified - Allergy status to penicillin - Allergy status to penicillin - Altered mental status, unspecified - Anemia, unspecified - Anemia, unspecified - Anxiety disorder, unspecified - Anxiety disorder, unspecified - Disorder of urea cycle metabolism, unspecified - Disorder of urea cycle metabolism, unspecified - Heart failure, unspecified - Heart failure, unspecified - Hepatic encephalopathy - Hepatic encephalopathy - History of uterine scar from previous surgery - History of uterine scar from previous surgery - vermin exterminator (current) use of insulin - custodial (current) use of insulin - Other terminal block assembler (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 therapy - Other terminal block assembler (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 therapy - Other specified diseases of liver - Other specified diseases of liver - Other specified postprocedural states - Other specified postprocedural states - Patient's other noncompliance with medication regimen for other reason - Patient's other noncompliance with medication regimen for other reason - Type 2 diabetes mellitus without complications - Type 2 diabetes mellitus without complications 08/11/2024 15:[address] [facility] [place] TYPE: Medical [...] - Iron deficiency anemia, unspecified - Other fdc (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 therapy - Other terminal block assembler (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 therapy - Other secondary thrombocytopenia [...] of injectable non-insulin antidiabetic drugs - Other fdc (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 therapy - Other secondary thrombocytopenia [...] disease, or unspecified chronic kidney disease - custodial (current) use of insulin - vermin exterminator (current) use of insulin - Obesity, unspecified - Obesity, unspecified - Other terminal block assembler (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 therapy - Other fdc (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 therapy - Other specified postprocedural [...] - Vitamin D deficiency, unspecified 01/18/2024 15:[address] [facility] [place] [...] Hepatic encephalopathy - Hypercalcemia - Hypercalcemia - custodial (current) use of insulin - custodial (current) use of insulin - Obesity, unspecified - Obesity, unspecified - Other disorders of bilirubin metabolism - Other disorders of bilirubin metabolism - Other fdc (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 therapy - Other terminal block assembler (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 therapy - Other specified postprocedural [...] kidney disease - Unspecified cirrhosis of liver [email or web address]
[2025-01-04 03:05] LABS: BASOPHILS 0.8 % (0.1-1.2); EOSINOPHILS 1.8 % (0.7-5.8); LYMPHOCYTES 31.1 % (19.3-51.7); MCH 31.5 PG (25.6-32.2); MCHC 33.3 g/dL (32.2-35.5); MCV 94.5 fL (79.4-94.8); MONOCYTES 10.5 % (4.7-12.5); NEUTROPHILS 55.3 % (34.0-71.1); RBC 4.03 M/uL (3.93-5.22)
[2025-01-04 03:14] LABS: INR 1.12 (0.80-1.30); PROTIME 14.0 Sec (11.2-14.2)
[2025-01-04 03:26] LABS: ALT (SGPT) 28.0 U/L (14-59); AST (SGOT) 34.0 U/L (15-37); GLOMERULAR FILTRATION RATE,EST 36.0 mL/min (>60); PROTEIN, TOTAL 7.5 g/dL (6.4-8.2); UREA NITROGEN 55.0 mg/dL (7-18)
[2025-01-04] MEDS ORDERED: LACTULOSE 10 GM/15 ML ML PR ONE (03:45)
--- NOTE | 2025-01-04 04:30 | NUR ---
PATIENT ADMITTED TO [facility] RM 111 VIA STRETCHER. REPORT RECEIVED FROM TIA JENSEN. PATIENT UNABLE TO ANSWER QUESTIONS, RESPONDS TO PAINFUL STIMULI, AND GROANS WHEN MOVED. WHEN SPOKEN TO, SHE LOOKS AT YOU WITH HER EYES, HOWEVER DOES NOT GIVE VERBAL ANSWERS. ASSESSMENT COMPLETE, VS OBTAINED. GIVEN CALL LIGHT. PATIENT ABLE TO REPOSITION SELF.
[2025-01-04 04:31] LABS: BLOOD/HGB, URINE NEGATIVE (Negative); KETONE, URINE NEGATIVE (Negative); LEUK ESTERASE, URINE TRACE (negative); NITRITE, URINE NEGATIVE (negative)
[2025-01-04 04:42] LABS: EPITHELIAL CELLS, URINE SQUAMOUS 3+ /lpf (0-1+)
[2025-01-04 04:43] LABS: BACTERIA, URINE 2+ /hpf (negative); CASTS, URINE NONE SEEN \\lpf; CRYSTALS, URINE NONE SEEN (0-1+); REFLEX CULTURE, URINE No (No)
--- NOTE | 2025-01-04 05:13 | NUR ---
IV MEDICATION STARTED PER ORDER. PATIENT IN BED, RESPIRATIONS EVEN AND UNLABORED. NO NEEDS, CALL LIGHT IN REACH
--- NOTE | 2025-01-04 05:49 | NUR ---
PATIENT RESTING IN BED, RESPIRATIONS EVEN AND UNLABORED. IV MEDICATION COMPLETE, SALINE LOCKED. CPOX IN PLACE, NO NEEDS, CALL LIGHT IN REACH
--- NOTE | 2025-01-04 06:31 | NUR ---
PATIENT SISTER CALLED FOR PATIENT UPDATE. HIEU NIELSON,
--- NOTE | 2025-01-04 07:21 | NUR ---
REPORT RECEIVED FROM MINGO WEBER. PT AWAKE AND RESTING IN BED WITH BED ALARM ON. PT ABLE TO CONVERSE WITH THIS RN, DENIES PAIN AT THIS TIME. CALL LIGHT WITHIN REACH.
--- NOTE | 2025-01-04 08:33 | NUR ---
PATIENT IN CHAIR AT THIS TIME. THIS COAGULATOR AND COAGULATORJl ATKINSON ASSISTED PATIENT TO BEDSIDE COMMODE AND THEN TO CHAIR. CALL LIGHT WITHIN REACH, CHAIR ALARM ACTIVATED, NO FURTHER NEEDS.
[2025-01-04] MEDS ORDERED: Rifaximin 550 MG TAB PO SCH ×2 (09:00→21:00)
[2025-01-04] MEDS ORDERED: LACTULOSE 20 GM/30 ML CUP PO SCH (09:00)
--- NOTE | 2025-01-04 09:15 | NUR ---
PT ALERT AND IN CHAIR REQUESTING SOMETHING TO EAT AND DRINK. DR HAMILTON CALLED BY FLIP WEBER FOR DIET ORDER.
--- NOTE | 2025-01-04 09:20 | NUR ---
PT HAS HX OF DM. BLOOD GLUCOSE CHECKED AND IS 189.
--- NOTE | 2025-01-04 10:05 | NUR ---
Spoke with Karen. She states she cont. to live with her daughter. She feels she is able to care for herself. She can walk in her home with her walker short distance. She has issues dressing. Pt also complains of incontience getting to the bathroom. Pt states she has a walker. She declines a BSC. She is not interested in caregivers or speaking with the state to qualify for assistance. Pt tells me she has plenty of funds as she "came into some money",manages her own meds, and is able to feed herself. She declines any further assistance. Pt is pleasant, but is not interested in any assistance. She wants to go home when she is able to dc. She states she no longer drings any alcohol. She denies financial or safety issues.
--- NOTE | 2025-01-04 10:15 | NUR ---
PT SITTING UP IN CHAIR TALKING TO CASE MANAGEMENT. WARM BLANKETS GIVEN REQUESTED. CALL LIGHT WITHIN REACH AND CHAIR ALARM ON.
--- NOTE | 2025-01-04 10:27 | NUR ---
PATIENT IN CHAIR AT THIS TIME. SHIPPING ASSISTANT CHARTED VITALS AND I7O'S. CALL LIGHT WITHIN REACH, NO FURTHER NEEDS.
[2025-01-04] MEDS ORDERED: ZOLOFT50 MG PO (10:42)
[2025-01-04] MEDS ORDERED: VITAMIN D325 MCG PO (10:44)
[2025-01-04] MEDS ORDERED: CONSTULOSE10 GM/15 M PO (10:47)
[2025-01-04] MEDS ORDERED: DEXTROSE 5% 1,000 ML IV PRN (11:30)
[2025-01-04] MEDS ORDERED: GLUCAGON,HUMAN RECOMBINANT 1 MG/ML VIAL SUB-Q PRN (11:30)
[2025-01-04] MEDS ORDERED: DEXTROSE 50% 50 ML SYR IV PRN ×2 (11:30)
[2025-01-04] MEDS ORDERED: IBLOOD GLUCOSE TEST STRIP 1 EA TEST XX PRN (11:30)
[2025-01-04] MEDS ORDERED: INSULIN LISPRO 100 UNIT/ML ML SUB-Q SCH (12:00)
[2025-01-04] MEDS ORDERED: PHARMACY RENAL DOSE ADJUSTMENT 1 DOSE MISC PO SCH (12:00)
[2025-01-04] MEDS ORDERED: IBLOOD GLUCOSE TEST STRIP 1 EA TEST VI SCH (12:00)
--- NOTE | 2025-01-04 12:27 | NUR ---
PHYSICAL THERAPY IN TO WORK WITH PT. FAMILY ALSO AT BEDSIDE.
--- NOTE | 2025-01-04 12:43 | NUR ---
pt sitting up in chair eating lunch. chair alarm on and call light within reach.
--- NOTE | 2025-01-04 14:24 | NUR ---
PATIENT IS IN HER CHAIR SLEEPING AT THIS TIME, TRANSMISSION SYSTEM OPERATOR CHARTED VITALS AND I&O'S, CALL LIGHT WITH IN REACH AND NOTHING ELSE NEEDED AT THIS TIME.
[2025-01-04] MEDS ORDERED: LACTULOSE 20 GM/30 ML CUP PO PRN (14:30)
--- NOTE | 2025-01-04 14:54 | NUR ---
Patient awake, alert to self and place. Patient easily wakes to verbal stimuli. Patient denies pain at this time. No current needs, personal supplies and call light within reach.
--- NOTE | 2025-01-04 16:14 | NUR ---
UR CLINICAL REVIEW: MCG-PER MCG REVIEW MEETS INPT FOR DELIRIUM WITH NEED FOR SERIAL LABS, SYMPTOM MANAGEMENT AND MONITORING EOCCO INPT 01/04/25 @ 9093 CLINICAL FAXED TO [facility] FOR AUTH REVIEW DISCHARGE TO HOME WHEN STABLE 01/07/25
--- NOTE | 2025-01-04 16:57 | NUR ---
Patient pulled out her IV site. New IV site to be placed. Patient remains alert to self and place, she is confused and forgetful to situation. Chair alarm intact.
[2025-01-04] MEDS ORDERED: RENVELA800 MG PO (18:09)
--- NOTE | 2025-01-04 18:09 | NUR ---
MED REC COMPLETE
--- NOTE | 2025-01-04 19:29 | NUR ---
RECEIVED REPORT FROM TIA PACHECO. PT IN ROOM ON PHONE, REQUESTING HS SNACKS-PROVIDED. CALL LIGHT WITHIN REACH. BED ALARM IN PLACE.
--- NOTE | 2025-01-04 20:30 | NUR ---
PT ASSISTED TO BSC, REQUIRED CGA W/ FWW AND CUEING. PT ORIENTED X 3, NOT TO DATE AND IS FORGETFUL. BED ALARM IN PLACE FOR SAFETY. LSC. HRR. BTA, ABD SLIGHTLY DISTENDED. PT IS HAVING LOOSE BM'S, SOME INC. VOIDS WNL. SL TO LUE WNL. RASH TO BILAT BREASTS BRIGHT RED, MOIST AND ODOROUS. CLEANSED W/ SOAP AND WATER AND NYSTATIN CREAM APPLIED. SCATTERED BRUISES. CIWA SCORE 0. PT'S SISTER AT BEDSIDE, INQUIRING ABOUT D/C PLAN-LITHOGRAPHIC PRESS FEEDERTIA BAIRD IN TO DISCUSS. CALL LIGHT WITHIN REACH.
--- NOTE | 2025-01-04 20:35 | NUR ---
IN ROOM PER REQUEST OF PRIMARY RN CHELSEA. pt's SISTER (AND PERSON TO NOTIFY) HIEU NIELSON IN ROOM AND WANTING TO DISCUSS DISCHARGE PLAN WITH STAFF. PER HIEU, WHEN pt WAS DISCHARGED FROM HOSPITAL LAST TIME SHE WAS DISCHARGED ALONE AND SENT HOME VIA TAXI AND WAS LOCKED OUT OF THE HOUSE FOR "LIKE 18 HOURS". SISTER WORRIES OF SIMILAR EVENT OCCURING, ACTIVE LISTENING AND THERAPUETIC COMMUNICATION PROVIDED. HIEU GOES ON TO REPORT SHE CALLED THE MORNING OF BUT STAFF WERE UNCERTAIN OF DISCHARGE AT THAT TIME, ATTEMPTED TO CALL LATER IN THE AFTERNOON BUT WAS UNABLE TO GET THROUGH DUE TO CONNECTION ISSUES W/ HOSPITAL PHONES. PER HIEU, pt WAS THEN DISCHARGED W/O HIEU KNOWING AND IT WASN'T UNTIL SHE CALLED THE HOSPITAL THE NEXT DAY AND FOUND OUT HER SISTER WAS DISCHARGED THE DAY BEFORE. PER HIEU, HER BROTHER ESTEFANÍA WAS OUT OF TOWN FISHING AND HIEU WAS OCCUPIED WITH ISSUES W/ HER NIECE. HIEU REPORTS SHE ALREADY DISCUSSED THE ISSUE WITH THE ENGLISH LANGUAGE LEARNER TUTOR AT THE TIME (TIA CANNON). DR HAMILTON UPDATED ON HIEU'S CONCERNS (VERBALIZES HE WAS ALREADY AWARE), PER DR HAMILTON OKAY TO PLACE NURSE NOTIFY TO MAKE SURE A FAMILY MEMBER IS PRESENT AT TIME OF pt DISCHARGE AND TO NOT LET pt BE DISCHARGED ALONE FROM HOSPITAL. PRIMARY RN UPDATED. READ BACK HIEU'S LISTED PHONE NUMBER AND CONFIRMED IT IS LISTED CORRECTLY.
[2025-01-04] MEDS ORDERED: PANTOPRAZOLE SODIUM 40 MG TABEC PO SCH (21:00)
--- NOTE | 2025-01-04 21:26 | NUR ---
STORE OPERATIONS ASSOCIATE SBA WITH FWW PT TO BATHROOM. PT VOIDED AND HAD BM. PT ASSISTED BACK TO BED. VITALS AND I&O OBTAINED. PT STATES NO FURTHER NEEDS AT THIS TIME. CALL LIGHT WITHIN REACH AND BED ALARM ON.
--- NOTE | 2025-01-04 22:16 | NUR ---
CALL LIGHT ANSWERED. PT NEEDED TO USE BATHROOM. SPORTS JOURNALIST 1PA WITH FWW TO BATHROOM. PT VOIDED AND HAD BM. PT BRIEF AND GOWN CHANGED. PT ASSISTED BACK TO BED. PT STATES NO FURTHER NEEDS AT THIS TIME. CALL LIGHT WITHIN REACH AND BED ALARM ON.
--- NOTE | 2025-01-04 23:20 | NUR ---
CALL LIGHT ANSWERED. PT NEEDED TO USE BATHROOM. CHIEF GROWTH OFFICER 1PA WITH 1PA WITH FWW TO BATHROOM. PT VOIDED AND HAD BM. PT ASSISTED BACK TO BED. PT STATES NO FURTHER NEEDS AT THIS TIME. CALL LIGHT WITHIN REACH AND BED ALARM ON.
--- NOTE | 2025-01-04 23:37 | NUR ---
PT AWAKE, PLAYING WITH PHONE.
--- NOTE | 2025-01-05 01:07 | NUR ---
PT IS STILL AWAKE, HAS HER HOSPITAL PHONE IN HAND.
[2025-01-05 01:54] VITALS: BP 123/54
[2025-01-05 02:47] VITALS: BP 123/54
--- NOTE | 2025-01-05 02:48 | NUR ---
PT ASLEEP, APPEARS COMFORTABLE.
--- NOTE | 2025-01-05 04:30 | NUR ---
SLEEPING SOUNDLY. BE ALARM IN PLACE.
[2025-01-05 05:30] LABS: BASOPHILS 0.7 % (0.1-1.2); EOSINOPHILS 4.4 % (0.7-5.8); LYMPHOCYTES 29.1 % (19.3-51.7); MCH 31.7 PG (25.6-32.2); MCHC 33.2 g/dL (32.2-35.5); MCV 95.3 fL (79.4-94.8); MONOCYTES 8.9 % (4.7-12.5); NEUTROPHILS 56.7 % (34.0-71.1); RBC 3.41 M/uL (3.93-5.22)
[2025-01-05 05:47] LABS: ALT (SGPT) 24.0 U/L (14-59); AST (SGOT) 31.0 U/L (15-37); GLOMERULAR FILTRATION RATE,EST 37.0 mL/min (>60); PROTEIN, TOTAL 6.4 g/dL (6.4-8.2); UREA NITROGEN 59.0 mg/dL (7-18)
[2025-01-05 05:53] VITALS: BP 116/59
--- NOTE | 2025-01-05 05:54 | NUR ---
TOOK OUT ROOM TRASH AND CLEANED UP ROOM. GOT PT FRESH ICE WATER. PT REQUESTED TO BE COVERED UP AGAIN WITH HOSPITAL BLANKETS, THEN REQUESTED NOTHING MORE AT THIS TIME. PT HAS CALL LIGHT WITHIN REACH.
--- NOTE | 2025-01-05 06:00 | NUR ---
PT AWAKENED FOR VS, ASBESTOS BRAKE LINING FINISHER HELPER REPORTS PT STILL SLIGHTLY DISORIENTED AND REQUIRES CUEING. AM AMMONIA IMPROVING.
[2025-01-05] MEDS ORDERED: TORSEMIDE 20 MG TAB PO SCH (09:00)
[2025-01-05] MEDS ORDERED: SERTRALINE HCL 50 MG TAB PO SCH (09:00)
[2025-01-05] MEDS ORDERED: SPIRONOLACTONE 25 MG TAB PO SCH (09:00)
[2025-01-05] MEDS ORDERED: MICONAZOLE NITRATE 1 EA BTL TOP PRN (09:30)
[2025-01-05 09:56] VITALS: BP 119/55
--- NOTE | 2025-01-05 10:02 | NUR ---
PATIENT IS IN HER CHAIR AT THIS TIME, CHURCH MUSICIAN CHARTED VITALS AND I&O'S, CALL LIGHT WITH IN REACH AND NOTHING ELSE NEEDED AT THIS TIME.
--- NOTE | 2025-01-05 11:06 | NUR ---
HIEU CALLED TO DISCUSS PT BEING DC. ETA OF ONE HOUR. PRIMARY NURSE NOTIFIED. CNAS IN ROOM GETTING PT READY.
--- NOTE | 2025-01-05 12:44 | NUR ---
PATIENT WAS IN HER CHAIR AT THIS TIME, VETERINARY RADIOLOGIST ASSISTED PATIENT IN A SHOWER, WASHED AND BRUSHED HAIR, APPLIED LOTION, WARM BLANKET, FRESH ICE WATER, CALL LIGHT WITH IN REACH AND NOTHING ELSE NEEDED AT THIS TIME.
[2025-01-05 13:05] VITALS: BP 134/59
--- NOTE | 2025-01-05 13:07 | NUR ---
PATIENT IS IN HER CHAIR AT THIS TIME, MANAGER PROPERTY CHARTED VITALS AND I&O'S, CALL LIGHT WITH IN REACH AND NOTHING ELSE NEEDED AT THIS TIME.
[2025-01-05 13:15] VITALS: BP 134/59
--- NOTE | 2025-01-05 13:52 | NUR ---
PATIENT LEFT WITH DAUGHTER. ATTEMPTED TO CALL HIEU VIA PHONE, NO ANSWER. PATIENT REPORTS SHE HAS HER KEYS TO GET IN HER HOME. PATIENT IS ALERT AND ORIENTED X3.
== END 2025-01-05 13:50 | disposition home or self-care (01) | DRG 433 ==
LOC: ED 02:47 → MS 02:49
PROVIDERS: Family Medicine; ADMIT Family Medicine; ATTEND Family Medicine
DX: K74.69 Other cirrhosis of liver (principal); E72.20 Disorder of urea cycle metabolism, unspecified; K76.82 Hepatic encephalopathy; E66.9 Obesity, unspecified; F41.9 Anxiety disorder, unspecified; D69.6 Thrombocytopenia, unspecified; D63.1 Anemia in chronic kidney disease; E11.22 Type 2 diabetes mellitus with diabetic chronic kidney disease; E80.6 Other disorders of bilirubin metabolism; N18.9 Chronic kidney disease, unspecified; B37.2 Candidiasis of skin and nail; G93.89 Other specified disorders of brain; Z86.79 Personal history of other diseases of the circulatory system; Z98.891 History of uterine scar from previous surgery; Z90.49 Acquired absence of other specified parts of digestive tract; Z91.198 Patient's noncompliance with other medical treatment and regimen for other reason; Z98.890 Other specified postprocedural states; Z88.0 Allergy status to penicillin; Z79.899 Other long term (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 therapy; Z79.4 Long term (current) use of insulin; Z68.30 Body mass index [BMI] 30.0-30.9, adult
CPT/HCPCS: 36415; 80053; 81001; 82140; 83690; 83735; 83880; 84100; 85025; 85610; 94762; 96374; 97161; 97165; 97530; 97535; A9270; G0378; G0480; J0696; J1815

== ENCOUNTER 2025-01-15 01:11 | Inpatient (IN) | payer OTHER ==
[2025-01-15] VITALS (8 sets, daily range): BP systolic 112–141; BP diastolic 50–68
[~2025-01-15] VITALS: Ht 157.5 cm; Wt 73.0 kg
[~2025-01-15 01:11] MED LIST changes: +CONSTULOSE10 GM/15 M PO
--- OUTSIDE RECORDS SUMMARY | 2025-01-15 01:11 | XMS ---
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 - 2 Visits in 30 Days CARE PROVIDERS -, [facility]ist: Machine Stonecutter Current Yonatan PHONE: [phone] YULIA PITTMAN Emergency Medicine Current PHONE: [phone] JOSE ONTIVEROS Nurse Practitioner: Family Current PHONE[facility] <[facility] PHONE: [phone] Miguel has no Care Guidelines for this patient. Mile VISIT COUNT (12 MO.) 10 DEIDRE Winston TOTAL 10 NOTE: Visits indicate total known visits. ED/UCC VISIT TRACKING (12 MO.) 01/15/2025 01:11 [facility] [place] TYPE: Emergency COMPLAINT: - ALTERED 01/04/2025 02:48 [facility] [place] TYPE: Emergency COMPLAINT: - ALTERED 12/12/2024 10:36 [facility] [place] TYPE: Emergency COMPLAINT: - FALL 10/30/2024 18:07 [facility] [place] TYPE: Emergency COMPLAINT: - WEAKNESS 08/27/2024 18:09 [facility] [place] TYPE: Emergency COMPLAINT: - SKIN PROBLEM DIAGNOSES: - Allergy status to penicillin - Cutaneous abscess of abdominal wall - Erythema intertrigo - Heart failure, unspecified - Hepatic encephalopathy - Other mcfp (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 therapy - Right lower quadrant pain - Type 2 diabetes mellitus without complications 08/11/2024 12:14 [facility] [place] TYPE: Emergency COMPLAINT: - ALTERED MENTAL STATUS 06/15/2024 12:11 [facility] [place] TYPE: Emergency COMPLAINT: - LOW BLOOD LEVELS DIAGNOSES: - Allergy status to penicillin - Anemia, unspecified - Heart failure, unspecified - retirement (current) use of antibiotics - laborer marine terminal (current) use of insulin - retirement (current) use of non-steroidal anti-inflammatories (NSAID) - Other mcfp (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 therapy - Type 2 diabetes mellitus without complications 05/11/2024 09:04 [facility] [place] TYPE: Emergency COMPLAINT: - ALTERED MENTAL STATUS 01/27/2024 10:51 [facility] [place] TYPE: Emergency COMPLAINT: - ALT LOC 01/18/2024 13:02 [facility] [place] TYPE: Emergency COMPLAINT: - ALTERED LOC INPATIENT VISIT TRACKING (12 MO.) 01/04/2025 11:25 [facility] [place] TYPE: Medical Surgical COMPLAINT: - HEPATIC ENCEPHALOPATHY DIAGNOSES: - Acquired absence of other specified parts of digestive tract - Acquired absence of other specified parts of digestive tract - Allergy status to penicillin - Allergy status to penicillin - Altered mental status, unspecified - Anemia in chronic kidney disease - Anemia in chronic kidney disease - Anxiety disorder, unspecified - Anxiety disorder, unspecified - Body mass index [BMI] 30.0-30.9, adult - Body mass index [BMI] 30.0-30.9, adult - Candidiasis of skin and nail - Candidiasis of skin and nail - Chronic kidney disease, unspecified - Chronic kidney disease, unspecified - Disorder of urea cycle metabolism, unspecified - Disorder of urea cycle metabolism, unspecified - Hepatic encephalopathy - Hepatic encephalopathy - History of uterine scar from previous surgery - History of uterine scar from previous surgery - retirement (current) use of insulin - laborer marine terminal (current) use of insulin - Obesity, unspecified - Obesity, unspecified - Other cirrhosis of liver - Other cirrhosis of liver - Other disorders of bilirubin metabolism - Other disorders of bilirubin metabolism - Other ocean transportation intermediary (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 therapy - Other mcfp (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 therapy - Other specified disorders of brain - Other specified disorders of brain - Other specified postprocedural states - Other specified postprocedural states - Patient's noncompliance with other medical treatment and regimen for other reason - Patient's noncompliance with other medical treatment and regimen for other reason - Personal history of other diseases of the circulatory system - Personal history of other diseases of the circulatory system - Thrombocytopenia, unspecified - Thrombocytopenia, unspecified - Type 2 diabetes mellitus with diabetic chronic kidney disease - Type 2 diabetes mellitus with diabetic chronic kidney disease 12/12/2024 13:[address] [facility] [place] TYPE: Medical [...] of falling - History of falling - retirement (current) use of insulin - laborer marine terminal (current) use of insulin - Obesity, unspecified [...] - Acute kidney failure, unspecified - Alcoholic cirrhosis of liver without ascites [...] of uterine scar from previous surgery - retirement (current) use of insulin - retirement (current) use of insulin - Other mcfp (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 therapy - Other mcfp (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 therapy - Other specified diseases of liver - Other specified diseases of liver - Other specified postprocedural states - Other specified postprocedural states - Patient's other noncompliance with medication regimen for other reason - Patient's other noncompliance with medication regimen for other reason - Thrombocytopenia, unspecified - Type 2 diabetes mellitus without complications - Type 2 diabetes mellitus without complications 08/11/2024 15:08 [facility] [place] TYPE: Medical [...] - Iron deficiency anemia, unspecified - Other mcfp (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 therapy - Other ocean transportation intermediary (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 therapy - Other secondary thrombocytopenia [...] of injectable non-insulin antidiabetic drugs - Other mcfp (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 therapy - Other secondary thrombocytopenia [...] disease, or unspecified chronic kidney disease - retirement (current) use of insulin - retirement (current) use of insulin - Obesity, unspecified - Obesity, unspecified - Other mcfp (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 therapy - Other ocean transportation intermediary (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 therapy - Other specified postprocedural [...] Hepatic encephalopathy - Hypercalcemia - Hypercalcemia - laborer marine terminal (current) use of insulin - laborer marine terminal (current) use of insulin - Obesity, unspecified - Obesity, unspecified - Other disorders of bilirubin metabolism - Other disorders of bilirubin metabolism - Other mcfp (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 therapy - Other ocean transportation intermediary (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 therapy - Other specified postprocedural [...] kidney disease - Unspecified cirrhosis of liver [email or web address]
[2025-01-15 02:02] LABS: BASOPHILS 0.7 % (0.1-1.2); EOSINOPHILS 2.2 % (0.7-5.8); LYMPHOCYTES 25.8 % (19.3-51.7); MCH 31.3 PG (25.6-32.2); MCHC 33.8 g/dL (32.2-35.5); MCV 92.5 fL (79.4-94.8); MONOCYTES 9.2 % (4.7-12.5); NEUTROPHILS 61.9 % (34.0-71.1); RBC 3.87 M/uL (3.93-5.22)
[2025-01-15 02:11] LABS: INR 1.17 (0.80-1.30); PROTIME 14.5 Sec (11.2-14.2)
[2025-01-15 02:15] LABS: ALCOHOL, MEDICAL <3 ng/dL (<3); AST (SGOT) 33 U/L (15-37); GLOMERULAR FILTRATION RATE,EST 34 mL/min (>60); PROTEIN, TOTAL 7.1 g/dL (6.4-8.2); UREA NITROGEN 66 mg/dL (7-18)
[2025-01-15] MEDS ORDERED: LACTULOSE 10 GM/15 ML ML PR ONE (02:30)
[2025-01-15 02:43] LABS: ALT (SGPT) 29 U/L (14-59)
[2025-01-15] MEDS ORDERED: LACTULOSE 20 GM/30 ML CUP PO ONE (04:30)
[2025-01-15 04:59] LABS: BLOOD/HGB, URINE NEGATIVE (Negative); KETONE, URINE NEGATIVE (Negative); LEUK ESTERASE, URINE MODERATE (negative); NITRITE, URINE NEGATIVE (negative)
[2025-01-15 05:08] LABS: BACTERIA, URINE RARE /hpf (negative); CASTS, URINE NONE SEEN \\lpf; CRYSTALS, URINE NONE SEEN (0-1+); EPITHELIAL CELLS, URINE SQUAMOUS 1+ /lpf (0-1+); REFLEX CULTURE, URINE Yes (No)
[2025-01-15 05:14] LABS: AMPHETAMINES, URINE NEGATIVE (NEGATIVE); BARBITURATES, URINE NEGATIVE (NEGATIVE); BENZODIAZEPINE, URINE NEGATIVE (NEGATIVE); CANNABINOID, URINE NEGATIVE (NEGATIVE); COCAINE, URINE NEGATIVE (NEGATIVE); ECSTASY, URINE NEGATIVE (NEGATIVE); FENTANYL, URINE NEGATIVE (NEGATIVE); METHADONE, URINE NEGATIVE (NEGATIVE); OPIATES, URINE NEGATIVE (NEGATIVE); OXYCODONE, URINE NEGATIVE (NEGATIVE); PHENCYCLIDINE, URINE NEGATIVE (NEGATIVE)
[2025-01-15] MEDS ORDERED: LACTULOSE 10 GM/15 ML ML PR SCH (09:00)
[2025-01-15] MEDS ORDERED: LACTULOSE 20 GM/30 ML CUP PO SCH (09:00)
[2025-01-15] MEDS ORDERED: Rifaximin 550 MG TAB PO SCH ×2 (09:00)
[2025-01-15] MEDS ORDERED: levoFLOXacin 500 MG PIGGYBACK IV ONE (10:30)
[2025-01-15] MEDS ORDERED: PANTOPRAZOLE SODIUM 40 MG TABEC PO SCH (10:41)
[2025-01-15] MEDS ORDERED: IBLOOD GLUCOSE TEST STRIP 1 EA TEST XX PRN (10:45)
[2025-01-15] MEDS ORDERED: DEXTROSE 5% 1,000 ML IV PRN (10:45)
[2025-01-15] MEDS ORDERED: GLUCAGON,HUMAN RECOMBINANT 1 MG/ML VIAL SUB-Q PRN (10:45)
[2025-01-15] MEDS ORDERED: DEXTROSE 50% 50 ML SYR IV PRN ×2 (10:45)
[2025-01-15] MEDS ORDERED: MICONAZOLE NITRATE 1 EA BTL TOP SCH (10:53)
[2025-01-15] MEDS ORDERED: ZOLOFT50 MG PO (11:28)
[2025-01-15] MEDS ORDERED: XIFAXAN550 MG PO (11:28)
[2025-01-15] MEDS ORDERED: Insulin Regular, Human 100 UNIT/ML ML SUB-Q SCH (14:00)
[2025-01-15] MEDS ORDERED: IBLOOD GLUCOSE TEST STRIP 1 EA TEST VI SCH ×2 (14:00→21:00)
[2025-01-15] MEDS ORDERED: INSULIN LISPRO 100 UNIT/ML ML SUB-Q SCH (21:00)
[2025-01-16] VITALS (10 sets, daily range): BP systolic 102–132; BP diastolic 47–58
[2025-01-16 05:28] LABS: BASOPHILS 0.5 % (0.1-1.2); EOSINOPHILS 1.8 % (0.7-5.8); LYMPHOCYTES 19.5 % (19.3-51.7); MCH 30.9 PG (25.6-32.2); MCHC 32.9 g/dL (32.2-35.5); MCV 94.0 fL (79.4-94.8); MONOCYTES 8.2 % (4.7-12.5); NEUTROPHILS 69.8 % (34.0-71.1); RBC 3.69 M/uL (3.93-5.22)
[2025-01-16 05:39] LABS: INR 1.25 (0.80-1.30); PROTIME 14.9 Sec (11.2-14.2)
[2025-01-16 05:47] LABS: ALT (SGPT) 34.0 U/L (14-59); AST (SGOT) 35.0 U/L (15-37); GLOMERULAR FILTRATION RATE,EST 24.0 mL/min (>60); PHOSPHORUS, INORGANIC 3.2 mg/dL (2.5-4.9); PROTEIN, TOTAL 6.5 g/dL (6.4-8.2); UREA NITROGEN 69.0 mg/dL (7-18)
[2025-01-16] MEDS ORDERED: INSULIN GLARGINE-YFGN 100 UNIT/ML ML SUB-Q SCH (09:00)
[2025-01-16] MEDS ORDERED: LACTATED RINGER'S 1,000 ML IV SCH (12:30)
[2025-01-16 20:38] LABS: GLOMERULAR FILTRATION RATE,EST 26.0 mL/min (>60); UREA NITROGEN 71.0 mg/dL (7-18)
[2025-01-17 05:24] LABS: BASOPHILS 0.6 % (0.1-1.2); EOSINOPHILS 4.7 % (0.7-5.8); LYMPHOCYTES 29.8 % (19.3-51.7); MCH 31.9 PG (25.6-32.2); MCHC 34.0 g/dL (32.2-35.5); MCV 93.8 fL (79.4-94.8); MONOCYTES 7.7 % (4.7-12.5); NEUTROPHILS 57.2 % (34.0-71.1); RBC 3.23 M/uL (3.93-5.22)
[2025-01-17 06:00] LABS: ALT (SGPT) 25.0 U/L (14-59); AST (SGOT) 35.0 U/L (15-37); GLOMERULAR FILTRATION RATE,EST 31.0 mL/min (>60); PROTEIN, TOTAL 5.7 g/dL (6.4-8.2); UREA NITROGEN 65.0 mg/dL (7-18)
[2025-01-17 06:31] VITALS: BP 118/64
[2025-01-17 06:36] VITALS: BP 118/64
[2025-01-17 09:27] VITALS: BP 118/53
[2025-01-17 09:38] VITALS: BP 118/53
[2025-01-17] MEDS ORDERED: LEVOFLOXACIN250 MG PO (11:08)
[2025-01-17] MEDS ORDERED: levoFLOXacin 250 MG TAB PO ONE (11:15)
== END 2025-01-17 11:40 | disposition home or self-care (01) | DRG 433 ==
LOC: ED 01:11 → MS 01:12
PROVIDERS: Family Medicine; ADMIT Internal Medicine; ATTEND Internal Medicine
DX: K70.30 Alcoholic cirrhosis of liver without ascites (principal); N17.9 Acute kidney failure, unspecified; N39.0 Urinary tract infection, site not specified; K76.82 Hepatic encephalopathy; I50.9 Heart failure, unspecified; F41.9 Anxiety disorder, unspecified; E11.65 Type 2 diabetes mellitus with hyperglycemia; N18.9 Chronic kidney disease, unspecified; E11.22 Type 2 diabetes mellitus with diabetic chronic kidney disease; Z91.148 Patient's other noncompliance with medication regimen for other reason; Z79.4 Long term (current) use of insulin; Z79.899 Other long term (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 therapy; Z98.891 History of uterine scar from previous surgery; Z90.49 Acquired absence of other specified parts of digestive tract; Z98.890 Other specified postprocedural states; Z88.0 Allergy status to penicillin
CPT/HCPCS: 36415; 80048; 80053; 80307; 81001; 82140; 83036; 83690; 83735; 84100; 85025; 85610; 86140; 87088; A9270; G0480; J1815; J1956; J2405; J7121